=== PATIENT | female | born 1940 | race Caucasian/White ===

== ENCOUNTER 2016-12-17 05:56 | Inpatient (IN) | payer MEDICARE ==
--- OUTSIDE RECORDS SUMMARY | 2016-12-17 05:59 | XMS | Clinical Summary ---
:1940 Author Organization [facility] Address [address] [place] [address] Phone Care Team Providers Name Role Phone , Primary Care Provider Unavailable Allergies Not on File Current Medications Not on file Active Problems Not on file Social History Tobacco Use Types Packs/Day Years Used Date Never Assessed Sex Assigned at Date Recorded Not on file Last Filed Vital Signs Not on file Plan of Treatment Not on file Results Not on filefrom Last 3 Months
[2016-12-17] MEDS ORDERED: Diazepam 5 MG TAB ONE (06:48)
[2016-12-17] MEDS ORDERED: Diazepam 5 MG TAB PO SCH (07:00)
[2016-12-17] MEDS ORDERED: Midazolam HCl 2 mg/2 ml Vial ONE ×2 (07:24→12:58)
[2016-12-17] MEDS ORDERED: Fentanyl 100 MCG/2 ML VIAL ONE (07:25)
[2016-12-17] MEDS ORDERED: Nitroglycerin 100MG/250ML BOT 250 ML ONE (08:03)
[2016-12-17] MEDS ORDERED: Heparin 10,000 UNITS/1 ML VIAL ONE (08:19)
[2016-12-17] MEDS ORDERED: Furosemide 20 MG/2 ML VIAL ONE (08:39)
[2016-12-17] MEDS ORDERED: Nitroglycerin 2% Ointment 1 INCH/1 GM Packet ONE (08:49)
[2016-12-17] MEDS ORDERED: Nitroglycerin 2% Ointment 1 INCH/1 GM Packet TOP SCH (09:45)
[2016-12-17] MEDS ORDERED: Furosemide 40 MG/4 ML VIAL SLOW IVP SCH (09:45)
[2016-12-17 09:58] LABS: Troponin I 0.043 ng/mL (< 0.028)
[2016-12-17] MEDS ORDERED: Diazepam 5 MG TAB PO PRN (11:04)
[2016-12-17] MEDS ORDERED: Communication Order-Pharmacy FS ONE (11:04)
[2016-12-17] MEDS ORDERED: Vancomycin HCl 1.5 GM in Sodium Chloride 0.9% 250 ML 300 ML IVPB SCH (11:15)
[2016-12-17] MEDS ORDERED: Nitroglycerin 0.4 MG TAB (25 Tab Bottle) SL PRN (11:42)
[2016-12-17] MEDS ORDERED: traMADol HCl 50 MG TAB ONE (11:42)
[2016-12-17] MEDS ORDERED: Acetaminophen/Codeine 30-300mg Tablet PO PRN ×2 (11:42)
[2016-12-17] MEDS ORDERED: Potassium Chloride 8 MEQ TAB PO SCH ×2 (11:45→18:30)
[2016-12-17 12:43] LABS: Troponin I 0.421 ng/mL (< 0.028)
[2016-12-17] MEDS ORDERED: Morphine Sulfate 2 MG/ML SYRINGE SLOW IVP SCH (12:45)
[2016-12-17] MEDS ORDERED: Morphine Sulfate 2 MG/ML SYRINGE ONE (12:48)
[2016-12-17] MEDS ORDERED: Midazolam HCl 2 mg/2 ml Vial IVP SCH (13:00)
[2016-12-17] MEDS ORDERED: Acetaminophen/Codeine 30-300mg Tablet ONE (17:32)
--- NOTE | 2016-12-17 17:55 | CT ---
CT CHEST NONCONTRAST: History: Pre op. Aortic stenosis. Comparison: 04-07-13 FINDINGS: Small amount of bilateral pleural fluid is similar in appearance to the previous exam. Subtle patchy airspace disease at the posterior aspect of each upper lobe and each lower lobe has progressed slig htly. No pneumothorax is evident. There is bovine origin of the great vessels from the aortic arch. Calcification is present within th e arterial structures. A lobulated soft tissue density mass between the krystal or the trachea and the aortic root is 4.3 cm greatest transverse diameter where it was 3.0 cm on the previous study. Prominent lymph nodes at th e subcarinal level are stable. The ascending aorta is 3.9 cm in AP diameter. Within the partially visualized upper abdomen, contrast material within the urinary collecting syste m and gallbladder are likely related to recent catheterization procedure. IMPRESSION: 1. Ascending aorta is of normal caliber. 2. Slow enlargement of the mediastinal adenopathy, most pronounced at the precarinal level, as detai led above. 3. Small bilateral pleural effusions. Slight interval progression of bibasilar airspace disease. 4. Atherosclerosis. Findings were called to Dr. Hewitt at 1733 hours. Code CR POS: [facility]
[2016-12-17] MEDS ORDERED: Lorazepam 1 MG TAB PO SCH (18:15)
[2016-12-17] MEDS ORDERED: Cyclobenzaprine 10 MG TAB PO SCH (18:30)
[2016-12-17] MEDS ORDERED: Dextrose 5% in Water 1,000 ML IV PRN (18:40)
[2016-12-17] MEDS ORDERED: Dextrose 50% Abboject 50 ML SYRINGE IVP PRN (18:40)
[2016-12-17 18:51] LABS: Troponin I 6.103 ng/mL (< 0.028)
[2016-12-17] MEDS ORDERED: Insulin Regular 300 UNITS/3 ML VIAL SC PRN (18:53)
[2016-12-17] MEDS: Sodium Chloride 0.9% 1,000 ML IV SCH ×2 (20:53→23:48)
[2016-12-17] MEDS: Carvedilol 6.25 MG TAB PO SCH (20:56)
[2016-12-17] MEDS: Gabapentin 300 MG CAP PO SCH (20:56)
[2016-12-17] MEDS ORDERED: Atorvastatin Calcium 10 MG TAB PO SCH (21:00)
[2016-12-17] MEDS ORDERED: Iopamidol 370 76% 100 ML VIAL ONE (23:06)
--- NOTE | 2016-12-18 01:39 | CON ---
DATE OF CONSULTATION: 12/17/2016 REASON FOR CONSULTATION: Evaluate patient for aortic valve replacement and coronary artery bypass maisha thornton. HISTORY OF PRESENT ILLNESS: Ms. Ballard presented for elective cardiac catheterization today. She was found on catheterization of aortic valve area of 0.8, the ejection fraction of approximately 55% - 60%. She had proximal LAD disease of approximately 70%. The peak-peak gradient was 25, I have been asked to see her to discuss aortic valve replacement and coronary bypass grafting. PAST MEDICAL HISTORY: 1. Diabetes mellitus. 2. Hypertension. 3. Dyslipidemia. 4. Aortic stenosis. 5. Coronary artery disease. PAST SURGICAL HISTORY: 1. Hysterectomy. 2. Gastric surgeries. 3. Carpal tunnel. CURRENT MEDICATIONS: Tonsillectomy. ALLERGIES: PENICILLIN and SULFA. REVIEW OF SYSTEMS: Ten-point review of systems is performed and is negative except as above. PHYSICAL EXAMINATION: GENERAL: This is a well-developed, well-nourished elderly woman, resting comfortably in bed. VITAL SIGNS: Her temperature is 98.8, pulse is 70 and regular blood pressure is 130/76. HEENT: Sclerae nonicteric. Pupils equal, round bilaterally. NECK: Supple. There are bilateral soft carotid bruits. CHEST: Has bilateral rhonchi. HEART: Rhythm is regular. She has a harsh aortic systolic ejection murmur. ABDOMEN: Moderately obese, soft and nontender. EXTREMITIES: No edema. VASCULAR: She has palpable carotid, radial, femoral, and dorsalis pedis pulses bilaterally. VENOUS: There are no venous varicosities or venous stasis changes. ASSESSMENT AND PLAN: This is a very pleasant 76-year-old woman with severe aortic stenosis and sing le vessel coronary disease. I have discussed aortic valve replacement with bioprosthetic valve and coronary artery bypass grafting with mammary artery to LAD. She is agreeable to proceed. I have obtained a CT of her chest for valve sizing information. This is a level 4R lymph node , whi ch may be accessible at the time of coronary artery bypass grafting. We will see if we can access t his for biopsy at that time.
[2016-12-18] MEDS: Carvedilol 6.25 MG TAB PO SCH (05:58)
[2016-12-18] MEDS ORDERED: Vancomycin HCl 1.5 GM in Sodium Chloride 0.9% 250 ML 300 ML IVPB SCH (06:00)
[2016-12-18] MEDS ORDERED: Dexmedetomidine 200 MCG/2 ML VIAL ONE (06:39)
[2016-12-18] MEDS ORDERED: Norepinephrine 8 MG/0.9% NS 250 ML ONE (06:39)
[2016-12-18] MEDS ORDERED: Midazolam HCl 2 mg/2 ml Vial ONE (06:39)
[2016-12-18] MEDS ORDERED: Midazolam HCl 5 mg/5 ml Vial ONE (06:39)
[2016-12-18] MEDS ORDERED: Fentanyl 100 MCG/2 ML VIAL ONE (06:39)
[2016-12-18] MEDS ORDERED: Vecuronium 10 MG VIAL ONE ×2 (06:39→07:47)
[2016-12-18] MEDS ORDERED: Heparin 10,000 UNITS/1 ML VIAL 30,000 UNITS in Sodium Chloride 0.9% 1,000 ML FS SCH (07:00)
[2016-12-18] MEDS ORDERED: Propofol 200 MG/20 ML VIAL ONE (07:47)
[2016-12-18] MEDS ORDERED: Lidocaine 2% PF 10 ML AMP (For Epidural Use) ONE (07:47)
[2016-12-18] MEDS ORDERED: Potassium Chloride 10 MEQ TAB PO SCH (08:00)
[2016-12-18] MEDS ORDERED: Insulin Regular 300 UNITS/3 ML VIAL ONE (08:43)
[2016-12-18] MEDS ORDERED: INSULIN DEGLUDEC SC SCH (09:00)
[2016-12-18] MEDS ORDERED: Furosemide 40 MG TAB PO SCH (09:00)
[2016-12-18] MEDS ORDERED: Pioglitazone HCl 45 MG TAB PO SCH (09:00)
[2016-12-18] MEDS ORDERED: Aspirin 325 MG TAB PO SCH (09:00)
[2016-12-18] MEDS ORDERED: Prenatal Vitamin 1 TAB PO SCH (09:00)
[2016-12-18] MEDS ORDERED: Calcium Carbonate + Vit D 1 TAB PO SCH (09:00)
[2016-12-18] MEDS ORDERED: Lactinex Tablet PO SCH (09:00)
[2016-12-18] MEDS ORDERED: PHENYLEPHRINE-NS 100 MCG/ML 10 ML SYRINGE ONE (09:16)
[2016-12-18] MEDS ORDERED: Acetaminophen 325 MG TAB PO PRN (12:06)
[2016-12-18] MEDS ORDERED: SLIDING SCALE FS ONE (12:06)
[2016-12-18] MEDS ORDERED: Promethazine HCl 25 MG/ML VIAL IM PRN (12:06)
[2016-12-18] MEDS ORDERED: Bisacodyl 10 MG SUPP PR PRN (12:06)
[2016-12-18] MEDS ORDERED: Mag-Al 1200 mg/1200 mg/30 ML UDCUP PO PRN (12:06)
[2016-12-18] MEDS ORDERED: Nitroglycerin 50 MG/250 ML BOT 250 ML IVPB PRN (12:06)
[2016-12-18] MEDS ORDERED: CCU Insulin Drip FS ONE (12:06)
[2016-12-18] MEDS ORDERED: Fentanyl 100 MCG/2 ML VIAL SLOW IVP PRN ×2 (12:06)
[2016-12-18] MEDS ORDERED: HYDROcodone/Acetaminophen 5/325 mg Tablet PO PRN (12:06)
[2016-12-18] MEDS ORDERED: Norepinephrine 8 MG/0.9% NS 250 ML IVPB PRN (12:06)
[2016-12-18] MEDS ORDERED: Bisacodyl 5 MG TAB PO PRN (12:06)
[2016-12-18] MEDS ORDERED: Hetastarch 6% 500 ML 500 ML IVPB PRN (12:06)
[2016-12-18] MEDS ORDERED: D5 1/2 NS w/20 mEq KCL 1,000 ML IV SCH (12:06)
[2016-12-18] MEDS ORDERED: Dextrose 50% Abboject 50 ML SYRINGE SLOW IVP PRN (12:30)
[2016-12-18] MEDS ORDERED: Magnesium 2 GM/NS 0.9% 100 ML 2 GM in Premix Bag 1 BAG IVPB SCH (12:30)
[2016-12-18] MEDS ORDERED: Dextrose 5% in Water 1,000 ML IV PRN (12:30)
[2016-12-18 12:38] LABS: Oxyhemoglobin 94.7 % (94.0-97.0); Sodium 138 mmol/L (135-148)
[2016-12-18 12:40] LABS: Mechanical Tidal Volume 500 ml; Vent YES
[2016-12-18 12:41] LABS: Mode SIMV; Pressure Support 10 cmH2O
[2016-12-18 12:42] LABS: Hematocrit 35.3 % (36.0-47.0); Mean Platelet Volume 7.8 fL (7.4-10.4); Red Blood Cell (RBC) Count 3.95 mill/uL (4.20-5.40); White Blood Cell (WBC) Count 20.7 thou/uL (4.8-10.8)
[2016-12-18 12:57] LABS: Band 26 % (5-11); Myelocyte 3 % (0-0); Neutrophil 55 % (42-75); Reactive Lymphocytes 1 % (0-10)
[2016-12-18 13:10] LABS: Anion Gap 9 mmol/L (10-20); BUN (Urea Nitrogen) 14 mg/dL (9.8-20.1); Calc. Creatinine Clearance 120 mL/min (70-130); Calcium 7.7 mg/dL (7.8-10.44); Carbon Dioxide 23 mmol/L (23-31); Chloride 108 mmol/L (98-107); Estimated GFR-MDRD Greater than 90
--- NOTE | 2016-12-18 13:38 | OP ---
DATE OF PROCEDURE: 12/18/2016 PREOPERATIVE DIAGNOSES: Aortic stenosis/coronary disease/ hyperlipidemia/ diabetes mellitus. POSTOPERATIVE DIAGNOSES: Aortic stenosis/coronary disease/ hyperlipidemia/ diabetes mellitus. PROCEDURES: 1. Aortic valve replacement with #21 Intuity bioprosthetic valve. 2. Coronary bypass grafting x1 - Left internal mammary artery to 2.0 mm left anterior descending. SURGEON: Kenneth Hewitt M.D. ANESTHESIA: General endotracheal, Dr. Adan Stallworth and Dr. Graham Lynn. PUMP TIME: 101 minutes. CROSS-CLAMP TIME: 68 minutes. LOW CORE TEMP: 32-degree Celsius. PHP DEVELOPER: Radha Langston DRAINS: 24-Romansh chest tubes x2. DRIPS: Levophed at 2 mcg/kg per minute. TRANSFUSIONS: None. PROCEDURE IN DETAIL: After consent was obtained, the patient was brought to the operating room and placed in the supine position on the operating room table. Appropriate anesthetic monitor was placed and general endotracheal anesthesia induced. Chest, abdomen, and legs were prepped and draped in usual sterile fashion. Median sternotomy was performed. Left internal mammary artery was harvested as a pedicle graft. The patient was systemically heparinized. Distal pedicle was divided and infused with papaverine. Thymic fat and pericardium were divided with electrocautery. Pericardial stay sutures were placed. Aortic and atrial cannulation was performed. After adequate heparinization, retrograde prime was performed. The patient was placed on cardiopulmonary bypass. Distal targets were marked. Left ventricular sump drain was placed to the right superior pulmonary vein. The aorta cross-clamp was applied and antegrade sanguinous cardioplegic arrest obtained. One liter of antegrade cold cardioplegia was given. Topical cold solution was used. Mammary artery was anastomosed to the LAD in end-to-side fashion with running 7- 0 Prolene suture. On release of the mammary clamp, there was good coronel putting in the anastomosis and good distal flow. Pedicle was secured with interrupted 6 -0 Prolene suture. Mammary was reclamped. C)2 was infused in the pericardial well. A transverse hockey stick aortotomy was then created. The aortic valve was inspected. It was a 3 leaflet valve that was heavily calcified at hinge points. The valve was debrided. Annulus was decalcified. Valve measured is a #21. An Intuity #21 valve was then washed. Jerome sutures were placed and passed through the valve sewing ring. The valve was then seated and secured in place with Rumel tourniquets. The valve balloon was inflated to 4-1/2 mmHg for 10 seconds. The valve balloon was released and the handle removed. At the mid non to mid right commissure, the valve did not appear to be completely seated. Six nonpledgeted 4-0 Prolene sutures were placed to secure the valve through the sewing ring in the annulus. All sutures were then tied. Aortotomy was closed with a pledgeted running 2 layer 4-0 Prolene suture. De-airing maneuvers were performed. The patient was warmed and weaned from cardiopulmonary bypass. The mammary artery clamp was removed. After resumption of sinus rhythm, good hemodynamics, and temperature greater than 36.5 , bypass was discontinued. Venous cannula was removed and its pursestring sutures secured. The valve was interrogated with transesophageal echocardiogram. There was no perivalvular leak. The valve was seated nicely and there was good valvular function. The ventricle had circumferential squeeze. The ejection fraction was approximately 60%. Protamine was administered. Hemostasis was ensured. Aortic cannula was removed and its pursestring sutures secured. The aortic cannulation site was reinforced with 4- 0 Prolene suture. The posterior pericardium was opened medial to the superior vena cava. There was a large lymph node noted on CT which was biopsied and specimen sent for routine pathologic exam. Hemostasis was again ensured in the mediastinum. A 24 -Romansh chest tubes x2 were placed in the mediastinum. The sternum was treated with vancomycin paste. After adequate hemostasis had been obtained, the sternum was closed with #5 wire. Sternum was treated with platelet-rich plasma and wires twisted. Wounds were then copiously irrigated, treated with platelet- poor plasma, and closed in multiple layers. The patient tolerated the procedure well and was transferred to the Intensive Care Unit in stable, but critical condition. MOIZ
[2016-12-18] MEDS: Ketorolac Tromethamine 30 MG/ML VIAL IVP SCH ×3 (13:39→23:11)
[2016-12-18] MEDS ORDERED: DOPamine 400 MG/D5W 250 ML 250 ML ONE (14:36)
--- NOTE | 2016-12-18 14:38 | RAD ---
PORTABLE AP CHEST: Date: 12-18-16 History: Post open heart surgery. Comparison: 01-09-16 FINDINGS: There have been interval post-surgical changes related to median sternotomy and cardiac valve replac ement. There are prominent calcifications of the mitral valve annulus. Endotracheal tube is noted in place with tip overlying the T4-5 level and above the level of the car daren. Left subclavian central venous catheter is noted in place, the tip overlying the right atrium. Mediastinal drains and left sided thoracostomy tube are noted in place. There is increased perihilar interstitial densities which may be related to volume status or mild pulmonary edema. Parenchymal o pacity in the left midlung zone seen on the prior study is not present on this study. There is atele ctasis present at each lung base. No other interval change. IMPRESSION: 1. Interval post-surgical changes related to cardiac valve replacement. 2. Lines and tubes in place as described above. 3. Increased perihilar interstitial densities which may be related to volume status. Continued follo w up is recommended. POS: [facility]
[2016-12-18] MEDS: Ondansetron HCl/PF 4 MG/2 ML Vial IVP PRN (14:47)
[2016-12-18] MEDS: Morphine Sulfate 2 MG/ML SYRINGE SLOW IVP PRN ×2 (14:48→16:27)
[2016-12-18] MEDS ORDERED: DOPamine 400 MG/D5W 250 ML 250 ML IVPB SCH (15:00)
[2016-12-18 18:16] LABS: Hematocrit 29.8 % (36.0-47.0)
[2016-12-18] MEDS: Gabapentin 300 MG CAP PO SCH (18:37)
--- NOTE | 2016-12-18 18:47 | PDOC.CTH ---
Cardiology Progress Note - Subjective INtubated and sedated. Pt recnetly underwent CABG, AVR. On norepinephrine wih BP of 140's - ROS not able to obtain ROS - Objective Vital Signs Temp Pulse Resp Pulse Ox 12/18/16 17:00 99.0 F 12/18/16 14:29 70 12/18/16 12:42 78 12/18/16 12:22 98.8 F 70 12 100 Weight 203 lb 4.259 oz 12/17/16 12/18/16 12/19/16 06:59 06:59 06:59 Intake Total 600 1717 Output Total 2325 355 Balance -1725 1362 - Physical Examination Neck: carotid US brisk, no JVD present Lungs: CTA, unlabored respirations Heart: PMI normal, RRR Abdomen: no HSM, NT/ND, soft - Telemetry Telemetry Rhythm: ST - Labs Result Diagrams: 12/18/16 18:08 12/18/16 18:08 Troponin/CKMB CK-MB (CK-2) 32.8 ng/mL (0-6.6) H* 12/17/16 18:08 Troponin I 6.103 ng/mL (< 0.028) H* 12/17/16 18:08 Labs: O/W CBC wnl - Assessment/Plan 1. Severe 2. Moderate to severe LAD disease 3. Recent NQWMI CV status stable. Wean off norepinephrine Increase troponin from yesterday likely related to emboli from crossing AV Pulmonary support
[2016-12-18] MEDS: Vancomycin HCl 1.5 GM in Sodium Chloride 0.9% 250 ML 300 ML IVPB SCH (20:25)
[2016-12-18] MEDS ORDERED: Famotidine 40 MG/4 ML VIAL SLOW IVP SCH (21:00)
[2016-12-19] MEDS: HYDROcodone/Acetaminophen 5/325 mg Tablet PO PRN ×3 (01:59→20:03)
[2016-12-19 04:00] LABS: Anion Gap 12 mmol/L (10-20); BUN (Urea Nitrogen) 18 mg/dL (9.8-20.1); Calc. Creatinine Clearance 102 mL/min (70-130); Calcium 7.8 mg/dL (7.8-10.44); Carbon Dioxide 19 mmol/L (23-31); Chloride 107 mmol/L (98-107); Estimated GFR-MDRD 82
[2016-12-19 04:14] LABS: #Eosinphils 0.1 thou/uL (0.0-0.7); #Lymphocytes 2.1 thou/uL (1.20-3.40); #Monocytes 1.3 thou/uL (0.11-0.59); #Neutrophils 6.5 thou/uL (1.40-6.50); %Basophils 0.3 % (0.0-1.0); %Eosinophils 1.3 % (0.0-10.0); %Monocytes 12.8 % (0.0-10.0); Hematocrit 27.6 % (36.0-47.0); Mean Platelet Volume 8.2 fL (7.4-10.4); Red Blood Cell (RBC) Count 3.09 mill/uL (4.20-5.40)
[2016-12-19] MEDS: Ketorolac Tromethamine 30 MG/ML VIAL IVP SCH ×3 (05:02→17:37)
[2016-12-19] MEDS: glipiZIDE 5 MG TAB PO SCH ×3 (07:45→16:42)
--- NOTE | 2016-12-19 08:37 | RAD ---
PORTABLE UPRIGHT FRONTAL CHEST RADIOGRAPH: Date: 12-19-16 Comparison: 12-18-16 History: Evaluate chest following open heart surgery. FINDINGS: Midline sternotomy wires are present. Mechanical valve overlies mid cardiac silhouette suggesting re cent aortic valve replacement. There is a drainage catheter overlying the midline mediastinum and th e left hemithorax. The endotracheal tube has been removed since the prior exam. There is a stable ri ght sided vascular catheter, distal tip approaching the junction of the right atrium and IVC. There is patchy opacity in both lung bases, left greater than right, likely on the basis of volume loss. F ollow up to resolution advised. IMPRESSION: Post-operative changes as detailed above. Increased density noted in both lung bases, left greater t conner right. POS: [facility]
[2016-12-19] MEDS: Gabapentin 300 MG CAP PO SCH ×2 (08:39→20:04)
[2016-12-19] MEDS: Aspirin 325 MG TAB PO SCH (08:40)
[2016-12-19] MEDS: Prenatal Vitamin 1 TAB PO SCH (08:40)
[2016-12-19] MEDS: Magnesium 2 GM/NS 0.9% 100 ML 2 GM in Premix Bag 1 BAG IVPB SCH (08:40)
[2016-12-19] MEDS: Pioglitazone HCl 45 MG TAB PO SCH (08:41)
[2016-12-19] MEDS: Vancomycin HCl 1.5 GM in Sodium Chloride 0.9% 250 ML 300 ML IVPB SCH (08:44)
--- NOTE | 2016-12-19 08:55 | PDOC.CTH ---
Cardiology Progress Note - Subjective Pt doing well this am. Pt is extubated and off pressors. Only c/o CWP - Objective Vital Signs Temp Pulse Resp Pulse Ox 12/19/16 07:15 98.7 F 80 22 H 96 12/19/16 07:00 98.7 F 12/19/16 03:00 98.1 F 12/18/16 23:00 98.6 F Weight 202 lb 2.622 oz 12/18/16 12/19/16 12/20/16 06:59 06:59 06:59 Intake Total 600 2663 Output Total 2325 955 40 Balance -1725 1708 -40 - Physical Examination General/Neuro: alert & oriented x3, NAD Neck: carotid US brisk, no JVD present Lungs: CTA, unlabored respirations Heart: PMI normal Abdomen: no HSM, NT/ND - Telemetry Telemetry Rhythm: SR with PAC - Labs Result Diagrams: 12/19/16 03:19 12/19/16 03:19 Troponin/CKMB CK-MB (CK-2) 32.8 ng/mL (0-6.6) H* 12/17/16 18:08 Troponin I 6.103 ng/mL (< 0.028) H* 12/17/16 18:08 Labs: O/W CBC wnl - Assessment/Plan 1. Severe 2. Moderate to severe LAD disease 3. Recent NQWMI 3. Hypotension Recommend holding BB for now given low BP IS CT removed. Await biopsy results Bed to chair Statin treatment Avoid IV lasix if possble secondary to leg cramps
[2016-12-19] MEDS: Ondansetron HCl/PF 4 MG/2 ML Vial IVP PRN ×2 (08:59→20:05)
[2016-12-19] MEDS ORDERED: IRON PO SCH (09:00)
[2016-12-19] MEDS ORDERED: PNV CMB PO SCH (09:00)
[2016-12-19] MEDS ORDERED: METFORMIN HCL PO SCH (09:00)
[2016-12-19] MEDS ORDERED: FOLIC ACID PO SCH (09:00)
[2016-12-19] MEDS ORDERED: [UNRECOGNIZED DRUG - OTHER] PO SCH (09:00)
[2016-12-19] MEDS ORDERED: GLIPIZIDE PO SCH (09:00)
[2016-12-19] MEDS ORDERED: Gabapentin 300 MG CAP PO SCH (09:00)
[2016-12-19 14:10] LABS: Base Excess 0.5 mEq/L (0 (+/- 2.5)); O2 Content (venous) 7.4 VOL% (12.5-17.5); pH (venous) 7.385 (7.35-7.45)
[2016-12-19 14:10] LABS: Oxyhemoglobin 97.5 % (94.0-97.0); Sodium 136 mmol/L (135-148)
[2016-12-19 14:10] LABS: Oxyhemoglobin 97.6 % (94.0-97.0); Sodium 135 mmol/L (135-148)
[2016-12-19 14:11] LABS: Oxyhemoglobin 97.5 % (94.0-97.0); Sodium 134 mmol/L (135-148)
[2016-12-19 14:11] LABS: Oxyhemoglobin 97.4 % (94.0-97.0); Sodium 136 mmol/L (135-148)
[2016-12-19 14:11] LABS: Oxyhemoglobin 97.6 % (94.0-97.0); Sodium 136 mmol/L (135-148)
[2016-12-19] MEDS: Insulin Regular 300 UNITS/3 ML VIAL SC PRN (16:13)
[2016-12-19 17:56] LABS: Mode OR ABG; Vent YES
[2016-12-19 17:56] LABS: Mode OR ABG; Vent YES
[2016-12-19 17:57] LABS: Mode OR ABG; Vent YES
[2016-12-19 17:58] LABS: Mode OR ABG; Vent YES
[2016-12-19 17:59] LABS: Mode OR ABG; Vent YES
[2016-12-19] MEDS: Atorvastatin Calcium 10 MG TAB PO SCH (20:04)
[2016-12-19] MEDS ORDERED: Non-Formulary Item 1 EACH (Lovastatin [Altoprev] 40 MG) PO SCH (21:00)
[2016-12-19] MEDS ORDERED: DOPamine 400 MG/D5W 250 ML 250 ML ONE (22:12)
[2016-12-19] MEDS ORDERED: Phenylephrine 10 MG/NS 250 ML 250 ML ONE (22:35)
[2016-12-19 22:37] LABS: Oxyhemoglobin 95.4 % (94.0-97.0); Sodium 133 mmol/L (135-148)
[2016-12-19] MEDS ORDERED: Midazolam HCl 2 mg/2 ml Vial ONE ×2 (22:55→23:42)
--- NOTE | 2016-12-19 22:58 | RAD ---
CHEST ONE VIEW: 12/19/16 HISTORY: Code Blue. Chest pain. COMPARISON: 12/19/16 at 0458 hours. FINDINGS: Cardiac silhouette is magnified and enlarged. Pulmonary vasculature is engorged with widespread patc hy air space opacification. Mediastinum is midline with postoperative changes. Right subclavian cent ral venous catheter remains in place. Defibrillator patch projects over the chest. Left thoracostomy tube has been removed. IMPRESSION: Developing pulmonary edema. POS: [facility]
[2016-12-19 23:00] LABS: Critical Call Chem Troponin I RESULT DECREASING; Troponin I 4.251 ng/mL (< 0.028)
[2016-12-19] MEDS ORDERED: Atropine Sulfate 1 mg/10 ml Syringe ONE (23:10)
[2016-12-19 23:17] LABS: Anion Gap 16 mmol/L (10-20); BUN (Urea Nitrogen) 30 mg/dL (9.8-20.1); Calc. Creatinine Clearance 39 mL/min (70-130); Calcium 8.3 mg/dL (7.8-10.44); Carbon Dioxide 16 mmol/L (23-31); Chloride 103 mmol/L (98-107); Estimated GFR-MDRD 27; Magnesium 2.5 mg/dL (1.6-2.6); Phosphorus 4.4 mg/dL (2.3-4.7)
--- NOTE | 2016-12-19 23:18 | CON ---
DATE OF CONSULTATION: 12/19/2016 HISTORY OF PRESENT ILLNESS: Ms. Ballard is a very pleasant 76-year-old female who had undergone aortic valve replacement with a #21 Intuity bioprosthetic valve and coronary artery bypass grafting from [facility] to her LAD. She is extubated, sitting in a chair and actually ambulated a short distance. She had a CT scan done on the showing small pleural effusions. She had lymph nodes in her subcarinal area. Her CAT scan was compared to a 2013 scan and it was the radiologist's impression that maybe the [facility] nodes were slightly enlarged compared to 2013. She did have the lymph node abnormalities 4 years ago. She is asymptomatic from that standpoint. She says the only symptom she has been having lately has been lack of energy. She says she gets home from work and sits and she falls asleep in the chair. She did have some dyspnea on exertion. She had an extensive workup in the past for balance issues, seeing multiple specialists in this area and going to [place] as well and nobody ever gave her firm diagnosis. She was not falling accordin g to the , but said there was period of time when she had to walk he had to hang onto her. PAST MEDICAL HISTORY: Remarkable for diabetes, hypertension, lipid disorder, hysterectomy, history of stomach surgery in the past, history of carpal tunnel. SOCIAL HISTORY: She is a nonsmoker and nondrinker. ALLERGIES: Reports PENICILLIN and SULFA allergies. MEDICATIONS: Have been reviewed. REVIEW OF SYSTEMS: Otherwise negative. Her sternums are a little sore, but better than yesterday. PHYSICAL EXAMINATION: VITAL SIGNS: Heart rate 74, blood pressure 113/36, respiratory rate is 19, oximetry is 98%. HEENT: Pupils are equal. Sclerae is anicteric. NECK: Supple. No lymphadenopathy. LUNGS: Clear. HEART: Regular rhythm. S1 and S2 are audible. ABDOMEN: Soft and nontender. EXTREMITIES: Without asymmetry. LABORATORY DATA: White count 10, hemoglobin 8.8 and platelets 173. Sodium 134, potassium 4.2, chlo ride 107, bicarbonate 19, BUN 18 and creatinine 0.7. IMPRESSION: Mediastinal lymph nodes of unclear etiology. One lymph node was biopsied during the woodward rgery, so we will see what pathology reveals. I suspect this will be benign and chronic either old granulomatous disease or an old sarcoid. I will be happy to follow along with the other physicians caring for her.
--- NOTE | 2016-12-19 23:25 | RAD ---
CHEST ONE VIEW: Date: 12/19/16 Time: 2310 hours HISTORY: Intubation. COMPARISON: Earlier exam on the same date. FINDINGS/IMPRESSION: Tip of an endotracheal catheter overlies the thoracic inlet. Pulmonary vascular congestion and other findings are otherwise stable. POS: [facility]
[2016-12-19] MEDS ORDERED: Ventilator Sedation Protocol 1 EACH FS SCH (23:45)
[2016-12-19] MEDS ORDERED: Norepinephrine 8 MG/0.9% NS 250 ML IVPB SCH (23:45)
[2016-12-20] MEDS ORDERED: DISCONTINUE PREVIOUS NARCOTIC PAIN MEDICATIONS AND BENZODIAZEPINES FS SCH (00:05)
[2016-12-20] MEDS ORDERED: Fentanyl 20 MCG/ML 250 ML IVPB SCH (00:05)
[2016-12-20] MEDS ORDERED: Lorazepam 2 MG/ML VIAL SLOW IVP PRN (00:05)
[2016-12-20] MEDS ORDERED: Morphine Sulfate 2 MG/ML SYRINGE SLOW IVP PRN (00:05)
[2016-12-20 00:06] LABS: Mode NRB; Modified Allen's Test POSITIVE
[2016-12-20 00:09] LABS: Oxyhemoglobin 95.5 % (94.0-97.0); Sodium 135 mmol/L (135-148); Vent YES
[2016-12-20 00:10] LABS: Mechanical Tidal Volume 500 ml; Mode SIMV; Pressure Support 10 cmH2O
[2016-12-20 04:36] LABS: #Basophils 0.1 thou/uL (0.0-0.2); #Eosinphils 0.1 thou/uL (0.0-0.7); #Lymphocytes 2.5 thou/uL (1.20-3.40); #Monocytes 1.3 thou/uL (0.11-0.59); #Neutrophils 7.5 thou/uL (1.40-6.50); %Basophils 0.8 % (0.0-1.0); %Eosinophils 0.8 % (0.0-10.0); %Lymphocytes 21.9 % (21.0-51.0); %Monocytes 11.4 % (0.0-10.0); Hematocrit 25.8 % (36.0-47.0); Mean Platelet Volume 8.2 fL (7.4-10.4); Red Blood Cell (RBC) Count 2.93 mill/uL (4.20-5.40); White Blood Cell (WBC) Count 11.6 thou/uL (4.8-10.8)
[2016-12-20 05:10] LABS: Anion Gap 13 mmol/L (10-20); BUN (Urea Nitrogen) 33 mg/dL (9.8-20.1); Calc. Creatinine Clearance 58 mL/min (70-130); Calcium 8.2 mg/dL (7.8-10.44); Carbon Dioxide 20 mmol/L (23-31); Chloride 105 mmol/L (98-107); Estimated GFR-MDRD 42
[2016-12-20] MEDS: DOPamine 400 MG/D5W 250 ML 250 ML IVPB SCH (06:06)
[2016-12-20] MEDS: Phenylephrine 10 MG/NS 250 ML 250 ML IVPB SCH ×3 (06:06→11:57)
[2016-12-20] MEDS ORDERED: Furosemide 20 MG/2 ML VIAL SLOW IVP SCH (07:15)
[2016-12-20] MEDS: Magnesium 2 GM/NS 0.9% 100 ML 2 GM in Premix Bag 1 BAG IVPB SCH (08:36)
[2016-12-20] MEDS: Aspirin 325 MG TAB PO SCH ×2 (08:37→11:56)
[2016-12-20] MEDS: Pioglitazone HCl 45 MG TAB PO SCH (08:37)
[2016-12-20] MEDS: Gabapentin 300 MG CAP PO SCH ×3 (08:37→21:59)
[2016-12-20] MEDS: glipiZIDE 5 MG TAB PO SCH ×3 (08:37→16:03)
[2016-12-20] MEDS: Prenatal Vitamin 1 TAB PO SCH ×2 (08:38→11:55)
--- NOTE | 2016-12-20 09:31 | RAD ---
FRONTAL RADIOGRAPH CHEST: 12/20/2016 HISTORY: Evaluate chest following open heart surgery. COMPARISON: 12/19/2016 FINDINGS: Endotracheal tube, right-sided vascular catheter, mechanical cardiac valve, and midline sternotomy w ires are unchanged. There is no pneumothorax evident. There is pulmonary vascular congestion with associated increased density in the bilateral perihilar regions. There is dense consolidation/collapse of the left lower lobe and patchy opacities within t he right lower lobe, not significantly changed. IMPRESSION: Stable appearance of the chest. POS: [facility]
[2016-12-20] MEDS: Dextrose 5 % And 0.9 % NaCl 1,000 ML IV SCH ×2 (13:34→22:00)
[2016-12-20] MEDS: Insulin Regular 300 UNITS/3 ML VIAL SC PRN (16:02)
--- NOTE | 2016-12-20 17:54 | PRG ---
DATE OF SERVICE: 12/20/2016 SUBJECTIVE: Ms. Ballard apparently had a bradycardic rhythm requiring temporary pacemaker placement la night. She has been mechanically ventilated now. OBJECTIVE: LUNGS: She has bilateral equal breath sounds. HEART: Regular rhythm. Abdomen: Soft. She is on schedule for permanent pacer tomorrow. VITAL SIGNS: Blood pressure 108/34, heart rate is 80, respiratory rate is 20. She is sedated for v entilation. LABORATORY DATA: White count 11.6, hemoglobin 8.4, platelets 179. Sodium 133, potassium 4.6, chlor alistair 105, bicarbonate 20, BUN 33, creatinine 1.24. IMPRESSION: Bradycardia after aortic valve replacement and coronary artery bypass grafting. PLAN: Pacer, then hopefully weaning and extubation.
--- NOTE | 2016-12-20 21:42 | PRG ---
DATE OF SERVICE: 12/20/2016 SUBJECTIVE: Ms. Ballard continues to be intubated. She is alert and answering questions and moving ap propriately. She is currently paced at 80 beats per minute. Her urine output has increased. Her c reatinine has also gone from 1.8 to 1.2. She continues to be pressure dependent, but is to continue to wean down over the morning. OBJECTIVE: GENERAL: The patient is currently intubated. VITAL SIGNS: Blood pressure 120/38, pulse 80, respirations 20. LUNGS: Clear to auscultation. CARDIAC: Regular rate and rhythm. ABDOMEN: Soft, nontender, nondistended. EXTREMITIES: No edema. PERTINENT LABS: Hemoglobin 8.4, creatinine 1.24. IMPRESSION: 1. Respiratory failure. 2. Complete heart block. 3. Status post aortic valve replacement. RECOMMENDATIONS: I have consulted with Dr. Loya on a pacemaker implant. He would like to wait unti l she is off the pressors. The pressors are continued to be weaned down. I have asked for 500 mL o f fluid. She is currently on albumin. Her hemoglobin appears stable. Anticipate pacemaker in a.m.
[2016-12-20] MEDS: Atorvastatin Calcium 10 MG TAB PO SCH (22:01)
[2016-12-20 22:29] LABS: Oxyhemoglobin 98.4 % (94.0-97.0); Sodium 136 mmol/L (135-148)
[2016-12-20 22:30] LABS: Mode BVM CODE BLUE; Modified Allen's Test NOT DONE; Vent YES
[2016-12-20] MEDS ORDERED: Atropine Sulfate 1 mg/10 ml Syringe ONE (22:36)
[2016-12-20] MEDS ORDERED: EPINEPHrine 1 MG, Admixture Fee 1 EACH in Dextrose 5% in Water 250 ML IVPB SCH ×3 (22:45)
[2016-12-20] MEDS ORDERED: Vancomycin HCl 500 MG VIAL ONE (23:18)
--- NOTE | 2016-12-21 00:04 | PRG ---
DATE OF SERVICE: 12/20/2016 SUBJECTIVE: Ms. Ballard had aortic valve replacement and [facility] to the LAD placed recently. She went into complete heart block and had to have a temporary pacemaker placed overnight yesterday. Today, a code blue was called at around 10:15 p.m. I went upstairs and she was in complete heart block. The temporary pacer had been dislodged and she was with a heart rate between 25 and 35 with blood pressure of 98/15. We did chest compressions. Briefly, as she did have asystole for a brief amount of time after which, we only did have chest compressions for about 2 minutes. She then again had complete heart block, but the heart rate was in the mid 30s same blood pressure, we increased the dopamine as much as possible. She received 1 dose of epinephrine and her heart rate picked up quite nicely to the 130s. Blood pressure went up to the 160s/ 90s. The phlebotomist lab assistant was activated to take her down for repositioning of a temporary pacemaker. Forty minutes were spent at bedside critical care for the patient. MOIZ
[2016-12-21] MEDS: Insulin Regular 300 UNITS/3 ML VIAL SC PRN ×5 (01:27→22:10)
--- NOTE | 2016-12-21 01:41 | CON ---
CRITICAL CARE NOTE DATE OF SERVICE: 12/19/2016 I was called about Ms. Ballard. She developed marked bradycardia and respiratory distress. She requir ed bagging. She was given atropine and was placed on dopamine. Her heart rate increased, but was i n the 40s. She is found to be in third degree AV block. I proceeded to her bedside. Dr. Miguel Ángel Martinez and Dr. Wilson were present. She was intermittentl y bagged due to hypoxia. We decided to electively intubate Ms. Ballard due to respiratory distress and continued bradycardia, hy potension and third degree AV block. There was also decided to proceed with temporary pacemaker. Dopamine was weaned due to tachycardia, but once patient was intubated she again develop third degre e AV block. She was transcutaneously paced. After temporary pacemaker was placed, stat echo was performed that revealed a normal LVEF with no pe ricardial effusion. Her came in from home and discussed the events of the evening. I did spent 80 minutes of critical care time, discussing Ms. Ballard's case in detail with Dr. Juan Wilson and additionally we have discuss the case with her .
--- NOTE | 2016-12-21 02:51 | CON ---
ELECTROPHYSIOLOGY CONSULTATION REPORT DATE OF CONSULTATION: 12/20/2016 REFERRING PHYSICIAN: Dr. Pieter Mcmullen. I am seeing Ms. Ballard at our [facility] ICU as an electrophysiology professional benefits sales consultant. Her problem s are: 1. Newly developed complete AV block in the setting of hypertension requirring status post aortic v alve replacement and coronary artery bypass grafting surgery 2 days ago. B. Requiring temporary pacemaker placement dependent and pressors. 2. History of aortic valve stenosis, 0.8 square cm, preop ejection fraction of 55% to 60%, Proximal LAD disease. 3. Coronary artery risk factors. A. Diabetes. B. Hypertension. C. Dyslipidemia. ALLERGIES: PENICILLIN and SULFA. MEDICATIONS: Currently include aspirin, Lipitor, dopamine , fentanyl, gabapentin, glipizide, N eo-Synephrine is still at 60 mcg per minute, magnesium sulfate, morphine sulfate, nitroglycerin, Zof ran, Protonix, phenylephrine and propofol. SUBJECTIVE: Ms. Ballard is here status post elective coronary artery bypass grafting surgery and aorti c valve replacement as noted above. Last night, she developed sudden hypotension and bradycardia wi th progressive development of AV block, eventually complete AV block was noted. This required press or initiation, dopamine, epenephrine, and eventually temporary pacemaker was also placed. She had r ecovered from the temporary pacemaker placement well, but requiring pressors this morning. She is w aking up, although still intubated. She is still 100% pacing dependent. OBJECTIVE: VITAL SIGNS: Currently, blood pressure is 100/50, respiration is 12 and heart rate 80. Patient is afebrile. GENERAL: responsive woman in no apparent distress. NECK: Supple. Jugular veins are not distended. CHEST: Coarse without crackles. is noted without reaction. CARDIOVASCULAR: Heart sounds are regular to rate and rhythm. No murmur or gallop. ABDOMEN: Benign. Bowel sounds are positive. EXTREMITIES: Lower extremities without edema, clubbing or cyanosis. DATABASE: The chest x-ray from last night reveals developing pulmonary edema. LABORATORY DATA: White count 11.6, hemoglobin 8.4 and platelet count is 179. INR is 1.5 on 12th. ABG this morning, pH of 7.34, pCO2 of 34, pO2 of 93 on 100% FiO2 and PEEP of 5. Sodium 133, potassi um 4.6, BUN is 33 and creatinine 1.24. Troponin levels are elevated at 4.2, which is 6.1. ASSESSMENT AND PLAN: Ms. Ballard is a pleasant 76-year-old woman with history of aortic valve stenosis and coronary artery disease, who underwent bypass surgery and aortic valve replacement 2 days ago. She had done well initially, but developed complete AV block and hypertension last night, requiring temporary pacemaker placement, pressor initiation, and intubation. Currently with a temporary pacemaker, her heart rates are stable and as I checked her pacing, she is still 100% pacemaker dependent. The pacing thresholds are adequate. She is still requiring high d oses of pressors, but mental status seems to be reasonably intact on minimal sedation right, she is responsive. My plan will be at this point: It is very clear that this lady will require permanent pacing. I do ubt that she will be safe enough to be weaned off the temporary pacemaker. Question is only the basia ing of her permanent pacemaker implantation. If she has a stable temporary pacemaker in place and s till relatively has not received a borderline requiring high dose pressors, I would prefer to postpo ne her until we are able to stabilize her further. Also, we will hopefully her oxygen support as well. We will review the echocardiogram as well looking for other reasons for her hypote nsion. This was discussed with Dr. Mcmullen and Dr. Hewitt and her nurse. Thank you again for allowing me to participate in the care of this patient.
[2016-12-21 04:33] LABS: #Lymphocytes 2.4 thou/uL (1.20-3.40); #Monocytes 0.7 thou/uL (0.11-0.59); #Neutrophils 7.2 thou/uL (1.40-6.50); %Basophils 0.4 % (0.0-1.0); %Eosinophils 0.2 % (0.0-10.0); %Lymphocytes 22.9 % (21.0-51.0); %Monocytes 6.9 % (0.0-10.0); Hematocrit 24.4 % (36.0-47.0); Mean Platelet Volume 8.7 fL (7.4-10.4); Red Blood Cell (RBC) Count 2.76 mill/uL (4.20-5.40); White Blood Cell (WBC) Count 10.3 thou/uL (4.8-10.8)
[2016-12-21 04:56] LABS: Anion Gap 11 mmol/L (10-20); BUN (Urea Nitrogen) 43 mg/dL (9.8-20.1); Calc. Creatinine Clearance 73 mL/min (70-130); Calcium 7.7 mg/dL (7.8-10.44); Carbon Dioxide 19 mmol/L (23-31); Chloride 108 mmol/L (98-107); Estimated GFR-MDRD 55
[2016-12-21] MEDS ORDERED: Vancomycin HCl 500 MG VIAL ONE (06:38)
[2016-12-21] MEDS ORDERED: Furosemide 40 MG/4 ML VIAL SLOW IVP SCH (07:15)
[2016-12-21] MEDS: Dextrose 5 % And 0.9 % NaCl 1,000 ML IV SCH ×2 (09:05→21:37)
[2016-12-21] MEDS: Prenatal Vitamin 1 TAB PO SCH (09:23)
[2016-12-21] MEDS: Aspirin 325 MG TAB PO SCH (09:23)
[2016-12-21] MEDS: Gabapentin 300 MG CAP PO SCH ×2 (09:23→21:36)
[2016-12-21] MEDS: glipiZIDE 5 MG TAB PO SCH ×3 (09:24→16:45)
[2016-12-21] MEDS: Pioglitazone HCl 45 MG TAB PO SCH (09:24)
--- NOTE | 2016-12-21 09:46 | RAD ---
ONE VIEW CHEST: HISTORY: Recent open heart surgery. COMPARISON: 12/20/2016 FINDINGS: Endotracheal tube, nasogastric tube, prosthetic heart valve, and right-sided central venous catheter are redemonstrated. Atherosclerosis of the aorta and atherosclerosis of the mitral annulus are not ed. The heart is enlarged. There are patchy interstitial and alveolar opacities in the lung bases. There is evidence of bilateral perihilar and interstitial and alveolar opacification, along with p ulmonary vascular prominence. No pneumothorax. IMPRESSION: 1. Cardiomegaly. 2. Volume overload. 3. Atherosclerosis. 4. Findings compatible with recent open heart surgery. POS: [facility]
[2016-12-21] MEDS ORDERED: Midazolam HCl 2 mg/2 ml Vial ONE (12:34)
[2016-12-21] MEDS ORDERED: Clindamycin/D5W 900 mg/50 ml Premix Bag ONE (13:44)
--- NOTE | 2016-12-21 14:26 | PRG ---
DATE OF SERVICE: 12/21/2016 SUBJECTIVE: Ms. Ballard apparently had pacemaker dislodged last night and had a 2-minute code. I am t old by the nurses she is following commands. I did not hold sedation because I do not want her to w jacky up and move and risk dislodging her pacer again. OBJECTIVE: VITAL SIGNS: BP 117/47, heart rate is 100, respiratory rate is 18, and minute volume is 7-8 liters a minute. LUNGS: Clear. HEART: Regular rhythm. ABDOMEN: Soft. IMPRESSION: 1. Status post aortic valve and coronary bypass grafting. 2. Status post 2 emergent pacemaker implantations, temporaries for permanent pacer. 3. Mild pulmonary edema. 4. ? mild anoxic insult. The nurse feels she is not as quick to respond as yesterday. This also c ould be accumulation of the sedation. Hopefully, she will have permanent pacer placed today. I met with the and answered all of h is questions. We can begin the weaning process and also permanent pacemakers in.
[2016-12-21] MEDS ORDERED: Acetaminophen 325 MG TAB PO PRN (15:11)
[2016-12-21] MEDS ORDERED: Bisacodyl 5 MG TAB PO PRN (15:11)
[2016-12-21] MEDS ORDERED: Mag-Al 1200 mg/1200 mg/30 ML UDCUP PO PRN (15:11)
[2016-12-21] MEDS ORDERED: Silver Sulfadiazine 1% Cream 50 GM JAR TOP PRN (15:11)
[2016-12-21] MEDS ORDERED: Bisacodyl 10 MG SUPP PR PRN (15:11)
[2016-12-21] MEDS ORDERED: Temazepam 15 MG CAP PO PRN (15:11)
[2016-12-21] MEDS ORDERED: Nitroglycerin 0.4 MG TAB (25 Tab Bottle) SL PRN (15:11)
[2016-12-21] MEDS ORDERED: Ondansetron HCl/PF 4 MG/2 ML Vial IVP PRN (15:11)
[2016-12-21] MEDS ORDERED: diphenhydrAMINE HCl 25 MG CAP PO PRN (15:11)
[2016-12-21] MEDS ORDERED: Pancrelipase DR 12000 1 CAP FS PRN (15:51)
[2016-12-21] MEDS ORDERED: Sodium Bicarbonate Tab 325 MG TAB PER TUBE PRN (15:51)
--- NOTE | 2016-12-21 17:56 | RAD ---
PORTABLE SUPINE CHEST: 12/21/16 HISTORY: Post cardiac device placement. COMPARISON: 12/21/16 at 4:40 a.m. FINDINGS/IMPRESSION: Pacemaker device is in place via the left subclavian. Both leads appear in adequate position. ET tub e and NG tube remain in place. Central line is unchanged. Cardiomegaly with congestive changes noted. There is perihilar haziness suggesting perihilar edema. Evidence of small bilateral effusions an left basilar atelectasis. POS: [facility]
[2016-12-21] MEDS: Atorvastatin Calcium 10 MG TAB PO SCH (21:36)
[2016-12-21] MEDS: Clindamycin/D5W 300 MG in Premix Bag 1 BAG IVPB SCH (21:37)
[2016-12-21] MEDS: Clindamycin 150 MG CAP PO SCH (21:38)
[2016-12-22] MEDS: Insulin Regular 300 UNITS/3 ML VIAL SC PRN ×4 (04:10→23:01)
[2016-12-22 04:16] LABS: Anion Gap 12 mmol/L (10-20); BUN (Urea Nitrogen) 51 mg/dL (9.8-20.1); Calc. Creatinine Clearance 64 mL/min (70-130); Calcium 7.9 mg/dL (7.8-10.44); Carbon Dioxide 19 mmol/L (23-31); Chloride 110 mmol/L (98-107); Estimated GFR-MDRD 46
[2016-12-22 04:42] LABS: #Basophils 0.1 thou/uL (0.0-0.2); #Eosinphils 0.1 thou/uL (0.0-0.7); #Monocytes 1.4 thou/uL (0.11-0.59); #Neutrophils 7.7 thou/uL (1.40-6.50); %Basophils 0.9 % (0.0-1.0); %Eosinophils 0.9 % (0.0-10.0); %Lymphocytes 24.3 % (21.0-51.0); Hematocrit 29.7 % (36.0-47.0); Mean Platelet Volume 8.7 fL (7.4-10.4); Red Blood Cell (RBC) Count 3.28 mill/uL (4.20-5.40); White Blood Cell (WBC) Count 12.2 thou/uL (4.8-10.8)
[2016-12-22] MEDS: Clindamycin/D5W 300 MG in Premix Bag 1 BAG IVPB SCH ×2 (05:13→15:55)
[2016-12-22] MEDS: Dextrose 5 % And 0.9 % NaCl 1,000 ML IV SCH ×2 (05:13→11:16)
[2016-12-22] MEDS: Clindamycin 150 MG CAP PO SCH ×3 (05:15→22:00)
[2016-12-22] MEDS: glipiZIDE 5 MG TAB PO SCH ×3 (09:35→16:01)
[2016-12-22] MEDS: Aspirin 325 MG TAB PO SCH (09:36)
[2016-12-22] MEDS: Pantoprazole 40 MG GRANULES PACKET PER TUBE SCH (09:36)
[2016-12-22] MEDS: Gabapentin 300 MG CAP PO SCH ×2 (09:36→21:00)
[2016-12-22] MEDS: Prenatal Vitamin 1 TAB PO SCH (09:36)
[2016-12-22] MEDS: Pioglitazone HCl 45 MG TAB PO SCH (09:36)
--- NOTE | 2016-12-22 11:24 | RAD ---
FRONTAL VIEW CHEST: COMPARISON: Previous day. INDICATION: Status post pacemaker placement. FINDINGS: Endotracheal tube and nasogastric tube again seen. There is postsurgical change of the chest redemo nstrated. Prominent edema and bilateral pleural fluid present with enlargement of the cardiac silho uette. Numerous extrinsic artifacts limit detail. IMPRESSION: 1. Postoperative chest with prominent edema and pleural fluid. 2. Evidence of congestive heart failure. Continued followup is recommended. POS: [facility]
[2016-12-22] MEDS ORDERED: Sodium Chloride 0.9% 1,000 ML IV SCH ×2 (11:30→13:35)
[2016-12-22] MEDS: Propofol 1,000 MG/100 ML VIAL IV PRN (13:23)
[2016-12-22] MEDS: Sodium Chloride 0.9% 1,000 ML IV SCH (15:43)
--- NOTE | 2016-12-22 16:29 | PRG ---
DATE OF SERVICE: 12/22/2016 SERVICE: Pulmonary Medicine. INTERVAL HISTORY: The patient is doing fine from a respiratory standpoint. That being said, she is on 40% FiO2. She denies any chest discomfort or difficulty with breathing. She remains on mechani olivia ventilation and has no specific complaints. Her kidneys are little injured. She has had anemic urine output. Her volume status is the thing is preventing us from extubating her. PHYSICAL EXAMINATION: VITAL SIGNS: Afebrile, pulse 74, blood pressure 109/47, respirations 17, saturation 99% on 40% FiO2 and a PEEP of 5. GENERAL: The patient is awake and alert, in no apparent distress. LUNGS: Good air entry. No prolonged expiratory phase. Crackles are present throughout anterior siomara ng reyes. No wheezing or rhonchi. HEART: Normal rate, regular. ABDOMEN: Soft, nontender, nondistended. Bowel sounds are positive. MUSCULOSKELETAL: No cyanosis or clubbing. There is 1+ pitting in the bilateral lower extremities. GENITOURINARY: Medeiros catheter in place. NEUROLOGIC: Grossly nonfocal. LABORATORY DATA AND IMAGING: WBC 12.2, hemoglobin 9.8, platelets are 81,000 and down trending. INR is 1.5. Creatinine is 1.16, BUN 51, bicarbonate 19 and chloride is 110. Chest x-ray is consistent with bilateral layering effusions and edema. ASSESSMENT: 1. Acute hypoxic respiratory failure. 2. Coronary artery disease, status post coronary artery bypass graft. 3. Metabolic encephalopathy. PLAN: We will continue support with mechanical ventilator. I will put on a spontaneous breathing t rial to see whether or not she would tolerate extubation. She is currently 7 liters up for this hos pital stay. We will try to minimize IV fluids moving forward. Critical Care will continue to chad hewitt CRITICAL CARE TIME: 30 minutes.
--- NOTE | 2016-12-22 17:06 | PRG ---
DATE OF SERVICE: 12/22/2016 SUBJECTIVE: Ms. Ballard is intubated on the ventilator. REVIEW OF SYSTEMS: Not obtainable, on the ventilator. OBJECTIVE: VITAL SIGNS: Her blood pressure is 102/42, pulse 66. LUNGS: Clear. CARDIAC: Normal S1, normal S2. No new murmur, rub or gallop. ABDOMEN: Soft, nontender. EXTREMITIES: No clubbing or cyanosis. There is no edema. ASSESSMENT: 1. Status post aortic valve replacement for aortic stenosis. 2. Status post pacemaker insertion with normal function. PLAN: Continue current medical regimen. No changes were made.
[2016-12-22] MEDS: Atorvastatin Calcium 10 MG TAB PO SCH (21:00)
--- NOTE | 2016-12-23 00:56 | PRG ---
DATE OF SERVICE: 12/22/2016 This is an electrophysiology followup note and pacemaker interrogation report. Ms. Danyell Ballard remains stable 1 day post pacemaker implantation. Her vital signs are blood pressure 95/41, heart rate is 68, respiration is 16. The patient is afebrile. Chest x-ray reveals no pneum othorax. The pacemaker interrogation revealed a Medtronic Versa dual chamber pacemaker with battery voltage i n the beginning of life. Lead parameters are 0.5 volts at 0.4 milliseconds in both atrium and ventricles sensing 2.8 millivolts in the atrium and 15.6 millivolts in the right ventricle. CONCLUSION: Stable patient and pacemaker function one day post-implant. PLAN: Continue monitoring and support.
[2016-12-23] MEDS: Sodium Chloride 0.9% 1,000 ML IV SCH (03:54)
[2016-12-23] MEDS: Insulin Regular 300 UNITS/3 ML VIAL SC PRN ×4 (04:02→21:51)
[2016-12-23 04:26] LABS: Anion Gap 13 mmol/L (10-20); BUN (Urea Nitrogen) 76 mg/dL (9.8-20.1); Calc. Creatinine Clearance 55 mL/min (70-130); Calcium 7.8 mg/dL (7.8-10.44); Carbon Dioxide 18 mmol/L (23-31); Chloride 110 mmol/L (98-107); Estimated GFR-MDRD 39; Magnesium 2.2 mg/dL (1.6-2.6); Phosphorus 3.2 mg/dL (2.3-4.7)
[2016-12-23 05:06] LABS: #Basophils 0.1 thou/uL (0.0-0.2); #Eosinphils 0.3 thou/uL (0.0-0.7); #Monocytes 1.2 thou/uL (0.11-0.59); #Neutrophils 5.7 thou/uL (1.40-6.50); %Basophils 0.6 % (0.0-1.0); %Eosinophils 2.6 % (0.0-10.0); %Lymphocytes 29.6 % (21.0-51.0); %Monocytes 11.7 % (0.0-10.0); Hematocrit 30.4 % (36.0-47.0); Red Blood Cell (RBC) Count 3.36 mill/uL (4.20-5.40); White Blood Cell (WBC) Count 10.2 thou/uL (4.8-10.8)
[2016-12-23] MEDS: Clindamycin 150 MG CAP PO SCH ×3 (06:28→21:34)
[2016-12-23] MEDS: Propofol 1,000 MG/100 ML VIAL IV PRN ×2 (07:12→23:50)
[2016-12-23] MEDS: Gabapentin 300 MG CAP PO SCH ×2 (08:17→21:34)
[2016-12-23] MEDS: glipiZIDE 5 MG TAB PO SCH ×3 (08:17→16:45)
[2016-12-23] MEDS: Prenatal Vitamin 1 TAB PO SCH (08:17)
[2016-12-23] MEDS: Pantoprazole 40 MG GRANULES PACKET PER TUBE SCH (08:17)
[2016-12-23] MEDS: Pioglitazone HCl 45 MG TAB PO SCH (08:17)
[2016-12-23] MEDS: Insulin Detemir 100 UNITS/ML 5 UNITS in Pre-Filled Syringe 1 EACH SC SCH ×2 (10:15→21:51)
[2016-12-23] MEDS: Aspirin 325 MG TAB PO SCH (10:15)
[2016-12-23] MEDS ORDERED: Furosemide 20 MG/2 ML VIAL SLOW IVP SCH (11:00)
[2016-12-23] MEDS ORDERED: Sodium Chloride 0.9% 1,000 ML IV SCH (12:42)
--- NOTE | 2016-12-23 13:57 | PRG ---
DATE OF SERVICE: 12/23/2016 SUBJECTIVE: Ms. Ballard is intubated on the ventilator. OBJECTIVE: VITAL SIGNS: Blood pressure was somewhat low at 104/43, pulse 65 and regular, it is atrial sensed v entricular paced. LUNGS: Clear. CARDIAC: Normal S1 and S2. ABDOMEN: Soft, nontender. EXTREMITIES: There is moderate edema. ASSESSMENT: 1. Status post aortic valve replacement. 2. AZALEA positive. 3. Status post pacemaker insertion. PLAN: 1. We will give her a single dose of Lasix IV. 2. We will stop Actos at this time since this caused fluid retention.
--- NOTE | 2016-12-23 14:20 | PRG ---
DATE OF SERVICE: 12/23/2016 SERVICE: Pulmonary Medicine. INTERVAL HISTORY: The patient is doing fine from a respiratory standpoint. She is on less oxygen and she is breathing more comfortably. The compliance of her lungs has improved fairly dramatically. Otherwise, there have been no overnight events. PHYSICAL EXAMINATION: VITAL SIGNS: Afebrile, pulse 67, blood pressure 107/43, respirations 20, saturation 96% on 31% FIO2 and PEEP of 5. GENERAL: Patient is intubated and sedated. HEENT: Normocephalic, atraumatic. Sclerae are white, conjunctivae pink. Oral and nasal mucosa is moist without lesions. LUNGS: Decent air entry. Rhonchi are present bilaterally. Dependently, there are no crackles. No wheezing. HEART: Normal rate, regular. ABDOMEN: Soft, nontender, nondistended, bowel sounds positive. MUSCULOSKELETAL: No cyanosis or clubbing. No pitting in the bilateral lower extremities. NEUROLOGIC: Grossly nonfocal. LABORATORY DATA: WBC 10.2, hemoglobin 9.7, platelets 70,000. Creatinine 1.34, which is roughly stable, BUN 76 and trending upward, anion gap 13, bicarbonate 18 and trending downward. Chloride 110, stable. Sodium 136. Magnesium and phosphorus fall within the normal limits. ASSESSMENT: 1. Acute hypoxic respiratory failure. 2. Coronary artery disease, status post coronary artery bypass graft. 3. Metabolic encephalopathy. PLAN: We will continue supportive care with the ventilator. She will repeat a spontaneous breathing trial. Continue supportive care including tube feeds, and ventilator support. I will provide her with a little bit of free water over the next 24 hours. BUN is trending upward, but her hemoglobin is currently stable. We will continue to watch for other signs of gastrointestinal bleed. Critical care time: 30 minutes. MTDD
[2016-12-23] MEDS: Atorvastatin Calcium 10 MG TAB PO SCH (21:34)
[2016-12-24] MEDS: Insulin Regular 300 UNITS/3 ML VIAL SC PRN ×4 (04:30→21:31)
[2016-12-24 04:39] LABS: #Basophils 0.1 thou/uL (0.0-0.2); #Eosinphils 0.3 thou/uL (0.0-0.7); #Lymphocytes 3.3 thou/uL (1.20-3.40); #Monocytes 1.4 thou/uL (0.11-0.59); %Basophils 0.6 % (0.0-1.0); %Lymphocytes 25.1 % (21.0-51.0); %Monocytes 10.6 % (0.0-10.0); Hematocrit 31.4 % (36.0-47.0); Mean Platelet Volume 10.3 fL (7.4-10.4); Red Blood Cell (RBC) Count 3.51 mill/uL (4.20-5.40); White Blood Cell (WBC) Count 12.9 thou/uL (4.8-10.8)
[2016-12-24 04:57] LABS: Anion Gap 15 mmol/L (10-20); BUN (Urea Nitrogen) 89 mg/dL (9.8-20.1); Calc. Creatinine Clearance 78 mL/min (70-130); Carbon Dioxide 17 mmol/L (23-31); Chloride 110 mmol/L (98-107); Estimated GFR-MDRD 52
[2016-12-24] MEDS: Clindamycin 150 MG CAP PO SCH ×3 (06:08→21:21)
--- NOTE | 2016-12-24 08:29 | PDOC.CTH ---
Cardiology Progress Note - Subjective Pt continues to be intubated and mildly sedated. She failed extubation yesterday. BP, HR appear stable. PM placed on Saturday. - ROS not able to obtain ROS - Objective Vital Signs Temp Pulse Resp BP 12/24/16 06:58 63 108/40 L 12/24/16 06:00 22 H 12/24/16 04:00 98.4 F 12/24/16 02:33 67 12/24/16 02:00 20 12/24/16 00:00 98.5 F 12/23/16 22:32 69 12/23/16 22:00 22 H Admit Weight 194 lb Weight 229 lb 8.019 oz 12/23/16 12/24/16 12/25/16 06:59 06:59 06:59 Intake Total 3033.7 1947.9 Output Total 391 861 Balance 2642.7 1086.9 - Physical Examination General/Neuro: NAD Neck: carotid US brisk, no JVD present Lungs: CTA, unlabored respirations Heart: PMI normal, RRR Abdomen: no HSM, NT/ND, soft Extremities: + femoral B - Telemetry Telemetry Rhythm: AsVP - Labs Result Diagrams: 12/24/16 04:20 12/24/16 04:20 Troponin/CKMB CK-MB (CK-2) 6.2 ng/mL (0-6.6) 12/19/16 22:21 Troponin I 4.251 ng/mL (< 0.028) H* 12/19/16 22:21 - Assessment/Plan 1. Respiratory failure 2. AVR 3. 3 degree AVB s/p pacer 4. CAD Will attempt to wean again today Continue current med treatment Pacer appears to be functioning normally. SCD
--- NOTE | 2016-12-24 10:45 | RAD ---
CHEST 1 VIEW: HISTORY: Ventilated patient. COMPARISON: Chest 1 view prior day. FINDINGS: Enteric tube is in place with tip below the diaphragm but out of the field of view. Cardiac silhoue tte is similar and enlarged. Mild edema. Small effusions. Endotracheal tube tip sits at the level of the clavicles. No large pneumothorax. Extensive mitral annular calcifications. There is cardiac valve replacement. IMPRESSION: No significant change in the radiographic appearance of the chest. POS: [facility]
[2016-12-24] MEDS: glipiZIDE 5 MG TAB PO SCH ×3 (10:53→17:34)
[2016-12-24] MEDS: Gabapentin 300 MG CAP PO SCH ×2 (10:53→21:20)
[2016-12-24] MEDS: Aspirin 325 MG TAB PO SCH (10:53)
[2016-12-24] MEDS: Pantoprazole 40 MG GRANULES PACKET PER TUBE SCH (10:55)
[2016-12-24] MEDS: DOPamine 400 MG/D5W 250 ML 250 ML IVPB SCH (10:55)
[2016-12-24] MEDS: Prenatal Vitamin 1 TAB PO SCH (11:14)
[2016-12-24] MEDS: Insulin Detemir 100 UNITS/ML 5 UNITS in Pre-Filled Syringe 1 EACH SC SCH ×2 (11:16→21:23)
--- NOTE | 2016-12-24 13:48 | PRG ---
DATE OF SERVICE: 12/24/2016 SUBJECTIVE: Ms. Ballard had an unremarkable weekend. She is still intubated, hence some difficulty wi th weaning. Her pacemaker seems to have been functioning well throughout. She is on low dose dopam ine mostly for renal perfusion. OBJECTIVE: VITAL SIGNS: Blood pressure is 117/54, heart rate 68, respirations 14. The patient is afebrile. GENERAL: This is an intubated woman who is responsive, in no apparent distress. CHEST: Coarse without crackles. CARDIOVASCULAR: Heart sounds are regular to rate and rhythm. No murmur or gallop. ABDOMEN: Benign. Bowel sounds positive. EXTREMITIES: Lower extremities without edema, clubbing or cyanosis. DATEBASE: The chest x-ray from this morning shows no significant change, pacemaker in place. No si gnificant pneumothorax detected. Mild edema, small effusions are documented. DATABASE: The telemetry strips reveals atrial pacing with hamilton conduction intermittent ventricula r pacing is noted. LABORATORY DATA: White blood cell count 12.9, hemoglobin 10.1, platelet count is 109. The pCO2 is 19.9, pH 7.45, pO2 is 479. Sodium 137, potassium 4.7, BUN 89, creatinine 1.04. ASSESSMENT AND PLAN: 1. Ms. Ballard is a 76-year-old woman with history of recent aortic valve replacement surgery as well as bypass surgery who developed postoperative AV block. She required temporary pacemaker, eventuall y a dual chamber pacemaker was implanted by me on the . She seems to be doing well for in this regard. Pacemaker function is adequate. No obvious complications noted. 2. Some improvement of AV conduction is noted now, continue monitoring. 3. Respiratory failure as per Critical Care with hopefully extubation soon. 4. Hemodialytic status noted. PLAN: Routine postoperative pacemaker care. Antibiotics IV/p.o. and then wound check in about 2 w eeks as an outpatient. I will sign off. Thank you for the consult and allowing me to participate in care of this patient.
[2016-12-24] MEDS ORDERED: DOPamine 400 MG/D5W 250 ML 250 ML IVPB SCH (18:45)
--- NOTE | 2016-12-24 19:18 | PRG ---
DATE OF SERVICE: 12/24/2016 SUBJECTIVE: Ms. Ballard's events over the weekends have been reviewed. She remains mechanically venti lated. She has permanent pacer in place. OBJECTIVE: VITAL SIGNS: Heart rate 68, respiratory rate was in the low 20s, blood pressure 117/54, oximetry is 96. LUNGS: Clear anteriorly. HEART: Regular rhythm. ABDOMEN: Soft. Intake and output is positive 1086. She is 9 liters ahead since the . She is now on a low dose of dopamine. LABORATORY DATA: White count 12.9, hemoglobin 10.1, platelets 109,000. Sodium 137, potassium 4.5, chloride 110, bicarbonate 17, BUN 89 and creatinine 1.04. IMPRESSION: 1. Respiratory failure after 2 codes brought on by bradycardia, these were brief codes; she does no t appear to have a significant anoxic injury. 2. Status post aortic valve replacement and coronary artery bypass grafting. 3. Hyperglycemia. 4. Prerenal azotemia. 5. Deconditioning. PLAN: Decrease ventilation to pressure support and PEEP during the day and volume ventilation at [facility] and see how she looks in the morning. Until we can document that we can diurese her, I am hesit ant to extubate her.
[2016-12-24] MEDS: Atorvastatin Calcium 10 MG TAB PO SCH (21:20)
[2016-12-25 05:10] LABS: #Eosinphils 0.5 thou/uL (0.0-0.7); #Lymphocytes 2.7 thou/uL (1.20-3.40); #Monocytes 1.7 thou/uL (0.11-0.59); #Neutrophils 8.9 thou/uL (1.40-6.50); %Basophils 0.3 % (0.0-1.0); %Eosinophils 3.6 % (0.0-10.0); %Lymphocytes 19.1 % (21.0-51.0); %Monocytes 12.5 % (0.0-10.0); Hematocrit 33.7 % (36.0-47.0); Mean Platelet Volume 9.8 fL (7.4-10.4); Red Blood Cell (RBC) Count 3.75 mill/uL (4.20-5.40); White Blood Cell (WBC) Count 13.9 thou/uL (4.8-10.8)
[2016-12-25] MEDS: Clindamycin 150 MG CAP PO SCH ×3 (05:27→21:38)
[2016-12-25] MEDS: Insulin Regular 300 UNITS/3 ML VIAL SC PRN ×4 (05:29→21:40)
[2016-12-25 05:30] LABS: Anion Gap 11 mmol/L (10-20); BUN (Urea Nitrogen) 74 mg/dL (9.8-20.1); Calc. Creatinine Clearance 110 mL/min (70-130); Calcium 8.2 mg/dL (7.8-10.44); Carbon Dioxide 21 mmol/L (23-31); Chloride 110 mmol/L (98-107); Estimated GFR-MDRD 78
[2016-12-25] MEDS: glipiZIDE 5 MG TAB PO SCH ×3 (08:26→16:28)
[2016-12-25] MEDS: Aspirin 325 MG TAB PO SCH (08:27)
[2016-12-25] MEDS: Pantoprazole 40 MG GRANULES PACKET PER TUBE SCH (08:28)
[2016-12-25] MEDS: Gabapentin 300 MG CAP PO SCH ×2 (08:28→21:38)
[2016-12-25] MEDS: Insulin Detemir 100 UNITS/ML 5 UNITS in Pre-Filled Syringe 1 EACH SC SCH ×2 (08:29→21:40)
[2016-12-25] MEDS: Prenatal Vitamin 1 TAB PO SCH (08:48)
--- NOTE | 2016-12-25 09:12 | RAD ---
PORTABLE CHEST: History: Dyspnea, CCU follow up. Comparison: 12-24-16 FINDINGS: ET tube, NG tube in place. Central line unchanged. Cardiomegaly. Vascular congestion. Hazy opacity o bscures both lower lungs, presumably representing pleural fluid layering posteriorly on this semiupr ight exam. Bibasilar infiltrates not excluded. The findings do not appear significantly changed from yesterday. POS: [facility]
[2016-12-25] MEDS ORDERED: Digoxin 0.5 MG/2 ML AMP SLOW IVP SCH (09:45)
[2016-12-25] MEDS ORDERED: Furosemide 40 MG/4 ML VIAL IVP SCH (10:03)
[2016-12-25] MEDS ORDERED: Lorazepam 2 MG/ML VIAL SLOW IVP SCH (12:30)
--- NOTE | 2016-12-25 14:27 | CT ---
CT CHEST WITHOUT CONTRAST: HISTORY: Pleural effusions. COMPARISON: CT chest from 12/17/2016. FINDINGS: Large bilateral layering pleural effusions. Endotracheal tube tip is above the krystal. Enteric tube is in place with the tip below the diaphragm, although out of the field of view. Heart size is enlarged. There is an aortic valve replacement. Dense mitral annular calcifications. The pulmonary trunk is enlarged, measuring 32 mm. Dense vascular calcifications of the aorta. There is only approximately 50% aeration of the lungs due to the large effusions and compressive ate lectasis. No pneumothorax. Relatively recent median sternotomy. No displaced rib fracture. The upper abdomen is relatively unremarkable. IMPRESSION: 1. Large bilateral pleural effusions with compressive atelectasis with only approximately 50% of th e lungs being well aerated. 2. Pulmonary arterial hypertension with dilatation of the pulmonary trunk to approximately 32 mm. 3. Relatively recent median sternotomy without an adjacent fluid collection to suggest underlying i nfection. 4. Mild pericardial effusion. 5. New aortic valve replacement. 6. Dense mitral annular calcifications. POS: [facility]
--- NOTE | 2016-12-25 16:45 | EKG ---
Test Reason : POST CABG Blood Pressure : / mmHG Vent. Rate : 077 BPM Atrial Rate : 077 BPM P-R Int : 176 ms QRS Dur : 118 ms QT Int : 482 ms P-R-T Axes : -22 025 031 degrees QTc Int : 545 ms Normal sinus rhythm Incomplete left bundle branch block T wave abnormality, consider lateral ischemia Prolonged QT Abnormal ECG When compared with ECG of 11-DEC-2016 15:24, Premature supraventricular complexes are no longer Present Incomplete left bundle branch block is now Present Confirmed by Lynette CAMPOS ([id number]) on 12/25/2016 4:45:14 PM Referred By: Jennifer JERRY Confirmed By:Lynette CAMPOS
--- NOTE | 2016-12-25 16:51 | EKG ---
Test Reason : Blood Pressure : / mmHG Vent. Rate : 039 BPM Atrial Rate : 039 BPM P-R Int : 394 ms QRS Dur : 118 ms QT Int : 516 ms P-R-T Axes : 049 -01 022 degrees QTc Int : 415 ms Marked sinus bradycardia with 1st degree A-V block Low voltage QRS Incomplete left bundle branch block Abnormal ECG When compared with ECG of 18-DEC-2016 12:49, (Unconfirmed) VA interval has increased Vent. rate has decreased BY 38 BPM T wave inversion no longer evident in Lateral leads QT has shortened Confirmed by Lynette CAMPOS ([id number]) on 12/25/2016 4:51:07 PM Referred By: TIERRA Confirmed By:Lynette CAMPOS
--- NOTE | 2016-12-25 16:54 | EKG ---
Test Reason : STAT Blood Pressure : / mmHG Vent. Rate : 052 BPM Atrial Rate : 153 BPM P-R Int : 000 ms QRS Dur : 114 ms QT Int : 506 ms P-R-T Axes : 045 -47 041 degrees QTc Int : 470 ms Sinus bradycardia with complete heart block and Junctional rhythm with occasional Premature ventric ular complexes RSR' or QR pattern in V1 suggests right ventricular conduction delay Left anterior fascicular block Abnormal ECG When compared with ECG of 19-DEC-2016 22:08, (Unconfirmed) Junctional rhythm has replaced Sinus rhythm Left anterior fascicular block is now Present RSR' pattern in V1 has replaced Incomplete left bundle branch block Confirmed by Lynette CAMPOS ([id number]) on 12/25/2016 4:53:41 PM Referred By: TIERRA Confirmed By:Lynette CAMPOS
[2016-12-25] MEDS: Propofol 1,000 MG/100 ML VIAL IV PRN (16:58)
--- NOTE | 2016-12-25 17:30 | PRG ---
DATE OF SERVICE: 12/25/2016 SUBJECTIVE: Ms. Ballard remained stable. OBJECTIVE: VITAL SIGNS: She is afebrile. Heart rate is in the 90s, respiratory rate in the 20s and blood pres sure 118/46. LUNGS: She has mild rhonchi bilaterally. HEART: Regular rhythm. ABDOMEN: Soft. LABORATORY DATA: White count 13.9, hemoglobin 10.8 and platelets 146. Sodium 137, potassium 4.5, c hloride 110, bicarbonate 21, BUN 74 and creatinine 0.73. There is no blood gas today. IMPRESSION: 1. Respiratory failure. 2. Bilateral pleural effusions on chest radiograph. 3. Blood loss anemia associated with her heart surgery for aortic valve replacement. 4. Coronary bypass grafting. 5. Status post placement of an emergent pacer x2 followed by a permanent pacer left subclavian. PLAN: 1. CT of her chest to evaluate for possible thoracentesis to facilitate weaning. 2. Continue with nutritional support. 3. Her renal function appears to hopefully have plateaued and then come back down to normal. She m ay tolerate more aggressive diuresis on top of thoracentesis and this will hopefully facilitate wean ing. I met with the family and answered all their questions.
[2016-12-25 17:51] LABS: ALT (SGPT) 781 U/L (8-55); AST (SGOT) 141 U/L (5-34); Alkaline Phosphatase 112 U/L (40-150); Bilirubin, Direct 0.7 mg/dL (0.1-0.3); Bilirubin, Total 0.9 mg/dL (0.2-1.2); Magnesium 1.9 mg/dL (1.6-2.6); Protein, Total 4.6 g/dL (6.0-8.3)
[2016-12-25] MEDS ORDERED: Amiodarone HCl 150 MG, Admixture Fee 1 EACH in Dextrose 5% in Water 100 ML IVPB SCH ×3 (18:00)
--- NOTE | 2016-12-25 18:22 | PDOC.CTH ---
Cardiology Progress Note - Subjective Pt remains intubated sedated. She developed afib this morning around 4:30 am. Dopamine started yesterday for renal perfusion. She has not met extubation criteria - ROS not able to obtain ROS - Objective Vital Signs Temp Pulse Resp Pulse Ox 12/25/16 18:00 28 H 12/25/16 16:00 98.4 F 27 H 12/25/16 14:58 107 H 12/25/16 14:00 98.2 F 25 H 12/25/16 13:01 106 H 12/25/16 12:00 21 H 12/25/16 10:53 102 H 12/25/16 10:00 99.5 F 25 H 12/25/16 09:43 109 H 12/25/16 08:00 99.5 F 110 H 28 H 94 L 12/25/16 07:00 99.4 F Admit Weight 194 lb Weight 227 lb 8.273 oz 12/24/16 12/25/16 12/26/16 06:59 06:59 06:59 Intake Total 1947.9 1988.4 707 Output Total 861 1481 1600 Balance 1086.9 507.4 -893 - Physical Examination General/Neuro: NAD Neck: carotid US brisk, no JVD present Lungs: unlabored respirations, other: (decreassed BS on left) Heart: other: (IRR) Abdomen: NT/ND, soft Extremities: + femoral B - Telemetry Telemetry Rhythm: afib - Labs Result Diagrams: 12/25/16 04:15 12/25/16 04:15 Troponin/CKMB CK-MB (CK-2) 6.2 ng/mL (0-6.6) 12/19/16 22:21 Troponin I 4.251 ng/mL (< 0.028) H* 12/19/16 22:21 - Assessment/Plan 1. Respiratory failure 2. AVR 3. 3 degree AVB s/p pacer 4. CAD 5. Afib DC dopamine Add amiodarone IV per protocol. Recs on extubation per pulmonary
[2016-12-25] MEDS: Amiodarone HCl 450 MG in Dextrose 5% in Water 250 ML IVPB SCH ×2 (18:39)
[2016-12-25] MEDS: Atorvastatin Calcium 10 MG TAB PO SCH (21:37)
[2016-12-26] MEDS: Amiodarone HCl 450 MG in Dextrose 5% in Water 250 ML IVPB SCH ×4 (02:49→15:54)
[2016-12-26] MEDS: Insulin Regular 300 UNITS/3 ML VIAL SC PRN ×5 (03:49→23:56)
[2016-12-26 04:20] LABS: #Basophils 0.1 thou/uL (0.0-0.2); #Eosinphils 0.3 thou/uL (0.0-0.7); #Lymphocytes 4.2 thou/uL (1.20-3.40); #Monocytes 2.1 thou/uL (0.11-0.59); #Neutrophils 8.5 thou/uL (1.40-6.50); %Basophils 0.5 % (0.0-1.0); %Eosinophils 2.2 % (0.0-10.0); %Lymphocytes 27.4 % (21.0-51.0); %Monocytes 13.5 % (0.0-10.0); Hematocrit 35.3 % (36.0-47.0); Mean Platelet Volume 10.3 fL (7.4-10.4); Red Blood Cell (RBC) Count 3.89 mill/uL (4.20-5.40); White Blood Cell (WBC) Count 15.1 thou/uL (4.8-10.8)
[2016-12-26 04:24] LABS: Anion Gap 15 mmol/L (10-20); BUN (Urea Nitrogen) 67 mg/dL (9.8-20.1); Calc. Creatinine Clearance 115 mL/min (70-130); Calcium 8.4 mg/dL (7.8-10.44); Carbon Dioxide 20 mmol/L (23-31); Chloride 110 mmol/L (98-107); Estimated GFR-MDRD 82
[2016-12-26] MEDS: Clindamycin 150 MG CAP PO SCH ×3 (05:24→22:18)
[2016-12-26 06:47] LABS: Oxyhemoglobin 94.9 % (94.0-97.0); Sodium 140 mmol/L (135-148)
[2016-12-26 06:49] LABS: Mode CPAP; Modified Allen's Test POSITIVE; Pressure Support 5 cmH2O; Spontaneous Rate 35 min; Vent YES
[2016-12-26] MEDS: Gabapentin 300 MG CAP PO SCH ×2 (08:16→20:35)
[2016-12-26] MEDS: Pantoprazole 40 MG GRANULES PACKET PER TUBE SCH (08:16)
[2016-12-26] MEDS: Aspirin 325 MG TAB PO SCH (08:16)
[2016-12-26] MEDS: glipiZIDE 5 MG TAB PO SCH ×3 (08:16→18:13)
[2016-12-26] MEDS ORDERED: Furosemide 40 MG/4 ML VIAL IVP SCH ×2 (08:35→14:00)
[2016-12-26] MEDS ORDERED: Furosemide 100 MG/10 ML VIAL SLOW IVP SCH (08:45)
[2016-12-26] MEDS: Insulin Detemir 100 UNITS/ML 5 UNITS in Pre-Filled Syringe 1 EACH SC SCH ×2 (09:03→20:36)
[2016-12-26] MEDS: Prenatal Vitamin 1 TAB PO SCH (09:03)
--- NOTE | 2016-12-26 09:22 | RAD ---
SEMIUPRIGHT PORTABLE CHEST 1 VIEW: Date: 12/26/16 HISTORY: 76-year-old female with respiratory insufficiency. FINDINGS: Life support tubes again noted in place. Extensive bilateral alveolar and interstitial opacities thr oughout both lungs with postop midline sternotomy and valvular replacement. Bilateral pleural effusi ons. IMPRESSION: Stable extensive bilateral pulmonary and parenchymal opacity changes and pleural effusion changes. C ontinue short-term follow-up. POS: [facility]
--- NOTE | 2016-12-26 12:03 | CON ---
DATE OF CONSULTATION: 12/26/2016 REASON FOR CONSULTATION: Possible lymphoma. HISTORY OF PRESENT ILLNESS: The patient is a 76-year-old woman, found to have critical aortic steno sis and high grade proximal left main coronary artery disease, for which she underwent coronary dustin ry bypass surgery and bioprosthetic aortic valve replacement on this admission. Preoperative imagin g had shown subcarinal adenopathy with 1 lymph node measuring up to 4.3 cm. Intraoperatively, the p atient had a biopsy performed. Unfortunately, she has had complications from surgery to include a c omplete heart block requiring emergency pacer placement and respiratory failure. She is slowly impr oving and it is expected that she will be weaned soon. Pathology on the malignancy is inconclusive and the specimen has been sent to [facility] for consultation. There is an abnormal lymph oid proliferation with large, worrisome cells that are CD20 positive within a background of benign l ymphocytes including T-cells. The pathological findings are concerning for a variant of large B-redd l lymphoma or possibly, Hodgkin's lymphoma. However, CD15 and CD30 are negative, a finding that wou ld be quite atypical for Hodgkin's disease. At this point, I am asked to provide further management recommendations regarding this patient with possible new diagnosis of lymphoma. ALLERGIES: She describes PENICILLIN and SULFA allergies. MEDICATIONS: See chart. MEDICAL ILLNESS: She has a history of diabetes mellitus, hypertension, hyperlipidemia, and reflux. PAST SURGICAL HISTORY: She has undergone stomach surgery, carpal tunnel release, and hysterectomy i n the past. SOCIAL HISTORY: She is a nonsmoker and nondrinker. She is and lives locally. Her and daughter are quite involved in her care. REVIEW OF SYSTEMS: Not obtainable as she is sedated on a respirator. PHYSICAL EXAMINATION: VITAL SIGNS: Temperature 97.8, respirations 23, blood pressure 157/54, pulse 108 and regular. GENERAL: The patient is sedated on a respirator, but does awaken with stimulation. HEENT: The extraocular movements are intact, and pupils are equal. NECK: Supple. LUNGS: Clear. CARDIOVASCULAR: Regular rate and rhythm. ABDOMEN: No tenderness, organomegaly, or mass. EXTREMITIES: No clubbing, cyanosis, or edema. SKIN: Normal. LYMPH: No palpable adenopathy. MUSCULOSKELETAL: No active arthritis. NEUROLOGIC: No focal findings. LABORATORY DATA: White blood cell count 15.1 with 56 neutrophils and 27 lymphocytes. The hemoglobi n is 11.2 post-transfusion and platelet count 166,000. Chemistries show a sodium of 140, potassium 4.5, chloride 110, carbon dioxide 20. Creatinine is 0.7 and BUN 67. A random blood sugar is 299. Postoperative liver function studies are abnormal manifested by a total bilirubin of 0.9, direct tommy irubin 0.7, AST 141, and ALT 781. The albumin is 2.6. IMAGING: A preoperative chest CT does show a lobulated soft tissue density near the krystal measurin g 4.3 cm in maximum dimension. Of interest, a CT scan in 03/2013 showed this abnormality, at which time it measured 3.0 cm. No other significant adenopathy is identified. 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 RECOMMENDATIONS: The findings are consistent with B-cell malignancy. A variant of large B-cell lym phoma is certainly possible, but the clinical course does seem to be too indolent for an intermediat e grade lymphoma. Hodgkin's lymphoma would perhaps fit better clinically, but CD15 and CD30 are neg ative, markers that are almost universally positive in Hodgkin's disease. Consequently, the specime n has been sent for hematopathological consultation at [facility], and we will await final diagnosis. Fortunately, the patient does not require urgent therapy at present nor would it be wel l tolerated. I will discuss these issues further with the family and reassure them. Thanks very much for allowing me to provide my recommendations. We will follow her with you.
[2016-12-26] MEDS: Furosemide 100 MG/10 ML VIAL SLOW IVP SCH (13:58)
[2016-12-26] MEDS: Propofol 1,000 MG/100 ML VIAL IV PRN (14:10)
--- NOTE | 2016-12-26 17:44 | PRG ---
DATE OF SERVICE: 12/26/2016 SUBJECTIVE: I met with Ms. Ballard's and answered all of his questions. Ms. Ballard is stable. OBJECTIVE: VITAL SIGNS: She is afebrile. Heart rate is 89 this afternoon, 106 morning. Blood pressure 123/48 , respiratory rate is in the 20s. GENERAL: She is on 5/5 and appears reasonably comfortable with this. She still has mild rhonchi bi laterally. HEART: Regular rhythm. ABDOMEN: Soft. LABORATORY DATA: White count 15.1, hemoglobin 11.2 and platelets 166. Creatinine is down to 0.7, B UN is 67, sodium 140, potassium 4.5, chloride 110 and bicarbonate 20. PH 7.46, CO2 of 28 and pO2 of 78. IMPRESSION AND PLAN: Respiratory failure with volume overload. Her intake and output is negative 168 coming into today, given more Lasix today and so far, she is n egative 750 mL . We can document a negative diuresis without a significant decline in renal functio n. We may be able to extubate her in the next 24-48 hours. We may do a thoracentesis just prior to extubation on the right to help facilitate decreasing work of breathing.
[2016-12-26] MEDS: Atorvastatin Calcium 10 MG TAB PO SCH (20:35)
[2016-12-27 03:31] LABS: #Basophils 0.2 thou/uL (0.0-0.2); #Eosinphils 0.5 thou/uL (0.0-0.7); #Monocytes 1.8 thou/uL (0.11-0.59); #Neutrophils 8.5 thou/uL (1.40-6.50); %Eosinophils 3.1 % (0.0-10.0); %Lymphocytes 31.5 % (21.0-51.0); %Monocytes 11.2 % (0.0-10.0); Hematocrit 35.2 % (36.0-47.0); Mean Platelet Volume 9.7 fL (7.4-10.4); Red Blood Cell (RBC) Count 3.87 mill/uL (4.20-5.40); White Blood Cell (WBC) Count 15.9 thou/uL (4.8-10.8)
[2016-12-27 04:04] LABS: Calcium 8.5 mg/dL (7.8-10.44)
[2016-12-27 04:06] LABS: Carbon Dioxide 25 mmol/L (23-31)
[2016-12-27 04:08] LABS: Calc. Creatinine Clearance 122 mL/min (70-130); Chloride 109 mmol/L (98-107); Estimated GFR-MDRD 89
[2016-12-27 04:09] LABS: BUN (Urea Nitrogen) 56 mg/dL (9.8-20.1)
[2016-12-27 04:34] LABS: Anion Gap 11 mmol/L (10-20)
[2016-12-27] MEDS: Clindamycin 150 MG CAP PO SCH ×3 (05:33→20:57)
[2016-12-27] MEDS: Furosemide 100 MG/10 ML VIAL SLOW IVP SCH ×2 (05:33→15:17)
[2016-12-27] MEDS: Insulin Regular 300 UNITS/3 ML VIAL SC PRN ×2 (05:34→20:56)
[2016-12-27] MEDS: Amiodarone HCl 450 MG in Dextrose 5% in Water 250 ML IVPB SCH ×4 (06:02→20:18)
[2016-12-27] MEDS: glipiZIDE 5 MG TAB PO SCH ×3 (06:25→18:53)
[2016-12-27 06:59] LABS: Oxyhemoglobin 95.8 % (94.0-97.0)
[2016-12-27 07:00] LABS: Modified Allen's Test POSITIVE; Sodium 137 mmol/L (135-148); Spontaneous Rate 24 min; Vent YES
[2016-12-27 07:01] LABS: Mode CPAP; Pressure Support 5 cmH2O
--- NOTE | 2016-12-27 08:23 | RAD ---
AP VIEW OF THE CHEST: INDICATION: Intubation. COMPARISON: Prior exam dated 12/26/16. FINDINGS: ET tube, gastric catheter, and right subclavian vascular congestion are similar appearing. Cardiome he, pulmonary vascular congestion, and central edema pattern are similar. Bilateral pleural effus ions persist. No pneumothorax is evident. Osseous structures are similar. Aortic valvular prosthe sis is similar. IMPRESSION: Stable exam. POS: [facility]
[2016-12-27] MEDS: Prenatal Vitamin 1 TAB PO SCH (08:52)
[2016-12-27] MEDS: Gabapentin 300 MG CAP PO SCH ×2 (08:53→20:18)
[2016-12-27] MEDS: Pantoprazole 40 MG GRANULES PACKET PER TUBE SCH (08:53)
[2016-12-27] MEDS: Aspirin 325 MG TAB PO SCH (08:53)
[2016-12-27] MEDS: Insulin Detemir 100 UNITS/ML 5 UNITS in Pre-Filled Syringe 1 EACH SC SCH ×2 (08:53→20:56)
[2016-12-27 13:07] LABS: BF Reference Range Comment Note:
--- NOTE | 2016-12-27 13:27 | RAD ---
AP VIEW OF THE CHEST: INDICATION: Status post tap. COMPARISON: Prior exam dated 12/27/16 at 4:40 a.m. IMPRESSION: There has been improvement in the right-sided pleural effusion when compared to the prior exam. Lef t-sided pleural effusion appears similar. Cardiomegaly and pulmonary vascular congestion persist. The extent of the central edema has slightly improved. Right-sided subclavian central venous cathet er is similar. Gastric catheter is unchanged. There is an ET tube that is unchanged. Multilead pa cemaker is unchanged. Osseous structures are similar appearing. POS: [facility]
[2016-12-27 13:41] LABS: BF Color Brown
[2016-12-27 13:43] LABS: RBC Count-Automated 11000 /cumm
--- NOTE | 2016-12-27 13:59 | OP ---
PROCEDURE: Thoracentesis. MEDICAL LIAISON: Nicolas Moore M.D. INDICATION: The patient was placed, sitting at bedside. She was on 5 of pressure support, 5 PEEP. Consent was obtained from the . Risk of bleeding, infection, lung collapse were explained. The right posterior hemithorax was prepped with chlorhexidine. A 22 gauge needle was used to instil l 7 mL of lidocaine into the skin and the pleural space. Fluid was localized with a 22 gauge needle easily. This 8 Romansh catheter was then inserted into the pleural space and connected to a vacuum bottle. Just over 700 mL of dark yellow pleural fluid was evacuated without difficulty. No air was aspirated. There was no clinical indication of a pneumothorax. Fluid was sent for the appropriate studies: Chest radiograph will be done postprocedure, since she is mechanically ventilated.
[2016-12-27 14:23] LABS: Number Cells Counted-Fluids 100
[2016-12-27] MEDS: Scopolamine 1.5 mg/72 hour Patch TD SCH (15:18)
--- NOTE | 2016-12-27 15:27 | PDOC.CTH ---
Cardiology Progress Note - Subjective Pt is still intibated sedated. Plan for thoracentesis today. She has diuresed on lasix IV. BUN stable. Pt still in afib. - ROS not able to obtain ROS - Objective Vital Signs Temp Pulse Resp BP Pulse Ox 12/27/16 14:52 94 123/44 L 12/27/16 10:54 99 148/66 H 12/27/16 08:00 98.1 F 113 H 25 H 95 12/27/16 06:39 87 130/51 L 12/27/16 06:00 19 12/27/16 04:00 98.3 F 24 H Admit Weight 194 lb Weight 224 lb 3.362 oz 12/26/16 12/27/16 12/28/16 06:59 06:59 06:59 Intake Total 2072 1592.4 Output Total 2240 2985 465 Balance -168 -1392.6 -465 - Physical Examination General/Neuro: NAD Neck: carotid US brisk, no JVD present Lungs: other: (decreased BS on left) Heart: other: (IRR) Abdomen: no HSM, NT/ND Extremities: + femoral B - Telemetry Telemetry Rhythm: afib - Labs Result Diagrams: 12/27/16 03:20 12/27/16 03:20 Troponin/CKMB CK-MB (CK-2) 6.2 ng/mL (0-6.6) 12/19/16 22:21 Troponin I 4.251 ng/mL (< 0.028) H* 12/19/16 22:21 - Assessment/Plan afib s/p AVR Respiratory failure thoracentesis today continue diuretics Respiratory support Extubate soon Rate control. On amio IV
[2016-12-27] MEDS: Cefepime 2 GM in Sodium Chloride 0.9% 100 ML IVPB SCH (15:44)
--- NOTE | 2016-12-27 15:56 | PRG ---
DATE OF SERVICE: 12/27/2016 SUBJECITVE: Ms. Ballard did well overnight. She is still on 5 of pressure support, 5 of PEEP. Secret ions are an issue. The nursing staff and respiratory feels that secretions are becoming more purule nt. PHYSICAL EXAMINATION: LUNGS: Remarkable for rhonchi bilaterally. HEART: Regular rhythm. ABDOMEN: Soft. LABORATORY DATA: White count 15.9, hemoglobin 11, platelets 209,000. Sodium 141, potassium 3.8, chloride 109, bicarb 25, BUN 56, creatinine 0.6. Chest radiograph still shows bilateral effusions. IMPRESSION: Large bilateral effusions secondary to volume resuscitation after 2 codes and aortic va lve replacement plus bypass. She tolerated a negative fluid balance from the lab's standpoint. Her intake and output was negative 1392 and her creatinine has actually improved. We will continue wit h diuresis. I recommended thoracentesis. Scopolamine patch will be added for secretions and she wi ll be placed on guaifenesin through her feeding tube. PLAN: I will plan a thoracentesis. Hopefully, we can wean her tomorrow if she wakes up and meets w merlyn parameters. We will do spontaneous breathing trial in the morning. Critical care time was 30 minutes.
[2016-12-27] MEDS: Propofol 1,000 MG/100 ML VIAL IV PRN (18:53)
[2016-12-27] MEDS: Guaifenesin DM 100-10/5 ML UDCUP PO PRN (18:55)
[2016-12-27] MEDS: Atorvastatin Calcium 10 MG TAB PO SCH (20:18)
[2016-12-27] MEDS: guaiFENesin ER 600 MG TAB PO SCH (20:18)
[2016-12-28] MEDS: Cefepime 2 GM in Sodium Chloride 0.9% 100 ML IVPB SCH ×2 (04:15→13:49)
[2016-12-28 04:42] LABS: #Eosinphils 0.3 thou/uL (0.0-0.7); #Monocytes 1.6 thou/uL (0.11-0.59); %Basophils 0.2 % (0.0-1.0); %Eosinophils 2.3 % (0.0-10.0); %Lymphocytes 26.9 % (21.0-51.0); %Monocytes 10.4 % (0.0-10.0); Mean Platelet Volume 10.2 fL (7.4-10.4); Red Blood Cell (RBC) Count 3.61 mill/uL (4.20-5.40); White Blood Cell (WBC) Count 14.9 thou/uL (4.8-10.8)
[2016-12-28 05:05] LABS: Anion Gap 13 mmol/L (10-20); BUN (Urea Nitrogen) 53 mg/dL (9.8-20.1); Calc. Creatinine Clearance 115 mL/min (70-130); Calcium 8.3 mg/dL (7.8-10.44); Carbon Dioxide 26 mmol/L (23-31); Chloride 105 mmol/L (98-107); Estimated GFR-MDRD 83
[2016-12-28] MEDS: Furosemide 100 MG/10 ML VIAL SLOW IVP SCH ×2 (05:18→13:53)
[2016-12-28] MEDS: Clindamycin 150 MG CAP PO SCH ×2 (05:18→13:53)
[2016-12-28] MEDS: Insulin Regular 300 UNITS/3 ML VIAL SC PRN ×3 (05:19→16:52)
--- NOTE | 2016-12-28 07:47 | CCL ---
TEMPORARY PACEMAKER PLACEMENT: DATE OF SERVICE: 12/20/2016. PROCEDURES PERFORMED: Placement of a temporary pacemaker. INDICATION: Complete heart block. SUMMARY: Mrs. Ballard is a 76-year-old white female who is in the hospital after aortic valve replacement and a [facility] to the LAD. She had a temporary placed yesterday secondary complete heart block and hypotensio n. However, it got dislodged today and she went back into heart block and hypotensive, so we eli t her emergently to the catheterization lab for placement. We exchanged the old sheath for a new on e with a sterile technique, we then advanced a balloon-tipped temporary pacer wire into the right at rium and into the right ventricle where pacing was achieved. The pacing thresholds were tested and we left the pacer at 10 millivolts so it would capture half and with a heart rate of 90. The patient tolerated the procedure well. RECOMMENDATIONS: 1. Permanent pacemaker in the morning. 2. Continue other medications and supportive care. POS: [facility]
[2016-12-28 08:23] LABS: Oxyhemoglobin 95.4 % (94.0-97.0); Sodium 141 mmol/L (135-148)
[2016-12-28 08:27] LABS: Modified Allen's Test NOT DONE; Pressure Support 5 cmH2O; Vent YES
[2016-12-28 08:28] LABS: Mode PSV
--- NOTE | 2016-12-28 09:03 | PRG ---
DATE OF SERVICE: 12/28/2016 Ms. Ballard continues to be intubated and sedated. She has reverted back to sinus rhythm with PVCs. S he has continued to diurese on IV Lasix. Over the last 24 hours, she has diuresed minus 1400. PHYSICAL EXAMINATION: VITAL SIGNS: Blood pressure 122/47, pulse 58, temperature afebrile. LUNGS: Clear to auscultation. CARDIAC: Irregular, irregular. ABDOMEN: Soft, nontender. EXTREMITIES: 1+ pitting edema. NEURO: Intubated and sedated. PERTINENT LABORATORY DATA: Hemoglobin 10.6, creatinine 0.69. IMPRESSION: 1. Respiratory failure. 2. Status post aortic valve replacement and bypass surgery. 3. Postoperative atrial fibrillation. 4. Renal insufficiency, now resolved. RECOMMENDATIONS: 1. Continue IV amiodarone until she is extubated then would change to p.o. amiodarone 400 mg one p. o. q.a.m. 2. Consider anticoagulation therapy; may also consider a 3-week event recorder to assess for parox ysmal atrial fibrillation post-op. 3. Respiratory support per Pulmonary. 4. Add low dose beta cristian therapy.
--- NOTE | 2016-12-28 09:16 | RAD ---
CHEST ONE VIEW: HISTORY: Dyspnea. Intubation. Followup. COMPARISON: 12/27/2016 FINDINGS: The cardiac silhouette remains magnified, enlarged, and predominantly obscured by left pleural fluid and patchy bibasilar infiltrate, left worse than right. The mediastinum is midline. Lines and tub es are unchanged in position. Postoperative changes of the mediastinum are apparent. IMPRESSION: Stable postoperative appearance of the chest with left pleural fluid and bibasilar atelectasis, left worse than right. POS: [facility]
[2016-12-28] MEDS: Aspirin 325 MG TAB PO SCH (10:16)
[2016-12-28] MEDS: guaiFENesin ER 600 MG TAB PO SCH ×2 (10:16→22:14)
[2016-12-28] MEDS: Gabapentin 300 MG CAP PO SCH ×2 (10:16→22:14)
[2016-12-28] MEDS: glipiZIDE 5 MG TAB PO SCH ×3 (10:16→16:56)
[2016-12-28] MEDS: Pantoprazole 40 MG GRANULES PACKET PER TUBE SCH (10:16)
[2016-12-28] MEDS: Insulin Detemir 100 UNITS/ML 5 UNITS in Pre-Filled Syringe 1 EACH SC SCH ×2 (10:17→21:59)
[2016-12-28] MEDS: Prenatal Vitamin 1 TAB PO SCH (10:24)
[2016-12-28] MEDS: Metoprolol Tartrate 25 MG TAB PO SCH ×2 (10:24→22:14)
--- NOTE | 2016-12-28 12:18 | RAD ---
SINGLE VIEW OF THE CHEST: COMPARISON: 12/28/16. HISTORY: Thoracocentesis. Postoperative patient. FINDINGS: A single view of the chest shows an enlarged cardiomediastinal silhouette. The lines and tubes are unchanged in position. The pacemaker is unchanged in position. There is improved aeration of the l eft thorax. No pneumothorax is visualized. IMPRESSION: 1. Appropriate position of lines and tubes. 2. Improved aeration of the left thorax. POS: [facility]
[2016-12-28] MEDS: Amiodarone HCl 450 MG in Dextrose 5% in Water 250 ML IVPB SCH ×2 (13:45)
--- NOTE | 2016-12-28 13:56 | OP ---
PROCEDURE PERFORMED: Thoracentesis DESCRIPTION OF PROCEDURE: The patient was placed in the sitting position. Consent was obtained fro m family. The left posterior hemithorax was prepped with chlorhexidine. The pleural space was anes thetized with 1% lidocaine. Fluid was localized with a 22 gauge needle. A Xvha-L-Etspvslk 8 Yoruba catheter was inserted in the pleural space. An 800 mL of clear yellow pleural fluid was evacuated post-procedure. Radiograph showed no pneumothorax and dramatic clearing of the effusion. The patie nt tolerated the procedure well. Fluid was sent for cultures and pH.
[2016-12-28] MEDS: Acetaminophen 1,000 MG in Premix Bag 1 BAG IVPB PRN (16:55)
--- NOTE | 2016-12-28 17:11 | SPC ---
ULTRASOUND GUIDED RIGHT UPPER EXTREMITY PICC LINE PLACEMENT 12/28/16 HISTORY: Patient is post median sternotomy and cardiac valve replacement. Patient needs joint terminal attack controller IV access. TECHNIQUE: After informed consent was obtained, the right upper extremity was meticulously prepped and draped i n the usual sterile fashion after appropriate access site was evaluated utilizing ultrasound guidanc e. The skin and subcutaneous tissues were infiltrated with buffered 1% lidocaine for local anesthesia o verlying the intended puncture site. Utilizing concurrent real time ultrasound guidance, the right b asilic vein was accessed utilizing micropuncture technique and concurrent real time ultrasound carolina nce. The catheter was measured and cut to the appropriate length. 5 Argentine peel away sheath was plac ed. The catheter was placed over the guide wire with tip position overlying the cavoatrial junction. Guide wire and peel away sheath were removed. Each port of the double lumen PICC line was accessed and aspirated/flushed easily. The catheter was secured to the skin utilizing a StatLock device. Dry sterile dressing was placed. Patient tolerated the procedure well without immediate complication. FINDINGS: Technically successful placement of a dual lumen 43 cm 5 Argentine PICC line via the right basilic vein . Tip of the catheter overlies the distal SVC. Radiographic images obtained of final catheter placem ent. The chest x-ray obtained demonstrates a right subclavian central venous catheter remaining in place with dual lead left subclavian cardiac pacemaking device. The cardiac silhouette is enlarged and the re is increased perihilar interstitial densities which may be related to mild pulmonary edema. IMPRESSION: 1. Technically successful right upper extremity PICC line placement. 2. Cardiomegaly with increase in perihilar interstitial densities which may be related to mild pulmonary edema. POS: [facility]
--- NOTE | 2016-12-28 18:12 | PRG ---
DATE OF SERVICE: 12/28/2016 SUBJECTIVE: Ms. Danyell Ballard did well overnight. I recommended thoracentesis on the left today and an extubation. She has been on minimal ventilatory support for several days now and tolerating this. She has strong cough. She has a leak with deflation of her cuff. OBJECTIVE: LUNGS: Clear with only a very few rhonchi that cleared with suctioning. HEART: Regular rhythm. ABDOMEN: Soft. LABORATORY DATA: White count is 14.9, hemoglobin 10.6 and platelets 234. Sodium 140, potassium 4, chloride 105, bicarbonate 23, BUN 53 and creatinine 0.69. Intake and output today is negative 1149. Weight is 215. The weight loss does not coincide with intake and output, so these weights I suspect are inaccurate. IMAGING DATA: Chest radiograph after thoracentesis shows dramatic clearing of the left-sided effusion, 800 mL was removed. IMPRESSION: Respiratory failure after aortic valve replacement, coronary artery bypass to the left anterior descending and then two short arrests associated with bradycardia requiring emergency temporary pacer, now with a permanent pacer. Cultures have been reviewed. Pleural fluid cultures are negative so far. Fluid had 11,000 red cells, 1030 white cells, mostly lymphocytes. PH is not entered in the computer yesterday for some reason, it is 1.5. LDH is 173. Glucose is 154, pleural effusion was transudative. Today's fluid was sent just for culture and pH, which is 7.5. [facility]
[2016-12-28] MEDS: Atorvastatin Calcium 10 MG TAB PO SCH (22:14)
[2016-12-29] MEDS: Cefepime 2 GM in Sodium Chloride 0.9% 100 ML IVPB SCH ×2 (00:16→15:03)
[2016-12-29] MEDS: Acetaminophen 1,000 MG in Premix Bag 1 BAG IVPB PRN (03:13)
[2016-12-29] MEDS: Amiodarone HCl 450 MG in Dextrose 5% in Water 250 ML IVPB SCH ×4 (03:22→19:22)
[2016-12-29 05:28] LABS: #Basophils 0.1 thou/uL (0.0-0.2); #Eosinphils 0.4 thou/uL (0.0-0.7); #Lymphocytes 4.1 thou/uL (1.20-3.40); #Monocytes 1.6 thou/uL (0.11-0.59); #Neutrophils 10.6 thou/uL (1.40-6.50); %Basophils 0.6 % (0.0-1.0); %Eosinophils 2.4 % (0.0-10.0); %Lymphocytes 24.4 % (21.0-51.0); %Monocytes 9.6 % (0.0-10.0); Hematocrit 33.6 % (36.0-47.0); Mean Platelet Volume 9.5 fL (7.4-10.4); Red Blood Cell (RBC) Count 3.67 mill/uL (4.20-5.40); White Blood Cell (WBC) Count 16.8 thou/uL (4.8-10.8)
[2016-12-29] MEDS: Furosemide 100 MG/10 ML VIAL SLOW IVP SCH ×2 (05:40→15:03)
[2016-12-29 05:50] LABS: Anion Gap 10 mmol/L (10-20); BUN (Urea Nitrogen) 50 mg/dL (9.8-20.1); Calc. Creatinine Clearance 114 mL/min (70-130); Calcium 8.3 mg/dL (7.8-10.44); Carbon Dioxide 28 mmol/L (23-31); Chloride 106 mmol/L (98-107); Estimated GFR-MDRD 86
[2016-12-29] MEDS: glipiZIDE 5 MG TAB PO SCH ×3 (08:24→18:28)
[2016-12-29] MEDS: Metoprolol Tartrate 25 MG TAB PO SCH ×3 (08:25→20:49)
[2016-12-29] MEDS: Pantoprazole 40 MG GRANULES PACKET PER TUBE SCH (08:25)
[2016-12-29] MEDS: Gabapentin 300 MG CAP PO SCH ×3 (08:25→20:49)
[2016-12-29] MEDS: Aspirin 325 MG TAB PO SCH ×2 (08:25→11:08)
[2016-12-29] MEDS: Prenatal Vitamin 1 TAB PO SCH ×2 (08:25→11:15)
[2016-12-29] MEDS: guaiFENesin ER 600 MG TAB PO SCH ×3 (08:25→22:54)
[2016-12-29] MEDS: Insulin Detemir 100 UNITS/ML 5 UNITS in Pre-Filled Syringe 1 EACH SC SCH ×2 (11:09→20:52)
[2016-12-29] MEDS: Potassium Chloride 20 MEQ/100 ML PREMIX BAG IVPB PRN (11:16)
--- NOTE | 2016-12-29 11:31 | PDOC.CTH ---
Cardiology Progress Note - Subjective She is doing better. She had her thoracenthesis done yesterday and her CXR continues to look much better today. No new issues. - Objective Vital Signs Temp Pulse Ox 12/29/16 09:20 100 12/29/16 07:00 97.8 F 12/29/16 04:00 98.1 F 12/29/16 00:00 98.1 F Admit Weight 194 lb Weight 213 lb 13.574 oz 12/28/16 12/29/16 12/30/16 06:59 06:59 06:59 Intake Total 1498 1754.4 Output Total 2647 1763 760 Balance -1149 -8.6 -760 - Physical Examination General/Neuro: alert & oriented x3, NAD Neck: no JVD present Lungs: unlabored respirations Heart: RRR Abdomen: NT/ND Extremities: + edema B (1+) - Telemetry Telemetry Rhythm: Afib HR 80' - Labs Result Diagrams: 12/29/16 05:05 12/29/16 05:05 Troponin/CKMB CK-MB (CK-2) 6.2 ng/mL (0-6.6) 12/19/16 22:21 Troponin I 4.251 ng/mL (< 0.028) H* 12/19/16 22:21 - Assessment/Plan 1. afib 2. s/p AVR 3. Respiratory failure PLAN: - Continue diuretics - Replace K - Rate control. On amio IV for now. Plan to switch to PO in the next few days.
--- NOTE | 2016-12-29 11:31 | RAD ---
AP VIEW CHEST: 12/29/2016 HISTORY: Ventilator dependent patient. COMPARISON: 12/28/2016 FINDINGS: AP view chest demonstrates extubation of the patient and removal of the NG tube. There has been luis cement of a right upper extremity PICC line since the previous exam. A sternotomy wire is seen. A prosthetic intracardiac valve is seen. An intracardiac pacing device is again noted. IMPRESSION: 1. Removal of nasogastric and endotracheal tubes. 2. Mild to moderate pulmonary vascular congestion. POS: [facility]
[2016-12-29] MEDS: Insulin Regular 300 UNITS/3 ML VIAL SC PRN ×3 (12:23→20:53)
--- NOTE | 2016-12-29 13:49 | PRG ---
DATE OF SERVICE: 12/29/2016 SUBJECTIVE: Ms. Ballard this morning says she is weak. She failed a swallow test. She had bilateral thoracentesis done. She is extubated. PHYSICAL EXAMINATION: VITAL SIGNS: Blood pressure 104/52, temperature 97, pulse 70, respiration 18. I's and O's are 1490 in, 2647 out. CHEST: Bilateral crackles. CARDIAC: Normal S1, S2, no gallops. LABORATORY DATA: White count 16,000, H\T\H is 10 and 33, platelet count 258. Electrolytes are nor mal. GFR is normal. IMPRESSION: Status post coronary artery bypass graft, status post respiratory failure, status post bilateral thoracentesis. X-ray show stable cephalization. Severe deconditioning. PLAN: Swallow test is being tried again. Continue antibiotics, supportive care, neb treatments. W e will follow.
[2016-12-29] MEDS: Atorvastatin Calcium 10 MG TAB PO SCH (20:49)
[2016-12-29] MEDS: traMADol HCl 50 MG TAB PO PRN (20:49)
[2016-12-30] MEDS: Cefepime 2 GM in Sodium Chloride 0.9% 100 ML IVPB SCH ×2 (01:12→13:28)
[2016-12-30] MEDS: traMADol HCl 50 MG TAB PO PRN ×2 (03:11→09:50)
[2016-12-30 03:35] LABS: #Basophils 0.2 thou/uL (0.0-0.2); #Eosinphils 0.6 thou/uL (0.0-0.7); #Lymphocytes 4.1 thou/uL (1.20-3.40); #Monocytes 1.5 thou/uL (0.11-0.59); %Basophils 0.9 % (0.0-1.0); %Eosinophils 3.4 % (0.0-10.0); %Lymphocytes 23.7 % (21.0-51.0); %Monocytes 8.6 % (0.0-10.0); Hematocrit 33.6 % (36.0-47.0); Red Blood Cell (RBC) Count 3.65 mill/uL (4.20-5.40); White Blood Cell (WBC) Count 17.4 thou/uL (4.8-10.8)
[2016-12-30 03:58] LABS: Anion Gap 10 mmol/L (10-20); BUN (Urea Nitrogen) 39 mg/dL (9.8-20.1); Calc. Creatinine Clearance 120 mL/min (70-130); Calcium 8.5 mg/dL (7.8-10.44); Carbon Dioxide 29 mmol/L (23-31); Chloride 105 mmol/L (98-107); Estimated GFR-MDRD Greater than 90
[2016-12-30] MEDS: Furosemide 100 MG/10 ML VIAL SLOW IVP SCH ×2 (06:38→13:29)
[2016-12-30] MEDS: Gabapentin 300 MG CAP PO SCH ×2 (07:51→21:09)
[2016-12-30] MEDS: Aspirin 325 MG TAB PO SCH (07:51)
[2016-12-30] MEDS: glipiZIDE 5 MG TAB PO SCH ×3 (07:51→16:53)
[2016-12-30] MEDS: Pantoprazole 40 MG GRANULES PACKET PER TUBE SCH (07:52)
[2016-12-30] MEDS: Prenatal Vitamin 1 TAB PO SCH (07:52)
[2016-12-30] MEDS: guaiFENesin ER 600 MG TAB PO SCH ×2 (07:52→21:09)
[2016-12-30] MEDS: Potassium Chloride 20 MEQ/100 ML PREMIX BAG IVPB PRN (08:43)
[2016-12-30] MEDS: Metoprolol Tartrate 25 MG TAB PO SCH ×2 (09:52→21:09)
[2016-12-30] MEDS: Insulin Detemir 100 UNITS/ML 5 UNITS in Pre-Filled Syringe 1 EACH SC SCH ×2 (10:13→21:09)
[2016-12-30] MEDS: diphenhydrAMINE HCl/Zinc Acet 2% Cream 28.4 gm Tube TOP PRN ×2 (10:28→21:22)
[2016-12-30] MEDS: Amiodarone HCl 450 MG in Dextrose 5% in Water 250 ML IVPB SCH ×2 (11:09)
--- NOTE | 2016-12-30 11:36 | RAD ---
AP VIEW CHEST: HISTORY: Ventilator-dependent patient. FINDINGS: AP view chest is obtained on 12/30/16. Comparison is made to previous exam from 12/29/16. AP view chest demonstrates a right upper extremity PICC line in place. Intracardiac pacing leads se en. Sternotomy wires seen. A prosthetic cardiac valve is seen. Cardiomegaly is noted. Pulmonary vascular congestion is seen. Small bilateral pleural effusions seen. No significant evidence of interval changes noted. There is no evidence of a nasogastric or endotra cheal tube. IMPRESSION: Stable AP view chest. Cardiomegaly and bilateral pleural effusions seen. POS: [facility]
[2016-12-30] MEDS: Insulin Regular 300 UNITS/3 ML VIAL SC PRN ×3 (12:07→21:11)
--- NOTE | 2016-12-30 13:07 | PRG ---
DATE OF SERVICE: 12/30/2016 SUBJECTIVE: Danyell Ballard this morning is awake, alert, responsive, sternal pain, but no shortness of breath. OBJECTIVE: VITAL SIGNS: Blood pressure 130/80, sats are 95%, respirations 18. CHEST: Decreased breath sounds, bilateral crackles. CARDIAC: Normal S1 and S2. No gallops. ABDOMEN: Soft. No masses. IMAGING AND LABORATORY DATA: X-ray shows cardiomegaly, small pleural effusion. White count 17,000, hemoglobin and hemoglobin 10 and 30, platelet count is normal. IMPRESSION: 1. Respiratory failure. 2. Congestive heart failure. 3. Bilateral pleural effusion, status post coronary artery bypass graft. 4. Severe deconditioning. PLAN: 1. Continue antibiotics, nebulizer treatments, and diet. 2. We will follow.
[2016-12-30] MEDS: Scopolamine 1.5 mg/72 hour Patch TD SCH (13:28)
--- NOTE | 2016-12-30 14:18 | PDOC.CTH ---
Cardiology Progress Note - Subjective No new issues. She feels better today as compared to yesterday. - Objective Vital Signs Temp Pulse Pulse Pulse Resp BP BP 12/30/16 12:00 97.8 F 12/30/16 11:02 76 76 121/52 L 126/56 L 12/30/16 08:00 97.7 F 76 24 H 12/30/16 04:00 97.9 F Pulse Ox Pulse Ox Pulse Ox 12/30/16 12:00 12/30/16 11:02 98 98 12/30/16 08:00 99 12/30/16 04:00 Admit Weight 194 lb Weight 208 lb 15.971 oz 12/29/16 12/30/16 12/31/16 06:59 06:59 06:59 Intake Total 1754.4 2378 836 Output Total 1763 2440 985 Balance -8.6 -62 -149 - Physical Examination General/Neuro: alert & oriented x3, NAD Neck: no JVD present Lungs: unlabored respirations Heart: RRR Abdomen: NT/ND Extremities: + edema B (1+) - Telemetry Telemetry Rhythm: Afib HR 80's. - Labs Result Diagrams: 12/30/16 03:15 12/30/16 03:30 Troponin/CKMB CK-MB (CK-2) 6.2 ng/mL (0-6.6) 12/19/16 22:21 Troponin I 4.251 ng/mL (< 0.028) H* 12/19/16 22:21 - Assessment/Plan 1. afib 2. s/p AVR 3. Respiratory failure PLAN: - Continue diuretics - Will switch amio to PO.
[2016-12-30] MEDS: Atorvastatin Calcium 10 MG TAB PO SCH (21:09)
[2016-12-31] MEDS: Furosemide 100 MG/10 ML VIAL SLOW IVP SCH ×3 (00:55→13:22)
[2016-12-31] MEDS: Cefepime 2 GM in Sodium Chloride 0.9% 100 ML IVPB SCH ×2 (01:52→12:53)
[2016-12-31 05:07] LABS: #Basophils 0.1 thou/uL (0.0-0.2); #Eosinphils 0.1 thou/uL (0.0-0.7); #Lymphocytes 2.8 thou/uL (1.20-3.40); #Monocytes 1.1 thou/uL (0.11-0.59); #Neutrophils 15.4 thou/uL (1.40-6.50); %Basophils 0.5 % (0.0-1.0); %Eosinophils 0.7 % (0.0-10.0); %Lymphocytes 14.2 % (21.0-51.0); %Monocytes 5.7 % (0.0-10.0); Hematocrit 34.4 % (36.0-47.0); Mean Platelet Volume 8.9 fL (7.4-10.4); Red Blood Cell (RBC) Count 3.76 mill/uL (4.20-5.40); White Blood Cell (WBC) Count 19.5 thou/uL (4.8-10.8)
[2016-12-31 05:26] LABS: Anion Gap 12 mmol/L (10-20); BUN (Urea Nitrogen) 31 mg/dL (9.8-20.1); Calc. Creatinine Clearance 109 mL/min (70-130); Calcium 8.2 mg/dL (7.8-10.44); Carbon Dioxide 27 mmol/L (23-31); Chloride 103 mmol/L (98-107); Estimated GFR-MDRD 85
[2016-12-31] MEDS: Insulin Regular 300 UNITS/3 ML VIAL SC PRN ×2 (06:53→12:44)
[2016-12-31] MEDS ORDERED: Metolazone 5 MG TAB PO SCH (07:00)
--- NOTE | 2016-12-31 08:03 | RAD ---
SINGLE VIEW OF THE CHEST: COMPARISON: 12/30/16. HISTORY: Ventilated patient for respiratory failure. FINDINGS: A single view of the chest shows an enlarged but stable cardiomediastinal silhouette. The patient i s status post aortic valve replacement. The pacemaker is unchanged in position. The PICC line is u nchanged in position. There are moderate bilateral pleural effusions with adjacent atelectasis vers us infiltrate. IMPRESSION: Bilateral pleural effusions with adjacent atelectasis versus infiltrate. POS: [facility]
[2016-12-31] MEDS: glipiZIDE 5 MG TAB PO SCH ×3 (08:48→18:17)
[2016-12-31] MEDS: Prenatal Vitamin 1 TAB PO SCH (08:50)
[2016-12-31] MEDS: guaiFENesin ER 600 MG TAB PO SCH ×2 (08:50→23:00)
[2016-12-31] MEDS: Metoprolol Tartrate 25 MG TAB PO SCH ×2 (08:51→23:00)
[2016-12-31] MEDS: Aspirin 325 MG TAB PO SCH (08:51)
[2016-12-31] MEDS: Gabapentin 300 MG CAP PO SCH ×2 (08:51→23:00)
[2016-12-31] MEDS: Guaifenesin DM 100-10/5 ML UDCUP PO PRN (08:51)
[2016-12-31] MEDS: Insulin Detemir 100 UNITS/ML 5 UNITS in Pre-Filled Syringe 1 EACH SC SCH ×2 (12:56→23:01)
[2016-12-31 13:26] LABS: Band 10 % (5-11); Neutrophil 68 % (42-75)
[2016-12-31 13:28] LABS: Ovalocytes SLIGHT = 2-5 cells (100X) (0-1/hpf); Polychromasia SLIGHT = 2-3 cells (100X) (0-2/hpf); Schistocytes SLIGHT = 2-5 cells (100X) (0-1/hpf)
[2016-12-31 13:29] LABS: Anisocytosis SLIGHT = 6-15 cells (100X) (0-5/hpf)
--- NOTE | 2016-12-31 14:13 | PRG ---
DATE OF SERVICE: 12/31/2016 Ms. Ballard did reasonably well over the weekend. She is very weak as expected. PHYSICAL EXAMINATION: VITAL SIGNS: Heart rate in 70s-80s, blood pressure 121/48, respiratory rate 19. She is complaining of some abdominal fullness. It has been 3 days since she had a bowel movement. She had noninvasive ventilation last night. She drank 1620 mL the previous 24 hours and 820 mL yesterday. Her intake and output ended up being negative 1099 mL after she was given her Lasix early when she required noninvasive ventilation this morning. LUNGS: Remarkable for crackles at her bases. HEART: Regular rhythm. ABDOMEN: Soft. Chest radiograph shows recurrence of her pleural effusions. White count 19.5, hemoglobin 10.7, platelets 311,000. Sodium 130, potassium 4.2 , chloride 103, bicarbonate 27, BUN 31, creatinine 0.68. IMPRESSION: 1. Recurrent bilateral pleural effusions status post thoracentesis on each side. These are transudative and sterile. 2. Status post 2 bradycardic arrests associated with the need for pacing. 3. Status post placement of a permanent pacer. 4. Leukocytosis. I have asked the lab to do manual differential today to see if she has a left shift. She only has 10% bands on her peripheral smear. She has no exam findings to suggest an infectious source. 5. Status post aortic valve replacement and left internal mammary artery to left anterior descending graft. 6. Deconditioning. 7. Lymphoma PLAN: Continue supportive care in the ICU. MOIZ
[2016-12-31] MEDS: Pantoprazole 40 MG GRANULES PACKET PER TUBE SCH (15:56)
[2016-12-31] MEDS: Polyethylene Glycol 3350 17 GM Packet PER TUBE SCH (18:19)
[2016-12-31] MEDS: Atorvastatin Calcium 10 MG TAB PO SCH (23:00)
[2017-01-01] MEDS: traMADol HCl 50 MG TAB PO PRN ×2 (01:53→09:38)
[2017-01-01] MEDS: Cefepime 2 GM in Sodium Chloride 0.9% 100 ML IVPB SCH ×2 (01:55→14:04)
[2017-01-01 04:38] LABS: #Basophils 0.1 thou/uL (0.0-0.2); #Eosinphils 0.3 thou/uL (0.0-0.7); #Lymphocytes 3.4 thou/uL (1.20-3.40); #Monocytes 1.3 thou/uL (0.11-0.59); #Neutrophils 10.6 thou/uL (1.40-6.50); %Basophils 0.8 % (0.0-1.0); %Eosinophils 2.1 % (0.0-10.0); %Lymphocytes 21.6 % (21.0-51.0); Hematocrit 34.5 % (36.0-47.0); Mean Platelet Volume 9.2 fL (7.4-10.4); Red Blood Cell (RBC) Count 3.79 mill/uL (4.20-5.40); White Blood Cell (WBC) Count 15.8 thou/uL (4.8-10.8)
[2017-01-01 05:03] LABS: Anion Gap 11 mmol/L (10-20); BUN (Urea Nitrogen) 31 mg/dL (9.8-20.1); Calc. Creatinine Clearance 108 mL/min (70-130); Calcium 8.5 mg/dL (7.8-10.44); Carbon Dioxide 29 mmol/L (23-31); Chloride 102 mmol/L (98-107); Estimated GFR-MDRD 86
[2017-01-01] MEDS: Furosemide 100 MG/10 ML VIAL SLOW IVP SCH ×2 (06:17→14:04)
[2017-01-01] MEDS ORDERED: Metolazone 5 MG TAB PO SCH (06:30)
[2017-01-01 07:04] LABS: Oxyhemoglobin 95.1 % (94.0-97.0); Sodium 137 mmol/L (135-148)
[2017-01-01 07:05] LABS: Mode 2L/M NASAL CANNULA; Modified Allen's Test POSITIVE
--- NOTE | 2017-01-01 07:12 | PRG ---
DATE OF SERVICE: 12/31/2016 Ms. Ballard is doing better. She has been extubated. She is complaining of shortness of breath last e vening, but has maintained normal saturations. Her heart rate also continues to be irregular, consi stent with atrial fibrillation. PHYSICAL EXAMINATION: VITAL SIGNS: Blood pressure 100/52, pulse 81, respirations 20. LUNGS: Clear to auscultation. CARDIAC: Irregular, irregular. ABDOMEN: Soft, nontender, nondistended. EXTREMITIES: 1+ pitting edema. LABS: Hemoglobin 10.7, creatinine 0.68. IMPRESSION: 1. Respiratory failure, now improved. 2. Aortic stenosis, status post aortic valve replacement. 3. Postop atrial fibrillation. RECOMMENDATIONS: 1. Continue amiodarone. 2. Discuss timing of anticoagulation therapy with Dr. Hewitt. 3. May add Lovenox and nearing her discharge may convert to Eliquis.
[2017-01-01] MEDS: glipiZIDE 5 MG TAB PO SCH ×3 (09:24→17:48)
--- NOTE | 2017-01-01 09:25 | RAD ---
SINGLE VIEW OF THE CHEST: Comparison: 12-31-16 History: Aortic valve replacement. FINDINGS: Single view of the chest shows an enlarged cardiomediastinal silhouette. The patient is status post sternotomy. The pacemaker is unchanged in position. There are moderate bilateral pleural effusions. The PICC line is unchanged in position. IMPRESSION: Stable bilateral pleural effusions. POS: [facility]
[2017-01-01] MEDS: Aspirin 325 MG TAB PO SCH (09:26)
[2017-01-01] MEDS: Gabapentin 300 MG CAP PO SCH ×2 (09:26→21:04)
[2017-01-01] MEDS: Metoprolol Tartrate 25 MG TAB PO SCH (09:26)
[2017-01-01] MEDS: guaiFENesin ER 600 MG TAB PO SCH ×2 (09:26→21:04)
[2017-01-01] MEDS: Insulin Detemir 100 UNITS/ML 5 UNITS in Pre-Filled Syringe 1 EACH SC SCH ×2 (09:34→21:04)
[2017-01-01] MEDS: Insulin Regular 300 UNITS/3 ML VIAL SC PRN ×3 (09:35→21:04)
[2017-01-01] MEDS: Polyethylene Glycol 3350 17 GM Packet PER TUBE SCH (09:40)
[2017-01-01] MEDS: Prenatal Vitamin 1 TAB PO SCH (09:41)
--- NOTE | 2017-01-01 10:06 | PRG ---
DATE OF SERVICE: 01/01/2017 SUBJECTIVE: Ms. Ballard is doing better today. Her rate appears to be elevated. She was complaining of right upper extremity edema. She had a PICC line placed. OBJECTIVE: VITAL SIGNS: Blood pressure 120/52, pulse 81, temperature afebrile. LUNGS: Clear to auscultation. CARDIAC: Irregular, irregular. ABDOMEN: Soft, nontender, nondistended. EXTREMITIES: Mild edema present to the right upper extremity versus left. PERTINENT LABORATORY DATA: Hemoglobin 10.9, creatinine 0.67. IMPRESSION: 1. Aortic stenosis, status post aortic valve replacement. 2. Postoperative atrial fibrillation. 3. Bilateral upper extremity edema. RECOMMENDATIONS: 1. I discussed anticoagulation therapy with Dr. Kenneth Hewitt. 2. Increase metoprolol to 50 mg 1 p.o. b.i.d. 3. Right upper extremity ultrasound to assess for deep venous thrombosis.
[2017-01-01] MEDS ORDERED: Metoprolol Tartrate 25 MG TAB PO SCH (11:00)
--- NOTE | 2017-01-01 11:08 | RAD ---
RIGHT WRIST TWO VIEWS: History: Right wrist pain. FINDINGS: Osseous structures are demineralized. Joint space narrowing, osteophytosis, and subchondral sclerosi s are most pronounced at the first carpal metacarpal joint. No acute fracture or dislocation are vis ible. IMPRESSION: 1. 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 2. Osteoporosis. POS: [facility]
--- NOTE | 2017-01-01 13:46 | OP ---
DATE OF PROCEDURE: 12/19/2016 PREOPERATIVE DIAGNOSIS: Third degree AV block. POSTOPERATIVE DIAGNOSIS: Successful temporary pacemaker implantation. DESCRIPTION OF PROCEDURE: The patient was brought urgently to the catheterization lab after the pat ient developed third degree AV block after recent AVR. Patient was consented for the procedure. I discussed the procedure in full detail, the risks includ ed not limited to the following: , stroke, MO, need for emergency surgery, loss of limb, bleed ing and infection. All questions were answered. Patient was draped and prepped in sterile fashion. I explained right femoral vein under ultrasound guidance. The temporary pacemaker was placed successfully into the right ventricle with threshold n oted. IMPRESSION: Successful temporary pacemaker implantation.
--- NOTE | 2017-01-01 13:55 | ULT ---
RIGHT UPPER EXTREMITY VENOUS ULTRASOUND: History: Right upper arm edema after PICC line placement. Comparison: None. Technique: Grayscale, color flow, doppler imaging and spectral waveform analysis was performed of th e right upper extremity venous system. FINDINGS: There is patency in the right internal jugular vein. There is patency in the right subclavian vein. There is compressibility and patency in the right axillary vein. There is echogenic material with la ck of flow in the cephalic vein, in the upper arm. The cephalic vein in the lower arm compresses. Th e basilic vein and brachial vein have compressibility and flow. Right upper extremity edema is noted. The radial and ulnar vein have compressibility. PICC line in the basilic vein is identified. IMPRESSION: 1. Thrombus in the right upper extremity cephalic vein, at the level of the upper arm. POS: [facility]
--- NOTE | 2017-01-01 18:43 | PRG ---
DATE OF SERVICE: 01/01/2017 Ms. Ballard is complaining of right wrist pain. She has point tenderness at the base of her thumb, I ordered wrist films, which showed severe degenerative arthritis in this area. Dr. Villegas feels that this most likely is just osteoarthritis. We will give her 1 dose of steroids today. She is still in atrial fibrillation. She is weak, but making progress. She has had an ultrasound ordered of right upper extremity today. I suspect she favors decides and she likes to lie on her right side. She does have cephalic vein thrombus, which does not need to be addressed with anticoagulation. So this may have been developing when she had a subclavian line and her subclavian vein was opened. PHYSICAL EXAMINATION: LUNGS: Clear. HEART: Regular rhythm. ABDOMEN: Soft. LABORATORY DATA: White count 15.8, hemoglobin 10.9, platelets 340,000. Sodium 138, potassium 4.3, chloride 102, bicarb 29, BUN 31, creatinine 0.6. IMPRESSION: 1. Status post aortic valve and coronary artery bypass grafting. 2. Status post permanent pacemaker. 3. Status post 2 bradycardic arrest. 4. Deconditioning. 5. Osteoarthritis. 6. Cephalic vein clot on the right upper extremity. 7. History of atrial fibrillation. 8. Acute kidney dysfunction that has returned to normal. I suspect her creatinine 0.6 in her does not truly reflect what her GFR is. She does not have much muscle mass. I suspect her renal function is a little worse than her creatinine would lead one to believe. Dr. Mcmullen is planning and anticoagulated for atrial fibrillation. We discussed this and agree we should proceed gingerly. She has some degree of a fall risks and she has been bedridden for quite some time. I met with the and answered all of this questions. 9. Lymphoma MTDD
--- NOTE | 2017-01-01 20:09 | CON ---
DATE OF CONSULTATION: 01/01/2017 CHIEF COMPLAINT: Right wrist pain. HISTORY OF PRESENT ILLNESS: Ms. Ballard is a 76-year-old female who was in the CCU. She has had a rec ent aortic valve replacement for aortic stenosis with postoperative atrial fibrillation. She has landry d a complicated course with a code blue several days ago. She has been resuscitated. She is improv ing now. She is undergoing diuresis. She has had respiratory failure as well. Today, she began co mplaining of wrist and base of the right thumb pain. This has been present for her in the past and is somewhat of a chronic condition, although recently she has not had this pain. Orthopedics was co nsulted to evaluate her pain. She also has a PICC line in this arm. She has had edema of the upper and lower extremities. IMAGES: X-rays demonstrate advanced osteoarthritis of the right CMC joint, first. There were no ac andra findings. ALLERGIES: PENICILLIN and SULFA. PAST SURGICAL HISTORY: Previous carpal tunnel release, hysterectomy, previous gastric surgery, prev ious aortic valve replacement. SOCIAL HISTORY: The patient does not smoke, drink alcohol, or use drugs. REVIEW OF SYSTEMS: Today currently positive only for right hand pain. PHYSICAL EXAMINATION: VITAL SIGNS: Temperature is 98.6, blood pressure is 144/56, respiratory rate of 18, 97% on room air . GENERAL: She is sitting upright, alert and oriented. HEENT: Normocephalic, atraumatic. RESPIRATORY: Breathing comfortably. MUSCULOSKELETAL: The patient's right hand has tenderness to palpation at the first CMC joint. She has pain with grind test. She has no pain over the first dorsal compartment tendons to palpation. Good wrist range of motion in flexion and extension. No increased warmth. IMPRESSION: Elderly female with multiple medical problems and recent heart surgery, now with wrist pain related to osteoarthritis of the base of the thumb. PLAN: At this point, the patient can use anti-inflammatory medications or steroids for pain relief. She could wear a wrist brace for immobilization if needed. She will continue to work on gentle ra nge of motion of the hand. No further treatment is indicated. She can follow up as an outpatient w [facility] if her pain persists.
[2017-01-01] MEDS: Metoprolol Tartrate 50 MG TAB PO SCH (21:04)
[2017-01-01] MEDS: Atorvastatin Calcium 10 MG TAB PO SCH (21:04)
[2017-01-02] MEDS: Cefepime 2 GM in Sodium Chloride 0.9% 100 ML IVPB SCH ×2 (01:28→13:56)
[2017-01-02 04:26] LABS: #Basophils 0.1 thou/uL (0.0-0.2); #Lymphocytes 0.8 thou/uL (1.20-3.40); #Monocytes 0.3 thou/uL (0.11-0.59); #Neutrophils 11.5 thou/uL (1.40-6.50); %Basophils 0.5 % (0.0-1.0); %Eosinophils 0.2 % (0.0-10.0); %Lymphocytes 6.5 % (21.0-51.0); %Monocytes 2.1 % (0.0-10.0); Hematocrit 35.9 % (36.0-47.0); Red Blood Cell (RBC) Count 3.91 mill/uL (4.20-5.40); White Blood Cell (WBC) Count 12.7 thou/uL (4.8-10.8)
[2017-01-02 04:58] LABS: Anion Gap 16 mmol/L (10-20); BUN (Urea Nitrogen) 33 mg/dL (9.8-20.1); Calc. Creatinine Clearance 98 mL/min (70-130); Calcium 8.8 mg/dL (7.8-10.44); Carbon Dioxide 26 mmol/L (23-31); Chloride 100 mmol/L (98-107); Estimated GFR-MDRD 77
[2017-01-02] MEDS: Insulin Regular 300 UNITS/3 ML VIAL SC PRN ×4 (06:22→21:38)
[2017-01-02] MEDS: Furosemide 100 MG/10 ML VIAL SLOW IVP SCH ×2 (06:22→13:56)
[2017-01-02] MEDS ORDERED: Metolazone 5 MG TAB PO SCH (06:45)
[2017-01-02] MEDS: glipiZIDE 5 MG TAB PO SCH ×3 (07:44→17:25)
[2017-01-02] MEDS: Prenatal Vitamin 1 TAB PO SCH (07:45)
[2017-01-02] MEDS: Aspirin 325 MG TAB PO SCH (07:45)
[2017-01-02] MEDS: Metoprolol Tartrate 50 MG TAB PO SCH ×2 (07:45→21:31)
[2017-01-02] MEDS: guaiFENesin ER 600 MG TAB PO SCH ×2 (07:45→21:30)
[2017-01-02] MEDS: Gabapentin 300 MG CAP PO SCH ×2 (07:46→21:31)
[2017-01-02] MEDS: Insulin Detemir 100 UNITS/ML 5 UNITS in Pre-Filled Syringe 1 EACH SC SCH ×2 (07:46→21:35)
--- NOTE | 2017-01-02 13:17 | PRG ---
DATE OF SERVICE: 01/02/2017 Ms. Ballard did well overnight. She says her wrists feels 100% better after the steroid injection. PHYSICAL EXAMINATION: VITAL SIGNS: Heart rate is in the 70s, blood pressure 125/51, respiratory rate in the teens. She pulled negative 3000 on the spirometer. LUNGS: Her lungs are clear with slightly tubular breath sounds at both bases. HEART: Regular rhythm. ABDOMEN: Soft. LABORATORY DATA: White count 12.7, hemoglobin 11.2, platelets 357. Sodium 137, potassium 4.5, chloride 100, bicarbonate 26, BUN 33, creatinine 0.7. Intake and output is negative 25-34. IMPRESSION: 1. Status post aortic valve and coronary bypass grafting with moderate mitral regurgitation. 2. Volume overload, tolerating diuresis and negative fluid balance. 3. Transient renal insufficiency after 2 bradycardic arrests. 4. Status post permanent pacemaker after her valve replacement. 5. Deconditioning, slow improving. 6. Lymphoma PLAN: Continue supportive care. I reviewed her medicines. I do not see any indication to continue with the IV cefepime. Tomorrow will be 8 days of cefepime, so I will just discontinue this tomorrow. Continue other medications. Continue with diuresis and monitoring her renal function. MOIZ
[2017-01-02] MEDS: Scopolamine 1.5 mg/72 hour Patch TD SCH (13:57)
[2017-01-02] MEDS: Polyethylene Glycol 3350 17 GM Packet PER TUBE SCH (13:59)
[2017-01-02] MEDS: Atorvastatin Calcium 10 MG TAB PO SCH (21:31)
[2017-01-02] MEDS: Enoxaparin Sodium 100 MG/ML SYRINGE SC SCH (21:44)
[2017-01-03] MEDS: Cefepime 2 GM in Sodium Chloride 0.9% 100 ML IVPB SCH (00:26)
[2017-01-03 04:20] LABS: #Basophils 0.2 thou/uL (0.0-0.2); #Eosinphils 0.5 thou/uL (0.0-0.7); #Lymphocytes 5.1 thou/uL (1.20-3.40); #Monocytes 1.8 thou/uL (0.11-0.59); #Neutrophils 12.2 thou/uL (1.40-6.50); %Basophils 0.9 % (0.0-1.0); %Eosinophils 2.3 % (0.0-10.0); %Lymphocytes 25.9 % (21.0-51.0); %Monocytes 9.2 % (0.0-10.0); Hematocrit 36.2 % (36.0-47.0); Mean Platelet Volume 8.7 fL (7.4-10.4); Red Blood Cell (RBC) Count 3.96 mill/uL (4.20-5.40); White Blood Cell (WBC) Count 19.8 thou/uL (4.8-10.8)
[2017-01-03 04:46] LABS: Anion Gap 11 mmol/L (10-20); BUN (Urea Nitrogen) 44 mg/dL (9.8-20.1); Calc. Creatinine Clearance 103 mL/min (70-130); Carbon Dioxide 31 mmol/L (23-31); Chloride 98 mmol/L (98-107); Estimated GFR-MDRD 74
[2017-01-03] MEDS: Furosemide 100 MG/10 ML VIAL SLOW IVP SCH ×2 (05:29→14:43)
[2017-01-03] MEDS: Potassium Chloride 20 MEQ/100 ML PREMIX BAG IVPB PRN (07:22)
--- NOTE | 2017-01-03 08:03 | RAD ---
SINGLE VIEW OF THE CHEST: COMPARISON: 01/01/17. HISTORY: Aortic valve replacement. FINDINGS: A single view of the chest shows an enlarged but stable cardiomediastinal silhouette. The patient i s status post sternotomy and aortic valve replacement. The pacemaker is unchanged in position. The re are moderate bilateral pleural effusions. The PICC line is unchanged in position. IMPRESSION: Stable bilateral pleural effusions. POS: [facility]
[2017-01-03] MEDS: glipiZIDE 5 MG TAB PO SCH ×3 (08:37→16:57)
[2017-01-03] MEDS: Gabapentin 300 MG CAP PO SCH ×2 (08:37→20:34)
[2017-01-03] MEDS: Metoprolol Tartrate 50 MG TAB PO SCH ×2 (08:37→20:34)
[2017-01-03] MEDS: guaiFENesin ER 600 MG TAB PO SCH ×2 (08:38→20:34)
[2017-01-03] MEDS: Enoxaparin Sodium 100 MG/ML SYRINGE SC SCH ×2 (08:39→20:33)
[2017-01-03] MEDS: Aspirin 325 MG TAB PO SCH (08:39)
[2017-01-03] MEDS: Polyethylene Glycol 3350 17 GM Packet PER TUBE SCH (08:40)
[2017-01-03] MEDS: diphenhydrAMINE HCl/Zinc Acet 2% Cream 28.4 gm Tube TOP PRN (08:46)
[2017-01-03] MEDS ORDERED: Metolazone 5 MG TAB PO SCH (09:15)
[2017-01-03] MEDS: Prenatal Vitamin 1 TAB PO SCH (10:19)
[2017-01-03] MEDS: Insulin Detemir 100 UNITS/ML 5 UNITS in Pre-Filled Syringe 1 EACH SC SCH ×2 (10:19→20:38)
[2017-01-03] MEDS: Insulin Regular 300 UNITS/3 ML VIAL SC PRN ×3 (10:26→20:36)
--- NOTE | 2017-01-03 17:47 | PDOC.CTH ---
Cardiology Progress Note - Subjective Patient seen and examined. No new complaints. She is found sitting up in chair and reports feeling much better today. - Objective Vital Signs Temp Pulse Pulse Pulse Resp BP BP 01/03/17 16:00 97.0 F L 01/03/17 12:00 98.0 F 01/03/17 09:12 90 77 116/44 L 114/39 L 01/03/17 08:00 97.8 F 86 16 01/03/17 07:00 97.8 F Pulse Ox Pulse Ox Pulse Ox 01/03/17 16:00 01/03/17 12:00 01/03/17 09:12 98 97 01/03/17 08:00 97 01/03/17 07:00 Admit Weight 194 lb Weight 222 lb 3.615 oz 01/02/17 01/03/17 01/04/17 06:59 06:59 06:59 Intake Total 900 1230 580 Output Total 3432 9682 7343 Balance -0295 -1775 -725 - Physical Examination General/Neuro: alert & oriented x3, NAD Neck: no JVD present Lungs: unlabored respirations, other: (diminished L base) Heart: RRR Abdomen: soft Extremities: other: (1+ BLE edema) - Telemetry Telemetry Rhythm: AV paced - Labs Result Diagrams: 01/03/17 04:00 01/03/17 04:00 Troponin/CKMB CK-MB (CK-2) 6.2 ng/mL (0-6.6) 12/19/16 22:21 Troponin I 4.251 ng/mL (< 0.028) H* 12/19/16 22:21 - Assessment/Plan 1. CAD s/p 1 vessel bypass 2. Severe s/p AVR 3. Post op afib 4. S/p PPM implant PLAN: Ms. Ballard continues to improve. He HR is controlled and she is AV paced on current therapies. We will anticoagulate with Lovenox for now. Continue diuretics. She was encouraged to increase use of IS.
[2017-01-03] MEDS: Atorvastatin Calcium 10 MG TAB PO SCH (20:33)
--- NOTE | 2017-01-03 21:39 | PRG ---
DATE OF SERVICE: 01/03/2017 SUBJECTIVE: Danyell Ballard has done well. She has no other complaints. OBJECTIVE: GENERAL: She is afebrile. VITAL SIGNS: Heart rate 77, blood pressure 100/43, respiratory rate 19. LUNGS: Clear. HEART: Regular rhythm. ABDOMEN: Soft. EXTREMITIES: Without asymmetry. Intake and output is negative 1095. LABORATORY DATA: White count 19.8, hemoglobin 11.2 and platelets 380,000. Sodium 137, potassium 3.4, chloride 98, bicarbonate 31, BUN 44 and creatinine 0.7. IMPRESSION: 1. Status post aortic valve replacement with a left internal mammary artery and permanent pacemaker . 2. 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 3. Cephalic vein clot, not a clinical issue. 4. History of atrial fibrillation. 5. Bilateral pleural effusions associated with volume overload, mitral regurg may be contributing t o this. PLAN: Continue supportive care. She appears to be improving a little bit each day. Her abram felix she is as well.
[2017-01-04 04:10] LABS: #Basophils 0.1 thou/uL (0.0-0.2); #Eosinphils 0.4 thou/uL (0.0-0.7); #Lymphocytes 4.1 thou/uL (1.20-3.40); #Monocytes 1.2 thou/uL (0.11-0.59); #Neutrophils 7.3 thou/uL (1.40-6.50); %Basophils 0.8 % (0.0-1.0); %Eosinophils 3.3 % (0.0-10.0); %Lymphocytes 30.9 % (21.0-51.0); %Monocytes 9.3 % (0.0-10.0); Mean Platelet Volume 8.6 fL (7.4-10.4); White Blood Cell (WBC) Count 13.2 thou/uL (4.8-10.8)
[2017-01-04 04:16] LABS: Anion Gap 11 mmol/L (10-20); BUN (Urea Nitrogen) 44 mg/dL (9.8-20.1); Calc. Creatinine Clearance 101 mL/min (70-130); Calcium 8.7 mg/dL (7.8-10.44); Carbon Dioxide 32 mmol/L (23-31); Chloride 96 mmol/L (98-107); Estimated GFR-MDRD 72
[2017-01-04] MEDS: Potassium Chloride 20 MEQ/100 ML PREMIX BAG IVPB PRN (04:33)
[2017-01-04] MEDS ORDERED: Metolazone 5 MG TAB PO SCH (07:45)
[2017-01-04] MEDS: glipiZIDE 5 MG TAB PO SCH ×3 (07:47→16:54)
[2017-01-04] MEDS: guaiFENesin ER 600 MG TAB PO SCH ×2 (07:48→20:50)
[2017-01-04] MEDS: Aspirin 325 MG TAB PO SCH (07:48)
[2017-01-04] MEDS: Enoxaparin Sodium 100 MG/ML SYRINGE SC SCH ×2 (07:48→20:50)
[2017-01-04] MEDS: Gabapentin 300 MG CAP PO SCH ×2 (07:49→20:50)
[2017-01-04] MEDS: Insulin Detemir 100 UNITS/ML 5 UNITS in Pre-Filled Syringe 1 EACH SC SCH ×2 (07:49→20:59)
[2017-01-04] MEDS: Metoprolol Tartrate 50 MG TAB PO SCH ×2 (07:49→20:50)
[2017-01-04] MEDS: Prenatal Vitamin 1 TAB PO SCH (08:32)
[2017-01-04] MEDS: Polyethylene Glycol 3350 17 GM Packet PER TUBE SCH (08:32)
[2017-01-04] MEDS: Furosemide 40 MG/4 ML VIAL SLOW IVP SCH (08:57)
[2017-01-04] MEDS ORDERED: Furosemide 100 MG/10 ML VIAL SLOW IVP SCH (09:00)
--- NOTE | 2017-01-04 10:28 | PRG ---
DATE OF SERVICE: 01/04/2017 SUBJECTIVE: Ms. Danyell Ballard has no complaints. She is sitting at the bedside when I examined her. OBJECTIVE: VITAL SIGNS: She is afebrile, heart rate is 77, respiratory rate in the low 20s, oximetry is 94, bl ood pressure 116/87. LUNGS: Clear. HEART: Regular rhythm. ABDOMEN: Soft. LABORATORY DATA: There is no radiograph today. White count 13.2, hemoglobin 10.1, platelets 327,00 0. Sodium 136, potassium 3.2, chloride 96, bicarbonate 32, BUN 44, creatinine 0.7. IMPRESSION: 1. Volume overload. 2. Status post aortic valve replacement. 3. Status post [facility] to LAD graft. 4. Status post 2 bradycardic arrest after surgery, now with a permanent pacemaker. 5. Deconditioning. 6. Mildly prerenal, intake and output is negative 1675. PLAN: We cut back on her Lasix dose yesterday. We will cut this back to lower mg dose at this poin t, as I believe she is close to euvolemic, although she still has pleural effusions. We have tapped both pleural effusions prior to extubation and then they returned with a positive fluid balance. Dorinda sierra will continue current care. She is probably stable to move out of the Critical Care Unit.
[2017-01-04] MEDS: Insulin Regular 300 UNITS/3 ML VIAL SC PRN ×3 (11:42→21:00)
--- NOTE | 2017-01-04 13:12 | PDOC.CTH ---
Cardiology Progress Note - Subjective Patient seen and examined. No new complaints. No overnight events. - Objective Vital Signs Temp Pulse Pulse Pulse Resp BP BP 01/04/17 12:00 97.6 F 01/04/17 09:05 78 75 134/55 L 125/34 L 01/04/17 07:19 98.6 F 77 25 H 01/04/17 07:13 01/04/17 07:00 98.6 F 01/04/17 04:00 98.0 F Pulse Ox Pulse Ox Pulse Ox 01/04/17 12:00 01/04/17 09:05 97 95 01/04/17 07:19 94 L 01/04/17 07:13 98 01/04/17 07:00 01/04/17 04:00 Admit Weight 194 lb Weight 219 lb 9.286 oz 01/03/17 01/04/17 01/05/17 06:59 06:59 06:59 Intake Total 1230 1030 480 Output Total 2325 2705 765 Balance -3556 -4525 -285 - Physical Examination General/Neuro: alert & oriented x3, NAD Neck: no JVD present Lungs: CTA Heart: RRR Extremities: other: (1+ pitting edema BLE) - Telemetry Telemetry Rhythm: Apaced - Labs Result Diagrams: 01/04/17 03:50 01/04/17 03:50 Troponin/CKMB CK-MB (CK-2) 6.2 ng/mL (0-6.6) 12/19/16 22:21 Troponin I 4.251 ng/mL (< 0.028) H* 12/19/16 22:21 - Assessment/Plan 1. CAD s/p 1-vessel bypass 2. Severe s/p AVR 3. Post op afib 4. S/p PPM implant PLAN: Ms. Ballard is stable. She is making progress with PT according to spouse. Her weight is down 3lbs overnight and she denies any SOB. She has a paced rhythm and is anticoagulated with Lovenox. Continue diuretics and PT. Increase use of IS.
[2017-01-04] MEDS: Atorvastatin Calcium 10 MG TAB PO SCH (20:50)
[2017-01-05 04:31] LABS: #Basophils 0.2 thou/uL (0.0-0.2); #Eosinphils 0.6 thou/uL (0.0-0.7); #Lymphocytes 4.1 thou/uL (1.20-3.40); #Monocytes 1.4 thou/uL (0.11-0.59); #Neutrophils 7.9 thou/uL (1.40-6.50); %Basophils 1.1 % (0.0-1.0); %Eosinophils 3.9 % (0.0-10.0); %Lymphocytes 29.3 % (21.0-51.0); %Monocytes 9.9 % (0.0-10.0); Hematocrit 33.7 % (36.0-47.0); Mean Platelet Volume 8.8 fL (7.4-10.4); Red Blood Cell (RBC) Count 3.69 mill/uL (4.20-5.40); White Blood Cell (WBC) Count 14.1 thou/uL (4.8-10.8)
[2017-01-05 04:44] LABS: Anion Gap 10 mmol/L (10-20); BUN (Urea Nitrogen) 38 mg/dL (9.8-20.1); Calc. Creatinine Clearance 111 mL/min (70-130); Calcium 8.7 mg/dL (7.8-10.44); Carbon Dioxide 32 mmol/L (23-31); Chloride 98 mmol/L (98-107); Estimated GFR-MDRD 83
[2017-01-05] MEDS: Potassium Chloride 20 MEQ/100 ML PREMIX BAG IVPB PRN (05:04)
[2017-01-05] MEDS: glipiZIDE 5 MG TAB PO SCH ×3 (08:32→17:29)
[2017-01-05] MEDS: guaiFENesin ER 600 MG TAB PO SCH ×2 (08:32→20:30)
[2017-01-05] MEDS: Aspirin 325 MG TAB PO SCH (08:32)
[2017-01-05] MEDS: Metoprolol Tartrate 50 MG TAB PO SCH ×2 (08:32→20:29)
[2017-01-05] MEDS: Gabapentin 300 MG CAP PO SCH ×2 (08:32→20:30)
[2017-01-05] MEDS: Enoxaparin Sodium 100 MG/ML SYRINGE SC SCH ×2 (08:32→20:30)
[2017-01-05] MEDS: Furosemide 40 MG/4 ML VIAL SLOW IVP SCH (08:33)
[2017-01-05] MEDS: Polyethylene Glycol 3350 17 GM Packet PER TUBE SCH (08:33)
[2017-01-05] MEDS: Prenatal Vitamin 1 TAB PO SCH (08:33)
[2017-01-05] MEDS: Insulin Detemir 100 UNITS/ML 5 UNITS in Pre-Filled Syringe 1 EACH SC SCH ×2 (08:34→20:37)
--- NOTE | 2017-01-05 09:44 | PRG ---
DATE OF SERVICE: 01/05/2017 SUBJECTIVE: She is up in a chair. She is doing better. She complains of nasal congestion. PHYSICAL EXAMINATION: VITAL SIGNS: Temperature is 98.0, pulse 75, blood pressure 136/36. A 24-hour intake 1120, output 1 635. HEENT: Unremarkable. NECK: No JVD. LUNGS: Fairly clear to auscultation without wheezing. CARDIAC: S1 and S2 regular. ABDOMEN: Soft. EXTREMITIES: Trace edema. LABORATORY DATA: White blood cell count 14.1, hemoglobin 10, hematocrit 33, platelet count 319. So dium 137, potassium 3.2, chloride 98, CO2 32, creatinine 0.7, glucose 109. IMPRESSION: 1. Volume overload has improved. 2. Status post aortic valve replacement. 3. Status post coronary artery bypass grafting surgery. 4. Status post 2 bradycardic arrests requiring permanent pacemaker placement. 5. Nasal congestion. PLAN: 1. Nasal decongestants. 2. Transferred to telemetry. 3. Increase activity. 4. Leave Medeiros catheter in for the time being because the patient cannot get up to the toilet witho ut assistance.
[2017-01-05] MEDS ORDERED: Metolazone 5 MG TAB PO SCH (11:00)
[2017-01-05] MEDS: Insulin Regular 300 UNITS/3 ML VIAL SC PRN ×3 (11:26→20:38)
[2017-01-05] MEDS: Scopolamine 1.5 mg/72 hour Patch TD SCH (13:21)
--- NOTE | 2017-01-05 18:32 | PDOC.CTH ---
Cardiology Progress Note - Subjective No new issues overnight. Tolerating current meds. Rhythm sinus currently. ROS otherwise negative. - Objective Vital Signs Temp Pulse Pulse Pulse Resp BP BP 01/05/17 16:00 97.6 F 01/05/17 12:00 98.0 F 01/05/17 11:00 80 67 122/50 L 122/50 L 01/05/17 08:55 80 60 136/42 L 134/52 L 01/05/17 08:50 81 80 134/54 L 136/42 L 01/05/17 07:17 98.0 F 75 21 H 01/05/17 07:00 98.0 F Pulse Ox Pulse Ox Pulse Ox 01/05/17 16:00 01/05/17 12:00 01/05/17 11:00 94 L 96 01/05/17 08:55 01/05/17 08:50 95 94 L 01/05/17 07:17 100 01/05/17 07:00 Admit Weight 194 lb Weight 216 lb 7.903 oz 01/04/17 01/05/17 01/06/17 06:59 06:59 06:59 Intake Total 1030 1120 640 Output Total 2705 1635 865 Balance -1565 -515 -225 - Physical Examination General/Neuro: alert & oriented x3, NAD Neck: carotid US brisk, no JVD present Lungs: CTA, unlabored respirations Heart: PMI normal, RRR Abdomen: no HSM, NT/ND, soft Extremities: other: (2+ pulses, no edema) Other PE findings: Neuro: no focal motor defs - Telemetry Telemetry Rhythm: sinus rhythm - Labs Result Diagrams: 01/05/17 03:55 01/05/17 03:55 Troponin/CKMB CK-MB (CK-2) 6.2 ng/mL (0-6.6) 12/19/16 22:21 Troponin I 4.251 ng/mL (< 0.028) H* 12/19/16 22:21 - Assessment/Plan 1. CAD s/p 1-vessel bypass 2. Severe s/p AVR 3. Post op afib, now SR 4. S/p PPM implant PLAN: Ms. Ballard is stable. She is making progress with PT. Continue diuretics and PT. Increase use of IS.
[2017-01-05] MEDS: Atorvastatin Calcium 10 MG TAB PO SCH (20:29)
[2017-01-05] MEDS: Oxymetazoline HCl 0.05% ( 15 ML ) NASAL SCH (20:30)
[2017-01-06 04:47] LABS: Anion Gap 10 mmol/L (10-20); BUN (Urea Nitrogen) 35 mg/dL (9.8-20.1); Calc. Creatinine Clearance 109 mL/min (70-130); Carbon Dioxide 33 mmol/L (23-31); Chloride 99 mmol/L (98-107); Estimated GFR-MDRD 82
[2017-01-06 05:14] LABS: Hematocrit 32.8 % (36.0-47.0); Mean Platelet Volume 9.5 fL (7.4-10.4); Neutrophil 59 % (42-75); Red Blood Cell (RBC) Count 3.57 mill/uL (4.20-5.40); White Blood Cell (WBC) Count 15.7 thou/uL (4.8-10.8)
--- NOTE | 2017-01-06 08:54 | PRG ---
DATE OF SERVICE: 01/06/2017 SUBJECTIVE: She remains in the CCU. She got little hypoglycemic this morning and required some D50 . PHYSICAL EXAMINATION: VITAL SIGNS: Temperature is 98.6, pulse 80, blood pressure 117/62, 24-hour intake 880, output 1250. HEENT: Unremarkable. NECK: Without adenopathy or JVD. CHEST: Fairly clear. CARDIAC: S1 and S2 regular. ABDOMEN: Soft. EXTREMITIES: No edema. LABORATORY DATA: Sodium 138, potassium 3.5, chloride 99, CO2 33, BUN 35, creatinine 0.7, glucose 41 . White blood cell count 15.7, hematocrit 32.8, and platelet count 322. ASSESSMENT: Early a.m. hypoglycemia - this is likely reflective of her nighttime Levemir insulin do se. PLAN: Discontinue the nighttime Levemir dose. Continue sliding scale insulin as this following wit h you.
[2017-01-06] MEDS: Aspirin 325 MG TAB PO SCH (09:03)
[2017-01-06] MEDS: glipiZIDE 5 MG TAB PO SCH ×3 (09:04→16:45)
[2017-01-06] MEDS: guaiFENesin ER 600 MG TAB PO SCH ×2 (09:04→21:06)
[2017-01-06] MEDS: Gabapentin 300 MG CAP PO SCH ×2 (09:04→21:05)
[2017-01-06] MEDS: Furosemide 40 MG/4 ML VIAL SLOW IVP SCH (09:05)
[2017-01-06] MEDS: Metoprolol Tartrate 50 MG TAB PO SCH ×2 (09:05→21:05)
[2017-01-06] MEDS: Enoxaparin Sodium 100 MG/ML SYRINGE SC SCH ×2 (09:06→21:06)
[2017-01-06] MEDS: Oxymetazoline HCl 0.05% ( 15 ML ) NASAL SCH ×2 (09:07→21:32)
[2017-01-06] MEDS: Polyethylene Glycol 3350 17 GM Packet PER TUBE SCH (09:08)
[2017-01-06] MEDS: Prenatal Vitamin 1 TAB PO SCH (09:15)
[2017-01-06] MEDS: Insulin Detemir 100 UNITS/ML 5 UNITS in Pre-Filled Syringe 1 EACH SC SCH (09:17)
--- NOTE | 2017-01-06 11:12 | PDOC.CTH ---
Cardiology Progress Note - Subjective No new issues overnight. Denies pain. Rhythm stable. ROS otherwise negative. - Objective Vital Signs Temp Pulse Resp Pulse Ox 01/06/17 08:00 97.6 F 01/06/17 07:38 98.6 F 75 20 97 01/06/17 07:17 98 01/06/17 04:00 98.6 F 01/06/17 00:00 98.5 F Admit Weight 194 lb Weight 214 lb 11.684 oz 01/05/17 01/06/17 01/07/17 06:59 06:59 06:59 Intake Total 1120 880 260 Output Total 1635 1250 290 Balance -515 -370 -30 - Physical Examination General/Neuro: alert & oriented x3, NAD Neck: carotid US brisk, no JVD present Lungs: CTA, unlabored respirations Heart: PMI normal, RRR Abdomen: no HSM, NT/ND, soft Extremities: other: (2+ pulses, no edema) Other PE findings: Neuro: no focal motor defs - Telemetry Telemetry Rhythm: sinus rhythm - Labs Result Diagrams: 01/06/17 03:00 01/06/17 03:00 Troponin/CKMB CK-MB (CK-2) 6.2 ng/mL (0-6.6) 12/19/16 22:21 Troponin I 4.251 ng/mL (< 0.028) H* 12/19/16 22:21 - Assessment/Plan 1. CAD s/p 1-vessel bypass 2. Severe s/p AVR 3. Post op afib, now SR 4. S/p PPM implant PLAN: -MsMoisés Nellie is stable. -Continue diuretics and PT. -Increase use of IS/activity.
[2017-01-06] MEDS: Insulin Regular 300 UNITS/3 ML VIAL SC PRN ×3 (12:00→21:24)
[2017-01-06] MEDS ORDERED: Metolazone 5 MG TAB PO SCH (12:15)
[2017-01-06] MEDS: Potassium Chloride 20 MEQ TAB PO SCH (16:46)
[2017-01-06] MEDS ORDERED: FLU VACC TS2017-18 (>65YR) 0.5 ML SYRINGE IM ONE (21:00)
[2017-01-06] MEDS: Atorvastatin Calcium 10 MG TAB PO SCH (21:05)
[2017-01-07 05:31] LABS: Anion Gap 11 mmol/L (10-20); BUN (Urea Nitrogen) 36 mg/dL (9.8-20.1); Calc. Creatinine Clearance 93 mL/min (70-130); Calcium 8.9 mg/dL (7.8-10.44); Carbon Dioxide 30 mmol/L (23-31); Chloride 99 mmol/L (98-107); Estimated GFR-MDRD 68
--- NOTE | 2017-01-07 08:04 | PRG ---
DATE OF SERVICE: 01/07/2017 She seems to be in fairly reasonable spirits. She is having some trouble sleeping. PHYSICAL EXAMINATION: VITAL SIGNS: Temperature is 98.5, pulse 85, blood pressure 90/33, O2 sat 94%. HEENT: Unremarkable. NECK: No JVD. CHEST: Fairly clear. CARDIAC: S1 and S2 regular. ABDOMEN: Soft. EXTREMITIES: Trace edema especially in her feet. LABORATORY DATA: Sodium 136, potassium 4.2, chloride 99, CO2 30, BUN 36, creatinine 0.8, glucose 14 7. ASSESSMENT: 1. Early a.m. hypoglycemia has improved with holding of her nighttime Levemir insulin dose. 2. Status post aortic valve replacement. 3. Status post coronary artery bypass graft. PLAN: 1. Continue rehabilitation. 2. To the floor when okay with Cardiothoracic Surgery.
[2017-01-07] MEDS: glipiZIDE 5 MG TAB PO SCH ×3 (08:30→17:32)
[2017-01-07] MEDS: Polyethylene Glycol 3350 17 GM Packet PER TUBE SCH (08:46)
[2017-01-07] MEDS: Aspirin 325 MG TAB PO SCH (08:46)
[2017-01-07] MEDS: Furosemide 40 MG/4 ML VIAL SLOW IVP SCH (08:46)
[2017-01-07] MEDS: Metoprolol Tartrate 50 MG TAB PO SCH ×2 (08:47→20:33)
[2017-01-07] MEDS: Gabapentin 300 MG CAP PO SCH ×2 (08:47→20:33)
[2017-01-07] MEDS: Potassium Chloride 20 MEQ TAB PO SCH ×2 (08:47→17:35)
[2017-01-07] MEDS: guaiFENesin ER 600 MG TAB PO SCH ×2 (08:47→20:33)
[2017-01-07] MEDS: Enoxaparin Sodium 100 MG/ML SYRINGE SC SCH ×2 (08:49→20:34)
[2017-01-07] MEDS: Prenatal Vitamin 1 TAB PO SCH (09:31)
[2017-01-07] MEDS: Oxymetazoline HCl 0.05% ( 15 ML ) NASAL SCH (09:32)
[2017-01-07] MEDS: Insulin Detemir 100 UNITS/ML 5 UNITS in Pre-Filled Syringe 1 EACH SC SCH (09:33)
[2017-01-07] MEDS ORDERED: FLU VACC TS2017-18 (>65YR) 0.5 ML SYRINGE IM ONE (11:15)
[2017-01-07] MEDS: Insulin Regular 300 UNITS/3 ML VIAL SC PRN ×3 (11:56→21:50)
--- NOTE | 2017-01-07 17:24 | PDOC.CTH ---
Cardiology Progress Note - Subjective Complaints of weakness. Pt wiht limited ambulation. Also states she is intermittently SOB. - Objective Vital Signs Temp Pulse Pulse Pulse Resp BP BP 01/07/17 13:52 78 75 129/48 L 130/46 L 01/07/17 13:00 98.3 F 01/07/17 09:00 76 75 121/51 L 126/50 L 01/07/17 08:00 98.1 F 75 24 H Pulse Ox 01/07/17 13:52 01/07/17 13:00 01/07/17 09:00 01/07/17 08:00 96 Admit Weight 194 lb Weight 212 lb 11.937 oz 01/06/17 01/07/17 01/08/17 06:59 06:59 06:59 Intake Total 880 1061 600 Output Total 1250 1635 960 Balance -303 -334 -360 - Physical Examination General/Neuro: alert & oriented x3, NAD Neck: carotid US brisk, no JVD present Lungs: CTA, unlabored respirations Heart: PMI normal, RRR Abdomen: no HSM, NT/ND, soft Extremities: + femoral B - Labs Result Diagrams: 01/06/17 03:00 01/07/17 04:30 Troponin/CKMB CK-MB (CK-2) 6.2 ng/mL (0-6.6) 12/19/16 22:21 Troponin I 4.251 ng/mL (< 0.028) H* 12/19/16 22:21 - Assessment/Plan 1. s/p AVR 2. 3rd degree AVB 3. Afib 4. Deconditioning Pt would likely benefit from cIP cardiac rehab if she qualifies Pt now in SR. Continue amiodarone at 400mg qam for 1 month then DC. Also add NOAC prior to discharge and take for one month. PLan is to fu her afib with pacer.
--- NOTE | 2017-01-07 18:05 | EKG ---
Test Reason : POSSIBLE A FIB Blood Pressure : / mmHG Vent. Rate : 112 BPM Atrial Rate : 182 BPM P-R Int : 000 ms QRS Dur : 118 ms QT Int : 352 ms P-R-T Axes : 000 057 -42 degrees QTc Int : 480 ms Sinus bradycardia. Ventricular pacer. Confirmed by ELIZABETH JURADO M.D. ([id number]) on 01/07/2017 6:04:44 PM Referred By: TIERRA Confirmed By:ELIZABETH JURADO M.D.
[2017-01-07] MEDS: Atorvastatin Calcium 10 MG TAB PO SCH (20:33)
[2017-01-08] MEDS: Lorazepam 2 MG/ML VIAL SLOW IVP PRN (00:48)
[2017-01-08] MEDS ORDERED: Furosemide 40 MG/4 ML VIAL ONE (01:13)
[2017-01-08] MEDS ORDERED: Furosemide 20 MG/2 ML VIAL SLOW IVP SCH (01:15)
[2017-01-08 06:26] LABS: Anion Gap 11 mmol/L (10-20); BUN (Urea Nitrogen) 35 mg/dL (9.8-20.1); Calc. Creatinine Clearance 91 mL/min (70-130); Calcium 8.7 mg/dL (7.8-10.44); Carbon Dioxide 30 mmol/L (23-31); Chloride 98 mmol/L (98-107); Estimated GFR-MDRD 67
[2017-01-08] MEDS ORDERED: Metolazone 5 MG TAB PO SCH (06:30)
[2017-01-08] MEDS: Insulin Regular 300 UNITS/3 ML VIAL SC PRN ×3 (06:34→16:48)
--- NOTE | 2017-01-08 08:17 | PRG ---
DATE OF SERVICE: 01/08/2017 SUBJECTIVE: The patient is doing better today after receiving diuretics last night for developing f lash pulmonary edema. She needed BiPAP temporarily. PHYSICAL EXAMINATION: VITAL SIGNS: Temperature 98.6, pulse 75, blood pressure 127/46, O2 sat 100%. A 24-hour intake 600, output 2130. HEENT: Unremarkable. NECK: No JVD. LUNGS: A few crackles in both bases. CARDIAC: S1, S2 regular. ABDOMEN: Soft. EXTREMITIES: Edematous. X-RAY FINDINGS: Chest x-ray shows pulmonary edema and effusions. LABORATORY DATA: Sodium 135, potassium 3.9, BUN 35, creatinine 0.8, glucose 211. ASSESSMENT: 1. Continued pulmonary edema from congestive heart failure. 2. Status post aortic valve replacement. PLAN: Continue diuresis. Keep in the ICU for the time being.
[2017-01-08] MEDS: Furosemide 40 MG TAB PO SCH ×2 (08:33→13:32)
[2017-01-08] MEDS: Gabapentin 300 MG CAP PO SCH ×2 (08:33→20:56)
[2017-01-08] MEDS: Polyethylene Glycol 3350 17 GM Packet PER TUBE SCH (08:33)
[2017-01-08] MEDS: Aspirin 325 MG TAB PO SCH (08:33)
[2017-01-08] MEDS: glipiZIDE 5 MG TAB PO SCH ×3 (08:33→16:47)
[2017-01-08] MEDS: Potassium Chloride 20 MEQ TAB PO SCH ×2 (08:33→16:47)
[2017-01-08] MEDS: Metoprolol Tartrate 50 MG TAB PO SCH ×2 (08:33→20:56)
[2017-01-08] MEDS: guaiFENesin ER 600 MG TAB PO SCH ×2 (08:34→20:56)
[2017-01-08] MEDS: Insulin Detemir 100 UNITS/ML 5 UNITS in Pre-Filled Syringe 1 EACH SC SCH (08:34)
[2017-01-08] MEDS: Enoxaparin Sodium 100 MG/ML SYRINGE SC SCH ×2 (08:34→20:56)
[2017-01-08] MEDS: Prenatal Vitamin 1 TAB PO SCH (08:43)
--- NOTE | 2017-01-08 08:59 | PRG ---
DATE OF SERVICE: 01/08/2017 Ms. Ballard had a difficult evening last night. She had increased shortness of breath and required BiP AP. She also required Lasix. She did diurese and feels better this morning. She states she did no t sleep last evening. Her nutritional status also continues to be diminished. PHYSICAL EXAMINATION: VITAL SIGNS: Blood pressure 127/46, pulse 75, respirations 20. LUNGS: Decreased breath sounds and distant, bilateral crackles. CARDIAC: Regular rate and rhythm with normal S1 and S2. No rubs, murmurs or gallops. ABDOMEN: Soft, nontender, nondistended. EXTREMITIES: 1+ pitting edema. PERTINENT LABORATORY DATA: Hemoglobin 10.5, creatinine 0.83. IMPRESSION: 1. Acute on chronic diastolic heart failure. 2. Status post aortic stenosis. 3. Postop atrial fibrillation. RECOMMENDATIONS: I had a long discussion with Ms. Ballard today on increasing her nutritional status. Her Lasix has been increased appropriately. We will review her chest x-ray. We will also check an albumin level. Her rate appears to be well controlled. We will continue amiodarone at 200 mg one p.o. q.a.m. for 1 month, then stop. Then will monitor for any dysrhythmias with her pacer. Would a lso recommend anticoagulation therapy for a month as well.
--- NOTE | 2017-01-08 09:34 | RAD ---
CHEST 1 VIEW: HISTORY: Dyspnea. Followup. COMPARISON: 01/03/17. FINDINGS: Cardiac silhouette remains magnified, enlarged, and partially obscured by patchy bibasilar infiltrat e and pleural fluid. Pulmonary vasculature remains engorged. Mediastinum is midline with postopera tive changes and aortic calcification. Right upper extremity PICC remains in place. No evidence of pneumothorax. IMPRESSION: Pulmonary vascular congestion, pleural fluid, and other findings are stable. POS: [facility]
[2017-01-08] MEDS: Scopolamine 1.5 mg/72 hour Patch TD SCH (13:32)
[2017-01-08] MEDS: Atorvastatin Calcium 10 MG TAB PO SCH (20:56)
[2017-01-09] MEDS: Insulin Regular 300 UNITS/3 ML VIAL SC PRN ×4 (05:42→20:32)
[2017-01-09 06:27] LABS: #Basophils 0.2 thou/uL (0.0-0.2); #Eosinphils 0.4 thou/uL (0.0-0.7); #Lymphocytes 3.9 thou/uL (1.20-3.40); #Neutrophils 5.5 thou/uL (1.40-6.50); %Basophils 1.5 % (0.0-1.0); %Eosinophils 3.3 % (0.0-10.0); %Lymphocytes 35.8 % (21.0-51.0); %Monocytes 9.1 % (0.0-10.0); Anion Gap 12 mmol/L (10-20); BUN (Urea Nitrogen) 34 mg/dL (9.8-20.1); Calc. Creatinine Clearance 95 mL/min (70-130); Calcium 8.6 mg/dL (7.8-10.44); Carbon Dioxide 29 mmol/L (23-31); Chloride 99 mmol/L (98-107); Estimated GFR-MDRD 70; Hematocrit 31.7 % (36.0-47.0); Mean Platelet Volume 9.3 fL (7.4-10.4); Red Blood Cell (RBC) Count 3.43 mill/uL (4.20-5.40); White Blood Cell (WBC) Count 10.9 thou/uL (4.8-10.8)
[2017-01-09] MEDS ORDERED: Metolazone 5 MG TAB PO SCH (07:15)
[2017-01-09] MEDS: Potassium Chloride 20 MEQ TAB PO SCH ×2 (07:33→17:19)
[2017-01-09] MEDS: glipiZIDE 5 MG TAB PO SCH ×3 (07:33→17:18)
[2017-01-09] MEDS: Polyethylene Glycol 3350 17 GM Packet PER TUBE SCH (08:04)
[2017-01-09] MEDS: Aspirin 325 MG TAB PO SCH (08:04)
[2017-01-09] MEDS: Gabapentin 300 MG CAP PO SCH ×2 (08:04→20:31)
[2017-01-09] MEDS: Metoprolol Tartrate 50 MG TAB PO SCH ×2 (08:05→20:31)
[2017-01-09] MEDS: Furosemide 40 MG TAB PO SCH ×2 (08:05→13:41)
[2017-01-09] MEDS: guaiFENesin ER 600 MG TAB PO SCH ×2 (08:05→20:31)
--- NOTE | 2017-01-09 08:08 | PRG ---
DATE OF SERVICE: 01/09/2017 She is up in a chair, looks better today. PHYSICAL EXAMINATION: VITAL SIGNS: Temperature is 97.5, pulse 75, blood pressure 101/37, 24 hour intake 850, output 1725. Weight 214 pounds. HEENT: Unremarkable. NECK: No JVD. CHEST: Fairly clear. CARDIAC: S1 and S2 regular. ABDOMEN: Soft. EXTREMITIES: Trace edema. LABORATORY DATA: White blood cell count 10.9, hematocrit 31.7, platelet count 205. Sodium 136, pot assium 4, chloride 99, CO2 29, BUN 34, creatinine 8.0, glucose 145. ASSESSMENT: 1. Pulmonary edema/congestive heart failure which is improved after diuretics. 2. Status post aortic valve replacement. PLAN: 1. Continue diuresis. 2. Increase activity as tolerated. 3. She is likely to need prolonged rehabilitation before going home.
[2017-01-09] MEDS: Insulin Detemir 100 UNITS/ML 5 UNITS in Pre-Filled Syringe 1 EACH SC SCH (08:09)
[2017-01-09] MEDS: Prenatal Vitamin 1 TAB PO SCH (08:09)
[2017-01-09] MEDS: Enoxaparin Sodium 100 MG/ML SYRINGE SC SCH ×2 (09:08→20:31)
--- NOTE | 2017-01-09 14:37 | PRG ---
DATE OF SERVICE: 01/09/2017 SUBJECTIVE: Ms. Ballard is doing much better today. She is sitting up and eating. She denied any rec urrent episodes of shortness of breath last evening. Her Lasix was increased. OBJECTIVE: VITAL SIGNS: Blood pressure 120/58, pulse 84 and respirations 20. LUNGS: Clear to auscultation. HEART: Regular rate and rhythm. ABDOMEN: Soft, nontender and nondistended. EXTREMITIES: No significant edema. PERTINENT LABORATORY DATA: Hemoglobin 9.6. Creatinine 0.8. IMPRESSION: 1. Postoperative atrial fibrillation. 2. Status post aortic valve replacement. 3. Shortness of breath. 4. Diastolic dysfunction. RECOMMENDATIONS: Ms. Ballard appears improved today. At this point, we will continue current medical therapy. We will continue amiodarone at 400 mg one p.o. q.a.m. Would also continue aspirin, atorva statin in addition to metoprolol. She will likely go to the floor soon an will need inpatient rehab .
[2017-01-09] MEDS: Atorvastatin Calcium 10 MG TAB PO SCH (20:30)
[2017-01-10 04:36] LABS: Anion Gap 12 mmol/L (10-20); BUN (Urea Nitrogen) 30 mg/dL (9.8-20.1); Calc. Creatinine Clearance 100 mL/min (70-130); Calcium 8.6 mg/dL (7.8-10.44); Carbon Dioxide 30 mmol/L (23-31); Chloride 99 mmol/L (98-107); Estimated GFR-MDRD 74
--- NOTE | 2017-01-10 07:30 | PRG ---
DATE OF SERVICE: 01/10/2017 SUBJECTIVE: She feels better today, did not require use of the BiPAP last night, and is actually of f oxygen this morning. PHYSICAL EXAMINATION: VITAL SIGNS: Her temperature is 98.1, pulse 76, blood pressure 120/54, O2 sat 94% on room air. Tot al intake for the last 24 hours 1065, output 1915. HEENT: Unremarkable. NECK: No JVD. LUNGS: Clear without wheezing. CARDIOVASCULAR: S1, S2 regular. ABDOMEN: Soft, nontender. EXTREMITIES: She has edema in her feet. LABORATORY DATA: Sodium 137, potassium 3.5, chloride 99, CO2 30, BUN 30, creatinine 0.7, glucose 11 3. ASSESSMENT: 1. Stable pulmonary status, status post coronary bypass grafting surgery and valve replacement. 2. Resolving pulmonary edema. PLAN: She is being transferred to the floor. Increase activity as tolerated. Consider rehab place ment at the time of discharge.
[2017-01-10] MEDS: Aspirin 325 MG TAB PO SCH (07:44)
[2017-01-10] MEDS: Enoxaparin Sodium 100 MG/ML SYRINGE SC SCH (07:44)
[2017-01-10] MEDS: glipiZIDE 5 MG TAB PO SCH ×3 (07:44→16:49)
[2017-01-10] MEDS: Furosemide 40 MG TAB PO SCH ×2 (07:44→14:00)
[2017-01-10] MEDS: Prenatal Vitamin 1 TAB PO SCH (07:45)
[2017-01-10] MEDS: Gabapentin 300 MG CAP PO SCH ×2 (07:45→21:37)
[2017-01-10] MEDS: Metoprolol Tartrate 50 MG TAB PO SCH ×2 (07:45→21:36)
[2017-01-10] MEDS: Polyethylene Glycol 3350 17 GM Packet PER TUBE SCH (07:45)
[2017-01-10] MEDS: guaiFENesin ER 600 MG TAB PO SCH ×2 (07:45→21:37)
[2017-01-10] MEDS: Potassium Chloride 20 MEQ TAB PO SCH ×2 (07:45→16:49)
[2017-01-10] MEDS: Insulin Detemir 100 UNITS/ML 5 UNITS in Pre-Filled Syringe 1 EACH SC SCH (07:46)
[2017-01-10 12:56] VITALS: BMI 34.8
[2017-01-10] MEDS ORDERED: Metolazone 5 MG TAB PO SCH (13:00)
--- NOTE | 2017-01-10 15:05 | PRG ---
DATE OF SERVICE: 01/10/2017 Ms. Ballard is doing much better today. She has been transferred from ICU to telemetry monitoring. Sh e states she walked 80 feet today. This was the longest she has walked since her surgery. She has been able to maintain oxygenation. She did not require BiPAP overnight. PHYSICAL EXAMINATION: VITAL SIGNS: Blood pressure 117/43, pulse 78, temperature afebrile. LUNGS: Minimal crackles noted bilaterally. HEART: Regular rate and rhythm. ABDOMEN: Soft and nontender, nondistended. EXTREMITIES: A 1+ pitting edema. PERTINENT LABORATORY DATA: Hemoglobin and creatinine not performed today. IMPRESSION: 1. Deconditioning. 2. Postoperative atrial fibrillation. 3. Status post aortic valve replacement. RECOMMENDATIONS: 1. Continue amiodarone therapy at 400 q.a.m. and decrease to 200 q.a.m. on discharge. 2. Change Lovenox to Eliquis 5 mg 1 p.o. b.i.d. 3. Evaluation for inpatient rehabilitation.
[2017-01-10] MEDS: Apixaban 5 MG TAB PO SCH (21:37)
[2017-01-10] MEDS: Atorvastatin Calcium 10 MG TAB PO SCH (21:37)
[2017-01-11] MEDS ORDERED: Nystatin Powder 15 GM BOT TOP PRN (06:27)
[2017-01-11] MEDS ORDERED: Metolazone 5 MG TAB PO SCH (09:00)
--- NOTE | 2017-01-11 09:12 | CON ---
DATE OF CONSULTATION: 01/11/2017 SUBJECTIVE: Ms. Ballard today states she is having intermittent issues of shortness of breath. There may be an anxiety component. Her oxygen saturation is within normal limits. She did ambulate 40 fe et yesterday for a total of 120 feet on 01/10/2017. PHYSICAL EXAMINATION: VITAL SIGNS: Blood pressure 129/60, pulse 78, temperature 98.6. LUNGS: Clear to auscultation except for coarse rales are noted at the left lower base. HEART: Regular rate and rhythm, normal S1, S2. ABDOMEN: Soft, nontender, nondistended. EXTREMITIES: No edema. PERTINENT LABORATORY DATA: Hemoglobin 9.6 and creatinine 0.76. IMPRESSION: 1. Status post aortic valve replacement. 2. Postoperative atrial fibrillation. 3. Hypoxia. RECOMMENDATIONS: Hypoxia, resolved. There may be an anxiety component to her shortness of breath. This occurs intermittently. Her oxygen saturation had been within normal limits. At this point, r ecommended continuing incentive spirometry and ambulation. Continue amiodarone therapy. Lovenox landry d been discontinued in place of Eliquis.
[2017-01-11] MEDS: Apixaban 5 MG TAB PO SCH (09:40)
[2017-01-11] MEDS: glipiZIDE 5 MG TAB PO SCH ×2 (09:40→11:38)
[2017-01-11] MEDS: Potassium Chloride 20 MEQ TAB PO SCH (09:40)
[2017-01-11] MEDS: Furosemide 40 MG TAB PO SCH ×2 (09:41→13:20)
[2017-01-11] MEDS: Polyethylene Glycol 3350 17 GM Packet PER TUBE SCH (09:41)
[2017-01-11] MEDS: Gabapentin 300 MG CAP PO SCH (09:41)
[2017-01-11] MEDS: Prenatal Vitamin 1 TAB PO SCH (09:41)
[2017-01-11] MEDS: Aspirin 325 MG TAB PO SCH (09:41)
[2017-01-11] MEDS: guaiFENesin ER 600 MG TAB PO SCH (09:41)
[2017-01-11] MEDS: Metoprolol Tartrate 50 MG TAB PO SCH (09:41)
[2017-01-11] MEDS: Insulin Detemir 100 UNITS/ML 5 UNITS in Pre-Filled Syringe 1 EACH SC SCH (09:42)
[2017-01-11 11:42] VITALS: TEMP 98.4
[2017-01-11 12:12] VITALS: BP 139/60
[2017-01-11] MEDS: Insulin Regular 300 UNITS/3 ML VIAL SC PRN (12:20)
[2017-01-11] MEDS: Scopolamine 1.5 mg/72 hour Patch TD SCH (13:21)
[2017-01-11] MEDS: Lorazepam 2 MG/ML VIAL SLOW IVP PRN (13:26)
--- NOTE | 2017-01-11 16:04 | PRG ---
DATE OF SERVICE: 01/11/2017 SUBJECTIVE: Danyell Ballard has improved significantly. She walked 90 feet, then 50 feet, and then 30 f eet this morning. PHYSICAL EXAMINATION: VITAL SIGNS: She is afebrile, heart rate 75, respiratory rate 16, oxygen saturation is 92, blood pr essure 111/53. LUNGS: Clear. HEART: Regular rhythm. ABDOMEN: Soft. LABORATORY DATA: No new lab other than blood glucoses. IMPRESSION: 1. Status post coronary artery bypass grafting with aortic valve replacement. 2. Bradycardic arrest x2 now with permanent pacemaker. 3. Deconditioning after a relatively prolonged intubation. She continues to progress. Her says he sees progress every day. She is tentatively being evaluated for rehabilitation.
== END 2017-01-11 15:52 | DRG 216 ==
LOC: CCL 05:56 → 2NO 15:58 → CCU 12-18 08:48 → 2NO 01-10 09:32
PROVIDERS: ADMIT Internal Medicine Cardiovascular Disease; ATTEND Internal Medicine Cardiovascular Disease
PROC: 4A023N8 Measurement of Cardiac Sampling and Pressure, Bilateral, Percutaneous Approach (ICD-10-PCS; 2016-12-17)
PROC: B2111ZZ Fluoroscopy of Multiple Coronary Arteries using Low Osmolar Contrast (ICD-10-PCS; 2016-12-17)
PROC: 02RF08Z Replacement of Aortic Valve with Zooplastic Tissue, Open Approach (ICD-10-PCS; principal; 2016-12-18)
PROC: 02100Z9 Bypass Coronary Artery, One Artery from Left Internal Mammary, Open Approach (ICD-10-PCS; 2016-12-18)
PROC: 5A1221Z Performance of Cardiac Output, Continuous (ICD-10-PCS; 2016-12-18)
PROC: 3E080GC Introduction of Other Therapeutic Substance into Heart, Open Approach (ICD-10-PCS; 2016-12-18)
PROC: 0BH17EZ Insertion of Endotracheal Airway into Trachea, Via Natural or Artificial Opening (ICD-10-PCS; 2016-12-18)
PROC: 0W9B3ZZ Drainage of Left Pleural Cavity, Percutaneous Approach (ICD-10-PCS; 2016-12-19)
PROC: 5A1213Z Performance of Cardiac Pacing, Intermittent (ICD-10-PCS; 2016-12-20)
PROC: 0JH606Z Insertion of Pacemaker, Dual Chamber into Chest Subcutaneous Tissue and Fascia, Open Approach (ICD-10-PCS; 2016-12-21)
PROC: 02H63JZ Insertion of Pacemaker Lead into Right Atrium, Percutaneous Approach (ICD-10-PCS; 2016-12-21)
PROC: 02HK3JZ Insertion of Pacemaker Lead into Right Ventricle, Percutaneous Approach (ICD-10-PCS; 2016-12-21)
PROC: 4B02XSZ Measurement of Cardiac Pacemaker, External Approach (ICD-10-PCS; 2016-12-22)
PROC: 5A1955Z Respiratory Ventilation, Greater than 96 Consecutive Hours (ICD-10-PCS; 2016-12-28)
PROC: 0BP1XDZ Removal of Intraluminal Device from Trachea, External Approach (ICD-10-PCS; 2016-12-28)
PROC: 5A09557 Assistance with Respiratory Ventilation, Greater than 96 Consecutive Hours, Continuous Positive Airway Pressure (ICD-10-PCS; 2016-12-28)
PROC: 02HV33Z Insertion of Infusion Device into Superior Vena Cava, Percutaneous Approach (ICD-10-PCS; 2016-12-28)
DX: I35.0 Nonrheumatic aortic (valve) stenosis (principal); I50.33 Acute on chronic diastolic (congestive) heart failure; J96.01 Acute respiratory failure with hypoxia; J90 Pleural effusion, not elsewhere classified; G93.41 Metabolic encephalopathy; I44.2 Atrioventricular block, complete; I95.9 Hypotension, unspecified; C85.90 Non-Hodgkin lymphoma, unspecified, unspecified site; I11.0 Hypertensive heart disease with heart failure; I97.89 Other postprocedural complications and disorders of the circulatory system, not elsewhere classified; I82.611 Acute embolism and thrombosis of superficial veins of right upper extremity; D62 Acute posthemorrhagic anemia; T82.897A Other specified complication of cardiac prosthetic devices, implants and grafts, initial encounter; R00.1 Bradycardia, unspecified; I25.10 Atherosclerotic heart disease of native coronary artery without angina pectoris; E11.649 Type 2 diabetes mellitus with hypoglycemia without coma; E78.5 Hyperlipidemia, unspecified; E11.65 Type 2 diabetes mellitus with hyperglycemia; I48.91 Unspecified atrial fibrillation; M19.031 Primary osteoarthritis, right wrist; D72.829 Elevated white blood cell count, unspecified; I25.2 Old myocardial infarction; R79.89 Other specified abnormal findings of blood chemistry; Z88.0 Allergy status to penicillin; Z88.2 Allergy status to sulfonamides; Y83.8 Other surgical procedures as the cause of abnormal reaction of the patient, or of later complication, without mention of misadventure at the time of the procedure; Y71.3 Surgical instruments, materials and cardiovascular devices (including sutures) associated with adverse incidents; Y92.234 Operating room of hospital as the place of occurrence of the external cause
CPT/HCPCS: 33208; 33210; 36415; 36416; 36430; 36569; 71010; 71250; 76942; 80048; 80061; 80076; 82040; 82150; 82553; 82805; 82945; 83615; 83735; 83986; 84100; 84132; 84157; 84443; 84484; 85025; 85060; 85347; 85610; 85730; 86850; 86900; 86901; 87070; 87205; 88112; 88184; 88305; 88307; 88325; 88341; 88342; 89051; 90471; 90682; 93005; 93010; 93306; 93460; 93567; 93798; 94002; 94003; 94150; 94640; 94660; 99152; 99153; A4216; C1751; C1769; C1785; C1898; G0008; G8978-GP-CM; G8979-GP-CK; G8987-GO-CM; G8988-GO-CK; G8996-GN-CJ; G8996-GN-CK; G8997-GN-CH; G8997-GN-CJ; J0131; J0171; J0282; J0461; J0692; J1160; J1265; J1642; J1644; J1650; J1815; J1885; J1940; J1956; J2001; J2060; J2250; J2270; J2405; J2704; J2920; J3010; J3370; J3475; J3480; J3490; J7050; J7070; P9016; P9045; Q2036

== ENCOUNTER 2017-02-07 14:20 | Inpatient (IN) | payer MEDICARE ==
--- NOTE | 2017-02-07 15:46 | RAD ---
CHEST ONE VIEW 02/07/17 HISTORY: Emergency exam. COMPARISON: Chest two view 01/28/17. FINDINGS: The heart size is enlarged. Layering effusions bilaterally. Moderate edema. IMPRESSION: 1. Findings suggestive of decompensated congestive heart failure. 2. The left lower lobe air space opacity likely confluent layering effusion with compressive at electasis. Followup post drainage may be beneficial with CT to exclude a mass. POS: [facility]
[2017-02-07] MEDS ORDERED: Furosemide 40 MG/4 ML VIAL ONE (15:51)
[2017-02-07 16:11] LABS: #Basophils 0.1 thou/uL (0.0-0.2); #Eosinphils 0.1 thou/uL (0.0-0.7); #Lymphocytes 2.5 thou/uL (1.20-3.40); %Basophils 1.2 % (0.0-1.0); %Eosinophils 1.2 % (0.0-10.0); %Lymphocytes 21.4 % (21.0-51.0); %Monocytes 8.2 % (0.0-10.0); Hematocrit 36.7 % (36.0-47.0); Mean Platelet Volume 8.2 fL (7.4-10.4); Red Blood Cell (RBC) Count 4.02 mill/uL (4.20-5.40); White Blood Cell (WBC) Count 11.7 thou/uL (4.8-10.8)
[2017-02-07 16:33] LABS: ALT (SGPT) 14 U/L (8-55); AST (SGOT) 23 U/L (5-34); Alkaline Phosphatase 95 U/L (40-150); Anion Gap 20 mmol/L (10-20); BUN (Urea Nitrogen) 36 mg/dL (9.8-20.1); Bilirubin, Total 1.5 mg/dL (0.2-1.2); CK (CPK) 20 U/L (29-168); Calc. Creatinine Clearance 0 mL/min (70-130); Calcium 9.7 mg/dL (7.8-10.44); Carbon Dioxide 24 mmol/L (23-31); Chloride 100 mmol/L (98-107); Estimated GFR-MDRD 34; Globulin 2.8 g/dL (2.4-3.5); Protein, Total 6.8 g/dL (6.0-8.3)
[2017-02-07 16:37] LABS: Troponin I Less than 0.010 ng/mL (< 0.028)
[2017-02-07] MEDS ORDERED: Ondansetron HCl/PF 4 MG/2 ML Vial IVP PRN (18:48)
[2017-02-07] MEDS ORDERED: Ondansetron ODT 4 MG TAB SL PRN (18:48)
[2017-02-07] MEDS ORDERED: Acetaminophen 325 MG TAB PO PRN (18:48)
[2017-02-07 19:30] LABS: Troponin I 0.013 ng/mL (< 0.028)
[2017-02-07 20:11] LABS: Anion Gap 21 mmol/L (10-20); BUN (Urea Nitrogen) 35 mg/dL (9.8-20.1); Calc. Creatinine Clearance 0 mL/min (70-130); Calcium 9.7 mg/dL (7.8-10.44); Carbon Dioxide 23 mmol/L (23-31); Chloride 100 mmol/L (98-107); Estimated GFR-MDRD 36
[2017-02-07 22:23] VITALS: BMI 28.0
[2017-02-07 22:30] LABS: Troponin I 0.015 ng/mL (< 0.028)
[2017-02-08] MEDS ORDERED: Furosemide 40 MG/4 ML VIAL SLOW IVP SCH (04:00)
[2017-02-08] MEDS ORDERED: Dextrose 5% in Water 1,000 ML IV PRN (09:03)
[2017-02-08] MEDS ORDERED: Dextrose 50% Abboject 50 ML SYRINGE IVP PRN (09:03)
[2017-02-08] MEDS: Apixaban 5 MG TAB PO SCH ×2 (09:59→21:25)
[2017-02-08] MEDS: Metoprolol Tartrate 25 MG TAB PO SCH ×2 (10:00→21:26)
[2017-02-08] MEDS: metFORMIN 500 MG TAB PO SCH ×3 (10:00→21:26)
[2017-02-08] MEDS: Gabapentin 300 MG CAP PO SCH ×2 (10:00→21:25)
[2017-02-08] MEDS: glipiZIDE 5 MG TAB PO SCH ×3 (10:00→21:26)
[2017-02-08] MEDS: Spironolactone 25 MG TAB PO SCH (10:00)
--- NOTE | 2017-02-08 11:04 | HP ---
This is RIKI Carrillo, dictating for Kapil Adrian M.D. DATE OF SERVICE: 02/08/2017 REASON FOR ADMISSION: Shortness of breath. HISTORY OF PRESENT ILLNESS: This is a pleasant 76-year-old female with a history of multiple medica l problems to include coronary artery disease and severe aortic stenosis, status post aortic valve r eplacement, bioprosthetic valve, and bypass with [facility] with mammary artery to the LAD. This was done on 12/18/2016. Unfortunately, her postop course was complicated where she became hypotensive and bradycardic and ac tually did code. She did have complete AV block and had a temporary pacemaker placed. Unfortunatel y, the temporary pacemaker was dislodged. Therefore, she had to be taken emergently to odd job laborer for placement of a pacemaker again. On 12/21/2016, she did receive a dual-chamber permanent pacemaker by Dr. Loya. She was in the hospital for several weeks and was doing decent until she presents with a few-day his tory of increasing shortness of breath with mild exertion. She denied any chest, arm, or back pain. She also denied any syncopal or near syncopal episodes. She presented to the emergency room where she was found to have bilateral pleural effusions. Thus, admitted to the hospital for further eval uation and treatment. PAST MEDICAL HISTORY: 1. She seen by passenger elevator operator, Dr. Vallejo, for a lymph node in the subcarinal area that was taken fo r biopsy during aortic valve replacement. 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 I do n ot have the final results of that, as the patient's final diagnosis came from [facility]. 2. Hypertension. 3. Hyperlipidemia. 4. GERD. 5. History of atrial fibrillation. PAST SURGICAL HISTORY: 1. Hysterectomy in the past. 2. Carpal tunnel release. 3. Gastric surgery. 4. She did have thoracentesis x2 after her bypass and valve surgery. 5. Bypass as noted above as well as aortic valve replacement. ALLERGIES: PENICILLIN and SULFA. MEDICATIONS: 1. Eliquis 5 mg b.i.d. 2. Lopressor 25 mg b.i.d. 3. Cordarone 200 mg a day. 4. Lipitor 10 mg at bedtime. 4. Aldactone 25 mg. 5. Neurontin 300 mg b.i.d. 6. Aspirin 325 every day. 7. Metformin/glipizide 5/500 t.i.d. SOCIAL HISTORY: She does not smoke. She does not drink alcohol. FAMILY HISTORY: Noncontributory. REVIEW OF SYSTEMS: General: Admits to weakness, fatigue. No fever or chills. HEENT: No diplopia , amaurosis fugax, tinnitus, sore throat, or hoarseness. Cardiovascular: No chest, arm, or back pa in. Pulmonary: See history of present illness. GI: She does have a history of constipation, no G I bleed or diarrhea. Genitourinary: No dysuria, nocturia, oliguria or polyuria. Endocrine: No po lyphagia, polydipsia, or heat or cold intolerance. Musculoskeletal: Admits to arthralgias. No lup us or myopathy. Neuro: No history of transient ischemic attack or seizures. All other systems are negative. PHYSICAL EXAMINATION: GENERAL: This is a pleasant female, who is tachypneic upon evaluation. VITAL SIGNS: Her blood pressure is 127/60, pulse 84, respirations 18. She is afebrile. NECK: Supple with no increased JVP or carotid bruit. Carotid had good upstroke with no thyromegaly . COR: Regular rate and rhythm. No S3, S4. CHEST: Decreased breath sounds bilaterally with upper lobe few crackles. ABDOMEN: Soft, nontender with normoactive bowel sounds. No bruit or organomegaly. EXTREMITIES: She had 1+ edema bilaterally. She had palpable pedal pulses. SKIN: There is no evidence of ulcer, lesion, or rash. NEUROLOGIC: She is awake and alert and oriented to person, place, and time. LABORATORY DATA: Her blood sugar is 179. Her BUN is 35, creatinine 1.44. Cardiac enzymes are norm al. White blood cells 11.7, H and H 11.3 and 36.7. Her platelet is 281. ASSESSMENT: 1. This is a pleasant female, who recently underwent a bypass and aortic valve replacement, and unf ortunately, had multiple complications, presents now with recurring pleural effusions bilaterally. 2. She does have a history of diabetes, hypertension, hyperlipidemia, and also possible lymphoma. PLAN: 1. I spoke to the patient at length. We will go ahead and resume home medications. I have asked Ar Moore to see the patient in consultation regarding bilateral pleural effusions. We have already begun diuresing the patient. However, I have not seen much results with her weight. 2. We will follow up with a CBC, CMP, and a chest x-ray tomorrow morning. The patient verbalized u nderstanding and all questions answered to her satisfaction.
--- NOTE | 2017-02-08 11:14 | RAD ---
AP VIEW CHEST: INDICATIONS: Pleural effusion. IMPRESSION: Cardiomegaly, pulmonary vascular congestion, and bilateral pleural effusions, left greater than righ t, are stable. Pacemaker is unchanged. No pneumothorax is grossly evident. POS: [facility]
--- NOTE | 2017-02-08 11:41 | CON ---
DATE OF CONSULTATION: 02/08/2017 CONSULTING PHYSICIAN: Kapil Adrian M.D. REASON FOR CONSULTATION: Shortness of breath. HISTORY OF PRESENT ILLNESS: Mrs. Ballard is well known to our group. She was hospitalized for many we eks back in December and January with aortic stenosis which required surgery. She had a fairly sto rmy postoperative course. I believe she has been home for a while. She came in last night with leg edema and shortness of breath. She received intravenous diuretics and promptly lost about 11 pound s of fluid weight. She is breathing better and says she has far less edema today. PAST MEDICAL HISTORY: 1. Aortic stenosis. 2. Diabetes mellitus. 3. Hypertension. 4. Hyperlipidemia. PAST SURGICAL HISTORY: 1. Aortic valve replacement. 2. Hysterectomy. 3. Stomach surgery. 4. Carpal tunnel release. SOCIAL HISTORY: Nonsmoker, nondrinker. ALLERGIES: PENICILLIN and SULFA. MEDICATIONS: Prior to admission, 1. Glipizide/metformin. 2. Eliquis. 3. Cordarone 200 mg daily. 4. Lipitor 10 mg daily. 5. Aspirin 325 mg daily. 6. Folate 1 mg daily. 7. Lasix 40 mg twice daily. 8. Probiotic 1 capsule daily. 9. Gabapentin 1 tablet twice daily. 10. Metoprolol 50 mg twice daily. 11. Aldactone 25 mg daily. REVIEW OF SYSTEMS: Remarkable for leg edema and shortness of breath. PHYSICAL EXAMINATION: VITAL SIGNS: Temperature is 98.4, pulse 81, respirations 21, O2 sats 98% on 2 liters. HEENT: Unremarkable. NECK: Without adenopathy or JVD. LUNGS: She has clear breath sounds on the right and very slightly diminished breath sounds in the l eft base. CARDIAC: S1, S2 regular. ABDOMEN: Soft, nontender. EXTREMITIES: Trace edema. NEUROLOGIC: Grossly intact throughout. LABORATORY DATA: White blood cell count 11.7, hematocrit 36.7, platelet count 281. Sodium 139, pot assium 5.1, chloride 100, CO2 23, BUN 35, creatinine 1.4, glucose 152. DIAGNOSTIC DATA: Chest x-ray was reviewed. She has small bilateral effusions, left greater than ri ght, and a BNP level was 1259. ASSESSMENT: 1. Congestive heart failure. 2. Anasarca. 3. Small bilateral effusions, left greater than right. RECOMMENDATIONS: I would continue diuresing her as you are doing. I do not think the volume of the effusion on the left warrant thoracentesis at this time. I would make sure that she is getting IV diuretics as the order from yesterday has .
[2017-02-08] MEDS: Furosemide 40 MG/4 ML VIAL SLOW IVP SCH (13:27)
[2017-02-08] MEDS: Atorvastatin Calcium 10 MG TAB PO SCH (21:25)
[2017-02-09] MEDS: Furosemide 40 MG/4 ML VIAL SLOW IVP SCH ×2 (05:21→15:10)
[2017-02-09 05:36] LABS: #Basophils 0.1 thou/uL (0.0-0.2); #Eosinphils 0.3 thou/uL (0.0-0.7); #Lymphocytes 3.1 thou/uL (1.20-3.40); #Monocytes 0.9 thou/uL (0.11-0.59); #Neutrophils 3.9 thou/uL (1.40-6.50); %Basophils 0.9 % (0.0-1.0); %Eosinophils 3.6 % (0.0-10.0); %Lymphocytes 37.4 % (21.0-51.0); %Monocytes 10.9 % (0.0-10.0); Hematocrit 30.8 % (36.0-47.0); Mean Platelet Volume 8.4 fL (7.4-10.4); Red Blood Cell (RBC) Count 3.37 mill/uL (4.20-5.40); White Blood Cell (WBC) Count 8.2 thou/uL (4.8-10.8)
[2017-02-09 05:48] LABS: ALT (SGPT) 12 U/L (8-55); AST (SGOT) 31 U/L (5-34); Alkaline Phosphatase 76 U/L (40-150); Anion Gap 16 mmol/L (10-20); BUN (Urea Nitrogen) 30 mg/dL (9.8-20.1); Bilirubin, Total 1.1 mg/dL (0.2-1.2); Calc. Creatinine Clearance 55 mL/min (70-130); Calcium 8.9 mg/dL (7.8-10.44); Carbon Dioxide 27 mmol/L (23-31); Chloride 100 mmol/L (98-107); Estimated GFR-MDRD 47; Globulin 2.3 g/dL (2.4-3.5); Protein, Total 5.7 g/dL (6.0-8.3)
[2017-02-09] MEDS: Gabapentin 300 MG CAP PO SCH ×2 (09:49→20:43)
[2017-02-09] MEDS: metFORMIN 500 MG TAB PO SCH ×3 (09:49→20:43)
[2017-02-09] MEDS: Aspirin 325 MG TAB PO SCH (09:50)
[2017-02-09] MEDS: Apixaban 5 MG TAB PO SCH ×2 (09:50→20:43)
[2017-02-09] MEDS: Spironolactone 25 MG TAB PO SCH (09:50)
[2017-02-09] MEDS: Metoprolol Tartrate 25 MG TAB PO SCH ×2 (09:50→20:44)
[2017-02-09] MEDS: Nitrofurantoin Monohyd/M-Cryst 100 MG CAP PO SCH ×2 (09:50→20:43)
[2017-02-09] MEDS: glipiZIDE 5 MG TAB PO SCH ×3 (09:50→20:43)
[2017-02-09] MEDS ORDERED: Furosemide 40 MG/4 ML VIAL SLOW IVP SCH (11:00)
--- NOTE | 2017-02-09 12:02 | PRG ---
DATE OF SERVICE: 02/09/2017 SUBJECTIVE: The patient is awake and alert. Her is at bedside. She still feels short of b reath. Unfortunately, an accurate I\T\O cannot be obtained because apparently her Medeiros bag had a h ole in it and leaked urine all over the floor. PHYSICAL EXAMINATION: GENERAL: She is awake, she is alert. She is tachypneic. VITAL SIGNS: Upon evaluation, her blood pressure is 112/50, pulse 77, respiration 16, temperature 9 9.6. NECK: Supple with no increased JVP or carotid bruit. Carotid had good upstroke with no thyromegaly . COR: Regular rate and rhythm. CHEST: Symmetrical, decreased breath sounds bilaterally. ABDOMEN: Soft, nontender with normoactive bowel sounds. There is no bruit or organomegaly. EXTREMITIES: No edema or cyanosis. Palpable pedal pulses. SKIN: There is no evidence of ulcers lesion, or rash. NEUROLOGIC: She is awake, alert, and oriented to person, place, and time. LABORATORY DATA: White blood cell 8.2, H\T\H is 9.6 and 30.8. Her BUN is 30, creatinine 1.14. Melissa st x-ray shows pleural effusion from yesterday. ASSESSMENT: 1. Congestive heart failure. 2. Status post bypass and valve replacement. 3. History of atrial fibrillation. 4. Hyperlipidemia. 5. Diabetes. 6. Hypertension. 7. Recent urinary tract infection, being treated by Dr. Adrian. 8. Possible lymphoma, waiting on biopsy that was taken during a bypass surgery. PLAN: 1. I spoke with the patient at length. On Saturday we will have to call [facility] to find out th e results of the biopsy that I do not know what it is yet. 2. We will restart Macrobid. 3. We will continue her diuresis with IV Lasix. 4. The patient is not able to go home today, it will probably be next week. Luz Maria eRid, RANDI-C, dictating for Kapil Adrian M.D.
--- NOTE | 2017-02-09 12:37 | PRG ---
DATE OF SERVICE: 02/09/2017 SUBJECTIVE: The patient is doing better than yesterday. OBJECTIVE: VITAL SIGNS: Temperature 97.9, pulse 70, respiration 20, O2 sat 96% on 2 liters and blood pressure 111/55. HEENT: Unremarkable. NECK: No JVD. LUNGS: Slightly diminished sounds in the left compared to right. CARDIAC: S1 and S2 regular. ABDOMEN: Soft. EXTREMITIES: 2+ edema. LABORATORY DATA: White blood cell count 8.2, hematocrit 30.8 and platelet count 231. Sodium 139, p otassium 4, chloride 100, CO2 of 27, BUN 30, creatinine 1.1 and glucose 162. ASSESSMENT: 1. Acute on chronic congestive heart failure, which appears to be diastolic. 2. Anasarca. 3. Small bilateral pleural effusions. PLAN: 1. Continue diuresis. 2. Repeat chest x-ray tomorrow.
--- NOTE | 2017-02-09 15:24 | EKG ---
Test Reason : Blood Pressure : / mmHG Vent. Rate : 077 BPM Atrial Rate : 077 BPM P-R Int : 226 ms QRS Dur : 122 ms QT Int : 452 ms P-R-T Axes : 011 -06 072 degrees QTc Int : 511 ms Atrial-paced rhythm with prolonged AV conduction Left bundle branch block No STEMI Abnormal ECG Confirmed by MARIANNE DSOUZA M.D. ([id number]), news editor JESSICA ROBLES ([id number] on 02/09/2017 3:23:38 PM Referred By: Confirmed By:MARIANNE DSOUZA M.D.
[2017-02-09] MEDS: Atorvastatin Calcium 10 MG TAB PO SCH (20:43)
[2017-02-10 05:36] LABS: ALT (SGPT) 12 U/L (8-55); AST (SGOT) 27 U/L (5-34); Alkaline Phosphatase 85 U/L (40-150); Anion Gap 15 mmol/L (10-20); BUN (Urea Nitrogen) 27 mg/dL (9.8-20.1); Bilirubin, Total 1.2 mg/dL (0.2-1.2); Calc. Creatinine Clearance 56 mL/min (70-130); Calcium 9.1 mg/dL (7.8-10.44); Carbon Dioxide 28 mmol/L (23-31); Chloride 99 mmol/L (98-107); Estimated GFR-MDRD 48; Globulin 2.6 g/dL (2.4-3.5); Protein, Total 6.2 g/dL (6.0-8.3)
[2017-02-10] MEDS: Furosemide 40 MG/4 ML VIAL SLOW IVP SCH ×2 (05:51→14:14)
[2017-02-10] MEDS: Apixaban 5 MG TAB PO SCH ×2 (08:56→21:35)
[2017-02-10] MEDS: Nitrofurantoin Monohyd/M-Cryst 100 MG CAP PO SCH ×2 (08:57→21:36)
[2017-02-10] MEDS: metFORMIN 500 MG TAB PO SCH ×3 (08:57→21:36)
[2017-02-10] MEDS: Gabapentin 300 MG CAP PO SCH ×2 (08:57→21:36)
[2017-02-10] MEDS: glipiZIDE 5 MG TAB PO SCH ×3 (08:57→21:36)
[2017-02-10] MEDS: Spironolactone 25 MG TAB PO SCH (08:57)
[2017-02-10] MEDS: Aspirin 325 MG TAB PO SCH (08:57)
[2017-02-10] MEDS: Metoprolol Tartrate 25 MG TAB PO SCH ×2 (08:58→21:36)
--- NOTE | 2017-02-10 11:29 | RAD ---
PA AND LATERAL CHEST: Date: 02/10/17 HISTORY: Pulmonary embolus. COMPARISON: 02/08/17. FINDINGS: Again noted is a moderately large left pleural effusion and atelectasis similar to the prior exam. R ight lung remains clear. Left cardiac border is obscured. Pulmonary vasculature is at the upper limi ts of normal, but unchanged. Dual lead left subclavian cardiac pacemaking device remains in place an d there are postsurgical changes related to median sternotomy and cardiac valve replacement. Chest i s overall unchanged from prior study. IMPRESSION: 1. Moderately large left pleural effusion and atelectasis. There is questionable very tiny right pl eural effusion. 2. Left cardiac border is obscured, but the heart may be enlarged with borderline increase in pulmo nary vasculature. Clinical correlation for mild CHF is suggested. POS: [facility]
--- NOTE | 2017-02-10 12:33 | PRG ---
DATE OF SERVICE: 02/10/2017 SUBJECTIVE: Ms. Ballard feels better than the day of admission. PHYSICAL EXAMINATION: VITAL SIGNS: Temperature 98.0, pulse 80, respirations 17, O2 sat 93%, and blood pressure 108/67. HEENT: Unremarkable. NECK: No JVD. LUNGS: Slightly diminished breath sounds in the left base compared to right. CARDIAC: S1 and S2 regular. ABDOMEN: Soft. EXTREMITIES: Decreased edema. LABORATORY DATA: BUN 27, creatinine 1.1, sodium 138. ASSESSMENT: 1. Congestive heart failure -- acute diastolic. 2. Improving left pleural effusion as evidenced by chest x-ray. RECOMMENDATION: I would continue with diuresis. We will speak with Dr. Moore, I am not sure I woul d proceed with thoracentesis at this time, given her improvement with diuresis.
--- NOTE | 2017-02-10 13:05 | PRG ---
DATE OF SERVICE: 02/10/2017 This is RANDI Carrillo-Jennifer, dictating for Kapil Adrian M.D. SUBJECTIVE: The patient had a good night. She is very short of breath with minimal exertion, i.e., walking with her stroller to the bathroom. She just got back from x-ray so the results of this are pending. OBJECTIVE: GENERAL: Upon evaluation, she is awake, alert, and oriented to person, place and time. Her is at bedside. VITAL SIGNS: Her blood pressure 108/60, pulse 80, respirations 17. She is afebrile. NECK: Supple with no increased JVP or carotid bruit. Carotid had good upstroke with no thyromegaly . COR: Regular rate and rhythm. CHEST: Symmetrical with better breath sounds bilaterally. Few rhonchi. ABDOMEN: Soft, nontender with normoactive bowel sounds. There is no bruit or organomegaly. EXTREMITIES: No edema or cyanosis. She had palpable pedal pulses. SKIN: There is no evidence of ulceration, lesion, or rash. NEUROLOGIC: She is awake and alert and oriented to person, place, and time. LABORATORY DATA: Showed BUN 27, creatinine 1.12. Her blood sugars have been okay in the 150s. ASSESSMENT: 1. Congestive heart failure. 2. Status post AC bypass with aortic valve replacement. 3. Diabetic or diabetes. 4. Hypertension. 5. Hyperlipidemia. PLAN: 1. We will continue the same current medication regime. I think she will probably need oxygen as o utpatient. Will follow up with lab in the morning. 2. Appreciate all consultants' help.
[2017-02-10] MEDS: Insulin Regular 300 UNITS/3 ML VIAL SC PRN (17:48)
[2017-02-10] MEDS: Atorvastatin Calcium 10 MG TAB PO SCH (21:36)
[2017-02-11] MEDS: Furosemide 40 MG/4 ML VIAL SLOW IVP SCH ×2 (05:25→15:35)
[2017-02-11 06:10] LABS: ALT (SGPT) 12 U/L (8-55); AST (SGOT) 21 U/L (5-34); Alkaline Phosphatase 86 U/L (40-150); Anion Gap 15 mmol/L (10-20); BUN (Urea Nitrogen) 26 mg/dL (9.8-20.1); Bilirubin, Total 1.3 mg/dL (0.2-1.2); Calc. Creatinine Clearance 60 mL/min (70-130); Calcium 8.7 mg/dL (7.8-10.44); Carbon Dioxide 28 mmol/L (23-31); Chloride 99 mmol/L (98-107); Estimated GFR-MDRD 52; Globulin 2.5 g/dL (2.4-3.5); Protein, Total 5.9 g/dL (6.0-8.3)
[2017-02-11] MEDS ORDERED: Spironolactone 25 MG TAB PO SCH (08:00)
[2017-02-11] MEDS: Apixaban 5 MG TAB PO SCH ×2 (08:52→21:40)
[2017-02-11] MEDS: Aspirin 325 MG TAB PO SCH (08:53)
[2017-02-11] MEDS: glipiZIDE 5 MG TAB PO SCH ×3 (08:53→21:40)
[2017-02-11] MEDS: Gabapentin 300 MG CAP PO SCH ×2 (08:53→21:40)
[2017-02-11] MEDS: Metoprolol Tartrate 25 MG TAB PO SCH ×2 (08:53→21:40)
[2017-02-11] MEDS: metFORMIN 500 MG TAB PO SCH ×3 (08:54→21:40)
[2017-02-11] MEDS: Nitrofurantoin Monohyd/M-Cryst 100 MG CAP PO SCH ×2 (08:54→21:40)
[2017-02-11] MEDS: Potassium Chloride 20 MEQ TAB PO SCH (08:54)
--- NOTE | 2017-02-11 09:40 | RAD ---
PA AND LATERAL CHEST: Date: 02/11/17 INDICATION: History of CHF. COMPARISON: 02/10/17. FINDINGS: Midline sternotomy changes are stable. Dual lead pacemaker is stable. Aortic valvular prosthesis is unchanged. Mitral annular calcifications are similar. Cardiomegaly persists. Tiny right and moderate left pleural effusion is similar to the comparison. Mild pulmonary vascular congestion and intersti tial edema remain. No pneumothorax is evident. Chronic osseous changes are similar appearing. IMPRESSION: Stable findings of CHF compared to prior dated 02/10/17. POS: [facility]
[2017-02-11] MEDS: Fluticasone Propionate Nasal Spray 16 gm Bottle NASAL SCH ×2 (10:00→21:39)
[2017-02-11] MEDS: Spironolactone 25 MG TAB PO SCH (10:03)
[2017-02-11] MEDS: Furosemide 100 MG, Admixture Fee 1 EACH in Sodium Chloride 0.9% 100 ML IVPB SCH ×2 (10:56→21:38)
[2017-02-11] MEDS: Insulin Regular 300 UNITS/3 ML VIAL SC PRN (11:47)
--- NOTE | 2017-02-11 15:08 | PQF ---
CLINICAL DOCUMENTATION IMPROVEMENT CLARIFICATION FORM: ICD-10 Updated PLEASE DO AN ADDENDUM TO THE PROGRESS NOTE WITH ANY DOCUMENTATION UPDATES OR ADDITIONS AND CARRY THROUGH TO DC SUMMARY. THANK YOU. DATE: 02/11/17 ATTN: Dr. Kapil Adrian 02/14/17 Please exercise your independent, professional judgment in responding to the clarification form. Clinical indicators are provided on the bottom of this form for your review Please check appropriate box(s): [ ] Acute Renal Failure (ARF)/ Acute Kidney Injury (SANDRINE) [ x ] Acute on Chronic Renal Failure please specify Stage of CKD__3 [ ] Associated Diagnosis: [ ] Other diagnosis [ ] Unable to determine For continuity of documentation, please document condition throughout progress notes and discharge summary. Thank You. CLINICAL INDICATORS - SIGNS / SYMPTOMS/ LABS are present in the medical record: 02/07 02/11 LABS: CREATININE 1.48 1.04 EST GFR 34 52 H&P: EXTREMITIES: 1+ EDEMA BILATERALLY. RISKS: H&P: HX HTN, ATRIAL FIBRILLATION. RECENTLY UNDERWENT A BYPASS & AVR IN 03/24. RECURRING PLEURAL EFFUSIONS. MEDICATIONS: ALDACTONE 25 MG PULM. CONSULT: HX OF DM. TREATMENT: ORDER FOR CMP ON 02/07, 02/08, 02/09, & 02/10 Thank you, Kami (This form is maintained as a part of the permanent medical record) 2015 [employer]. All Rights Reserved Kami Islas RN, BSN [email or web address] Office: [phone] [facility]
--- NOTE | 2017-02-11 15:54 | CON ---
DATE OF CONSULTATION: 02/11/2017 REASON FOR CONSULTATION: Acute on chronic systolic heart failure. REFERRING PROVIDER: Dr. Kapil Adrian. HISTORY OF PRESENT ILLNESS: Ms. Ballard is a very pleasant 76-year-old woman who had a recent prolonge d hospitalization after AVR and a pacemaker placement. She was transferred to rehab where she did w ell after 3 weeks. She was then at home for 1 week. They were seen and evaluated by Dr. Kapil jimenez. Several days in the past, patient developed increased shortness of breath and lower extremity edema. She was therefore seen and evaluated in the emergency room. She was seen over the weekend and has lost 10 pounds. She states she is back to her baseline. She has been tapped on several occasions by Dr. Nicolas Moore. PAST MEDICAL HISTORY: Hyperlipidemia, hypertension, diabetes mellitus, aortic stenosis, status post AVR, CAD, hysterectomy and carpal tunnel release. ALLERGIES: PENICILLIN and SULFA. REVIEW OF SYSTEMS: Ten-point review of systems reviewed and as above, otherwise negative. PHYSICAL EXAMINATION: GENERAL: Patient is a pleasant female who is in no acute distress. The patient appears her stated age. VITAL SIGNS: Blood pressure 107/52, pulse 79 and temperature 98.5. NEUROLOGIC: The patient is alert and oriented x3 with no focal neurologic deficits. HEENT: Sclerae without icterus. Mouth has moist mucous membranes with normal pallor. NECK: No JVD. Carotid upstroke brisk. No bruits bilaterally. LUNGS: Decreased breath sounds noted bilaterally. BACK: No scoliosis or kyphosis. CARDIAC: Regular rate and rhythm with normal S1 and S2. No S3 or S4 noted. No significant rubs, m urmurs, thrills, or gallops noted throughout the precordium. PMI is not displaced. There is no par asternal heave. ABDOMEN: Soft, nontender and nondistended. No peritoneal signs present. No hepatosplenomegaly. N o abnormal striae. EXTREMITIES: 2+ femoral and 2+ dorsalis pedis pulses. No cyanosis, clubbing, or edema. SKIN: No gross abnormalities. PERTINENT LABORATORY DATA: Hemoglobin 11.3. Creatinine 1.04. IMPRESSION: Acute on chronic diastolic heart failure. RECOMMENDATIONS: Ms. Ballard's last left ventricular ejection fraction estimated 55% to 60%. She did have moderate mitral regurgitation present. At this point, we will continue IV Lasix and in addition to her fluid restriction. I discussed the use of Entresto with patient. I did state there would be a cost issue. There are s ome concerns for Ms. Ballard as well. At this point, continue current medical therapy and we eva l defer the use of Entresto. We will consider as an outpatient.
--- NOTE | 2017-02-11 18:42 | PRG ---
DATE OF SERVICE: 02/11/2017 SUBJECTIVE: Ms. Ballard did well. Overnight, events have been reviewed. She says she is clinically m uch better than when she presented. OBJECTIVE: VITAL SIGNS: She is afebrile, heart rate is 79, respiratory rate is 18, oximetry is 97%, blood pres sure 107/52. Her intake and output was +15 mL today. She is negative a liter since admission per what is recorde d. She has a large left pleural effusion on chest radiograph. IMPRESSION: 1. Bilateral pleural effusions, transudative in the past after surgery. 2. Left pleural effusion. Her weights actually show a weight gain instead of a diuresis, and the w eights are inaccurate. It is possibly that this left effusion is post-pericardotomy effusions, so this must be kept in mind if it continues to be persistent in spite of negative fluid balance. I will be happy to follow wit h the other physicians caring for her.
[2017-02-11] MEDS: Atorvastatin Calcium 10 MG TAB PO SCH (21:40)
[2017-02-11] MEDS: diphenhydrAMINE 25 MG CAP PO SCH (21:41)
[2017-02-12 05:35] LABS: #Basophils 0.1 thou/uL (0.0-0.2); #Eosinphils 0.3 thou/uL (0.0-0.7); #Lymphocytes 2.6 thou/uL (1.20-3.40); #Monocytes 0.9 thou/uL (0.11-0.59); #Neutrophils 3.5 thou/uL (1.40-6.50); %Basophils 1.4 % (0.0-1.0); %Eosinophils 4.5 % (0.0-10.0); %Monocytes 12.1 % (0.0-10.0); Mean Platelet Volume 8.5 fL (7.4-10.4); Red Blood Cell (RBC) Count 3.58 mill/uL (4.20-5.40); White Blood Cell (WBC) Count 7.4 thou/uL (4.8-10.8)
[2017-02-12 06:10] LABS: Anion Gap 16 mmol/L (10-20); BUN (Urea Nitrogen) 22 mg/dL (9.8-20.1); Calc. Creatinine Clearance 58 mL/min (70-130); Calcium 8.9 mg/dL (7.8-10.44); Carbon Dioxide 30 mmol/L (23-31); Chloride 97 mmol/L (98-107); Estimated GFR-MDRD 49
[2017-02-12] MEDS: Furosemide 40 MG/4 ML VIAL SLOW IVP SCH ×2 (06:10→15:23)
--- NOTE | 2017-02-12 08:35 | PRG ---
DATE OF SERVICE: 02/12/2017 SUBJECTIVE: The patient had a good night. She is still short of breath. She did have an O2 sat of 80 on room air with minimal exertion which will qualify her for home oxygen. PHYSICAL EXAMINATION: GENERAL: She is awake, alert, and oriented. She is on IV Lasix drip. Her is at bedside. VITAL SIGNS: Her blood pressure is 109/56, pulse 80, respirations 18. She is afebrile. NECK: Supple with no increased JVP or carotid bruit. Carotid had good upstroke with no thyromegaly . COR: Regular rate and rhythm. CHEST: Symmetrical with a few rales. ABDOMEN: Soft, nontender with normoactive bowel sounds. There is no bruit or organomegaly. EXTREMITIES: No edema or cyanosis. She had palpable pedal pulses. SKIN: There is no evidence of ulceration lesion, or rash. NEUROLOGIC: She is awake, alert, and oriented to person, place, and time. LABORATORY DATA: Her H\T\H is 10.3 and 33.0, platelet is 243. Her BNP is 546.8. ASSESSMENT: 1. Acute on chronic congestive heart failure. 2. Recent bypass with valve replacement. 3. Diabetes. 4. Hypertension. 5. Hyperlipidemia. PLAN: 1. We will follow up with lab in the morning. 2. We will ask psychotherapist social worker to arrange home oxygen. 3. We will also follow up with a chest x-ray in the morning as well. The patient verbalized understanding and all questions answered to her satisfaction.
--- NOTE | 2017-02-12 10:22 | PQF ---
CLINICAL DOCUMENTATION IMPROVEMENT CLARIFICATION FORM: ICD-10 Updated PLEASE DO AN ADDENDUM TO THE PROGRESS NOTE WITH ANY DOCUMENTATION UPDATES OR ADDITIONS AND CARRY THROUGH TO DC SUMMARY. THANK YOU. DATE: 02/12/17 ATTN: Dr. Adrian 02/14/17 Please exercise your independent, professional judgment in responding to the clarification form. Clinical indicators are provided on the bottom of this form for your review Please check appropriate box(s): [ ] Acute On Chronic Respiratory Failure: [ ] with Hypoxia [ ] with Hypercapnia [ x ] Acute Respiratory Failure due to: (etiology) __pleural effusion [ ] Chronic Respiratory Failure only [ ] with Hypoxia [ ] with Hypercapnia [ ] Other diagnosis [ ] Unable to determine For continuity of documentation, please document condition throughout progress notes and discharge summary. Thank You. CLINICAL INDICATORS - SIGNS / SYMPTOMS / LABS ED REPORT: O2 SAT 89 RESP 18 O2 SAT 94-97 ON 2L OXYGEN. RESP 23-26 PN 02/12: SHE DID HAVE AN O2 SAT OF 80 ON ROOM AIR W/ MINIMAL EXERTION RESP 18 RISKS: PN 02/12: ACUTE ON CHRONIC CONGESTIVE HEART FAILURE RECENT BYPASS W/ VALVE REPLACEMENT TREATMENT: CPOE 02/08: IV LASIX 40 MG 0600, 1400 ORDER FOR CHEST XRY: 02/07, 02/08, 02/10 & 02/11 ORDER 02/12: FOR PT TO GO HOME W/ OXYGEN. Thank you, Kami (This form is maintained as a part of the permanent medical record) 2014 [employer]. All Rights Reserved Kami Islas RN, BSN [email or web address] Office: [phone] [facility]
[2017-02-12] MEDS: Aspirin 325 MG TAB PO SCH (11:46)
[2017-02-12] MEDS: Nitrofurantoin Monohyd/M-Cryst 100 MG CAP PO SCH ×2 (11:46→21:00)
[2017-02-12] MEDS: Gabapentin 300 MG CAP PO SCH ×2 (11:46→21:00)
[2017-02-12] MEDS: Potassium Chloride 20 MEQ TAB PO SCH (11:46)
[2017-02-12] MEDS: metFORMIN 500 MG TAB PO SCH ×3 (11:47→21:00)
[2017-02-12] MEDS: Spironolactone 25 MG TAB PO SCH (11:47)
[2017-02-12] MEDS: glipiZIDE 5 MG TAB PO SCH ×3 (11:47→21:00)
[2017-02-12] MEDS: Apixaban 5 MG TAB PO SCH ×2 (11:48→20:59)
[2017-02-12] MEDS: Metoprolol Tartrate 25 MG TAB PO SCH ×2 (11:48→21:00)
[2017-02-12] MEDS: Fluticasone Propionate Nasal Spray 16 gm Bottle NASAL SCH ×2 (11:48→21:01)
--- NOTE | 2017-02-12 17:13 | PRG ---
DATE OF SERVICE: 02/12/2017 SUBJECTIVE: Ms. Ballard has no complaints. She feels better than she felt yesterday. OBJECTIVE: VITAL SIGNS: She is afebrile, heart rate 80, respiratory rate 18, oximetry is 93% on 1 liter, blood pressure 109/56. Intake and output is -1075. LUNGS: Remarkable for decreased breath sounds at the left base. HEART: Regular rhythm. ABDOMEN: Soft. IMPRESSION: 1. Volume overload. 2. Status post aortic valve replacement and coronary artery bypass grafting. 3. Status post bilateral thoracentesis revealing transudative effusions that were negative, culture negative. 4. ? possible post-pericardiotomy pleural effusion given her elevated BNP and her radiograph sugges tive of volume overload on presentation. PLAN: Continue to diurese. I do not feel steroids are indicated at this point.
[2017-02-12] MEDS: Insulin Regular 300 UNITS/3 ML VIAL SC PRN (18:15)
[2017-02-12] MEDS: diphenhydrAMINE 25 MG CAP PO SCH (21:00)
[2017-02-12] MEDS: Atorvastatin Calcium 10 MG TAB PO SCH (21:00)
[2017-02-13] MEDS: Furosemide 40 MG/4 ML VIAL SLOW IVP SCH (05:34)
[2017-02-13 06:19] LABS: ALT (SGPT) 10 U/L (8-55); AST (SGOT) 22 U/L (5-34); Alkaline Phosphatase 89 U/L (40-150); Anion Gap 15 mmol/L (10-20); BUN (Urea Nitrogen) 23 mg/dL (9.8-20.1); Bilirubin, Total 1.2 mg/dL (0.2-1.2); Calc. Creatinine Clearance 55 mL/min (70-130); Calcium 8.9 mg/dL (7.8-10.44); Carbon Dioxide 28 mmol/L (23-31); Chloride 100 mmol/L (98-107); Estimated GFR-MDRD 48; Globulin 2.5 g/dL (2.4-3.5)
[2017-02-13] MEDS: glipiZIDE 5 MG TAB PO SCH ×3 (09:43→23:00)
[2017-02-13] MEDS: Nitrofurantoin Monohyd/M-Cryst 100 MG CAP PO SCH ×2 (09:43→23:01)
[2017-02-13] MEDS: Metoprolol Tartrate 25 MG TAB PO SCH (09:43)
[2017-02-13] MEDS: Aspirin 325 MG TAB PO SCH (09:43)
[2017-02-13] MEDS: Apixaban 5 MG TAB PO SCH ×2 (09:43→23:02)
[2017-02-13] MEDS: Spironolactone 25 MG TAB PO SCH (09:43)
[2017-02-13] MEDS: Potassium Chloride 20 MEQ TAB PO SCH (09:43)
[2017-02-13] MEDS: Gabapentin 300 MG CAP PO SCH ×2 (09:43→23:00)
[2017-02-13] MEDS: metFORMIN 500 MG TAB PO SCH ×3 (09:43→23:00)
[2017-02-13] MEDS: Fluticasone Propionate Nasal Spray 16 gm Bottle NASAL SCH ×2 (09:50→23:01)
[2017-02-13] MEDS: SODIUM CHLORIDE IVPB SCH (09:58)
[2017-02-13] MEDS: ADMIXTURE FEE IVPB SCH (09:58)
[2017-02-13] MEDS: FUROSEMIDE IVPB SCH (09:58)
[2017-02-13] MEDS: Insulin Regular 300 UNITS/3 ML VIAL SC PRN ×2 (15:18→18:56)
--- NOTE | 2017-02-13 16:34 | PRG ---
DATE OF SERVICE: 02/13/2017 SUBJECTIVE: Ms. Ballard is in no distress. She has no new complaints. PHYSICAL EXAMINATION: VITAL SIGNS: She is afebrile, heart rate 74, respiratory rate is 18, oximetry is 96%, blood pressur e is 115/51, intake and output is negative 40 mL. IMPRESSION: 1. Left pleural effusion and volume overload. 2. Valvular heart disease. 3. Status post aortic valve replacement and coronary bypass grafting. 4. Status post bilateral pleural effusion and thoracentesis. I doubt this is a post-pericardiotomy effusion, but this must be kept in mind. Continue to follow the other physicians.
--- NOTE | 2017-02-13 18:43 | PRG ---
DATE OF SERVICE: 02/13/2017 SUBJECTIVE: Ms. Ballard is doing better today. She still appears weak. She states she is ambulated o nce per day. She is ambulating with rehab. She continues to diurese. OBJECTIVE: VITAL SIGNS: Her blood pressure and heart rate appeared stable. Blood pressure 107/64, pulse 77, t emperature 98.1. LUNGS: Minimal crackles bilaterally. HEART: Regular rate and rhythm. ABDOMEN: Soft, nontender, nondistended. EXTREMITIES: 1+ pitting edema. PERTINENT LABORATORY DATA: Hemoglobin 10.3. Creatinine 1.1. IMPRESSION: 1. Acute on chronic diastolic heart failure. 2. Status post aortic valve replacement. 3. Postoperative atrial fibrillation. RECOMMENDATIONS: 1. Continue amiodarone in addition to Eliquis. 2. Decrease aspirin from 325 one p.o. q.a.m. to 81 q.a.m. given that she is currently on Eliquis. 3. Change metoprolol to carvedilol. 4. Ambulates 2 times a day. 5. Consider rehab although unsure whether she is a candidate given that she was just discharged fro rehab several weeks ago.
[2017-02-13] MEDS: diphenhydrAMINE 25 MG CAP PO SCH (23:00)
[2017-02-13] MEDS: Carvedilol 3.125 MG TAB PO SCH (23:00)
[2017-02-13] MEDS: Atorvastatin Calcium 10 MG TAB PO SCH (23:00)
[2017-02-14 06:21] LABS: Anion Gap 16 mmol/L (10-20); BUN (Urea Nitrogen) 24 mg/dL (9.8-20.1); Calc. Creatinine Clearance 56 mL/min (70-130); Calcium 8.6 mg/dL (7.8-10.44); Carbon Dioxide 26 mmol/L (23-31); Chloride 100 mmol/L (98-107); Estimated GFR-MDRD 49
--- NOTE | 2017-02-14 08:34 | PRG ---
DATE OF SERVICE: 02/14/2017 SUBJECTIVE: The patient had a good night. Unfortunately, she is still weak. She still is short of breath. Physical therapy did not come by yesterday even though physical therapy was ordered. She remains on the Lasix drip. Her is at bedside. PHYSICAL EXAMINATION: VITAL SIGNS: Her blood pressure 136/50, pulse 76, respiration rate 18. She is afebrile. NECK: Supple with no increased JVP or carotid bruit. Carotid had good upstroke with no thyromegaly . COR: Regular rate and rhythm. CHEST: Scattered wheezing. ABDOMEN: Soft, nontender with normoactive bowel sounds. There is no bruit or organomegaly. EXTREMITIES: No edema or cyanosis. She had palpable pedal pulses. SKIN: There is no evidence of ulcers lesion, or rash. NEUROLOGIC: She is awake, alert, and oriented to person, place, and time. LABORATORY DATA: Her CMP is normal except for glucose slightly elevated at 143. There is no chest x-ray in the chart. ASSESSMENT: 1. Acute on chronic congestive heart failure. 2. Status post bypass with aortic valve replacement. 3. Hypertension. 4. Multiple medical problems. PLAN: We will discontinue the Lasix drip and start on oral diuretics. We will also follow up with a CMP and a chest x-ray in the morning. Also, I have talked to the patient at length regarding [facility] again versus home. I feel like the patient is too weak to go home. The patient will not make a decision regarding going home versus rehab so therefore we will consult social media developer to talk to the family about this. The patient and verbalized understanding and all questions answered to their satisfaction.
[2017-02-14] MEDS: Potassium Chloride 20 MEQ TAB PO SCH (09:22)
[2017-02-14] MEDS: Gabapentin 300 MG CAP PO SCH ×2 (09:22→21:00)
[2017-02-14] MEDS: Nitrofurantoin Monohyd/M-Cryst 100 MG CAP PO SCH ×2 (09:22→21:00)
[2017-02-14] MEDS: metFORMIN 500 MG TAB PO SCH ×3 (09:23→21:00)
[2017-02-14] MEDS: Carvedilol 3.125 MG TAB PO SCH ×2 (09:23→20:59)
[2017-02-14] MEDS: glipiZIDE 5 MG TAB PO SCH ×3 (09:23→21:00)
[2017-02-14] MEDS: Spironolactone 25 MG TAB PO SCH (09:23)
[2017-02-14] MEDS: Aspirin 81 mg Enteric Coated Tablet PO SCH (09:23)
[2017-02-14] MEDS: Apixaban 5 MG TAB PO SCH ×2 (09:23→20:59)
[2017-02-14] MEDS: FUROSEMIDE IVPB SCH (09:24)
[2017-02-14] MEDS: SODIUM CHLORIDE IVPB SCH (09:24)
[2017-02-14] MEDS: ADMIXTURE FEE IVPB SCH (09:24)
[2017-02-14] MEDS: Fluticasone Propionate Nasal Spray 16 gm Bottle NASAL SCH ×2 (09:24→21:00)
[2017-02-14] MEDS: Furosemide 40 MG TAB PO SCH ×2 (09:31→16:04)
--- NOTE | 2017-02-14 10:07 | RAD ---
SINGLE VIEW OF THE CHEST: Comparison: 02-11-17 History: Chest pain. FINDINGS: Single view of the chest shows an enlarged cardiomediastinal silhouette. There is a stable small lef t pleural effusion. The patient is status post sternotomy. The pacemaker is unchanged in position. IMPRESSION: Stable small left pleural effusion. POS: [facility]
--- NOTE | 2017-02-14 11:37 | PRG ---
DATE OF SERVICE: 02/14/2017 SUBJECTIVE: Ms. Ballard is doing better. Her main complaint is, was not undergoing rehabilitation yes terday. She did ambulate with rehab after multiple attempts to have them come by. Otherwise, short ness of breath is stable. OBJECTIVE: VITAL SIGNS: Blood pressure 136/52, pulse 76, temperature 97.4. LUNGS: Clear to auscultation. CARDIAC: Regular rate and rhythm. ABDOMEN: Soft, nontender, nondistended. EXTREMITIES: No edema. PERTINENT LABORATORY DATA: Hemoglobin 10.3. Creatinine 1.09. IMPRESSION: 1. Acute on chronic diastolic heart failure. 2. Atrial fibrillation. 3. Status post aortic valve replacement. RECOMMENDATIONS: 1. Stop Lasix drip and switch to a p.o. 2. Decreased aspirin 81 q.a.m. 3. Continue atorvastatin and carvedilol. 4. Inpatient versus outpatient rehabilitation.
--- NOTE | 2017-02-14 15:06 | PRG ---
DATE OF SERVICE: 02/14/2017 SUBJECTIVE: Ms. Ballard did well overnight. She is feeling better. OBJECTIVE: VITAL SIGNS: She is afebrile, heart rate is 76, respiratory rate is 16, oximetry is 98% on 1 liter, blood pressure 136/52. LUNGS: Remarkable for decreased breath sounds over left base. IMAGING: Chest radiograph still shows a small left effusion. IMPRESSION: 1. Volume overload after heart surgery. 2. Deconditioning and inactivity. I have encouraged them that they go to rehabilitation to exercise more than just the alloted time pe riod at the rehabilitation. Her tells me that last time they were over there they were enco uraged not to walk outside of physical therapy, but she is stable on her feet with a walker and I landry ve encouraged them to start walking here.
[2017-02-14] MEDS: Insulin Regular 300 UNITS/3 ML VIAL SC PRN (18:32)
[2017-02-14] MEDS: diphenhydrAMINE 25 MG CAP PO SCH (20:59)
[2017-02-14] MEDS: Atorvastatin Calcium 10 MG TAB PO SCH (20:59)
[2017-02-15 05:57] LABS: Hematocrit 32.8 % (36.0-47.0)
[2017-02-15 06:22] LABS: ALT (SGPT) 10 U/L (8-55); AST (SGOT) 22 U/L (5-34); Alkaline Phosphatase 88 U/L (40-150); Anion Gap 15 mmol/L (10-20); BUN (Urea Nitrogen) 28 mg/dL (9.8-20.1); Bilirubin, Total 1.2 mg/dL (0.2-1.2); Calc. Creatinine Clearance 52 mL/min (70-130); Calcium 8.9 mg/dL (7.8-10.44); Carbon Dioxide 26 mmol/L (23-31); Chloride 100 mmol/L (98-107); Estimated GFR-MDRD 47; Globulin 2.6 g/dL (2.4-3.5); Protein, Total 6.1 g/dL (6.0-8.3)
[2017-02-15] MEDS: Insulin Regular 300 UNITS/3 ML VIAL SC PRN ×3 (09:07→17:03)
[2017-02-15] MEDS: Gabapentin 300 MG CAP PO SCH ×2 (09:09→20:41)
[2017-02-15] MEDS: Potassium Chloride 20 MEQ TAB PO SCH (09:09)
[2017-02-15] MEDS: Nitrofurantoin Monohyd/M-Cryst 100 MG CAP PO SCH ×2 (09:09→20:41)
[2017-02-15] MEDS: Furosemide 40 MG TAB PO SCH ×2 (09:09→14:31)
[2017-02-15] MEDS: glipiZIDE 5 MG TAB PO SCH ×3 (09:10→17:02)
[2017-02-15] MEDS: metFORMIN 500 MG TAB PO SCH ×3 (09:10→17:03)
[2017-02-15] MEDS: Carvedilol 3.125 MG TAB PO SCH ×2 (09:10→20:41)
[2017-02-15] MEDS: Apixaban 5 MG TAB PO SCH ×2 (09:10→20:41)
[2017-02-15] MEDS: Aspirin 81 mg Enteric Coated Tablet PO SCH (09:10)
[2017-02-15] MEDS: Spironolactone 25 MG TAB PO SCH (09:10)
[2017-02-15] MEDS: Fluticasone Propionate Nasal Spray 16 gm Bottle NASAL SCH ×2 (09:11→20:40)
[2017-02-15] MEDS ORDERED: Ondansetron HCl/PF 4 MG/2 ML Vial IVP PRN (12:15)
--- NOTE | 2017-02-15 12:23 | PRG ---
DATE OF SERVICE: 02/15/2017 SUBJECTIVE: Ms. Ballard did well overnight. She has no complaints. OBJECTIVE: VITAL SIGNS: She is afebrile, heart rate 78, respiratory rate 18, oximetry is 98% on 1 liter, blood pressure 124/54. LUNGS: Clear. HEART: Regular rhythm. ABDOMEN: Soft. She has decreased breath sounds at her left base as before. IMPRESSION: 1. Left pleural effusion. 2. Volume overload. 3. Deconditioning. 4. Recent aortic valve replacement with coronary bypass grafting. With regards to her deconditioning, she actually yesterday 3 times after I rounded on her stood in f ront of her bed, hold onto her walker, walk in place. She is doing this all for a longer period of time each time. Hopefully, she will have only a short stay. I have encouraged her to see me in 3-4 weeks for followup and chest radiograph.
--- NOTE | 2017-02-15 14:12 | PRG ---
DATE OF SERVICE: 02/15/2017 Ms. Ballard is doing much better today. She has less shortness of breath. She is ambulating. She amb ulated close to 300 feet. PHYSICAL EXAMINATION: VITAL SIGNS: Blood pressure 129/56, pulse 74, temperature afebrile. LUNGS: Clear to auscultation. CARDIAC: Regular rate and rhythm. ABDOMEN: Soft, nontender, nondistended. EXTREMITIES: No edema. IMPRESSION: 1. Shortness of breath secondary to diastolic dysfunction. 2. Status post aortic valve replacement. 3. Atrial fibrillation. 4. Status post pacemaker. RECOMMENDATIONS: 1. Continue ambulation. 2. Continue current medical therapy. She is on amiodarone, Eliquis, aspirin, atorvastatin and carv edilol. 3. Cardiovascular status is stable and has been for several days. From my standpoint, it would be okay to transfer to medical while awaiting rehab evaluation. The plan is to follow up with Ms. Ballard in the next 1-2 weeks in the office.
[2017-02-15] MEDS: Atorvastatin Calcium 10 MG TAB PO SCH (20:41)
[2017-02-15] MEDS: diphenhydrAMINE 25 MG CAP PO SCH (20:41)
[2017-02-16] MEDS: Furosemide 40 MG TAB PO SCH ×2 (09:03→13:42)
[2017-02-16] MEDS: metFORMIN 500 MG TAB PO SCH ×3 (09:03→17:33)
[2017-02-16] MEDS: Gabapentin 300 MG CAP PO SCH ×2 (09:03→20:18)
[2017-02-16] MEDS: Nitrofurantoin Monohyd/M-Cryst 100 MG CAP PO SCH ×2 (09:04→20:18)
[2017-02-16] MEDS: Spironolactone 25 MG TAB PO SCH (09:04)
[2017-02-16] MEDS: glipiZIDE 5 MG TAB PO SCH ×3 (09:04→17:33)
[2017-02-16] MEDS: Potassium Chloride 20 MEQ TAB PO SCH (09:04)
[2017-02-16] MEDS: Apixaban 5 MG TAB PO SCH ×2 (09:04→20:18)
[2017-02-16] MEDS: Carvedilol 3.125 MG TAB PO SCH ×2 (09:04→20:18)
[2017-02-16] MEDS: Aspirin 81 mg Enteric Coated Tablet PO SCH (09:04)
[2017-02-16] MEDS: Fluticasone Propionate Nasal Spray 16 gm Bottle NASAL SCH ×2 (09:05→20:18)
[2017-02-16] MEDS: Insulin Regular 300 UNITS/3 ML VIAL SC PRN (12:23)
--- NOTE | 2017-02-16 17:30 | PRG ---
DATE OF SERVICE: 02/16/2017 SERVICE: Pulmonary Medicine. INTERVAL HISTORY: The patient is doing absolutely outstanding from a strength standpoint. Today, s he got up with her walker and was actually walking around the small circuit. She denies any current fevers, chills or shortness of breath. Her strength is actually improving a little day by day. He r lower extremity swelling is vastly improved and she has lost 30 pounds since being in the hospital . PHYSICAL EXAMINATION: VITAL SIGNS: Afebrile, pulse 82, blood pressure 120/72, respirations 18, saturation 97% on room air . GENERAL: The patient is awake and alert, no apparent distress. LUNGS: Decreased air entry at the left base. Minimal dependent crackles are present. No prolonged expiratory phase or wheezing is appreciated. HEART: Normal rate, regular. ABDOMEN: Soft, nontender, nondistended. Bowel sounds positive. MUSCULOSKELETAL: No cyanosis or clubbing. There is 1+ pitting edema of the bilateral lower extremi ties, but it is now limited to the distal leg. GENITOURINARY: No Medeiros catheter in place. NEUROLOGIC: Grossly nonfocal. LABORATORY DATA: Blood sugars ranged from 158-222. ASSESSMENT: 1. Acute hypoxic respiratory failure, resolved. 2. Pleural effusion on the left, stable. 3. Acute on chronic diastolic and valvular heart failure. 4. Deconditioning, severe. PLAN: The patient will continue working on her conditioning through the weekend. Hopefully, she wi ll be stable for transition out of the hospital coming Saturday or Saturday. I do think she would bene fit from a stay in either a snf facility for skilled PT or rehabilitation center.
[2017-02-16] MEDS: diphenhydrAMINE 25 MG CAP PO SCH (20:18)
[2017-02-16] MEDS: Atorvastatin Calcium 10 MG TAB PO SCH (20:18)
[2017-02-17 06:05] LABS: Hematocrit 30.3 % (36.0-47.0)
[2017-02-17] MEDS: metFORMIN 500 MG TAB PO SCH ×3 (08:03→17:28)
[2017-02-17] MEDS: glipiZIDE 5 MG TAB PO SCH ×3 (08:03→17:29)
[2017-02-17] MEDS: Fluticasone Propionate Nasal Spray 16 gm Bottle NASAL SCH ×2 (08:04→20:33)
[2017-02-17] MEDS: Apixaban 5 MG TAB PO SCH ×2 (08:04→20:28)
[2017-02-17] MEDS: Aspirin 81 mg Enteric Coated Tablet PO SCH (08:04)
[2017-02-17] MEDS: Gabapentin 300 MG CAP PO SCH ×2 (08:05→20:28)
[2017-02-17] MEDS: Nitrofurantoin Monohyd/M-Cryst 100 MG CAP PO SCH (08:05)
[2017-02-17] MEDS: Furosemide 40 MG TAB PO SCH ×2 (08:05→15:26)
[2017-02-17] MEDS: Potassium Chloride 20 MEQ TAB PO SCH (08:06)
[2017-02-17] MEDS: Carvedilol 3.125 MG TAB PO SCH ×2 (08:09→20:28)
[2017-02-17] MEDS: Spironolactone 25 MG TAB PO SCH (09:00)
[2017-02-17] MEDS ORDERED: Ondansetron ODT 8 MG TAB PO PRN (10:09)
[2017-02-17] MEDS: Ondansetron ODT 4 MG TAB PO PRN (11:04)
[2017-02-17] MEDS: Insulin Regular 300 UNITS/3 ML VIAL SC PRN (12:25)
--- NOTE | 2017-02-17 18:31 | PRG ---
DATE OF SERVICE: 02/17/2017 SERVICE: Pulmonary Medicine. INTERVAL HISTORY: The patient is doing great from a respiratory standpoint. She denies any current fevers, chills, nausea, vomiting or chest discomfort. Otherwise, she has returned to usual state o f health. She has no specific complaints otherwise. PHYSICAL EXAMINATION: VITAL SIGNS: Afebrile, pulse 75, blood pressure 109/49, respirations 20, saturation 95% on room air . GENERAL: The patient is awake, alert, in no apparent distress. LUNGS: Excellent air entry. There is decreased air entry at the left base. Otherwise, there is no prolonged expiratory phase, wheezing, rhonchi or crackles. HEART: Normal rate, regular. ABDOMEN: Soft, nontender, nondistended. Bowel sounds positive. MUSCULOSKELETAL: No cyanosis or clubbing. There is no trace pitting. This has vastly improved. GENITOURINARY: No Medeiros catheter in place. NEUROLOGIC: Grossly nonfocal. LABORATORY DATA: Hemoglobin 9.7. Glucose 164. Platelets 221,000. ASSESSMENT: 1. Acute hypoxic respiratory failure, resolved. 2. Pleural effusion on the left, stable. 3. Acute on chronic diastolic and valvular heart failure. 4. Deconditioning, severe. PLAN: The patient is clinically stable. We will continue diuresing her to approach euvolemia. We will continue working on mobilizing her to improve on strength. Dr. Moore will resume care in the [facility]. Please call with additional questions or concerns moving forward.
[2017-02-17] MEDS: diphenhydrAMINE 25 MG CAP PO SCH (20:28)
[2017-02-17] MEDS: Dronedarone HCl 400 MG TAB PO SCH (20:28)
[2017-02-17] MEDS: Atorvastatin Calcium 10 MG TAB PO SCH (20:28)
[2017-02-18 05:29] LABS: Anion Gap 15 mmol/L (10-20); BUN (Urea Nitrogen) 27 mg/dL (9.8-20.1); Calc. Creatinine Clearance 52 mL/min (70-130); Carbon Dioxide 22 mmol/L (23-31); Chloride 103 mmol/L (98-107); Estimated GFR-MDRD 47
[2017-02-18] MEDS: Aspirin 81 mg Enteric Coated Tablet PO SCH (08:05)
[2017-02-18] MEDS: Apixaban 5 MG TAB PO SCH (08:05)
[2017-02-18] MEDS: Potassium Chloride 20 MEQ TAB PO SCH (08:05)
[2017-02-18] MEDS: Gabapentin 300 MG CAP PO SCH (08:06)
[2017-02-18] MEDS: Spironolactone 25 MG TAB PO SCH (08:07)
[2017-02-18] MEDS: metFORMIN 500 MG TAB PO SCH ×2 (08:08→13:41)
[2017-02-18] MEDS: glipiZIDE 5 MG TAB PO SCH ×2 (08:08→13:41)
[2017-02-18] MEDS: Carvedilol 3.125 MG TAB PO SCH (08:08)
[2017-02-18] MEDS: Dronedarone HCl 400 MG TAB PO SCH (08:09)
[2017-02-18] MEDS: Fluticasone Propionate Nasal Spray 16 gm Bottle NASAL SCH (08:10)
[2017-02-18] MEDS: Furosemide 40 MG TAB PO SCH ×2 (08:14→13:40)
[2017-02-18] MEDS: Ondansetron ODT 4 MG TAB PO PRN (10:06)
[2017-02-18] MEDS: Insulin Regular 300 UNITS/3 ML VIAL SC PRN (11:48)
[2017-02-18 11:55] VITALS: BP 97/61; TEMP 98
--- NOTE | 2017-02-18 13:27 | PRG ---
DATE OF SERVICE: 02/18/2017 Danyell Ballard has no new complaints. PHYSICAL EXAMINATION: VITAL SIGNS: She is afebrile, heart rate is 77, respiratory rate 16, oximetry is 93, blood pressure is 97/61. She is off oxygen. She is scheduled to go to rehab today. She still has decreased breath sounds at her left base. Her hemoglobin yesterday was 9.7. Electrolytes today are remarkable for a BUN 27, creatinine 1.13. She is stable to go to rehab.
--- NOTE | 2017-02-18 13:27 | RAD ---
CHEST PA AND LATERAL: HISTORY: A 76-year-old female with congestive heart failure and pleural effusion. COMPARISON: 02/10/2017 FINDINGS: Postop midline sternotomy changes. Left ICD. Status post aortic valve replacement. Moderate left pleural effusion. Bilateral vascular congestion. Little change from prior study with improvement f rom 01/28/2017. IMPRESSION: Minimal cardiomegaly with postoperative midline sternotomy and valvular replacement. Left implantab le cardioverter-defibrillator. Moderate left pleural effusion. Bilateral vascular congestion, stab le from 02/10/2017 and 02/14/2017. POS: [facility]
== END 2017-02-18 14:28 | disposition swing bed (61) | DRG 291 ==
LOC: ERS 14:20 → 2NO 17:00 → OBSVTOIN 17:00 → T4-B 02-15 15:21
PROVIDERS: ADMIT Specialist; ATTEND Specialist
DX: I13.0 Hypertensive heart and chronic kidney disease with heart failure and stage 1 through stage 4 chronic kidney disease, or unspecified chronic kidney disease (principal); J96.01 Acute respiratory failure with hypoxia; I50.33 Acute on chronic diastolic (congestive) heart failure; J90 Pleural effusion, not elsewhere classified; C81.90 Hodgkin lymphoma, unspecified, unspecified site; N18.3 Chronic kidney disease, stage 3 (moderate); I48.91 Unspecified atrial fibrillation; E11.9 Type 2 diabetes mellitus without complications; E78.5 Hyperlipidemia, unspecified; K21.9 Gastro-esophageal reflux disease without esophagitis; Z95.0 Presence of cardiac pacemaker; Z98.84 Bariatric surgery status; Z95.1 Presence of aortocoronary bypass graft; Z95.2 Presence of prosthetic heart valve
CPT/HCPCS: 36415; 36416; 51702; 71010; 71020; 80048; 80053; 82550; 82553; 83880; 84484; 85014; 85018; 85025; 85049; 93005; 93798; 94760; 96374; A4216; G8978-GP-CK; G8979-GP-CJ; G8987-GO-CJ; G8988-GO-CH; J1815; J1940; J2405; J7050; Q0162

== ENCOUNTER 2017-05-06 10:00 | Outpatient (CLI) | payer MEDICARE ==
--- NOTE | 2017-05-06 11:44 | RAD ---
CHEST TWO VIEWS: HISTORY: Dyspnea. COMPARISON: Chest two views from 03/04/2017. FINDINGS: Large left layering pleural effusion is similar. The remainder of the lungs is relatively clear. Th e cardiac silhouette and mediastinal contour is similar. There appears to be an aortic valve replacement. A dual-lead pacer is present. IMPRESSION: Similar appearance to large left layering pleural effusion and compressive atelectasis, left lung bas e. POS: [facility]
== END 2017-05-06 10:01 | disposition home or self-care (01) ==
LOC: RAD 10:00
PROVIDERS: ATTEND Internal Medicine Critical Care Medicine
DX: R06.00 Dyspnea, unspecified (principal); J98.11 Atelectasis; J90 Pleural effusion, not elsewhere classified
CPT/HCPCS: 71046

== ENCOUNTER 2017-07-09 11:56 | Outpatient (CLI) | payer MEDICARE ==
--- NOTE | 2017-07-09 15:05 | PET ---
PET CT: Date: 07/09/17 HISTORY: Lymphoma. Nonspecific B-cell lymphoma. COMPARISON: CT of the chest dated 12/25/16. TECHNIQUE: A PET CT was performed from the skull base through the mid-thigh after administration of 11.7 mCi of [id number]> FINDINGS: There are multiple areas of abnormal uptake within lymph nodes on this exam. In the chest, there is a bnormal uptake within a very large pretracheal lymph node with a max SUV value of 11.3. There is abno rmal uptake along the right anterior pleural surface which may represent a pleural based nodule. This has a max SUV value of 3.6. There are two abnormal hypermetabolic oscar hepatis lymph nodes. The lar gest has a max SUV value of 5.4 and the smaller has a max SUV value of 3.4. There is an enlarged pres acral lymph node in the lower abdomen/pelvis with a max SUV value of 18.3. There is a hypermetabolic lymph node along the right common iliac chain with a max SUV value of 6.6. There are two hypermetabol ic right inguinal lymph nodes with a max SUV value of 7.8. Abnormal hypermetabolic activity is also seen in the skeleton. There is diffuse uptake in the sternum with a max SUV value of 2.5. Focal uptake is seen in the mid thoracic spine vertebral body with a ma x SUV value of 5.6. This does not have a CT correlate. There is abnormal uptake in two left lateral e lements in the thoracic spine. The larger area in the lower thoracic spine has a max SUV value of 8.[address] correlate. The upper thoracic spine left lateral element lesion has a max SUV value of 4.6 and does not have a CT correlate. There is abnormal uptake in the left iliac bone near the sacroi liac joint with a max SUV value of 12.3. This also demonstrates a CT correlate. CT images used for attenuation correction show a left pleural effusion, which is similar in size comp ared to the prior examination. The previously seen right pleural effusion is no longer present. There is a small, fat-containing umbilical hernia. Scattered diverticula are seen in the colon. IMPRESSION: 1. Abnormal hypermetabolic lymph nodes above and below the diaphragm as above. These lymph nodes are seen in the mediastinum, oscar hepatis region, retroperitoneum, and right inguinal region. 2. Hypermetabolic activity scattered throughout the bones is concerning for osseous metastatic disea se. 3. Left pleural effusion. POS: [facility]
== END 2017-07-09 11:57 | disposition home or self-care (01) ==
LOC: PET 11:56
PROVIDERS: ATTEND Internal Medicine Hematology & Oncology
DX: C85.90 Non-Hodgkin lymphoma, unspecified, unspecified site (principal); J90 Pleural effusion, not elsewhere classified; R93.5 Abnormal findings on diagnostic imaging of other abdominal regions, including retroperitoneum; R93.8 Abnormal findings on diagnostic imaging of other specified body structures; Z88.0 Allergy status to penicillin; Z88.2 Allergy status to sulfonamides
CPT/HCPCS: 78815; A9552

== ENCOUNTER 2017-08-13 14:04 | Outpatient (CLI) | payer MEDICARE | END 2017-08-13 14:05 | disposition home or self-care (01) | LOC: BICRAD 14:04 | PROVIDERS: ATTEND Specialist | DX: J90 Pleural effusion, not elsewhere classified (principal); I51.7 Cardiomegaly; R09.89 Other specified symptoms and signs involving the circulatory and respiratory systems | CPT/HCPCS: 71046 ==

== ENCOUNTER 2017-08-22 07:07 | Day surgery (SDC) | payer MEDICARE ==
[2017-08-22] MEDS ORDERED: Heparin 10,000 UNITS/ 10 ML VIAL ONE (07:37)
[2017-08-22 13:30] LABS: Fluid, Protein 2.3 g/dL (Not Available)
[2017-08-22 14:21] LABS: Body Fluid Source PLEURAL FLUID; Clarity Hazy (Clear)
[2017-08-22 14:22] LABS: RBC Count-Automated 11000 /cumm; Tube # 1; WBC/NonHematic-Auto 1030 /cumm
[2017-08-22 14:23] LABS: Body Fluid Source PLEURAL FLUID; Clarity Hazy (Clear); RBC Background Count 0.007; RBC Count-Automated 13000 /cumm; Tube # 3; WBC Background Count 0.01; WBC/NonHematic-Auto 1050 /cumm
[2017-08-22 15:13] LABS: BF Segmented Neutrophils 6 %; Cell Count Non Hematic 10 %; Lymphocytes 83 %
[2017-08-22 15:23] LABS: BF Segmented Neutrophils 7 %; Cell Count Non Hematic 9 %; Eosinophils 1 %; Lymphocytes 83 %
--- NOTE | 2017-08-22 15:57 | OP ---
08/22/2017 HISTORY: Ms. Ballard is a 77-year-old female who has undergone thoracentesis after aortic valve replacement. Pleural fluid was transudative. She completed rehab, but states she has been gaining weight and became more short of breath. Chest radiograph done few days back shows recurrence of her pleural effusion. With the surgery, she also has a diagnosis of lymphoma (were made at her sternotomy; they removed a large node). She was seen in the office and I recommended thoracentesis. In the office, her heart rate was in the 70s, respiratory rate was 18, oximetry was 95 on room air. Her lungs were remarkably decreased breath sounds at the left base. Heart , regular rhythm, no S3. Abdomen is soft and nontender. Extremities without clubbing, cyanosis, or edema. IMPRESSION: Recurrent left effusion, status post tap in the past showing this to be a transudate with her lymphoma and her recent surgery post-pericardotomy effusion and lymphoma effusion are all in the differential, so I have recommended repeat tap. DESCRIPTION OF PROCEDURE: After consent forms were signed. She was placed in sitting position. Her left posterior hemithorax was prepped with chlorhexidine. Pleural fluid was located with a 22 gauge needle. A 10 mL of 1 % lidocaine was used to anesthetize the skin and the interspace. A 5 Faroese [id number]-Y-[id number] catheter was inserted in the pleural space without difficulty. A 700 mL of clear yellow pleural fluid was evacuated. There were no immediate complications. There was no air aspirated suggesting a pneumothorax, so post- procedure radiograph was not done. I will do a radiograph in 2 weeks when she sees me in followup. She said she had immediate improvement in her sense of well being and her feeling of dyspnea at rest after the thoracentesis. Fluid was sent for cytology, flow studies, LDH, protein, glucose, amylase, cholesterol and triglycerides. Fluid was a little thick, but I do not believe this is a chylous effusion. She tolerated the procedure well. MOIZ
== END 2017-08-22 12:30 | disposition home or self-care (01) ==
LOC: SDC 07:07
PROVIDERS: ATTEND Internal Medicine Critical Care Medicine
PROC: 0W9B3ZZ Drainage of Left Pleural Cavity, Percutaneous Approach (ICD-10-PCS; principal; 2017-08-22)
DX: J90 Pleural effusion, not elsewhere classified (principal); C85.90 Non-Hodgkin lymphoma, unspecified, unspecified site; Z88.0 Allergy status to penicillin; Z88.2 Allergy status to sulfonamides
CPT/HCPCS: 32554; 82945; 84157; 85060; 87070; 87205; 88112; 88184; 88305; 88341; 88342; 89051; J1642; J1644

== ENCOUNTER 2017-11-15 09:57 | Outpatient (CLI) | payer MEDICARE ==
[2017-11-15 11:49] LABS: BUN (Urea Nitrogen) 39 mg/dL (9.8-20.1); Calc. Creatinine Clearance 0 mL/min (70-130); Calcium 9.7 mg/dL (7.8-10.44); Estimated GFR-MDRD 42; Glucose 216 mg/dL (83-110)
[2017-11-15 11:59] LABS: Anion Gap 17 mmol/L (10-20); Carbon Dioxide 31 mmol/L (23-31)
[2017-11-15 12:10] LABS: Band 34 % (5-11); Hemoglobin 10.4 g/dL (12.0-16.0); Lymphocytes 16 % (21-51); MDiff Complete? YES; Mean Corpuscular HGB CONC 32.5 g/dL (32.0-36.0); Mean Corpuscular Hemoglobin 28.9 pg (27.0-31.0); Mean Platelet Volume 9.4 fL (7.4-10.4); Metamyelocyte 2 % (0-0); Monocytes 1 % (0-10); Neutrophil 45 % (42-75); PLT Morphology Comment Appears Adequate; Platelet Count 168 thou/uL (130-400); Polychromasia SLIGHT = 2-3 cells (100X) (0-2/hpf); RBC Distribution Width 15.4 % (11.5-14.5); Reactive Lymphocytes 1 % (0-10); Toxic Granulation SLIGHT; White Blood Cell (WBC) Count 17.6 thou/uL (4.8-10.8)
[2017-11-15 12:39] LABS: Potassium 3.6 mmol/L (3.5-5.1); Sodium 135 mmol/L (136-145)
[2017-11-15 12:40] LABS: Chloride 91 mmol/L (98-107)
== END 2017-11-15 09:58 | disposition home or self-care (01) ==
LOC: LABBT 09:57
PROVIDERS: ATTEND Surgery
DX: Z01.812 Encounter for preprocedural laboratory examination (principal); C85.90 Non-Hodgkin lymphoma, unspecified, unspecified site
CPT/HCPCS: 80048; 85025

== ENCOUNTER 2017-11-18 09:50 | Day surgery (SDC) | payer MEDICARE ==
[2017-11-15 10:50] VITALS: BMI 30.1
[2017-11-18] MEDS ORDERED: CEFAZOLIN/Water 2 GM/20 ML SYRINGE ONE (10:12)
[2017-11-18] MEDS ORDERED: Propofol 500 MG/50 ML VIAL ONE (10:38)
[2017-11-18] MEDS ORDERED: Fentanyl 100 MCG/2 ML VIAL ONE (10:39)
[2017-11-18] MEDS ORDERED: Lidocaine 2% 10 ML INJ ONE (11:33)
[2017-11-18] MEDS ORDERED: Bupivacaine/Epinephrine 0.25% 30 ML VIAL ONE (11:33)
[2017-11-18] MEDS ORDERED: PROPOFOL 200 MG/20 ML VIAL ONE (11:40)
[2017-11-18] MEDS ORDERED: Midazolam HCl 5 mg/5 ml Vial ONE (11:59)
[2017-11-18 12:25] LABS: Bilirubin Negative (Negative); Blood, Urine Trace (Negative); Clarity CLOUDY (Clear); Glucose, Urine (Dipstick) Negative (Negative); Leukocyte Large (Negative); Nitrite Positive (Negative); Protein, Urine (Dipstick) Trace mg/dL (Neg-Trace); Specific Gravity, Urine 1.012 (1.002-1.036)
[2017-11-18 12:28] LABS: Bacteria/HPF 4+ HPF (None Seen); Hyaline Casts/LPF 0-3 HYALINE CAST LPF (0-3 Hyaline); Pathc Cast-AUWi Flag 0.14 (0-2.49); Squamous Epithelial None Seen HPF (0-3)
--- NOTE | 2017-11-18 15:03 | OP ---
DATE OF PROCEDURE: 11/18/2017 PREOPERATIVE DIAGNOSIS: Lymphoma. POSTOPERATIVE DIAGNOSIS: Lymphoma. PROCEDURE PERFORMED: Tunneled central line with subcutaneous port (MediPort), CT injectable. SURGEON: Dr. Velasco. ANESTHESIA: General. ESTIMATED BLOOD LOSS: Minimal. COMPLICATIONS: None. SPECIMEN: None. FINDINGS: Tip of the catheter is at the atriocaval junction. PROCEDURE IN DETAIL: The patient was taken to the operating room and placed supine on the table. Af ter sedation was obtained, bilateral neck and chest is prepped and draped in a sterile fashion. Loca l anesthetic infiltrated over the right internal jugular vein. Internal jugular vein cannulated usin g a 22-gauge finder needle followed by a Seldinger needle. Wire was passed into the superior vena ca va under fluoroscopic guidance. A stew was made at the wire entrance site. A separate 3-cm incision was made in the right upper chest. Subcutaneous pocket made below the lower incision. Tubing for t he MediPort tunneled from the inferior to superior incision. Introducer sheath was placed over the w ruslan into the superior cava under fluoroscopic guidance. The dilator and wire removed. The end of th e catheter threaded into the sheath and the sheath is peeled away. The tip of the catheter was at th e atrial caval junction. The MediPort tubing is cut to fit the MediPort at the lower incision. The tubing was connected to the MediPort. The MediPort was placed in subcutaneous pocket and sewn to the chest wall using Prolene. The MediPort draws blood and flushes without difficulties flushed with a heparin flush. The wound was irrigated and closed using 3-0 Vicryl, 4-0 Monocryl, and Dermabond. Th e patient went to recovery in stable condition. All instrument counts, needle counts, lap counts wer e correct.
--- NOTE | 2017-11-18 15:38 | RAD ---
CHEST 1 VIEW: HISTORY: MediPort placement. COMPARISON: 05/06/17. FINDINGS: Cardiac silhouette magnified and partially obscured by left pleural fluid and basilar atelectasis myrtle t have improved slightly since the previous study. Mediastinum is midline with postoperative changes , aortic calcification, and a dual-lead left subclavian cardiac electronic device. The tip of a righ t internal jugular MediPort overlies the superior vena cava. No evidence of pneumothorax. IMPRESSION: 1. Right internal jugular MediPort is in good radiographic position. 2. Slight interval decrease in left pleural fluid and basilar infiltrate. POS: [facility]
== END 2017-11-18 14:20 | disposition home or self-care (01) ==
LOC: SDC 09:50
PROVIDERS: ATTEND Surgery
PROC: 0JH60XZ Insertion of Tunneled Vascular Access Device into Chest Subcutaneous Tissue and Fascia, Open Approach (ICD-10-PCS; principal; 2017-11-18)
PROC: 02HV33Z Insertion of Infusion Device into Superior Vena Cava, Percutaneous Approach (ICD-10-PCS; 2017-11-18)
PROC: B518ZZA Fluoroscopy of Superior Vena Cava, Guidance (ICD-10-PCS; 2017-11-18)
DX: C85.90 Non-Hodgkin lymphoma, unspecified, unspecified site (principal); E11.9 Type 2 diabetes mellitus without complications; I10 Essential (primary) hypertension; K21.9 Gastro-esophageal reflux disease without esophagitis; Z88.0 Allergy status to penicillin; Z88.2 Allergy status to sulfonamides; Z79.82 Long term (current) use of aspirin; Z79.899 Other long term (current) drug therapy
CPT/HCPCS: 36561; 71045; 81001; 87077; 87086; 87186; C1788; J1642; J2250; J2704; J3010

== ENCOUNTER 2017-12-18 07:56 | Emergency (ER) | payer MEDICARE ==
--- NOTE | 2017-12-18 09:26 | CT ---
CT FACIAL BONES: History: Facial injury with pain. Fall with trauma to nose and face. Technique: Axial images were obtained with coronal and sagittal reconstructed images. FINDINGS: There is a moderate sized midline frontal scalp hematoma. There is some left to right nasal septal de viation which likely is not due to recent acute trauma. There is an acute left nasal bone fracture. The rest of the facial bone CT is unremarkable. IMPRESSION: 1. Frontal scalp hematoma. 2. Acute left nasal bone fracture. POS: [facility]
--- NOTE | 2017-12-18 09:29 | CT ---
NONCONTRAST CT HEAD: Date: 12-18-17 History: Head injury. Patient tripped and fell forward hitting face and forehead. Comparison: 01-09-16 FINDINGS: There is a small low density focus seen within the left lentiform nucleus related to a lacunar infarc tion of indeterminate age. This does represent interval change from the study in 2016. There is no ev idence of an acute cortical infarction, hemorrhage, mass effect, or midline shift. Mild cerebral and cerebellar volume loss is again present. Visualized paranasal sinuses and mastoid air cells are clear. Calvarial structures are intact without evidence of a fracture. There is right anterior frontal scalp soft tissue swelling which also extend s inferiorly to the level of the superior aspect of the nasal bone. IMPRESSION: 1. No acute intracranial abnormalities demonstrated. 2. Cerebral and cerebellar volume loss. 3. 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 4. Anterior frontal scalp hematoma without evidence of an underlying calvarial fracture. POS: [facility]
[2017-12-18 09:41] LABS: #Basophils 0.1 thou/uL (0.0-0.2); #Eosinphils 0.3 thou/uL (0.0-0.7); #Lymphocytes 1.1 thou/uL (1.20-3.40); #Monocytes 0.9 thou/uL (0.11-0.59); #Neutrophils 8.4 thou/uL (1.40-6.50); %Basophils 0.9 % (0.0-1.0); %Eosinophils 2.8 % (0.0-10.0); %Lymphocytes 10.3 % (21.0-51.0); %Monocytes 8.1 % (0.0-10.0); Hemoglobin 9.8 g/dL (12.0-16.0); Mean Corpuscular Hemoglobin 31.5 pg (27.0-31.0); Mean Corpuscular Volume 92.5 fL (78.0-98.0); Mean Platelet Volume 7.8 fL (7.4-10.4); Platelet Count 292 thou/uL (130-400); RBC Distribution Width 17.4 % (11.5-14.5); Red Blood Cell (RBC) Count 3.13 mill/uL (4.20-5.40); White Blood Cell (WBC) Count 10.8 thou/uL (4.8-10.8)
[2017-12-18] MEDS ORDERED: HYDROcodone/Acetaminophen 5/325 mg Tablet ONE (10:02)
[2017-12-18 10:03] LABS: ALT (SGPT) 11 U/L (8-55); AST (SGOT) 18 U/L (5-34); Albumin 3.4 g/dL (3.4-4.8); Alkaline Phosphatase 98 U/L (40-150); Anion Gap 12 mmol/L (10-20); BUN (Urea Nitrogen) 25 mg/dL (9.8-20.1); Bilirubin, Total 0.8 mg/dL (0.2-1.2); Calc. Creatinine Clearance 0 mL/min (70-130); Calcium 9.1 mg/dL (7.8-10.44); Carbon Dioxide 31 mmol/L (23-31); Chloride 94 mmol/L (98-107); Estimated GFR-MDRD 51; Globulin 2.6 g/dL (2.4-3.5); Glucose 271 mg/dL (83-110); Potassium 3.1 mmol/L (3.5-5.1); Sodium 134 mmol/L (136-145)
[2017-12-18] MEDS ORDERED: Potassium Chloride 20 MEQ TAB ONE (10:12)
== END 2017-12-18 10:17 | disposition home or self-care (01) ==
LOC: ERS 07:56
DX: S02.2XXA Fracture of nasal bones, initial encounter for closed fracture (principal); S00.83XA Contusion of other part of head, initial encounter; E11.9 Type 2 diabetes mellitus without complications; J45.909 Unspecified asthma, uncomplicated; K21.9 Gastro-esophageal reflux disease without esophagitis; J44.9 Chronic obstructive pulmonary disease, unspecified; I11.0 Hypertensive heart disease with heart failure; I50.9 Heart failure, unspecified; W01.0XXA Fall on same level from slipping, tripping and stumbling without subsequent striking against object, initial encounter
CPT/HCPCS: 36415; 70450; 70486; 80053; 85025; 93005

== ENCOUNTER 2017-12-31 11:10 | Outpatient (CLI) | payer MEDICARE ==
--- NOTE | 2017-12-31 13:23 | RAD ---
CHEST TWO VIEWS: COMPARISON: 11/18/2017 and 05/06/2017 FINDINGS: Stable left-sided transvenous pacemaker, sternotomy wires, a prosthetic heart valve, and a right-side d Mediport catheter. Persistent opacification of the left hemithorax, suggesting pleural effusion, w ith adjacent parenchymal changes. Stable hyperinflation of the lung parenchyma. There is no pneumot horax. Stable cardiomegaly and atherosclerosis. IMPRESSION: Persistent opacification in the left hemithorax due to pleural effusion with adjacent parenchymal amy nge. When compared to the prior examination, the degree of opacification has progressed. POS: [facility]
== END 2017-12-31 11:11 | disposition home or self-care (01) ==
LOC: RAD 11:10
PROVIDERS: ATTEND Internal Medicine Critical Care Medicine
DX: R06.00 Dyspnea, unspecified (principal); J90 Pleural effusion, not elsewhere classified; R91.8 Other nonspecific abnormal finding of lung field
CPT/HCPCS: 71046

== ENCOUNTER 2018-01-28 10:05 | Outpatient (CLI) | payer MEDICARE ==
--- NOTE | 2018-01-28 12:16 | RAD ---
TWO VIEW CHEST: History: Dyspnea. Comparison: 12-31-17 FINDINGS: Moderate sized left pleural effusion appears stable from the prior exam. There is mild cardiomegaly w ith mild vascular congestion, stable. Post op sternotomy change. Mediport catheter is unchanged. Dual -lead pacemaker device is unchanged. IMPRESSION: Moderate left pleural effusion with left basilar atelectasis again noted, not significantly changed f rom prior exam. POS: [facility]
== END 2018-01-28 10:06 | disposition home or self-care (01) ==
LOC: RAD 10:05
PROVIDERS: ATTEND Internal Medicine Critical Care Medicine
DX: R06.00 Dyspnea, unspecified (principal); J90 Pleural effusion, not elsewhere classified; J98.11 Atelectasis
CPT/HCPCS: 71046

== ENCOUNTER 2018-01-31 08:48 | Outpatient (CLI) | payer MEDICARE ==
--- NOTE | 2018-01-31 16:06 | PET ---
PET CT: HISTORY: 77-year-old female with lymphoma. COMPARISON: 07/09/17. TECHNIQUE: A PET CT was performed from the skull base to the mid thigh after administration of 11.6 mCi [id number]. FINDINGS: The previously seen hypermetabolic lymph nodes have completely resolved. No hypermetabolic activity i s seen within lymph nodes on this examination. The previously seen enlarged lymph nodes in the medias tinum, pelvis, and inguinal [id number] have resolved and normal sized, and normal metabolic activity is seen within these regions. In addition, the previously seen abnormal hypermetabolic lesions throughout the skeleton have resolve d. These previously did not have a CT correlate and there is still no CT correlate to the regions whe re the hypermetabolic activity was seen in the past. No suspicious areas of hypermetabolic activity are seen within the neck, chest, abdomen, or pelvis. N o suspicious areas of hypermetabolic activity are seen within the skeleton. CT images used for attenuation correction shows a pacemaker with its leads in the right atrium and ve ntricle. There is an umbilical hernia. There is a stable moderate left pleural effusion. Atherosclero tic calcifications are seen in the aorta. IMPRESSION: 1. Resolution of hypermetabolic activity within the mediastinal, pelvic, and inguinal lymph nodes. 2. Resolution of hypermetabolic activity in the bones, likely represents resolution of osseous metas tatic disease. POS: [facility]
== END 2018-01-31 08:49 | disposition home or self-care (01) ==
LOC: PET 08:48
PROVIDERS: ATTEND Internal Medicine Hematology & Oncology
DX: C85.90 Non-Hodgkin lymphoma, unspecified, unspecified site (principal)
CPT/HCPCS: 78815; A9552

== ENCOUNTER 2018-02-17 10:12 | Outpatient (CLI) | payer MEDICARE ==
--- NOTE | 2018-02-17 12:49 | BD ---
BONE DENSITOMETRY USING DEXA: HISTORY: Postmenopausal screening for osteoporosis. FINDINGS: Lumbar Spine: BMD (g/cm2) L1 1.020 T-Score: 0.3 Z-Score: 2.4 L2 1.256 T-Score: 2.1 Z-Score: 4.5 L3 1.113 T-Score: 0.3 Z-Score: 2.8 L4 1.086 T-Score: 0.2 Z-Score: 2.8 L1-L4 1.114 T-Score: 0.6 Z-Score: 3.0 Femoral Neck: 0.731 T-Score: -1.1 Z-Score: 1.0 Total Femur: 0.940 T-Score: 0.0 Z-Score: 1.8 The 10-year fracture risk for a major osteoporotic fracture is 10% and for a hip fracture is 1.6%. Impression: Osteopenia. POS: [facility]
== END 2018-02-17 10:13 | disposition home or self-care (01) ==
LOC: BICMAMMO 10:12
PROVIDERS: ATTEND Specialist
DX: M85.859 Other specified disorders of bone density and structure, unspecified thigh (principal)
CPT/HCPCS: 77080

== ENCOUNTER 2018-03-17 12:18 | Outpatient (CLI) | payer MEDICARE ==
--- NOTE | 2018-03-17 16:48 | RAD ---
PA AND LATERAL CHEST RADIOGRAPH: Date: 03-17-18 History: Dyspnea. FINDINGS: Post-surgical changes related to median sternotomy and cardiac valve replacement are again noted. A r ight internal jugular vein Mediport catheter is stable in position. Pleural and parenchymal changes are again seen at the left lung base which are assumed to represent l eft pleural effusion on prior PET CT exam on 01-31-18. Due to differences in technique, the pleural f luid on the left is overall stable with parenchymal changes left lung base probably related to associ ated passive atelectasis. The right lung is clear. Vascular calcifications are seen in the thoracic a addison. No other interval change. IMPRESSION: Moderate sized left pleural effusion and probable passive atelectasis, not significantly changed from the prior exam. POS: [facility]
== END 2018-03-17 12:19 | disposition home or self-care (01) ==
LOC: BICRAD 12:18
PROVIDERS: ATTEND Specialist
DX: I50.9 Heart failure, unspecified (principal); R06.00 Dyspnea, unspecified; J90 Pleural effusion, not elsewhere classified
CPT/HCPCS: 71046

== ENCOUNTER 2018-03-21 09:56 | Outpatient (CLI) | payer MEDICARE ==
--- NOTE | 2018-03-21 10:54 | RAD ---
CHEST PA AND LATERAL: History: 77-year-old female with history of dyspnea. Comparison: 01-28-18 FINDINGS: Persistent moderate left pleural effusion. Post underlying sternotomy and aortic valve replacement. R ight central line and ejection port. Left ICD. Minimal increased linear and interstitial markings tommy aterally with proximal mild vascular congestion. No significant change from prior study. IMPRESSION: Stable chest with moderate sized left pleural effusion and mild vascular congestion. POS: [facility]
== END 2018-03-21 09:57 | disposition home or self-care (01) ==
LOC: RAD 09:56
PROVIDERS: ATTEND Internal Medicine Critical Care Medicine
DX: R06.00 Dyspnea, unspecified (principal); J90 Pleural effusion, not elsewhere classified; R09.89 Other specified symptoms and signs involving the circulatory and respiratory systems
CPT/HCPCS: 71046

== ENCOUNTER 2018-04-30 13:22 | Outpatient (CLI) | payer MEDICARE ==
--- NOTE | 2018-04-30 15:05 | RAD ---
PA AND LATERAL VIEWS CHEST: Date: 04/30/18 HISTORY: Pleural effusion. FINDINGS/IMPRESSION: Comparison made with exam of 03/21/18. Changes of median sternotomy are again seen. The heart is enlarged. The aorta is tortuous. Left-sided pacemaker device and right-sided Port-A-Cath remain in place. Left-sided moderate pleural effusion i s stable. There is mild pulmonary vascular congestion with interval worsening since previous exam. No pneumothoraces are seen. POS: [facility]
--- NOTE | 2018-04-30 15:39 | RAD ---
LUMBAR SPINE TWO VIEWS WEIGHTBEARING 04/30/18 HISTORY: Fall, back injury. FINDINGS: There are five lumbar type vertebrae. Prominent leftward convexed rotatory scoliotic curvature on the frontal view. Pedicles are intact. Compression of the left side of the L1 vertebral body by approxim ately 20%. AP alignment is maintained on the lateral view. Prominent osteophytosis throughout the jaja tebral bodies and facets. Prominent calcification within the arterial structures. IMPRESSION: Prominent degenerative changes with severe leftward convexed rotatory scoliotic curvature. Mild compr ession of the L1 superior end plate, favored to be chronic given the overall appearance and position within the curvature. Atherosclerosis. POS: [facility]
== END 2018-04-30 13:23 | disposition home or self-care (01) ==
LOC: BICRAD 13:22
PROVIDERS: ATTEND Specialist
DX: J90 Pleural effusion, not elsewhere classified (principal); M47.816 Spondylosis without myelopathy or radiculopathy, lumbar region; M41.9 Scoliosis, unspecified; R09.89 Other specified symptoms and signs involving the circulatory and respiratory systems; Z98.890 Other specified postprocedural states; Z95.0 Presence of cardiac pacemaker
CPT/HCPCS: 71046; 72100

== ENCOUNTER 2018-05-01 17:20 | Inpatient (IN) | payer MEDICARE ==
[2018-05-01 19:05] LABS: #Eosinphils 0.5 thou/uL (0.0-0.7); #Monocytes 0.7 thou/uL (0.11-0.59); #Neutrophils 5.3 thou/uL (1.40-6.50); %Basophils 0.5 % (0.0-1.0); %Eosinophils 6.1 % (0.0-10.0); %Lymphocytes 12.9 % (21.0-51.0); %Monocytes 9.2 % (0.0-10.0); %Neutrophils 71.3 % (42.0-75.0); Hemoglobin 11.4 g/dL (12.0-16.0); Mean Corpuscular HGB CONC 32.2 g/dL (32.0-36.0); Mean Corpuscular Hemoglobin 30.6 pg (27.0-31.0); Mean Corpuscular Volume 94.8 fL (78.0-98.0); Mean Platelet Volume 7.8 fL (7.4-10.4); Platelet Count 272 thou/uL (130-400); RBC Distribution Width 13.9 % (11.5-14.5); Red Blood Cell (RBC) Count 3.71 mill/uL (4.20-5.40); White Blood Cell (WBC) Count 7.5 thou/uL (4.8-10.8)
[2018-05-01] MEDS ORDERED: traMADol HCl 50 MG TAB ONE (19:12)
[2018-05-01 19:27] LABS: ALT (SGPT) 10 U/L (8-55); AST (SGOT) 21 U/L (5-34); Albumin 3.4 g/dL (3.4-4.8); Alkaline Phosphatase 109 U/L (40-150); Anion Gap 15 mmol/L (10-20); BUN (Urea Nitrogen) 14 mg/dL (9.8-20.1); Bilirubin, Total 0.7 mg/dL (0.2-1.2); Calc. Creatinine Clearance 0 mL/min (70-130); Calcium 9.3 mg/dL (7.8-10.44); Carbon Dioxide 29 mmol/L (23-31); Chloride 94 mmol/L (98-107); Estimated GFR-MDRD 71; Globulin 2.7 g/dL (2.4-3.5); Glucose 136 mg/dL (83-110); Potassium 3.9 mmol/L (3.5-5.1); Protein, Total 6.1 g/dL (6.0-8.3); Sodium 134 mmol/L (136-145)
--- NOTE | 2018-05-01 20:14 | RAD ---
FRONTAL RADIOGRAPH CHEST 05/01/18 COMPARISON: 11/18/17 HISTORY: Shortness of breath. FINDINGS: There is a CT injectable right sided Port-A-Cath, stable. Stable midline sternotomy wires. Stable sravani l lead transvenous pacing device inserted via left subclavian approach. There is mild blunting of the costophrenic angle on the right suggesting small right pleural effusion . There is pulmonary vascular congestion with mild hazy interstitial density in the medial right lung base. There is opacification of the inferior half of the left hemithorax, worsened when compared to the 11/18/17 exam. This suggests nonspecific pleural and parenchymal opacity. Underlying mass lesion c annot be excluded. Of note, when compared to 04/30/18 exam, there has been no significant interval amy nge. IMPRESSION: No significant interval change when compared to the study performed one day prior. Please see above d iscussion. POS: [facility]
[2018-05-01] MEDS ORDERED: Fentanyl 100 MCG/2 ML VIAL ONE (20:37)
[2018-05-01] MEDS ORDERED: Ondansetron ODT 4 MG TAB SL PRN (21:39)
[2018-05-01] MEDS ORDERED: Acetaminophen 325 MG TAB PO PRN (21:39)
[2018-05-01] MEDS ORDERED: Ondansetron PF 4 MG/2 ML Vial IVP PRN (21:39)
--- NOTE | 2018-05-01 22:02 | CT ---
HEAD CT WITHOUT CONTRAST: 05/01/18 COMPARISON: 12/18/17. HISTORY: Fall, trauma, pain. TECHNIQUE: Axial CT imaging at 5 mm intervals from vertex through skull base without contrast. FINDINGS: The imaged paranasal sinuses and mastoid air cells are well aerated. There is no displaced calvarial fracture. There is atherosclerotic calcifications of the cavernous carotid arteries. There is mild bifrontal cerebral volume loss and there is mild volume loss involving the superior asp ect of the cerebellum, stable. No intracranial hemorrhage, midline shift, or mass effect. IMPRESSION: Stable head CT/no intracranial hemorrhage or displaced calvarial fracture POS: [facility]
[2018-05-01] MEDS ORDERED: Dextrose 5% in Water 1,000 ML IV PRN (22:34)
[2018-05-01] MEDS ORDERED: Dextrose 50% Abboject 50 ML SYRINGE IVP PRN (22:34)
[2018-05-02] MEDS: HYDROcodone/Acetaminophen 5/325 mg Tablet PO PRN ×4 (00:03→18:22)
[2018-05-02] MEDS ORDERED: Furosemide 40 MG/4 ML VIAL SLOW IVP SCH (07:15)
[2018-05-02] MEDS ORDERED: Glycerin Adult Supp. (12 ct jar) RC SCH (08:30)
[2018-05-02] MEDS: Aspirin 325 MG TAB PO SCH (09:02)
[2018-05-02] MEDS: Metolazone 5 MG TAB PO SCH (09:03)
[2018-05-02] MEDS: Docusate 100 MG CAP PO SCH ×2 (09:04→21:03)
[2018-05-02] MEDS: Carvedilol 6.25 MG TAB PO SCH ×2 (09:04→21:04)
[2018-05-02] MEDS: Potassium Chloride 20 MEQ TAB PO SCH ×2 (09:04→17:40)
[2018-05-02] MEDS: Furosemide 40 MG/4 ML VIAL SLOW IVP SCH (09:05)
[2018-05-02 10:45] LABS: Bilirubin Negative (Negative); Blood, Urine Moderate (Negative); Clarity TURBID (Clear); Glucose, Urine (Dipstick) Negative (Negative); Leukocyte Large (Negative); Nitrite Negative (Negative); Protein, Urine (Dipstick) Negative (Neg-Trace); Specific Gravity, Urine 1.007 (1.002-1.036)
[2018-05-02 10:47] LABS: Bacteria/HPF 2+ HPF (None Seen)
[2018-05-02 10:50] LABS: Pathc Cast-AUWi Flag 14.91 (0-2.49); Yeast-AUWi Flag 253.7 (0-25.0)
--- NOTE | 2018-05-02 10:59 | HP ---
CHIEF COMPLAINT: Dyspnea with altered mental status, pulmonary edema. HISTORY OF PRESENT ILLNESS: The patient is a 77-year-old female, who in the last week has fallen from her standing, striking her head. Since that time, she denies any loss of consciousness. Her medical records library professor is her spouse, who has noted some mild increasing confusion, but there were episodes of confusion prior to this. She came into the office for evaluation. There, she carried on a lucid conversation. She was noted to be fluid overloaded and at that office visit on approximately 0122 hours, it was decided to double her spironolactone from 25 to 50 mg q.a.m. to go up on her metolazone from 10 to 20 mg. She was to continue her furosemide as ordered and during that between that episode in this admission, she has not had significant diuresis. The family reports continued confusion. There is orthopnea and that she cannot lay down at night due to the shortness of breath, but when she lays flat, her back is having significant pain. X-rays of her chest and back were taken after that office visit where it was noted some pulmonary edema as well as a L1 small compression fracture. The patient was sent to the ER for further evaluation due to failed outpatient diuresis, back pain, altered mental status, and hypoxia. The ER did a CT scan of her head, not showing any acute injuries or changes. PAST MEDICAL HISTORY: Significant for B-cell lymphoma, hypertension, atrial fibrillation, coronary artery disease, GERD, bpi-[id number]-mjrbrumzc diabetes, congestive heart failure, and asthma. She completed 6 rounds of chemo in March of 2018. She is known to have cardiac valvular insufficiency and known left-sided pleural effusion. PAST SURGICAL HISTORY: Her past surgeries have included valve replacement in her heart, coronary artery bypass graft surgery, carpal tunnel syndrome, and hysterectomy. She has a port in the right side of her chest. She has had gastric surgery and thoracentesis. The valve replaced was aortic valve. ALLERGIES: SHE IS ALLERGIC TO PENICILLIN AND SULFA. MEDICATIONS: On admission include; 1. Carvedilol 6.25 mg b.i.d. 2. Potassium chloride 20 mEq daily. 3. Lasix 80 mg b.i.d. 4. Gabapentin 300 mg b.i.d. 5. Atorvastatin 10 mg at bedtime. 6. Glipizide 10 mg b.i.d. 7. Metolazone 10 mg q.a.m., recently doubled to 20. 8. Omeprazole 40 mg q.a.m. 9. Aspirin 325 mg q.a.m. 10. one tablet once a day. 11. Folic acid daily. 12. vitamins daily. SOCIAL HISTORY: She is . She has worked as a home health aide. She does not smoke or drink or use illicit drugs. She lives at home with her family. REVIEW OF SYSTEMS: GENERAL: Significant for general weakness and malaise as well as dyspnea. HEENT: There is no drainage from the ears, nose or throat or lesions noted. CHEST: Significant for diminished breath, dyspnea. Occasional cough. CARDIOVASCULAR: Denies chest pain or diaphoresis. GASTROINTESTINAL: Denies nausea, vomiting, or diarrhea. GENITOURINARY: Denies blood in urine or stool or dysuria. MUSCULOSKELETAL: Has significant back pain in her mid back and down her legs. SKIN: There is bruising and early decubitus developing on her buttock area. NEUROLOGICAL: Has altered mental status with confusion. Denies headache or blurred vision. PHYSICAL EXAMINATION: VITAL SIGNS: At the time of admission; blood pressure 121/46, pulse 76, respirations 24, and temperature 98.5. Pain scale is 0/10 at this time, and O2 sats 95% on 2 L of oxygen. GENERAL: This is an elderly female, alert and oriented x2, and cooperative. HEENT: Normocephalic, atraumatic with pupils are 1 to 2 mm bilaterally with diminished reactivity to light. Arcus senilis bilaterally. TMs, nares, and pharynx are clear. NECK: Supple. Trachea midline. CHEST: With diminished breath sounds in the left. HEART: Regular rate and rhythm with systolic ejection murmur. ABDOMEN: Soft, nontender without organomegaly. BACK: Tender in the, anywhere from, T12 to L2 point tenderness on the spine. ABDOMEN: Soft, nontender without hepatosplenomegaly. GENITOURINARY: Deferred. BREASTS: Deferred. EXTREMITIES: With 2+ edema bilaterally in the lower extremities. SKIN: With the early stage 1 to 2 buttock lesion. NEUROLOGIC: Cranial nerves are intact. Sensory exam is intact. Mental status is significant for slowed mentation and mild confusion. Gait and cerebellar function are untested at this time. LABORATORY DATA: The lab work on admission showed WBCs 7.5, hemoglobin 11.4, hematocrit 35.2 with platelets at 272. The sodium is 134, potassium 3.9, chloride 94, CO2 of 29, BUN is 14, creatinine 0.79, glucose 136, and calcium 9.3. Liver functions unremarkable. Cardiac enzymes negative. IMAGING DATA: Chest x-ray shows no acute changes from previously in the week with mild pulmonary edema. CT scan of the head does not show any acute injuries. ASSESSMENT: 1. Falling with head trauma and altered mental status. 2. Pulmonary effusion with chronic dyspnea, failing outpatient treatment of pulmonary edema. 3. Altered mental status, felt to be due to hypoxia. 4. Sacral decubitus. 5. Zzb-fvvsngs-gqpxxdteh diabetes. 6. History of congestive heart failure - failed outpatient diuresis. 7. Vertebral L1 compression fracture. 8. B-cell lymphoma. 9. History of atrial fibrillation. 10. Coronary artery disease. 11. Gastroesophageal reflux disease. PLAN: 1. Attempt IV diuresis with furosemide. 2. Pulmonary consultation for drainage of effusion. 3. Cardiology evaluation of CHF and maximize diuresis. 4. Wound care treatment of decubitus. 5. Pain control for new vertebral compression fracture. 6. Sliding scale for diabetes and finally serial re-evaluation for improvement. Job ID: [id number]
[2018-05-02 11:16] LABS: Hyaline Casts/LPF 0-3 HYALINE CAST LPF (0-3 Hyaline); Other Casts/LPF None Seen LPF (0-3 Hyaline); Yeast-All Forms None Seen HPF (None Seen)
[2018-05-02 15:32] VITALS: BMI 31.8
--- NOTE | 2018-05-02 16:21 | CON ---
DATE OF CONSULTATION: 05/02/2018 CONSULTING PHYSICIAN: Dr. Kapil Adrian. REASON FOR CONSULTATION: Pleural effusion. HISTORY OF PRESENT ILLNESS: Ms. Ballard is a 77-year-old female, who is followed on an outpatient Pulmonary basis by Dr. Moore. She fell about one week ago at home and has been doing poorly ever since. The patient went to her primary care physician yesterday, she was sent over to the emergency room for further evaluation for fluid overload. She has a history of left pleural effusion that has been tapped twice by Dr. Moore and is transudative from valvular heart disease. She has responded well to diuresis in the past. The patient is very incapacitated at home, relies on her for almost all of her activities of daily living. PAST MEDICAL HISTORY: 1. Diabetes mellitus type 2. 2. Asthma. 3. Coronary artery disease. 4. COPD. 5. Congestive heart failure. 6. Lymphoma. PAST SURGICAL HISTORY: She has had coronary artery bypass grafting surgery, aortic valve replacement, carpal tunnel surgery. She has had hysterectomy. She has had MediPort in the right chest. SOCIAL HISTORY: Nonsmoker. Does not consume alcohol. Does not use illicit drugs. Lives at home with her . MEDICATIONS: Prior to admission; 1. Carvedilol 6.25 mg twice daily. 2. Potassium chloride 20 mEq once daily. 3. Lasix 80 mg twice daily. 4. Gabapentin 300 mg twice daily. 5. Atorvastatin 10 mg daily. 6. Glipizide 10 mg twice daily. 7. Metolazone 10 mg daily. 8. Omeprazole 40 mg daily. 9. Aspirin 325 mg daily. 10. Ocuvite one tablet daily. 11. Folic acid 0.8 mg daily. 12. vitamins 1 daily. REVIEW OF SYSTEMS: She is fairly incapacitated for her activities of daily living. She has had no fever, chills, nausea, or vomiting. She has had back pain and pelvic pain. No hematemesis, melena, hematochezia, hematuria, or dysuria. PHYSICAL EXAMINATION: VITAL SIGNS: Temperature 97.8, pulse 78, respirations 17, O2 saturation 92% on 2 L, and blood pressure 136/63. HEENT: Unremarkable. NECK: Without adenopathy or JVD. LUNGS: She has slightly diminished breath sounds in the left base compared to right. She has no crackles. CARDIAC: S1 and S2, regular with 2/6 systolic murmur at the left sternal border radiating to the left axilla. ABDOMEN: Soft, obese, nontender, and nondistended. EXTREMITIES: No clubbing, cyanosis, or edema. LABORATORY DATA: White blood cell count 7.5, hematocrit 35.2, and platelet count 272. Sodium 134, potassium 3.9, chloride 94, CO2 of 29, BUN 14, creatinine 0.7, glucose 143. I reviewed her chest x-ray from this admission. She has elevation of the left hemidiaphragm and probably some pleural fluid in that area, although I think she probably has a chronic elevation of her left hemidiaphragm at baseline. ASSESSMENT: 1. Congestive heart failure from valvular heart disease-this is chronic, diastolic failure that is aggravated by mitral regurgitation. 2. Pleural effusion. RECOMMENDATIONS: I would recommend diuresing the patient and seeing if medical treatment for fluid removal will result in improvement in the effusion. This case was discussed with Dr. Moore. Job ID: [id number]
[2018-05-02] MEDS: glipiZIDE 10 MG TAB PO SCH (17:39)
[2018-05-02] MEDS: Atorvastatin Calcium 10 MG TAB PO SCH (21:04)
[2018-05-02] MEDS: Insulin Regular 300 UNITS/3 ML VIAL SC PRN (21:04)
[2018-05-03] MEDS: HYDROcodone/Acetaminophen 5/325 mg Tablet PO PRN ×4 (01:32→20:15)
[2018-05-03 06:08] LABS: Anion Gap 16 mmol/L (10-20); BUN (Urea Nitrogen) 13 mg/dL (9.8-20.1); Calc. Creatinine Clearance 71 mL/min (70-130); Calcium 9.5 mg/dL (7.8-10.44); Carbon Dioxide 30 mmol/L (23-31); Chloride 93 mmol/L (98-107); Cholesterol 112 mg/dl (< 200 Desired); Estimated GFR-MDRD 63; Glucose 161 mg/dL (83-110); HDL Cholesterol 28 mg/dL (>60 Neg Risk); LDL Cholesterol, Calculated 60 mg/dL; Potassium 3.8 mmol/L (3.5-5.1); Sodium 135 mmol/L (136-145); Triglycerides 119 mg/dL (Less than 150)
[2018-05-03] MEDS ORDERED: glipiZIDE 10 MG TAB PO SCH (07:30)
[2018-05-03] MEDS: Carvedilol 6.25 MG TAB PO SCH ×2 (09:40→20:15)
[2018-05-03] MEDS: Docusate 100 MG CAP PO SCH ×2 (09:40→20:15)
[2018-05-03] MEDS: glipiZIDE 10 MG TAB PO SCH ×2 (09:40→18:16)
[2018-05-03] MEDS: Aspirin 325 MG TAB PO SCH (09:40)
[2018-05-03] MEDS: Metolazone 5 MG TAB PO SCH (09:40)
[2018-05-03] MEDS: Furosemide 40 MG/4 ML VIAL SLOW IVP SCH ×2 (09:40→14:15)
[2018-05-03] MEDS: Potassium Chloride 20 MEQ TAB PO SCH ×2 (09:41→18:16)
--- NOTE | 2018-05-03 10:55 | PRG ---
DATE OF SERVICE: 05/03/2018 SUBJECTIVE: The patient is complaining of back pain. Says her breathing is better. OBJECTIVE: VITAL SIGNS: Temperature 98.1, pulse 81, respirations 17, O2 saturation 97% on 2 L, blood pressure 134/52. HEENT: Unremarkable. NECK: No JVD. CHEST: Improved air movement in the left base. CARDIAC: S1, S2, regular. ABDOMEN: Soft. EXTREMITIES: Decreased edema. LABORATORY DATA: Sodium 135, potassium 3.8, BUN 13, creatinine 0.8, glucose 161. ASSESSMENT: 1. Diastolic heart failure and mitral regurgitation. 2. Pleural effusion. PLAN: 1. Continue diuresis as you were doing. 2. Pain control per primary care team. Job ID: [id number]
--- NOTE | 2018-05-03 14:34 | PDOC.PN ---
- Subjective Encounter Start Date: 05/03/18 Encounter Start Time: 11:30 Subjective: breathing better, at bedside -: has not amb or got up so far -: no chest pain or palp - Objective Resuscitation Status - Order Detail: 05/02/18 09:42 Resuscitation Status Routine Resuscitation Status: DNAR: NO Resuscitation Discussed with: confirmed with pt and her MAR Reviewed: Yes Vital Signs & Weight: Vital Signs (12 hours) Temp Pulse Resp BP Pulse Ox 05/03/18 12:00 97.8 F 79 18 132/58 L 96 05/03/18 08:00 98.1 F 81 17 134/52 L 97 05/03/18 03:21 98.2 F 87 18 131/60 96 Weight Admit Weight 179 lb 9.6 oz Weight 175 lb 14.4 oz I&O: 05/02/18 05/03/18 05/04/18 06:59 06:59 06:59 Intake Total 360 660 Output Total 300 2000 Balance 60 -1340 Result Diagrams: 05/01/18 18:53 05/03/18 05:31 Additional Labs: Accuchecks 05/03/18 05/03/18 05/02/18 10:35 06:34 20:04 POC Glucose 196 H 163 H 214 H 05/02/18 16:59 POC Glucose 158 H Phys Exam - Physical Examination HEENT: PERRLA, moist MMs Neck: no JVD, supple Respiratory: no wheezing, no rales Cardiovascular: RRR, no significant murmur Gastrointestinal: soft, non-tender, positive bowel sounds Musculoskeletal: no edema, pulses present Neurological: non-focal, moves all 4 limbs Dx/Plan (1) Acute exacerbation of CHF (congestive heart failure) Code(s): I50.9 - HEART FAILURE, UNSPECIFIED Status: Acute Qualifiers: Heart failure type: diastolic Qualified Code(s): I50.33 - Acute on chronic diastolic (congestive) heart failure (2) H/O lymphoma Code(s): Z85.79 - PRSNL HX OF MALIG NEOPLM OF LYMPHOID, HEMATPOETC & REL TISS Status: Acute (3) Severe mitral regurgitation Code(s): I34.0 - NONRHEUMATIC MITRAL (VALVE) INSUFFICIENCY Status: Chronic (4) DM type 2 (diabetes mellitus, type 2) Status: Chronic Qualifiers: Diabetes mellitus terminal operator insulin use: with terminal operator use Diabetes mellitus complication status: with unspecified complications Qualified Code(s) : E11.8 - Type 2 diabetes mellitus with unspecified complications; Z79.4 - long term care social worker (current) use of insulin (5) Afib Code(s): I48.91 - UNSPECIFIED ATRIAL FIBRILLATION Status: Chronic Qualifiers: Atrial fibrillation type: chronic Qualified Code(s): I48.2 - Chronic atrial fibrillation (6) CAD (coronary artery disease) Code(s): I25.10 - ATHSCL HEART DISEASE OF [place] CORONARY ARTERY W/O ANG PCTRS Status: Chronic Qualifiers: Coronary Disease-Associated Artery/Lesion type: bypass graft [place] vs. transplanted heart: [place] heart Associated angina: without angina Qualified Code(s): I25.810 - Atherosclerosis of coronary artery bypass graft(s) without angina pectoris (7) Acute encephalopathy Code(s): G93.40 - ENCEPHALOPATHY, UNSPECIFIED Status: Acute (8) Compression fracture Code(s): LXP6005 - Status: Acute Comment: L1 (9) History of aortic valve replacement with bioprosthetic valve Code(s): Z95.3 - PRESENCE OF XENOGENIC HEART VALVE Status: Chronic (10) Pleural effusion Code(s): J90 - PLEURAL EFFUSION, NOT ELSEWHERE CLASSIFIED Status: Acute Comment: left, sec to chf - Plan is on lasix and metolazone -: will get repeat echo post chemotherapy to see for ef -: d/w , encourage protein intake/boost bottle bid -: continue asp, lipitor, coreg, glipizide -: PT to mobilize as tolerated, has HH at home * . Review of Systems - Medications/Allergies Allergies/Adverse Reactions: Allergies Allergy/AdvReac Type Severity Reaction Status Date / Time Penicillins Allergy Rash Verified 05/02/18 00:17 Sulfa (Sulfonamide Allergy Rash Verified 05/02/18 00:17 Antibiotics) Medications: Current Medications Hydrocodone Bitart/Acetaminophen ([place] 5/325) 1 tab PO Q4H PRN PRN Reason: Pain Last Admin: 05/03/18 14:15 Dose: 1 tab Aspirin (Aspirin) 325 mg PO DAILY [facility] Last Admin: 05/03/18 09:40 Dose: 325 mg Atorvastatin Calcium (Lipitor) 10 mg PO HS [facility] Last Admin: 05/02/18 21:04 Dose: 10 mg Carvedilol (Coreg) 6.25 mg PO BID [facility] Last Admin: 05/03/18 09:40 Dose: 6.25 mg Dextrose/Water (Dextrose 50%) 25 gm IVP PRN PRN PRN Reason: HYPOGLYCEMIA PROTOCOL Docusate Sodium (Colace) 100 mg PO BID [facility] Last Admin: 05/03/18 09:40 Dose: 100 mg Furosemide (Lasix) 40 mg SLOW IVP 0600,1400 [facility] Last Admin: 05/03/18 14:15 Dose: 40 mg Glipizide (Glucotrol) 10 mg PO BID-AC [facility] Last Admin: 05/03/18 09:40 Dose: 10 mg Glucagon (Glucagon) 1 mg IM PRN PRN PRN Reason: HYPOGLYCEMIA PROTOCOL Dextrose/Water (D5w) 1,000 mls @ 0 mls/hr IV INF PRN PRN Reason: HYPOGLYCEMIA PROTOCOL Insulin Human Regular (Humulin R) 0 units SC .MILD SLIDING PRN; Protocol PRN Reason: MILD SLIDING SCALE Last Admin: 05/02/18 21:04 Dose: 3 unit Metolazone (Zaroxolyn) 10 mg PO 0830 [facility] Last Admin: 05/03/18 09:40 Dose: 10 mg Pantoprazole Sodium (Protonix) 40 mg PO DAILY [facility] Last Admin: 05/03/18 09:41 Dose: 40 mg Potassium Chloride (K-Dur) 20 meq PO BID[facility] Last Admin: 05/03/18 09:41 Dose: 20 meq Sodium Chloride (Flush - Normal Saline) 10 ml IVF Q12HR [facility] Last Admin: 05/03/18 09:41 Dose: 10 ml Sodium Chloride (Flush - Normal Saline) 10 ml IVF PRN PRN PRN Reason: Saline Flush
--- NOTE | 2018-05-03 17:59 | CON ---
DATE OF CONSULTATION: 05/03/2018 REASON FOR CONSULTATION: Heart failure. HISTORY OF PRESENT ILLNESS: Ms. Ballard is a pleasant 77-year-old white female patient of Dr. Mcmullen, who comes to the hospital for increased shortness of breath and altered mental status. She was diagnosed with an acute exacerbation of her systolic dysfunction and thought that her altered mentation was due to hypoxia. She has been started on diuresis and is doing better now. She denies any chest pain, tightness, or pressure. Continues to need oxygen therapy. She is on oxygen at home, but is doing much better. PAST MEDICAL HISTORY: 1. B-cell lymphoma. 2. Hypertension. 3. Atrial fibrillation. 4. Coronary artery disease. 5. Sick sinus syndrome, status post pacemaker placement. 6. GERD. 7. Type 2 diabetes. 8. Diastolic heart failure. 9. Bronchial asthma. 10. Aortic stenosis, status post AVR. 11. CAD. 12. Hysterectomy. PAST SURGICAL HISTORY: 1. Aortic valve replacement. 2. CABG. 3. Carpal tunnel syndrome. 4. Hysterectomy. 5. Thoracentesis. ALLERGIES: PENICILLIN AND SULFA DRUGS. OUTPATIENT MEDICATIONS: 1. Carvedilol 6.25 b.i.d. 2. Potassium chloride 20 mEq a day. 3. Lasix 80 mg b.i.d. 4. Gabapentin 300 mg b.i.d. 5. Atorvastatin 10 mg q.h.s. 6. Glipizide 10 mg b.i.d. 7. Metolazone 10 mg q.a.m. 8. Omeprazole 40 mg q.p.m. 9. Aspirin 325 a day. 10. Folic acid. 11. vitamins. SOCIAL HISTORY: No alcohol, tobacco, or drugs. FAMILY HISTORY: Noncontributory. REVIEW OF SYSTEMS: A 12-point review of systems was done and was found to be negative unless stated in the history of present illness. PHYSICAL EXAMINATION: VITAL SIGNS: Temperature 98.7, pulse 76, respiratory rate 17, saturating 95% on 2 L, and blood pressure 112/58. GENERAL: Awake, alert, and oriented to person and place. No distress. HEENT: Normocephalic and atraumatic. NECK: Supple. LUNGS: Clear. CARDIOVASCULAR: S1 and S2. No S3 or S4. No murmurs. ABDOMEN: Soft. Positive bowel sounds. EXTREMITIES: 1+ edema. SKIN: Warm and dry. LABORATORY DATA: Laboratory work was reviewed. CBC was unremarkable except for hemoglobin of 11.4. Chemistries with a sodium of 135, otherwise unremarkable. Glucose of 165, calcium 9.5, triglycerides 119, cholesterol 112, LDL of 60, HDL of 28. UA with moderate amount of blood, large leukocyte esterase, 7 to 10 red cells. Urine culture positive for Klebsiella and Enterobacter. ASSESSMENT AND PLAN: 1. Urinary tract infection. 2. Acute on chronic diastolic heart failure. 3. History of aortic valve replacement. PLAN: 1. Continue IV diuresis for now. 2. Consider antibiotics for urinary tract infection and positive blood culture. 3. Echocardiogram pending. 4. We will follow. Job ID: [id number]
[2018-05-03] MEDS: Insulin Regular 300 UNITS/3 ML VIAL SC PRN (18:16)
[2018-05-03] MEDS: Atorvastatin Calcium 10 MG TAB PO SCH (20:15)
--- NOTE | 2018-05-03 23:03 | EKG ---
Test Reason : ER INDICATION Blood Pressure : / mmHG Vent. Rate : 086 BPM Atrial Rate : 086 BPM P-R Int : 198 ms QRS Dur : 086 ms QT Int : 414 ms P-R-T Axes : 041 005 033 degrees QTc Int : 495 ms Electronic atrial pacemaker Prolonged QT Abnormal ECG Confirmed by JED MERRITT, BA ([id number]), continuity editor JESSICA ROBLES ([id number]) on 05/03/2018 11:03:10 PM Referred By: AVELINO Confirmed By:BA ADKINS MD
[2018-05-04] MEDS: HYDROcodone/Acetaminophen 5/325 mg Tablet PO PRN ×4 (03:20→20:28)
[2018-05-04] MEDS: Furosemide 40 MG/4 ML VIAL SLOW IVP SCH ×2 (05:49→15:25)
[2018-05-04] MEDS: Metolazone 5 MG TAB PO SCH (08:48)
[2018-05-04] MEDS: Potassium Chloride 20 MEQ TAB PO SCH ×2 (08:48→17:55)
[2018-05-04] MEDS: Docusate 100 MG CAP PO SCH ×2 (08:48→20:19)
[2018-05-04] MEDS: glipiZIDE 10 MG TAB PO SCH ×2 (08:49→17:55)
[2018-05-04] MEDS: Carvedilol 6.25 MG TAB PO SCH ×2 (08:50→20:18)
[2018-05-04] MEDS: Aspirin 325 MG TAB PO SCH (08:50)
[2018-05-04] MEDS ORDERED: Ciprofloxacin 500 MG TAB PO SCH (09:00)
--- NOTE | 2018-05-04 12:04 | PDOC.PN ---
- Subjective Encounter Start Date: 05/04/18 Encounter Start Time: 09:40 Subjective: no sob at rest -: is drinking 1 boost can and eating slightly better -: at bedside - Objective Resuscitation Status - Order Detail: 05/02/18 09:42 Resuscitation Status Routine Resuscitation Status: DNAR: NO Resuscitation Discussed with: confirmed with pt and her MAR Reviewed: Yes Vital Signs & Weight: Vital Signs (12 hours) Temp Pulse Resp BP BP BP Pulse Ox 05/04/18 08:50 136/56 L 05/04/18 08:00 93 L 05/04/18 07:32 97.8 F 80 17 136/56 L 93 L 05/04/18 03:01 98.3 F 82 18 142/64 H 96 Weight Admit Weight 179 lb 9.6 oz Weight 170 lb 1 oz I&O: 05/03/18 05/04/18 05/05/18 06:59 06:59 06:59 Intake Total 660 840 Output Total 2000 2600 Balance -1340 -1760 Result Diagrams: 05/01/18 18:53 05/03/18 05:31 Additional Labs: Accuchecks 05/04/18 05/03/18 05/03/18 05:41 20:23 16:41 POC Glucose 169 H 176 H 218 H Phys Exam - Physical Examination HEENT: PERRLA, moist MMs Neck: no JVD Respiratory: no wheezing, no rales Cardiovascular: RRR, no significant murmur Gastrointestinal: soft, non-tender, positive bowel sounds Musculoskeletal: pulses present, edema present Neurological: non-focal, moves all 4 limbs Dx/Plan (1) Acute exacerbation of CHF (congestive heart failure) Code(s): I50.9 - HEART FAILURE, UNSPECIFIED Status: Acute Qualifiers: Heart failure type: diastolic Qualified Code(s): I50.33 - Acute on chronic diastolic (congestive) heart failure (2) H/O lymphoma Code(s): Z85.79 - PRSNL HX OF MALIG NEOPLM OF LYMPHOID, HEMATPOETC & REL TISS Status: Acute (3) Severe mitral regurgitation Code(s): I34.0 - NONRHEUMATIC MITRAL (VALVE) INSUFFICIENCY Status: Chronic (4) DM type 2 (diabetes mellitus, type 2) Status: Chronic Qualifiers: Diabetes mellitus mcfp insulin use: with salvage determiner use Diabetes mellitus complication status: with unspecified complications Qualified Code(s) : E11.8 - Type 2 diabetes mellitus with unspecified complications; Z79.4 - equipment operator intermodal yard (current) use of insulin (5) Afib Code(s): I48.91 - UNSPECIFIED ATRIAL FIBRILLATION Status: Chronic Qualifiers: Atrial fibrillation type: chronic Qualified Code(s): I48.2 - Chronic atrial fibrillation (6) CAD (coronary artery disease) Code(s): I25.10 - ATHSCL HEART DISEASE OF [place] CORONARY ARTERY W/O ANG PCTRS Status: Chronic Qualifiers: Coronary Disease-Associated Artery/Lesion type: bypass graft [place] vs. transplanted heart: [place] heart Associated angina: without angina Qualified Code(s): I25.810 - Atherosclerosis of coronary artery bypass graft(s) without angina pectoris (7) Acute encephalopathy Code(s): G93.40 - ENCEPHALOPATHY, UNSPECIFIED Status: Resolved (8) Compression fracture Code(s): QSO4805 - Status: Acute Comment: L1 (9) History of aortic valve replacement with bioprosthetic valve Code(s): Z95.3 - PRESENCE OF XENOGENIC HEART VALVE Status: Chronic (10) Pleural effusion Code(s): J90 - PLEURAL EFFUSION, NOT ELSEWHERE CLASSIFIED Status: Acute Comment: left, sec to chf - Plan awaiting repeat echo post chemo to check ef -: is on lasix and metolazone -: continue asp, lipitor, coreg and glipizide -: encourage po intake -: Dr.Michael Adrian will take over care from am * . Review of Systems - Medications/Allergies Allergies/Adverse Reactions: Allergies Allergy/AdvReac Type Severity Reaction Status Date / Time Penicillins Allergy Rash Verified 05/02/18 00:17 Sulfa (Sulfonamide Allergy Rash Verified 05/02/18 00:17 Antibiotics) Medications: Current Medications Hydrocodone Bitart/Acetaminophen ([place] 5/325) 1 tab PO Q4H PRN PRN Reason: Pain Last Admin: 05/04/18 08:46 Dose: 1 tab Aspirin (Aspirin) 325 mg PO DAILY [facility] Last Admin: 05/04/18 08:50 Dose: 325 mg Atorvastatin Calcium (Lipitor) 10 mg PO HS [facility] Last Admin: 05/03/18 20:15 Dose: 10 mg Carvedilol (Coreg) 6.25 mg PO BID [facility] Last Admin: 05/04/18 08:50 Dose: 6.25 mg Ciprofloxacin (Cipro) 500 mg PO 0600,2000 [facility] Dextrose/Water (Dextrose 50%) 25 gm IVP PRN PRN PRN Reason: HYPOGLYCEMIA PROTOCOL Docusate Sodium (Colace) 100 mg PO BID [facility] Last Admin: 05/04/18 08:48 Dose: 100 mg Furosemide (Lasix) 40 mg SLOW IVP 0600,1400 [facility] Last Admin: 05/04/18 05:49 Dose: 40 mg Glipizide (Glucotrol) 10 mg PO BID-AC [facility] Last Admin: 05/04/18 08:49 Dose: 10 mg Glucagon (Glucagon) 1 mg IM PRN PRN PRN Reason: HYPOGLYCEMIA PROTOCOL Dextrose/Water (D5w) 1,000 mls @ 0 mls/hr IV INF PRN PRN Reason: HYPOGLYCEMIA PROTOCOL Insulin Human Regular (Humulin R) 0 units SC .MILD SLIDING PRN; Protocol PRN Reason: MILD SLIDING SCALE Last Admin: 05/03/18 18:16 Dose: 3 unit Metolazone (Zaroxolyn) 10 mg PO 0830 [facility] Last Admin: 05/04/18 08:48 Dose: 10 mg Pantoprazole Sodium (Protonix) 40 mg PO DAILY [facility] Last Admin: 05/04/18 08:48 Dose: 40 mg Potassium Chloride (K-Dur) 20 meq PO BID-[facility] Last Admin: 05/04/18 08:48 Dose: 20 meq Sodium Chloride (Flush - Normal Saline) 10 ml IVF Q12HR [facility] Last Admin: 05/04/18 08:51 Dose: 10 ml Sodium Chloride (Flush - Normal Saline) 10 ml IVF PRN PRN PRN Reason: Saline Flush
--- NOTE | 2018-05-04 12:58 | PRG ---
DATE OF SERVICE: 05/04/2018 SUBJECTIVE: She reports that she is slowly beginning to feel better. OBJECTIVE: VITAL SIGNS: Temperature 97.8, pulse 80, blood pressure 135/56, O2 saturation 93% on 2 L. HEENT: Unremarkable. NECK: No JVD. LUNGS: Fairly clear. CARDIAC: S1, S2. Regular. ABDOMEN: Soft. EXTREMITIES: Decreased edema. ASSESSMENT: 1. Congestive heart failure-acute diastolic, aggravated by mitral regurgitation. 2. Pleural effusion. PLAN: Continue diuresis as you are doing. Dr. Moore will resume care tomorrow. Job ID: [id number]
[2018-05-04 13:31] LABS: #Eosinphils 0.3 thou/uL (0.0-0.7); #Monocytes 0.7 thou/uL (0.11-0.59); %Basophils 0.5 % (0.0-1.0); %Eosinophils 2.8 % (0.0-10.0); %Lymphocytes 11.2 % (21.0-51.0); %Monocytes 7.7 % (0.0-10.0); %Neutrophils 77.7 % (42.0-75.0); Hemoglobin 11.8 g/dL (12.0-16.0); Mean Corpuscular HGB CONC 32.4 g/dL (32.0-36.0); Mean Corpuscular Hemoglobin 30.6 pg (27.0-31.0); Mean Corpuscular Volume 94.4 fL (78.0-98.0); Mean Platelet Volume 7.6 fL (7.4-10.4); Platelet Count 307 thou/uL (130-400); RBC Distribution Width 13.9 % (11.5-14.5); Red Blood Cell (RBC) Count 3.86 mill/uL (4.20-5.40)
[2018-05-04 13:49] LABS: Anion Gap 13 mmol/L (10-20); BUN (Urea Nitrogen) 18 mg/dL (9.8-20.1); Calc. Creatinine Clearance 56 mL/min (70-130); Calcium 9.8 mg/dL (7.8-10.44); Carbon Dioxide 36 mmol/L (23-31); Chloride 90 mmol/L (98-107); Estimated GFR-MDRD 51; Glucose 256 mg/dL (83-110); Potassium 4.1 mmol/L (3.5-5.1); Sodium 135 mmol/L (136-145)
[2018-05-04] MEDS: Insulin Regular 300 UNITS/3 ML VIAL SC PRN ×2 (17:56→20:24)
--- NOTE | 2018-05-04 18:06 | PDOC.CTH ---
Cardiology Progress Note - Subjective She feels better today. - Objective Vital Signs Temp Pulse Resp BP BP Pulse Ox 05/04/18 16:00 98.3 F 81 17 138/65 95 05/04/18 12:00 98.1 F 77 18 132/62 96 05/04/18 08:50 136/56 L 05/04/18 08:00 93 L 05/04/18 07:32 97.8 F 80 17 136/56 L 93 L Admit Weight 179 lb 9.6 oz Weight 170 lb 1 oz 05/03/18 05/04/18 05/05/18 06:59 06:59 06:59 Intake Total 660 840 Output Total 1999 2600 Balance -1340 -1760 - Physical Examination General/Neuro: alert & oriented x3, NAD Neck: no JVD present Lungs: unlabored respirations, other: (Mild crackles at bases.) Heart: RRR Abdomen: NT/ND Extremities: + edema B (1+) - Telemetry Telemetry Rhythm: NSR - Labs Result Diagrams: 05/04/18 13:04 05/04/18 13:04 Troponin/CKMB Troponin I 0.028 ng/mL (< 0.028) 05/01/18 18:53 - Assessment/Plan 1. Acute on chronic diastolic heart failure. 2. MR 3. UTI PLAN: - Continue IV lasix.
[2018-05-04] MEDS: Ciprofloxacin 500 MG TAB PO SCH (20:19)
[2018-05-04] MEDS: Atorvastatin Calcium 10 MG TAB PO SCH (20:19)
[2018-05-05] MEDS: HYDROcodone/Acetaminophen 5/325 mg Tablet PO PRN ×4 (03:49→20:16)
[2018-05-05] MEDS: Ciprofloxacin 500 MG TAB PO SCH ×2 (05:22→20:17)
[2018-05-05] MEDS: Furosemide 40 MG/4 ML VIAL SLOW IVP SCH ×2 (05:23→13:10)
[2018-05-05 05:27] LABS: Anion Gap 15 mmol/L (10-20); BUN (Urea Nitrogen) 22 mg/dL (9.8-20.1); Calc. Creatinine Clearance 62 mL/min (70-130); Calcium 9.7 mg/dL (7.8-10.44); Carbon Dioxide 33 mmol/L (23-31); Chloride 91 mmol/L (98-107); Estimated GFR-MDRD 58; Glucose 183 mg/dL (83-110); Potassium 3.6 mmol/L (3.5-5.1); Sodium 135 mmol/L (136-145)
[2018-05-05] MEDS ORDERED: Milk Of Magnesia 30 ML UDCUP PO SCH (08:15)
[2018-05-05] MEDS: metFORMIN 500 MG TAB PO SCH ×2 (08:38→17:55)
[2018-05-05] MEDS: Metolazone 5 MG TAB PO SCH (08:39)
[2018-05-05] MEDS: Aspirin 325 MG TAB PO SCH (08:39)
[2018-05-05] MEDS: glipiZIDE 10 MG TAB PO SCH ×2 (08:39→17:55)
[2018-05-05] MEDS: Carvedilol 6.25 MG TAB PO SCH ×2 (08:40→20:17)
[2018-05-05] MEDS: Potassium Chloride 20 MEQ TAB PO SCH ×2 (08:40→17:58)
[2018-05-05] MEDS: Docusate 100 MG CAP PO SCH ×2 (08:41→20:17)
--- NOTE | 2018-05-05 11:50 | RAD ---
RADIOGRAPH CHEST 2 VIEWS: Date: 05-05-18 Time: 9:18 A.M. HISTORY: 77-year-old female with dyspnea and pneumonia. COMPARISON: 05-01-18 FINDINGS: Left sided pleural effusion occupying approximately 30-50% volume of the left hemithoracic cavity, wi th underlying consolidation of the lower half of the left lung. Left upper lung field and right lung are clear. No pleural effusion on the right side. Prosthetic cardiac valve. Probable cardiomegaly. Le ft subclavian pacemaker. Sternotomy wires. No pulmonary edema. Right IJ implantable vascular access p ort with distal tip in the SVC. No interval change on the frontal view. IMPRESSION: 1. Moderate-large left pleural effusion with total opacification of the underlying left mid and lower lung zones. 2. No interval change. PADMINI POS: GONZALEZ
--- NOTE | 2018-05-05 14:46 | PRG ---
DATE OF SERVICE: 05/05/2018 Ms. Ballard is feeling about the same. She is down 10 pounds at least since she was admitted to the hospital, although intake and output numbers do not agree with the weights on the bed scale. I put a communication order in to ask the nurses to have her stand on a standing scale so we have more accurate weights. Lungs, heart, and abdomen are unchanged. She still has absent breath sounds in her left base. Chest x-ray is unchanged. This will not improve quickly. IMPRESSION: 1. Chronic left effusion, status post thoracentesis x2 showing that this is a transudate. Flow studies have not been suggested that this is related to her lymphoma. 2. Extreme deconditioning secondary to treatment for lymphoma that was an incidental finding when she had aortic valve replacement. 3. Status post aortic valve replacement. PLAN: Per Cardiology. She is probably approaching a point where she could be sent home for further physical therapy. She has had very little physical therapy here and needs to be ambulating. She would probably benefit from going into a skilled environment for physical therapy, but I do not know if she wants to. Job ID: [id number]
--- NOTE | 2018-05-05 15:44 | PQF ---
CLINICAL DOCUMENTATION IMPROVEMENT CLARIFICATION FORM: ICD-10 Updated PLEASE DO AN ADDENDUM TO THE PROGRESS NOTE WITH ANY DOCUMENTATION UPDATES OR ADDITIONS AND CARRY THROUGH TO DC SUMMARY. THANK YOU. DATE: 05/05/18 ATTN: Dr. Adrian Please exercise your independent, professional judgment in responding to the clarification form. Clinical indicators are provided on the bottom of this form for your review Please check appropriate box(s): [ x ] Encephalopathy: Etiology: [ ] Metabolic [ ] Toxic [ x ] Hypoxic [ ] Unspecified [ ] Other (please specify) [ ] Other diagnosis [ ] Unable to determine In addition, please specify: Present on Admission (POA): [ x ] Yes [ ] No [ ] Unable to determine For continuity of documentation, please document condition throughout progress notes and discharge summary. Thank You. CLINICAL INDICATORS - SIGNS / SYMPTOMS / LABS H&P 05/01: Resp 24, O2 sats 95% on 2 L of oxygen Altered mental status, felt to be due to hypoxia PN 05/03 (Haley): comes to hospital for increased SOB and AMS Urine culture positive for Klebsiella and Enterobacter Urinary tract infection PN 05/04: Acute encephalopathy. Resolved. RISKS: H&P 05/01: Hx of B-cell lymphoma, hypertension, atrial fibrillation, CAD , noninsulin-dependent diabetes, CHF. TREATMENT: Order 05/04: Cipro 500mg po for UTI Thank you, Kami (This form is maintained as a part of the permanent medical record) 2014 [employer]. All Rights Reserved Kami Islas RN, BSN [email or web address] Office: [phone] [facility]
--- NOTE | 2018-05-05 17:32 | PRG ---
DATE OF SERVICE: SUBJECTIVE: Ms. Ballard states she is doing better. She was admitted over the weekend for shortness of breath. She does have a left-sided pleural effusion. It has been drained in the past. I did review her echo. Her echo was consistent more with pleural effusion versus a pericardial effusion. Her valve appears to be moderate to severely regurgitant. OBJECTIVE: VITAL SIGNS: Blood pressure 125/56, pulse 75, and temperature 98.3. LUNGS: Clear to auscultation except on left with decreased breath sounds present. HEART: Regular rate and rhythm. ABDOMEN: Soft, nontender, and nondistended. EXTREMITIES: 1 to 2+ pitting edema. PERTINENT LABORATORY DATA: Hemoglobin 11.8, white blood cell count 9.0, creatinine 0.94. IMPRESSION: 1. Shortness of breath. 2. Moderate to severe mitral regurgitation. 3. Pleural effusion. 4. Status post aortic valve replacement. 5. Status post pacemaker. RECOMMENDATIONS: Ms. Ballard' symptoms appear to have improved over the weekend. She is diuresed. She is discussed with Dr. Moore on thoracentesis. This has been attempted in the past and will likely reaccumulate. It would be important to try to limit her fluid intake. She has recently stopped taking chemo. This will help with her endurance and stamina. At this point, we will continue atorvastatin, carvedilol, and IV Lasix. May switch to p.o. Lasix tomorrow. Otherwise, have no further recommendations. Job ID: [id number]
[2018-05-05] MEDS: Insulin Regular 300 UNITS/3 ML VIAL SC PRN (17:56)
[2018-05-05] MEDS: Atorvastatin Calcium 10 MG TAB PO SCH (20:17)
[2018-05-06 05:24] LABS: #Basophils 0.1 thou/uL (0.0-0.2); #Eosinphils 0.4 thou/uL (0.0-0.7); #Monocytes 0.8 thou/uL (0.11-0.59); #Neutrophils 4.4 thou/uL (1.40-6.50); %Basophils 1.1 % (0.0-1.0); %Eosinophils 5.7 % (0.0-10.0); %Lymphocytes 15.7 % (21.0-51.0); %Monocytes 11.9 % (0.0-10.0); %Neutrophils 65.6 % (42.0-75.0); Hemoglobin 10.6 g/dL (12.0-16.0); Mean Corpuscular HGB CONC 32.8 g/dL (32.0-36.0); Mean Corpuscular Hemoglobin 30.7 pg (27.0-31.0); Mean Corpuscular Volume 93.6 fL (78.0-98.0); Mean Platelet Volume 7.2 fL (7.4-10.4); Platelet Count 271 thou/uL (130-400); RBC Distribution Width 13.8 % (11.5-14.5); Red Blood Cell (RBC) Count 3.47 mill/uL (4.20-5.40); White Blood Cell (WBC) Count 6.7 thou/uL (4.8-10.8)
[2018-05-06 05:43] LABS: Anion Gap 13 mmol/L (10-20); BUN (Urea Nitrogen) 27 mg/dL (9.8-20.1); Calc. Creatinine Clearance 59 mL/min (70-130); Calcium 9.4 mg/dL (7.8-10.44); Carbon Dioxide 35 mmol/L (23-31); Chloride 91 mmol/L (98-107); Estimated GFR-MDRD 55; Glucose 161 mg/dL (83-110); Potassium 3.4 mmol/L (3.5-5.1); Sodium 136 mmol/L (136-145)
[2018-05-06] MEDS: Furosemide 40 MG/4 ML VIAL SLOW IVP SCH (06:04)
[2018-05-06] MEDS: Ciprofloxacin 500 MG TAB PO SCH (06:04)
[2018-05-06 08:00] VITALS: TEMP 97.9
[2018-05-06] MEDS: Carvedilol 6.25 MG TAB PO SCH (08:55)
[2018-05-06] MEDS: Aspirin 325 MG TAB PO SCH (08:55)
[2018-05-06] MEDS: glipiZIDE 10 MG TAB PO SCH (08:55)
[2018-05-06] MEDS: metFORMIN 500 MG TAB PO SCH (08:55)
[2018-05-06] MEDS: Metolazone 5 MG TAB PO SCH (08:55)
[2018-05-06] MEDS: Potassium Chloride 20 MEQ TAB PO SCH (08:56)
[2018-05-06] MEDS: Docusate 100 MG CAP PO SCH (08:57)
[2018-05-06 08:58] VITALS: BP 114/58
== END 2018-05-06 11:20 | disposition home health service (06) | DRG 292 ==
LOC: ERS 17:20 → 2NO 21:34 → OBSVTOIN 21:34
PROVIDERS: ADMIT Specialist; ATTEND Specialist
DX: I11.0 Hypertensive heart disease with heart failure (principal); C85.10 Unspecified B-cell lymphoma, unspecified site; G93.1 Anoxic brain damage, not elsewhere classified; N39.0 Urinary tract infection, site not specified; I50.33 Acute on chronic diastolic (congestive) heart failure; I25.10 Atherosclerotic heart disease of native coronary artery without angina pectoris; K21.9 Gastro-esophageal reflux disease without esophagitis; E11.9 Type 2 diabetes mellitus without complications; L89.159 Pressure ulcer of sacral region, unspecified stage; Z66 Do not resuscitate; I48.2 Chronic atrial fibrillation; I34.0 Nonrheumatic mitral (valve) insufficiency; B96.1 Klebsiella pneumoniae [K. pneumoniae] as the cause of diseases classified elsewhere; Z88.0 Allergy status to penicillin; Z88.2 Allergy status to sulfonamides; Z79.82 Long term (current) use of aspirin; Z95.2 Presence of prosthetic heart valve; Z95.1 Presence of aortocoronary bypass graft
CPT/HCPCS: 36415; 36416; 70450; 71045; 71046; 72100; 80048; 80053; 80061; 81001; 84484; 85025; 87077; 87086; 87186; 93005; 93306; 94760; 96374; J1815; J1940; J3010

== ENCOUNTER 2018-07-28 09:37 | Outpatient (CLI) | payer MEDICARE ==
--- NOTE | 2018-07-28 10:15 | RAD ---
Exam: Chest 2 views HISTORY:Dyspnea Comparison: 03/21/2018, and 05/05/2018 chest radiograph exams FINDINGS: Lungs: Persistent density of the mid inferior left hemithorax Cardiac silhouette:Stable enlargement Pulmonary vessels: Stable engorgement Pleural Spaces: Pleural-based density at the inferior left chest remains, moderate in volume Pneumothorax: None Left-sided cardiac pacing device, and right-sided chest port remain. Osseous abnormalities: None of acuity. IMPRESSION: Persistent moderate volume left pleural effusion suspected, with adjacent consolidation o f the left mid to lower lung. CHF
== END 2018-07-28 09:38 | disposition home or self-care (01) ==
LOC: RAD 09:37
PROVIDERS: ATTEND Internal Medicine Critical Care Medicine
DX: R06.00 Dyspnea, unspecified (principal); I50.9 Heart failure, unspecified
CPT/HCPCS: 71046

== ENCOUNTER 2018-08-01 11:15 | Inpatient (IN) | payer MEDICARE ==
[2018-08-01 12:17] LABS: #Basophils 0.1 thou/uL (0.0-0.2); #Eosinphils 0.2 thou/uL (0.0-0.7); #Lymphocytes 1.1 thou/uL (1.20-3.40); #Monocytes 0.8 thou/uL (0.11-0.59); #Neutrophils 6.5 thou/uL (1.40-6.50); %Basophils 0.6 % (0.0-1.0); %Eosinophils 2.2 % (0.0-10.0); %Lymphocytes 12.4 % (21.0-51.0); %Monocytes 9.3 % (0.0-10.0); %Neutrophils 75.5 % (42.0-75.0); Hemoglobin 11.7 g/dL (12.0-16.0); Mean Corpuscular HGB CONC 31.4 g/dL (32.0-36.0); Mean Corpuscular Hemoglobin 29.6 pg (27.0-31.0); Mean Corpuscular Volume 94.3 fL (78.0-98.0); Mean Platelet Volume 8.5 fL (7.4-10.4); Platelet Count 289 thou/uL (130-400); RBC Distribution Width 13.9 % (11.5-14.5); Red Blood Cell (RBC) Count 3.97 mill/uL (4.20-5.40); White Blood Cell (WBC) Count 8.6 thou/uL (4.8-10.8)
--- NOTE | 2018-08-01 12:33 | CT ---
CT OF THE BRAIN WITHOUT CONTRAST: Date: 08/01/18 COMPARISON: 05/01/18. HISTORY: Fall at home, hit forehead, head trauma. TECHNIQUE: Multiple contiguous axial images were obtained in a CT of the brain without contrast. FINDINGS: The brain is normal in morphology and attenuation without focal lesions or confluent areas of infarct ion. There is no evidence of hydrocephalus, intracranial hemorrhage, or extra-axial fluid collection. The calvarium and overlying soft tissues are unremarkable. The visualized paranasal sinuses and masto id air cells are well aerated. IMPRESSION: No evidence of acute intracranial abnormality. POS: TPC
[2018-08-01 12:42] LABS: ALT (SGPT) 12 U/L (8-55); AST (SGOT) 23 U/L (5-34); Albumin 3.8 g/dL (3.4-4.8); Alkaline Phosphatase 86 U/L (40-150); Anion Gap 15 mmol/L (10-20); BUN (Urea Nitrogen) 37 mg/dL (9.8-20.1); Bilirubin, Total 0.8 mg/dL (0.2-1.2); Calc. Creatinine Clearance 0 mL/min (70-130); Calcium 10.7 mg/dL (7.8-10.44); Carbon Dioxide 31 mmol/L (23-31); Chloride 98 mmol/L (98-107); Estimated GFR-MDRD 37; Globulin 2.8 g/dL (2.4-3.5); Glucose 151 mg/dL (83-110); Potassium 4.1 mmol/L (3.5-5.1); Protein, Total 6.6 g/dL (6.0-8.3); Sodium 140 mmol/L (136-145)
[2018-08-01 12:46] LABS: Acetaminophen Less than 6.0 mcg/mL (10.0-30.0); Alcohol Less than 10 mg/dL (Less than 10); Salicylate Less than 8.0 mg/dL (15.0-30.0)
--- NOTE | 2018-08-01 12:56 | CT ---
MRI OF THE CERVICAL SPINE WITHOUT CONTRAST: COMPARISON: None. HISTORY: Fall with head trauma and neck pain. TECHNIQUE: Multiple contiguous axial images were obtained in a CT of the cervical spine without contrast. Sagit sarah and coronal reformats were performed. FINDINGS: This exam is slightly limited secondary to motion artifact. There are mild to moderate degenerative changes in the cervical spine. The vertebral bodies demonstrate normal height without acute fracture or subluxation. No prevertebral soft tissue swelling is seen. The posterior facets are well aligned. Normal alignment of the skull base with the cervical spine is seen. IMPRESSION: No evidence of acute osseous abnormality of the cervical spine. POS: TPC
--- NOTE | 2018-08-01 13:06 | CT ---
CT LUMBAR SPINE WITHOUT CONTRAST: Date: 08/01/18 COMPARISON: None. HISTORY: Low back pain status post fall. TECHNIQUE: Multiple contiguous axial images were obtained in a CT of the lumbar spine without contrast. Sagittal and coronal reformats were performed. FINDINGS: Moderate scoliotic curvature of the lumbar spine is seen. End plate degenerative changes are seen. Th e intervertebral discs are narrowed. Vacuum phenomenon is seen at multiple levels. Lucency is seen in the superior end plate of L1 and L2 in multiple regions. This likely represents degenerative change rather than acute fracture. No subluxation of the vertebral bodies is seen. No loss of intervertebral disc space height is seen at this time. Atherosclerotic calcifications are seen in the aorta. The prevertebral and paraspinal soft tissues ar e unremarkable. IMPRESSION: Severe degenerative changes of the lumbar spine without acute osseous abnormality. POS: TPC
[2018-08-01 13:09] LABS: CKMB 0.6 ng/mL (0-6.6)
[2018-08-01 13:15] LABS: Bilirubin Negative (Negative); Blood, Urine Negative (Negative); Clarity CLOUDY (Clear); Glucose, Urine (Dipstick) Negative (Negative); Leukocyte Moderate (Negative); Nitrite Negative (Negative); Protein, Urine (Dipstick) Negative (Neg-Trace); Specific Gravity, Urine 1.008 (1.002-1.036); Urobilinogen 0.2 mg/dL (0.2-1.0)
[2018-08-01 13:17] LABS: Bacteria/HPF None Seen HPF (None Seen); Hyaline Casts/LPF 4-6 HYALINE CAST LPF (0-3 Hyaline); Pathc Cast-AUWi Flag 0.27 (0-2.49); RBC/HPF 0-3 HPF (0-3); Squamous Epithelial 0-3 HPF (0-3); Yeast-AUWi Flag 17.6 (0-25.0)
[2018-08-01 13:32] LABS: Amphetamine Not Detected (NotDetected); Barbiturates Screen Not Detected (NotDetected); Benzodiazepine Screen Detected (NotDetected); Cocaine Metabolite Screen Not Detected (NotDetected); Medtox Control Line Valid? VALID (VALID); Medtox Reader # READER 1; Methadone Not Detected (NotDetected); Methamphetamine Not Detected (NotDetected); Opiate Screen Not Detected (NotDetected); Oxycodone Screen Not Detected (NotDetected); Phencyclidine (PCP) Not Detected (NotDetected); THC/Cannabinoid Screen Not Detected (NotDetected); Tricyclic Screen Not Detected (NotDetected)
[2018-08-01 16:38] LABS: Troponin I 0.033 ng/mL (< 0.028)
[2018-08-01] MEDS ORDERED: Ondansetron PF 4 MG/2 ML Vial IVP PRN (19:32)
[2018-08-01] MEDS ORDERED: Ondansetron ODT 4 MG TAB SL PRN (19:32)
[2018-08-01] MEDS ORDERED: Melatonin 3 MG TAB PO PRN (19:35)
[2018-08-01 20:04] LABS: Troponin I 0.031 ng/mL (< 0.028)
[2018-08-01] MEDS: Simvastatin 20 MG TAB PO SCH (21:08)
[2018-08-01] MEDS: cefTRIAXone\\ROCEPHIN 1 GM in Sodium Chloride 0.9% 100 ML IVPB SCH (21:10)
[2018-08-01] MEDS: Apixaban 2.5 MG TAB PO SCH (21:10)
[2018-08-01] MEDS: Carvedilol 6.25 MG TAB PO SCH (21:11)
[2018-08-01 22:41] LABS: Hemoglobin A1c 5.6 % (4.0-6.0)
[2018-08-01 22:48] LABS: Digoxin 1.53 ng/mL (0.8-2.0)
[2018-08-01 22:53] LABS: Troponin I 0.035 ng/mL (< 0.028)
--- NOTE | 2018-08-02 01:47 | HP ---
CHIEF COMPLAINT ON ADMISSION: Multiple falls, head contusions, urinary tract infection and inability to ambulate as well as indeterminate troponin. HISTORY OF PRESENT ILLNESS: The patient is a 78-year-old female who the relates has fallen early this morning while getting out of bed. She struck her head. There was no loss of consciousness. relates that she has been falling numerous times in the last couple of weeks, probably a dozen times. It has been associated with confusion, decreased appetite and generalized weakness. She takes Eliquis for atrial fibrillation. Has been hospitalized in the last year or two for gaining fluid and going into CHF. She has recently been attending the [facility] and getting IV Lasix. The patient denies any pain except for the bump on her head. She denies chest pain, shortness of breath, coughing, bleeding, black tarry stools, but does admit to falling many times in the last couple of weeks and decreased appetite. She also admits to being so weak she can barely stand up and make it to the bathroom. PAST MEDICAL HISTORY: Significant for type 2 diabetes, asthma, gastroesophageal reflux, hypertension, COPD, congestive heart failure, lymphoma in remission, (patient had six rounds of chemo) PRIOR SURGERIES: Include heart valve replacement, coronary artery bypass grafting, carpal tunnel bilaterally, hysterectomy, and a port for chemo in her chest. PSYCHIATRIC HISTORY: Negative. SOCIAL HISTORY: Denies alcohol or drug use. Has no smoking history. Lives at home with her . ALLERGIES: PENICILLINS AND SULFA. CURRENT MEDICATIONS: Include: 1. Carvedilol 6.25 mg one b.i.d. 2. Gabapentin 300 mg b.i.d. 3. Atorvastatin 10 mg at bedtime. 4. Glipizide 10 mg b.i.d. 5. Folic acid 8 mg q.a.m. 6. Metformin 1000 mg b.i.d. 7. Eliquis 2.5 mg b.i.d. 8. Digoxin 125 mcg daily. 9. Potassium is 10 mEq daily. 10. Prilosec 20 mg daily. REVIEW OF SYSTEMS: GENERAL: Significant for fatigue, general malaise, and as previously mentioned, multiple falls. HEENT: Large goose egg hematoma in the middle of her forehead. Denies drainage of blood or fluid from ears, nose, or throat. CHEST: Admits to shortness of breath with minimal exertion. No coughing. CARDIOVASCULAR: Denies chest pain or palpitations. ABDOMEN: Denies any nausea, vomiting, or diarrhea. : Denies dysuria or blood in urine or stool. MUSCULOSKELETAL: Diffusely weak muscles with muscular wasting noted in upper and lower extremities. SKIN: Denies new rashes or lesions. NEUROLOGIC: She is currently able to answer questions correctly. Denies headaches other than where her hematoma is and denies any areas hypesthesia or anesthesia. PHYSICAL EXAMINATION: At the time of admission: VITAL SIGNS: Blood pressure 114/52, pulse 80, respirations 16, temperature 98.2. Pain scale is 0/10 right now. O2 saturation at 97% on 2 L of oxygen. GENERAL: This is a well-developed, well-nourished, elderly female, alert, oriented, cooperative. HEENT: Traumatic contusion to the mid forehead with large 3 x 4 cm hematoma, purplish blue in coloration. Pupils still equal, round, reactive to light with 1 to 2-mm arcus senilis bilaterally. TMs and nares clear. Pharynx is dry. No lesions. NECK: Supple. Trachea midline. No bruits. CHEST: With diminished breath sounds on the left. Fair breath sounds on the right. HEART: Regular rate and rhythm without murmur. BREASTS: Deferred. ABDOMEN: Soft, nontender without organomegaly. : Deferred. EXTREMITIES: With muscular wasting in upper and lower extremities. Decreased range of motion. Simply due to bedfastness. SKIN: No acute rashes or lesions. NEUROLOGIC: Cranial nerves are intact. Mental status is showing slowed mentation, but otherwise nonfocal. Sensory exam is intact, unable to test gait and cerebellar function. LABORATORY DATA: Lab work thus far showed WBCs 8.6, hemoglobin 11.7, hematocrit 37.4 with platelets at 289. Her sodium is 140, potassium 4.1, chloride 98, CO2 31, BUN 137, creatinine 1.39 with a GFR of 37, glucose 151, lactic acid 1.7, calcium 10.7. Liver functions unremarkable. Troponins, all indeterminate in 0.39-0.031 range. Liver functions unremarkable. Toxicology screen showed benzodiazepines present which she takes to sleep at night. Urinary analysis shows moderate leukocyte esterase with 50 to ilp-bghxiaae-tn-count wbc's. The CT of the head failed to show any acute findings. CT of the neck. No fractures. CT of the lumbar spine, also no fractures. ASSESSMENT: 1. Multiple falls with forehead contusion. 2. Severe deconditioning, unable to walk. 3. Urinary tract infection. 4. History of congestive heart failure. 5. Noninsulin-dependent diabetes. PLAN: Plan will be to hydrate and reassess patient regularly to assess source of deconditioning and weakness. Begin physical therapy and serially re-evaluate the patient. Job ID: [id number]
[2018-08-02 06:43] LABS: #Eosinphils 0.2 thou/uL (0.0-0.7); #Monocytes 0.7 thou/uL (0.11-0.59); #Neutrophils 4.8 thou/uL (1.40-6.50); %Basophils 0.3 % (0.0-1.0); %Eosinophils 3.6 % (0.0-10.0); %Lymphocytes 15.2 % (21.0-51.0); %Monocytes 10.6 % (0.0-10.0); %Neutrophils 70.3 % (42.0-75.0); Hemoglobin 11.1 g/dL (12.0-16.0); Mean Corpuscular HGB CONC 32.2 g/dL (32.0-36.0); Mean Corpuscular Hemoglobin 30.5 pg (27.0-31.0); Mean Corpuscular Volume 94.7 fL (78.0-98.0); Mean Platelet Volume 8.5 fL (7.4-10.4); Platelet Count 259 thou/uL (130-400); RBC Distribution Width 13.7 % (11.5-14.5); Red Blood Cell (RBC) Count 3.62 mill/uL (4.20-5.40); White Blood Cell (WBC) Count 6.8 thou/uL (4.8-10.8)
[2018-08-02 07:02] LABS: Anion Gap 10 mmol/L (10-20); BUN (Urea Nitrogen) 33 mg/dL (9.8-20.1); Calc. Creatinine Clearance 44 mL/min (70-130); Calcium 10.2 mg/dL (7.8-10.44); Carbon Dioxide 37 mmol/L (23-31); Cardiac Risk 4.3 (Less than 4.5); Chloride 98 mmol/L (98-107); Cholesterol 104 mg/dl (< 200 Desired); Estimated GFR-MDRD 42; Glucose 177 mg/dL (83-110); HDL Cholesterol 24 mg/dL (>60 Neg Risk); LDL Cholesterol, Calculated 52 mg/dL; Potassium 3.3 mmol/L (3.5-5.1); Sodium 142 mmol/L (136-145); Triglycerides 142 mg/dL (Less than 150)
[2018-08-02] MEDS ORDERED: metFORMIN 500 MG TAB PO SCH (08:00)
[2018-08-02] MEDS: Apixaban 2.5 MG TAB PO SCH ×2 (08:33→20:31)
[2018-08-02] MEDS: Torsemide 20 MG TAB PO SCH (08:33)
[2018-08-02] MEDS: Carvedilol 6.25 MG TAB PO SCH ×2 (08:34→20:31)
[2018-08-02] MEDS: Potassium Chloride 10 MEQ TAB PO SCH ×2 (08:34→20:32)
[2018-08-02] MEDS ORDERED: Insulin Glargine 16 UNITS in Pre-Filled Syringe 1 EACH SC SCH (09:00)
[2018-08-02] MEDS ORDERED: cefTRIAXone\\ROCEPHIN 1 GM in Sodium Chloride 0.9% 100 ML IVPB SCH (09:00)
[2018-08-02] MEDS: Metolazone 5 MG TAB PO SCH (10:54)
[2018-08-02] MEDS ORDERED: Potassium Chloride 10 MEQ TAB PO SCH (14:30)
--- NOTE | 2018-08-02 15:42 | RAD ---
PORTABLE CHEST: Date: 08/02/18 HISTORY: Dyspnea. Follow-up. COMPARISON: 07/28/18. FINDINGS: Opacification of left lung base is again noted. Findings suggest left effusion with left basilar atel ectasis or consolidation. Right lung remains clear. Heart mildly enlarged with postop sternotomy change. Pacemaker leads and Me diPort catheter unchanged in position. IMPRESSION: Opacification of left lung base is again seen. No interval change from prior study. POS: [facility]
[2018-08-02] MEDS: Melatonin 3 MG TAB PO SCH (20:31)
[2018-08-02] MEDS: cefTRIAXone\\ROCEPHIN 1 GM in Sodium Chloride 0.9% 100 ML IVPB SCH (20:31)
[2018-08-02] MEDS: Simvastatin 20 MG TAB PO SCH (20:32)
[2018-08-03 08:27] LABS: Anion Gap 13 mmol/L (10-20); BUN (Urea Nitrogen) 31 mg/dL (9.8-20.1); Calc. Creatinine Clearance 44 mL/min (70-130); Carbon Dioxide 36 mmol/L (23-31); Chloride 98 mmol/L (98-107); Estimated GFR-MDRD 45; Glucose 146 mg/dL (83-110); Potassium 3.3 mmol/L (3.5-5.1); Sodium 144 mmol/L (136-145)
[2018-08-03] MEDS: Metolazone 5 MG TAB PO SCH (08:45)
[2018-08-03] MEDS: metFORMIN 500 MG TAB PO SCH (08:45)
[2018-08-03] MEDS: Potassium Chloride 10 MEQ TAB PO SCH ×2 (08:45→08:47)
[2018-08-03] MEDS: Apixaban 2.5 MG TAB PO SCH ×2 (08:45→20:19)
[2018-08-03] MEDS: Carvedilol 6.25 MG TAB PO SCH ×2 (08:46→20:19)
[2018-08-03] MEDS: Torsemide 20 MG TAB PO SCH (08:46)
[2018-08-03] MEDS: Insulin Glargine 10 UNITS in Pre-Filled Syringe SC SCH (08:49)
[2018-08-03] MEDS ORDERED: Furosemide 20 MG/2 ML VIAL SLOW IVP SCH (15:00)
[2018-08-03] MEDS: Potassium Chloride 20 MEQ TAB PO SCH (17:00)
[2018-08-03] MEDS: Melatonin 3 MG TAB PO SCH (20:18)
[2018-08-03] MEDS: cefTRIAXone\\ROCEPHIN 1 GM in Sodium Chloride 0.9% 100 ML IVPB SCH (20:19)
[2018-08-03] MEDS: Simvastatin 20 MG TAB PO SCH (20:19)
[2018-08-04] MEDS: Acetaminophen 325 MG TAB PO PRN (02:39)
[2018-08-04 07:03] LABS: Anion Gap 15 mmol/L (10-20); BUN (Urea Nitrogen) 34 mg/dL (9.8-20.1); Calc. Creatinine Clearance 42 mL/min (70-130); Calcium 9.9 mg/dL (7.8-10.44); Carbon Dioxide 34 mmol/L (23-31); Chloride 96 mmol/L (98-107); Estimated GFR-MDRD 43; Glucose 141 mg/dL (83-110); Potassium 3.7 mmol/L (3.5-5.1); Sodium 141 mmol/L (136-145)
[2018-08-04] MEDS: Potassium Chloride 20 MEQ TAB PO SCH ×2 (08:09→17:55)
[2018-08-04] MEDS: metFORMIN 500 MG TAB PO SCH (08:09)
[2018-08-04] MEDS: Metolazone 5 MG TAB PO SCH (08:09)
[2018-08-04] MEDS: Carvedilol 6.25 MG TAB PO SCH ×2 (08:09→20:09)
[2018-08-04] MEDS: Torsemide 20 MG TAB PO SCH (08:13)
[2018-08-04] MEDS: Apixaban 2.5 MG TAB PO SCH ×2 (08:13→20:09)
[2018-08-04] MEDS: Insulin Glargine 10 UNITS in Pre-Filled Syringe SC SCH (08:14)
[2018-08-04] MEDS: Melatonin 3 MG TAB PO SCH (20:08)
[2018-08-04] MEDS: cefTRIAXone\\ROCEPHIN 1 GM in Sodium Chloride 0.9% 100 ML IVPB SCH (20:09)
[2018-08-04] MEDS: Simvastatin 20 MG TAB PO SCH (20:09)
--- NOTE | 2018-08-04 20:38 | CON ---
DATE OF CONSULTATION: REASON FOR CONSULTATION: Weakness and shortness of breath. HISTORY OF PRESENT ILLNESS: Ms. Ballard is a very pleasant 78-year-old woman, seen and evaluated in the past. She has a previous history of CAD, status post aortic valve replacement. She also has a remote recent history of moderate to severe mitral regurgitation in addition to diastolic dysfunction. They state over the last several weeks, there has been significant diuresis noted in the heart failure clinic. She has lost a significant weight. Most recently, she has had multiple episodes of falling. She has been markedly weak per her who is very supportive spouse. No chest pain or pressure noted. MEDICATIONS: 1. Omeprazole. 2. vitamin. 3. Folic acid. 4. Spironolactone. 5. Glipizide. 6. Lasix. 7. Ocuvite. 8. Citracal. 9. Klor-Con. 10. Atorvastatin. 11. Probiotic. 12. Aspirin. 13. Gabapentin. 14. Carvedilol. PAST MEDICAL HISTORY: Status post AVR, hyperlipidemia, diabetes mellitus, hypertension, diastolic dysfunction, CAD, pulmonary hypertension, B-cell lymphoma, moderate to severe MR, hysterectomy, carpal tunnel release, tonsillectomy, gastric surgery, pacemaker implantation. FAMILY HISTORY: Negative for CAD. SOCIAL HISTORY: No current tobacco or alcohol use. She has a very supportive . ALLERGIES: PENICILLIN. REVIEW OF SYSTEMS: A 10-point review of systems is reviewed and as above, otherwise negative. PHYSICAL EXAMINATION: VITAL SIGNS: Blood pressure 102/62, pulse 95, temperature 97.3. GENERAL: She appears weak. NEUROLOGIC: The patient is alert and oriented x3 with no focal neurologic deficits. HEENT: Sclerae without icterus. Mouth has moist mucous membranes with normal pallor. NECK: No JVD. Carotid upstroke brisk. No bruits bilaterally. LUNGS: Clear to auscultation with unlabored respirations. BACK: No scoliosis or kyphosis. CARDIAC: Regular rate and rhythm with normal S1 and S2. No S3 or S4 noted. No significant rubs, murmurs, thrills, or gallops noted throughout the precordium. PMI is not displaced. There is no parasternal heave. ABDOMEN: Soft, nontender, nondistended. No peritoneal signs present. No hepatosplenomegaly. No abnormal striae. EXTREMITIES: 2+ femoral and 2+ dorsalis pedis pulses. No cyanosis, clubbing, or edema. SKIN: No gross abnormalities. PERTINENT LABORATORY DATA: Hemoglobin 11.1, hematocrit 34.3. Creatinine 1.22. BNP is 796. Last echo with doppler dated 10/18/2017, with LVEF 50% to 55%. Moderate to severe mitral regurgitation. Bioprosthetic aortic valve. Moderate to severe TR with severely elevated right-sided pressures. IMPRESSION: 1. Weakness, fatigue. 2. Recent fall. 3. Diastolic dysfunction. 4. Moderate to severe mitral regurgitation, tricuspid regurgitation. 5. Severe pulmonary hypertension. RECOMMENDATIONS: Ms. Ballard has multiple issues. She has been diuresed aggressively and has had significant fluid loss. This may have contributed to her weakness. Her BP remains mildly elevated. She also appears to have severe pulmonary hypertension, a question was raised on the use of Entresto. At this point, Entresto was not indicated for diastolic dysfunction, but mainly systolic dysfunction. We recommend echo with doppler to reassess LVEF as that has not been performed in 1 year. Job ID: [id number]
[2018-08-05 05:22] LABS: #Basophils 0.1 thou/uL (0.0-0.2); #Eosinphils 0.3 thou/uL (0.0-0.7); #Lymphocytes 1.2 thou/uL (1.20-3.40); #Monocytes 0.6 thou/uL (0.11-0.59); #Neutrophils 3.9 thou/uL (1.40-6.50); %Basophils 1.1 % (0.0-1.0); %Eosinophils 4.4 % (0.0-10.0); %Lymphocytes 19.1 % (21.0-51.0); %Monocytes 10.3 % (0.0-10.0); %Neutrophils 65.1 % (42.0-75.0); Hemoglobin 11.7 g/dL (12.0-16.0); Mean Corpuscular HGB CONC 31.6 g/dL (32.0-36.0); Mean Corpuscular Hemoglobin 29.8 pg (27.0-31.0); Mean Corpuscular Volume 94.4 fL (78.0-98.0); Mean Platelet Volume 8.4 fL (7.4-10.4); Platelet Count 288 thou/uL (130-400); RBC Distribution Width 13.5 % (11.5-14.5); Red Blood Cell (RBC) Count 3.93 mill/uL (4.20-5.40)
[2018-08-05 05:45] LABS: Anion Gap 13 mmol/L (10-20); BUN (Urea Nitrogen) 34 mg/dL (9.8-20.1); Calc. Creatinine Clearance 45 mL/min (70-130); Calcium 9.6 mg/dL (7.8-10.44); Carbon Dioxide 35 mmol/L (23-31); Chloride 96 mmol/L (98-107); Estimated GFR-MDRD 46; Glucose 146 mg/dL (83-110); Potassium 3.4 mmol/L (3.5-5.1); Sodium 141 mmol/L (136-145)
[2018-08-05] MEDS: Apixaban 2.5 MG TAB PO SCH ×2 (09:07→20:16)
[2018-08-05] MEDS: metFORMIN 500 MG TAB PO SCH (09:08)
[2018-08-05] MEDS: Carvedilol 6.25 MG TAB PO SCH ×2 (09:08→20:16)
[2018-08-05] MEDS: Potassium Chloride 20 MEQ TAB PO SCH ×2 (09:08→16:54)
[2018-08-05] MEDS: Insulin Glargine 10 UNITS in Pre-Filled Syringe SC SCH (09:09)
[2018-08-05] MEDS: Metolazone 5 MG TAB PO SCH (09:09)
[2018-08-05] MEDS: Torsemide 20 MG TAB PO SCH (09:14)
[2018-08-05] MEDS: Melatonin 3 MG TAB PO SCH (20:15)
[2018-08-05] MEDS: cefTRIAXone\\ROCEPHIN 1 GM in Sodium Chloride 0.9% 100 ML IVPB SCH (20:16)
[2018-08-05] MEDS: Simvastatin 20 MG TAB PO SCH (20:16)
--- NOTE | 2018-08-06 06:34 | PDOC.CTH ---
Cardiology Progress Note - Objective Vital Signs Temp Pulse Resp BP BP Pulse Ox 08/05/18 20:16 101/62 08/05/18 20:05 97.5 F L 77 18 62 98 08/05/18 20:00 98 Admit Weight 154 lb 8 oz Weight 149 lb 3 oz 08/04/18 08/05/18 08/06/18 06:59 06:59 06:59 Intake Total 1140 1620 580 Output Total 1000 700 Balance 140 920 580 - Physical Examination General/Neuro: NAD Neck: no JVD present Lungs: unlabored respirations Heart: RRR Abdomen: NT/ND, soft Extremities: + femoral B - Labs Result Diagrams: 08/05/18 04:46 08/05/18 04:46 Troponin/CKMB CK-MB (CK-2) 0.6 ng/mL (0-6.6) 08/01/18 12:14 Troponin I 0.035 ng/mL (< 0.028) H 08/01/18 22:21 - Assessment/Plan Weakness SOB Moderate to severe MR s/p AVR s/p pacer Pt has continued to slowly decline since valve surgery a few yrs ago Needs agressive rehab Not felt to be a candidate for entresto given diastolic dysfunction May be a candidate for MV clip I will be out of the office over the next five days; I will fu in office in the coming weeks
[2018-08-06 08:12] LABS: #Eosinphils 0.3 thou/uL (0.0-0.7); #Monocytes 0.6 thou/uL (0.11-0.59); #Neutrophils 3.7 thou/uL (1.40-6.50); %Basophils 0.8 % (0.0-1.0); %Eosinophils 4.6 % (0.0-10.0); %Lymphocytes 17.8 % (21.0-51.0); %Monocytes 10.8 % (0.0-10.0); %Neutrophils 66.1 % (42.0-75.0); Hemoglobin 11.7 g/dL (12.0-16.0); Mean Corpuscular HGB CONC 32.6 g/dL (32.0-36.0); Mean Corpuscular Hemoglobin 30.4 pg (27.0-31.0); Mean Corpuscular Volume 93.4 fL (78.0-98.0); Mean Platelet Volume 8.5 fL (7.4-10.4); Platelet Count 256 thou/uL (130-400); RBC Distribution Width 13.4 % (11.5-14.5); Red Blood Cell (RBC) Count 3.85 mill/uL (4.20-5.40); White Blood Cell (WBC) Count 5.5 thou/uL (4.8-10.8)
[2018-08-06 08:23] LABS: Chloride 96 mmol/L (98-107); Potassium 3.1 mmol/L (3.5-5.1); Sodium 142 mmol/L (136-145)
[2018-08-06 08:24] LABS: Calcium 9.3 mg/dL (7.8-10.44); Glucose 137 mg/dL (83-110)
[2018-08-06 08:25] LABS: Anion Gap 14 mmol/L (10-20); Carbon Dioxide 35 mmol/L (23-31)
[2018-08-06 08:27] LABS: Calc. Creatinine Clearance 52 mL/min (70-130); Estimated GFR-MDRD 55
[2018-08-06 08:28] LABS: BUN (Urea Nitrogen) 31 mg/dL (9.8-20.1)
[2018-08-06] MEDS: Carvedilol 6.25 MG TAB PO SCH ×2 (08:48→20:15)
[2018-08-06] MEDS: Metolazone 5 MG TAB PO SCH (08:48)
[2018-08-06] MEDS: Potassium Chloride 20 MEQ TAB PO SCH ×2 (08:49→16:54)
[2018-08-06] MEDS: metFORMIN 500 MG TAB PO SCH (08:49)
[2018-08-06] MEDS: Apixaban 2.5 MG TAB PO SCH ×2 (08:49→20:04)
[2018-08-06] MEDS: Insulin Glargine 10 UNITS in Pre-Filled Syringe SC SCH (08:50)
[2018-08-06] MEDS: Torsemide 20 MG TAB PO SCH (08:50)
[2018-08-06] MEDS: Simvastatin 20 MG TAB PO SCH ×2 (20:05→20:06)
[2018-08-06] MEDS: Melatonin 3 MG TAB PO SCH (20:07)
[2018-08-06] MEDS: cefTRIAXone\\ROCEPHIN 1 GM in Sodium Chloride 0.9% 100 ML IVPB SCH (20:14)
[2018-08-07] MEDS: metFORMIN 500 MG TAB PO SCH (08:30)
[2018-08-07] MEDS: Carvedilol 6.25 MG TAB PO SCH ×2 (08:30→20:15)
[2018-08-07] MEDS: Metolazone 5 MG TAB PO SCH (08:30)
[2018-08-07] MEDS: Potassium Chloride 20 MEQ TAB PO SCH ×2 (08:31→17:48)
[2018-08-07] MEDS: Torsemide 20 MG TAB PO SCH (10:27)
[2018-08-07] MEDS: Apixaban 2.5 MG TAB PO SCH ×2 (10:27→20:14)
[2018-08-07] MEDS: Insulin Glargine 10 UNITS in Pre-Filled Syringe SC SCH (10:28)
[2018-08-07] MEDS: Melatonin 3 MG TAB PO SCH (20:14)
[2018-08-07] MEDS: cefTRIAXone\\ROCEPHIN 1 GM in Sodium Chloride 0.9% 100 ML IVPB SCH (20:17)
[2018-08-08] MEDS: Acetaminophen 325 MG TAB PO PRN (01:59)
[2018-08-08] MEDS ORDERED: Zolpidem Tartrate 5 MG TAB PO PRN (07:41)
[2018-08-08] MEDS ORDERED: predniSONE 5 MG TAB PO SCH (07:45)
[2018-08-08 08:05] LABS: #Basophils 0.1 thou/uL (0.0-0.2); #Eosinphils 0.2 thou/uL (0.0-0.7); #Monocytes 1.2 thou/uL (0.11-0.59); #Neutrophils 6.7 thou/uL (1.40-6.50); %Basophils 0.6 % (0.0-1.0); %Eosinophils 2.3 % (0.0-10.0); %Lymphocytes 10.8 % (21.0-51.0); %Monocytes 12.6 % (0.0-10.0); %Neutrophils 73.6 % (42.0-75.0); Hemoglobin 11.8 g/dL (12.0-16.0); Mean Corpuscular HGB CONC 33.5 g/dL (32.0-36.0); Mean Corpuscular Hemoglobin 30.6 pg (27.0-31.0); Mean Corpuscular Volume 91.3 fL (78.0-98.0); Mean Platelet Volume 8.6 fL (7.4-10.4); Platelet Count 257 thou/uL (130-400); RBC Distribution Width 13.6 % (11.5-14.5); Red Blood Cell (RBC) Count 3.86 mill/uL (4.20-5.40); White Blood Cell (WBC) Count 9.2 thou/uL (4.8-10.8)
[2018-08-08] MEDS: metFORMIN 500 MG TAB PO SCH (08:10)
[2018-08-08] MEDS: Carvedilol 6.25 MG TAB PO SCH ×2 (08:11→20:13)
[2018-08-08] MEDS: Potassium Chloride 20 MEQ TAB PO SCH ×2 (08:12→17:30)
[2018-08-08] MEDS: Apixaban 2.5 MG TAB PO SCH ×2 (08:13→20:13)
[2018-08-08] MEDS: Metolazone 5 MG TAB PO SCH (08:13)
[2018-08-08] MEDS: Insulin Glargine 10 UNITS in Pre-Filled Syringe SC SCH (08:14)
[2018-08-08] MEDS: Torsemide 20 MG TAB PO SCH (08:14)
[2018-08-08 08:27] LABS: Anion Gap 15 mmol/L (10-20); BUN (Urea Nitrogen) 31 mg/dL (9.8-20.1); Calc. Creatinine Clearance 50 mL/min (70-130); Calcium 8.7 mg/dL (7.8-10.44); Carbon Dioxide 34 mmol/L (23-31); Chloride 91 mmol/L (98-107); Estimated GFR-MDRD 53; Glucose 161 mg/dL (83-110); Potassium 3.3 mmol/L (3.5-5.1); Sodium 137 mmol/L (136-145)
--- NOTE | 2018-08-08 08:31 | RAD ---
LEFT FOOT TWO VIEWS: HISTORY: Questionable gout. Pain. FINDINGS: Limited AP and lateral only views of the left foot demonstrate severe bony demineralization and arthr osis and degenerative changes. There appear to be postoperative changes involving the 2nd toe, with partial resection of the proximal phalanx. No evidence for acute fracture or dislocation. No signif icant bony erosive or destructive changes. IMPRESSION: Severe bony demineralization and osteoarthrosis changes. Postoperative changes of the 2nd toe. If the patient has persistent or worsening unexplained symptoms, a short-term follow-up three-view ex amination in 5 to 7 days might be considered. POS: [facility]
[2018-08-08] MEDS: predniSONE 5 MG TAB PO SCH ×3 (10:36→20:13)
[2018-08-08] MEDS: Melatonin 3 MG TAB PO SCH (20:14)
[2018-08-08] MEDS: Simvastatin 20 MG TAB PO SCH (20:15)
[2018-08-08] MEDS: cefTRIAXone\\ROCEPHIN 1 GM in Sodium Chloride 0.9% 100 ML IVPB SCH (20:15)
[2018-08-09] MEDS: Metolazone 5 MG TAB PO SCH (08:34)
[2018-08-09] MEDS: metFORMIN 500 MG TAB PO SCH (08:34)
[2018-08-09] MEDS: Carvedilol 6.25 MG TAB PO SCH ×2 (08:34→20:03)
[2018-08-09] MEDS: Potassium Chloride 20 MEQ TAB PO SCH ×2 (08:34→17:04)
[2018-08-09] MEDS: Torsemide 20 MG TAB PO SCH (08:35)
[2018-08-09] MEDS: predniSONE 5 MG TAB PO SCH ×2 (08:35→20:03)
[2018-08-09] MEDS: Apixaban 2.5 MG TAB PO SCH ×2 (08:35→20:02)
[2018-08-09] MEDS: Insulin Glargine 10 UNITS in Pre-Filled Syringe SC SCH (08:53)
[2018-08-09] MEDS ORDERED: Dextrose 50% Abboject 50 ML SYRINGE IVP PRN (13:20)
[2018-08-09] MEDS ORDERED: Dextrose 5% in Water 1,000 ML IV PRN (13:20)
[2018-08-09] MEDS ORDERED: Allopurinol 300 MG TAB PO SCH (13:30)
[2018-08-09] MEDS: Insulin Regular 300 UNITS/3 ML VIAL SC PRN ×2 (17:03→20:10)
[2018-08-09] MEDS: Melatonin 3 MG TAB PO SCH (20:02)
[2018-08-09] MEDS: Simvastatin 20 MG TAB PO SCH (20:02)
[2018-08-10] MEDS: Insulin Regular 300 UNITS/3 ML VIAL SC PRN ×4 (05:30→20:46)
[2018-08-10 06:28] LABS: #Eosinphils 0.1 thou/uL (0.0-0.7); #Lymphocytes 0.9 thou/uL (1.20-3.40); #Monocytes 0.6 thou/uL (0.11-0.59); #Neutrophils 4.4 thou/uL (1.40-6.50); %Basophils 0.6 % (0.0-1.0); %Eosinophils 0.9 % (0.0-10.0); %Lymphocytes 14.3 % (21.0-51.0); %Monocytes 10.2 % (0.0-10.0); Hemoglobin 10.6 g/dL (12.0-16.0); Mean Corpuscular HGB CONC 33.7 g/dL (32.0-36.0); Mean Corpuscular Hemoglobin 31.1 pg (27.0-31.0); Mean Corpuscular Volume 92.5 fL (78.0-98.0); Mean Platelet Volume 8.8 fL (7.4-10.4); Platelet Count 236 thou/uL (130-400); RBC Distribution Width 13.5 % (11.5-14.5); Red Blood Cell (RBC) Count 3.39 mill/uL (4.20-5.40)
[2018-08-10 06:43] LABS: Anion Gap 15 mmol/L (10-20); BUN (Urea Nitrogen) 49 mg/dL (9.8-20.1); Calc. Creatinine Clearance 46 mL/min (70-130); Calcium 8.2 mg/dL (7.8-10.44); Carbon Dioxide 33 mmol/L (23-31); Chloride 91 mmol/L (98-107); Estimated GFR-MDRD 48; Glucose 248 mg/dL (83-110); Potassium 3.4 mmol/L (3.5-5.1); Sodium 136 mmol/L (136-145)
[2018-08-10] MEDS: Potassium Chloride 20 MEQ TAB PO SCH ×2 (08:45→17:57)
[2018-08-10] MEDS: Metolazone 5 MG TAB PO SCH (08:45)
[2018-08-10] MEDS: Torsemide 20 MG TAB PO SCH (08:45)
[2018-08-10] MEDS: Allopurinol 300 MG TAB PO SCH (08:46)
[2018-08-10] MEDS: Carvedilol 6.25 MG TAB PO SCH ×2 (08:46→20:42)
[2018-08-10] MEDS: metFORMIN 500 MG TAB PO SCH (08:46)
[2018-08-10] MEDS: predniSONE 5 MG TAB PO SCH (08:46)
[2018-08-10] MEDS: Insulin Glargine 10 UNITS in Pre-Filled Syringe SC SCH (08:49)
[2018-08-10] MEDS: Apixaban 2.5 MG TAB PO SCH ×2 (10:45→20:42)
[2018-08-10] MEDS: Melatonin 3 MG TAB PO SCH (20:42)
[2018-08-10] MEDS: Simvastatin 20 MG TAB PO SCH (20:43)
[2018-08-11] MEDS: Apixaban 2.5 MG TAB PO SCH ×2 (08:40→20:27)
[2018-08-11] MEDS: Torsemide 20 MG TAB PO SCH (08:40)
[2018-08-11] MEDS: Potassium Chloride 20 MEQ TAB PO SCH ×2 (08:40→16:23)
[2018-08-11] MEDS: Allopurinol 300 MG TAB PO SCH (08:40)
[2018-08-11] MEDS: Metolazone 5 MG TAB PO SCH (08:41)
[2018-08-11] MEDS: metFORMIN 500 MG TAB PO SCH (08:41)
[2018-08-11] MEDS: Megestrol Acetate 800 MG/20 ML UDCUP PO SCH ×2 (08:42→20:29)
[2018-08-11] MEDS: Carvedilol 6.25 MG TAB PO SCH ×2 (08:42→20:27)
[2018-08-11] MEDS ORDERED: predniSONE 5 MG TAB PO SCH (09:00)
[2018-08-11] MEDS ORDERED: Insulin Glargine 20 UNITS in Pre-Filled Syringe 1 EACH SC SCH (09:00)
[2018-08-11] MEDS: Insulin Regular 300 UNITS/3 ML VIAL SC PRN ×3 (12:11→20:29)
[2018-08-11 14:35] VITALS: BMI 26.5
[2018-08-11] MEDS: Simvastatin 20 MG TAB PO SCH (20:27)
[2018-08-11] MEDS: Melatonin 3 MG TAB PO SCH (20:28)
[2018-08-12 06:40] LABS: #Basophils 0.1 thou/uL (0.0-0.2); #Eosinphils 0.2 thou/uL (0.0-0.7); #Lymphocytes 1.5 thou/uL (1.20-3.40); #Neutrophils 5.6 thou/uL (1.40-6.50); %Basophils 0.7 % (0.0-1.0); %Eosinophils 2.6 % (0.0-10.0); %Lymphocytes 17.9 % (21.0-51.0); %Monocytes 11.5 % (0.0-10.0); %Neutrophils 67.3 % (42.0-75.0); Hemoglobin 11.1 g/dL (12.0-16.0); Mean Corpuscular HGB CONC 33.5 g/dL (32.0-36.0); Mean Corpuscular Hemoglobin 31.1 pg (27.0-31.0); Mean Corpuscular Volume 92.6 fL (78.0-98.0); Mean Platelet Volume 8.8 fL (7.4-10.4); Platelet Count 249 thou/uL (130-400); RBC Distribution Width 13.6 % (11.5-14.5); Red Blood Cell (RBC) Count 3.58 mill/uL (4.20-5.40); White Blood Cell (WBC) Count 8.3 thou/uL (4.8-10.8)
[2018-08-12] MEDS: Metolazone 5 MG TAB PO SCH (07:58)
[2018-08-12] MEDS: metFORMIN 500 MG TAB PO SCH (07:58)
[2018-08-12] MEDS: Megestrol Acetate 800 MG/20 ML UDCUP PO SCH ×2 (07:58→20:35)
[2018-08-12] MEDS: Acetaminophen 325 MG TAB PO PRN (07:58)
[2018-08-12] MEDS: Allopurinol 300 MG TAB PO SCH (07:58)
[2018-08-12] MEDS: Potassium Chloride 20 MEQ TAB PO SCH ×2 (07:58→17:24)
[2018-08-12] MEDS: Carvedilol 6.25 MG TAB PO SCH ×2 (07:59→20:35)
[2018-08-12] MEDS: Torsemide 20 MG TAB PO SCH (07:59)
[2018-08-12] MEDS: Apixaban 2.5 MG TAB PO SCH ×2 (07:59→20:34)
[2018-08-12] MEDS ORDERED: Insulin Glargine 30 UNITS in Pre-Filled Syringe 1 EACH SC SCH (09:00)
[2018-08-12] MEDS ORDERED: traMADol HCl 50 MG TAB PO PRN (15:13)
[2018-08-12] MEDS: Insulin Regular 300 UNITS/3 ML VIAL SC PRN (17:24)
[2018-08-12 19:34] VITALS: BP 103/64; TEMP 97.5
[2018-08-12] MEDS: Melatonin 3 MG TAB PO SCH (20:34)
[2018-08-12] MEDS: Simvastatin 20 MG TAB PO SCH (20:35)
--- NOTE | 2018-08-16 14:23 | EKG ---
Test Reason : SYNCOPE Blood Pressure : / mmHG Vent. Rate : 077 BPM Atrial Rate : 077 BPM P-R Int : 000 ms QRS Dur : 122 ms QT Int : 362 ms P-R-T Axes : 000 -31 123 degrees QTc Int : 409 ms Sinus rhythm with 1st degree A-V block with frequent ventricular-paced complexes Left axis deviation Left bundle branch block Abnormal ECG Confirmed by JANE LUJAN [id number]), editorial clerk JESSICA ROBLES ([id number] on 08/16/2018 2:22:26 PM Referred By: Confirmed By:JANE LUJAN
== END 2018-08-12 20:45 | disposition critical access hospital (66) | DRG 690 ==
LOC: ERS 11:15 → T4-A 17:17
PROVIDERS: ADMIT Specialist; ATTEND Specialist
DX: N39.0 Urinary tract infection, site not specified (principal); C85.10 Unspecified B-cell lymphoma, unspecified site; I50.32 Chronic diastolic (congestive) heart failure; S00.83XA Contusion of other part of head, initial encounter; W17.89XA Other fall from one level to another, initial encounter; I48.91 Unspecified atrial fibrillation; R29.6 Repeated falls; J45.909 Unspecified asthma, uncomplicated; K21.9 Gastro-esophageal reflux disease without esophagitis; J44.9 Chronic obstructive pulmonary disease, unspecified; I11.0 Hypertensive heart disease with heart failure; I34.0 Nonrheumatic mitral (valve) insufficiency; I07.1 Rheumatic tricuspid insufficiency; E86.0 Dehydration; I27.20 Pulmonary hypertension, unspecified; M10.9 Gout, unspecified; E11.649 Type 2 diabetes mellitus with hypoglycemia without coma; R53.81 Other malaise; Z79.01 Long term (current) use of anticoagulants; Z79.84 Long term (current) use of oral hypoglycemic drugs; Z79.899 Other long term (current) drug therapy; Z95.1 Presence of aortocoronary bypass graft; Z88.0 Allergy status to penicillin; Z88.2 Allergy status to sulfonamides; Z95.2 Presence of prosthetic heart valve; Z92.21 Personal history of antineoplastic chemotherapy; Z95.0 Presence of cardiac pacemaker
CPT/HCPCS: 36415; 36416; 51701; 70450; 71045; 72125; 72131; 80048; 80053; 80061; 80162; 80306; 80307; 81003; 81015; 82274; 82533; 82553; 83036; 83605; 83880; 84443; 84484; 84550; 85025; 85652; 87040; 87086; 93005; 93306; 94760; J0696; J1815; J1825; J1940; J3490; J7512

== ENCOUNTER 2018-09-18 08:40 | Outpatient (CLI) | payer MEDICARE ==
--- NOTE | 2018-09-18 12:06 | PET ---
Nuclear medicine FDG PET/CT: (Positron emission tomography and computed tomography) DATE: 09/18/2018 HISTORY: 78-year-old female with unspecified B-cell lymphoma. Follow up after chemotherapy. Restaging. COMPARISON: 01/31/2018 TECHNIQUE: IV injection of F-18 fluorodeoxyglucose (FDG) dose: 13 mCi. PET scan and attenuation correction CT performed from skull base to proximal thighs. FINDINGS: SUV (standard uptake values) numbers given are maximum SUVs. QCLR used. Uptake at right hilum SUV 3.6 now. Previously 2.8. The previously demonstrated left pleural effusion has decreased in size, and is now small, approximat desiree 20% to 25% volume of left hemithoracic cavity. Large region of left lower lobe consolidation abutting the effusion is probably atelectasis, although pneumonia can also have this appearance. No other abnormally increased uptake within the thoracic cavity. Significantly high uptake throughout the entire colon. No suspicious areas of abnormally increased up take involving retroperitoneal, oscar hepatis, mesenteric, or iliac chain, lymphadenopathy. Degree of diffuse uptake in bone, especially of the pelvis, is similar to that of the prior study, nonspecif ic. No areas of suspicious increased uptake otherwise in the neck, abdomen, or pelvis.. IMPRESSION: 1) subtle finding of mildly increased FDG uptake in the right hilum, nonspecific. 2) no other suspicious areas of abnormally increased FDG uptake. 3) interval decrease in volume of left pleural effusion. 4) large region of left lower lobe consolidation abutting the pleural effusion, atelectasis versus pn eumonia.
== END 2018-09-18 08:41 | disposition home or self-care (01) ==
LOC: PET 08:40
PROVIDERS: ATTEND Internal Medicine Hematology & Oncology
DX: C85.10 Unspecified B-cell lymphoma, unspecified site (principal); J90 Pleural effusion, not elsewhere classified
CPT/HCPCS: 78815; A9552

== ENCOUNTER 2018-10-21 15:24 | Inpatient (IN) | payer MEDICARE ==
[2018-10-21 15:59] LABS: #Eosinphils 0.1 thou/uL (0.0-0.7); #Lymphocytes 0.7 thou/uL (1.20-3.40); #Monocytes 0.8 thou/uL (0.11-0.59); #Neutrophils 6.7 thou/uL (1.40-6.50); %Basophils 0.5 % (0.0-1.0); %Eosinophils 1.6 % (0.0-10.0); %Lymphocytes 8.1 % (21.0-51.0); %Neutrophils 80.8 % (42.0-75.0); Hemoglobin 11.3 g/dL (12.0-16.0); Mean Corpuscular HGB CONC 31.6 g/dL (32.0-36.0); Mean Corpuscular Hemoglobin 29.8 pg (27.0-31.0); Mean Corpuscular Volume 94.4 fL (78.0-98.0); Mean Platelet Volume 8.7 fL (7.4-10.4); Platelet Count 236 thou/uL (130-400); Red Blood Cell (RBC) Count 3.78 mill/uL (4.20-5.40); White Blood Cell (WBC) Count 8.3 thou/uL (4.8-10.8)
--- NOTE | 2018-10-21 16:17 | RAD ---
Portable frontal chest radiograph: 10/21/2018 COMPARISON: 08/02/2018 HISTORY: Dyspnea FINDINGS: There is persistent dense pleural and parenchymal opacity within the left lung base obscuri ng the left hemidiaphragm with blunting of the left costophrenic angle. There is a stable CT injectable right-sided Port-A-Cath. Stable dual lead transvenous pacing device. Midline sternotomy wi res, mediastinal clips, and mechanical cardiac valve again noted. Pulmonary vascular congestion noted without alveolar edema. IMPRESSION: Persistent dense nonspecific pleural and parenchymal opacity within the left lung base. N o significant interval change.
[2018-10-21 16:23] LABS: Bilirubin Negative (Negative); Blood, Urine Negative (Negative); Clarity Clear (Clear); Glucose, Urine (Dipstick) Normal (Negative); Leukocyte Negative Leu/uL (Negative); Nitrite Negative (Negative); Protein, Urine (Dipstick) Negative (Neg-Trace); Urobilinogen Normal mg/dL (Less than 2)
--- NOTE | 2018-10-21 16:54 | ULT ---
ULTRASOUND WITH DOPPLER DUPLEX VENOUS LOWER EXTREMITY BILATERAL 10/21/18 CPT: 95162 ICD-10-PCS: B54D HISTORY: Bilateral lower extremity edema. TECHNIQUE: Color flow Doppler, spectral waveform analysis of pulsed Doppler, and vergara-scale imaging with lori manuel and augmentation, were used to evaluate the bilateral common femoral, femoral, popliteal, vp & general counsel ior tibial, and superficial femoral, veins; and the proximal portions of the profunda femoral and gre ater saphenous, veins. FINDINGS: There is appropriate compressibility and flow within the imaged deep vein system of the bilateral low er extremities, without evidence of thrombus. IMPRESSION: No DVT. POS: [facility]
[2018-10-21] MEDS ORDERED: Aspirin Chewable 81 MG TAB ONE (16:57)
[2018-10-21] MEDS ORDERED: Furosemide 40 MG/4 ML VIAL ONE (16:57)
[2018-10-21] MEDS ORDERED: Nitroglycerin 2% Ointment 1 INCH/1 GM Packet ONE (16:57)
[2018-10-21 17:12] LABS: ALT (SGPT) 30 U/L (8-55); AST (SGOT) 46 U/L (5-34); Albumin 3.8 g/dL (3.4-4.8); Alkaline Phosphatase 153 U/L (40-150); BUN (Urea Nitrogen) 15 mg/dL (9.8-20.1); Bilirubin, Total 1.3 mg/dL (0.2-1.2); Calc. Creatinine Clearance 0 mL/min (70-130); Calcium 9.5 mg/dL (7.8-10.44); Carbon Dioxide 25 mmol/L (23-31); Chloride 95 mmol/L (98-107); Estimated GFR-MDRD 59; Globulin 2.2 g/dL (2.4-3.5); Glucose 210 mg/dL (83-110); Potassium 3.9 mmol/L (3.5-5.1); Sodium 134 mmol/L (136-145)
[2018-10-21 17:20] LABS: Digoxin 0.16 ng/mL (0.8-2.0)
[2018-10-21 17:27] LABS: Anion Gap 18 mmol/L (10-20)
[2018-10-21] MEDS ORDERED: HumaLOG 300 UNITS/3 ML VIAL SC PRN (19:10)
[2018-10-21] MEDS ORDERED: Bisacodyl 10 MG SUPP PR PRN (19:10)
[2018-10-21] MEDS ORDERED: Dextrose 5% in Water 1,000 ML IV PRN (19:10)
[2018-10-21] MEDS ORDERED: Dextrose 50% Abboject 50 ML SYRINGE SLOW IVP PRN (19:10)
[2018-10-21] MEDS ORDERED: Acetaminophen 325 MG TAB PO PRN (19:10)
[2018-10-21] MEDS ORDERED: Guaifenesin DM 100-10/5 ML UDCUP PO PRN (19:10)
[2018-10-21] MEDS ORDERED: Senokot S 8.6-50 MG TAB PO PRN (19:10)
[2018-10-21] MEDS ORDERED: Ondansetron ODT 4 MG TAB SL PRN (19:33)
[2018-10-21] MEDS ORDERED: Ondansetron PF 4 MG/2 ML Vial IVP PRN (19:33)
--- NOTE | 2018-10-21 20:05 | HP ---
REASON FOR ADMISSION: Nadkb-bi-ppwewed congestive heart failure exacerbation with systolic and diastolic dysfunction. HISTORY OF PRESENTING ILLNESS: The patient gives history of having severe shortness of breath earlier this morning. She was sitting in a chair in the living room and tried to go to the toilet and felt very short of breath. She felt like she was going to . She normally can ambulate inside the house. No fever. No cough or expectoration. The patient uses home oxygen usually at bedtime and started to use it during the day today. As this was unrelenting as this shortness of breath was not going away, the brought her to the emergency room. No complaints of abdominal pain, urinary frequency, urgency, or diarrhea. PAST MEDICAL AND SURGICAL HISTORY: History of coronary artery disease with CABG done for 1-vessel disease to LAD in 2016, has had bioprosthetic aortic valve replacement with the same procedure [place] [address] Hewitt, severe mitral regurgitation, history of lymphoma. She has had 6 rounds of chemotherapy starting in October 2017 and the last chemo was in February 2018. Prior thoracentesis on the left side x2, pacemaker, bradycardic arrest x2 after her bypass leading to pacemaker placement, atrial fibrillation, dyslipidemia, diabetes mellitus type 2, carpal tunnel surgery on both sides, hysterectomy, MediPort. CURRENT MEDICATIONS: The patient is on; 1. Actos 45 mg p.o. daily. 2. Lipitor 10 mg p.o. at bedtime. 3. Gabapentin 300 mg twice daily. 4. Carvedilol 6.25 mg twice daily. 5. Glipizide 10 mg twice daily. 6. Metformin 1000 mg twice daily. 7. Flurazepam 30 mg p.o. at bedtime. 8. Torsemide 40 mg daily. 9. Eliquis 2.5 mg twice daily. 10. Potassium chloride 10 mEq p.o. daily. 11. Prilosec 20 mg twice daily. 12. Digoxin 0.125 mg p.o. daily. ALLERGIES: ALLERGIC TO PENICILLIN AND SULFA. PERSONAL HISTORY: Does not abuse alcohol or drugs. Lives with her . FAMILY HISTORY: There is history of coronary artery disease in the family. CODE STATUS: The patient was a do not attempt to resuscitate in the past. Currently, she is a full code. Power of compliance attorney is her . REVIEW OF SYSTEMS: CONSTITUTIONAL: Negative for weight loss or gain, ability to conduct usual activities. SKIN: Negative for rash, itching. EYES: Negative for double vision, pain. ENT/MOUTH: Negative for nose bleeding, neck stiffness, pain, tenderness. CARDIOVASCULAR: Negative for palpitations, dyspnea on exertion, orthopnea. RESPIRATORY: Negative for shortness of breath, wheezing, cough, hemoptysis, fever or night sweats. GASTROINTESTINAL: Negative for poor appetite, abdominal pain, heartburn, nausea, vomiting, constipation, or diarrhea. GENITOURINARY: Negative for urgency, frequency, dysuria, nocturia. MUSCULOSKELETAL: Negative for pain, swelling. NEUROLOGIC/PSYCHIATRIC: Negative for anxiety, depression. ALLERGY/IMMUNOLOGIC: Negative for skin rash, bleeding tendency. PHYSICAL EXAMINATION: GENERAL: The patient is a 78-year-old female, who is currently not in any acute distress. VITAL SIGNS: Blood pressure 140/86, pulse 94 per minute, respiratory rate 18 per minute, temperature 97.9 degrees Fahrenheit, saturating 97% on 2 L nasal cannula. NECK: Supple. No elevated JVD. HEENT: Eyes; extraocular muscles intact. Pupils reacting to light. Oral cavity, mucous membranes are dry. No exudates or congestion. CARDIOVASCULAR: S1, S2 heard. Regular rhythm. RESPIRATORY: Air entry 1+ bilateral. Decreased air entry in the left infrascapular area. ABDOMEN: Soft. Bowel sounds heard. No tenderness, rigidity, or guarding. EXTREMITIES: There is peripheral edema. No calf tenderness. VASCULAR: Peripheral pulses 1+ bilateral. No ischemic ulcerations or gangrene. CENTRAL NERVOUS SYSTEM: No gross focal deficits noted. The patient is alert, awake, but is not fully oriented. She responds well to verbal questions. PSYCHIATRIC: No obvious hallucinations or delusions. LABORATORY DATA: White count of 8, H and H of 11 and 35, platelet count 236, MCV is 94 with 80% neutrophils. Electrolytes stable. BUN 15, creatinine 0.9, serum glucose 210, total bilirubin 1.3, AST 46, ALT 30, alkaline phosphatase 153. BNP 556. Albumin is 3.8. Troponin-I 0.01. Chest x-ray done, shows left-sided pleural effusion. Ultrasound venous Doppler of lower extremities done, shows no evidence of DVT. CLINICAL IMPRESSION AND PLAN: The patient will be admitted to telemetry for [id number] congestive heart failure exacerbation with systolic and diastolic dysfunction. The patient also has severe mitral regurgitation. She will be on Lasix 40 mg IV q.12 hourly. We will also place her on metolazone 5 mg once daily with Lasix in the morning. The patient has had sudden onset of shortness of breath from this morning. She is on torsemide at home. We will continue her Eliquis, allopurinol, aspirin, atorvastatin, Coreg, digoxin, folic acid, gabapentin, metformin, Levemir, melatonin as before. We will consult Dr. Mcmullen, her monument setter; and Dr. Moore, her bump grader operator during her stay here. The plan is gently diurese her during her stay here. PT/OT evaluations will be requested for early mobilization. I have given complete updates to and patient at bedside. The patient is on diuretic and has severe mitral regurgitation with long-standing pleural effusion. If the patient does not tolerate diuresis, then will likely need a bit of thoracentesis on the left. We will wait and watch if diuresis helps her out. Job ID: [id number]
[2018-10-21] MEDS: Apixaban 2.5 MG TAB PO SCH (21:34)
[2018-10-21] MEDS: Famotidine 20 MG TAB PO SCH (21:35)
[2018-10-21] MEDS: Potassium Chloride 20 MEQ TAB PO SCH (21:35)
[2018-10-21] MEDS: Gabapentin 300 MG CAP PO SCH (21:35)
[2018-10-21] MEDS: Atorvastatin Calcium 10 MG TAB PO SCH (21:35)
[2018-10-21] MEDS: Melatonin 3 MG TAB PO SCH (21:35)
[2018-10-21] MEDS: Carvedilol 6.25 MG TAB PO SCH (21:35)
[2018-10-21 21:53] VITALS: BMI 27.7
[2018-10-22 04:46] LABS: #Eosinphils 0.2 thou/uL (0.0-0.7); #Lymphocytes 0.9 thou/uL (1.20-3.40); #Monocytes 0.6 thou/uL (0.11-0.59); #Neutrophils 3.8 thou/uL (1.40-6.50); %Basophils 0.7 % (0.0-1.0); %Eosinophils 2.8 % (0.0-10.0); %Lymphocytes 16.8 % (21.0-51.0); %Neutrophils 68.7 % (42.0-75.0); Mean Corpuscular HGB CONC 30.6 g/dL (32.0-36.0); Mean Corpuscular Volume 94.7 fL (78.0-98.0); Mean Platelet Volume 8.7 fL (7.4-10.4); Platelet Count 214 thou/uL (130-400); Red Blood Cell (RBC) Count 3.45 mill/uL (4.20-5.40); White Blood Cell (WBC) Count 5.6 thou/uL (4.8-10.8)
[2018-10-22 05:08] LABS: Anion Gap 15 mmol/L (10-20); BUN (Urea Nitrogen) 14 mg/dL (9.8-20.1); Calc. Creatinine Clearance 62 mL/min (70-130); Calcium 9.2 mg/dL (7.8-10.44); Carbon Dioxide 31 mmol/L (23-31); Chloride 96 mmol/L (98-107); Estimated GFR-MDRD 64; Glucose 178 mg/dL (83-110); Potassium 3.5 mmol/L (3.5-5.1); Sodium 138 mmol/L (136-145)
[2018-10-22] MEDS: Furosemide 40 MG/4 ML VIAL SLOW IVP SCH ×2 (06:03→14:11)
[2018-10-22] MEDS ORDERED: Metolazone 5 MG TAB PO SCH (08:30)
[2018-10-22] MEDS: metFORMIN 500 MG TAB PO SCH (08:52)
[2018-10-22] MEDS: Carvedilol 6.25 MG TAB PO SCH ×2 (08:53→20:55)
[2018-10-22] MEDS: Aspirin Chewable 81 MG TAB PO SCH (08:53)
[2018-10-22] MEDS: Allopurinol 300 MG TAB PO SCH (08:53)
[2018-10-22] MEDS: Apixaban 2.5 MG TAB PO SCH (08:53)
[2018-10-22] MEDS: Famotidine 20 MG TAB PO SCH ×2 (08:54→20:55)
[2018-10-22] MEDS: Gabapentin 300 MG CAP PO SCH ×2 (08:54→20:55)
[2018-10-22] MEDS: Digoxin 0.125 MG TAB PO SCH (08:54)
[2018-10-22] MEDS: Potassium Chloride 20 MEQ TAB PO SCH ×2 (08:54→20:55)
[2018-10-22] MEDS: Folic Acid 1 MG TAB PO SCH (08:54)
[2018-10-22] MEDS: HumaLOG 300 UNITS/3 ML VIAL SC PRN ×2 (08:57→11:38)
[2018-10-22] MEDS ORDERED: Enoxaparin Sodium 40 MG/0.4 ML SYRINGE SC SCH (09:00)
[2018-10-22] MEDS: Insulin Glargine 15 UNITS in Pre-Filled Syringe SC SCH (10:03)
--- NOTE | 2018-10-22 11:32 | CON ---
DATE OF CONSULTATION: HISTORY OF PRESENT ILLNESS: The patient is a pleasant 78-year-old woman, who presents with increasing dyspnea. The patient has a long history of coronary artery disease. She is status post coronary artery bypass graft surgery x1 and aortic valve replacement. The patient also has had placement of electronic pacemaker. The patient has a history of severe mitral regurgitation, pulmonary hypertension. The patient admitted on several occasions with dyspnea. The patient presents once again with increasing dyspnea. She denied having any chest discomfort. PAST MEDICAL HISTORY: Significant for; 1. Aortic valve replacement. 2. Congestive heart failure. 3. Severe mitral regurgitation. 4. Pulmonary hypertension. 5. History of B-cell lymphoma. 6. History of coronary artery disease. PAST SURGICAL HISTORY: She has had a hysterectomy, tonsillectomy, carpal tunnel surgery, aortic valve replacement. SOCIAL HISTORY: Nonsmoker. FAMILY HISTORY: Positive family history of coronary artery disease. ALLERGIES: PENICILLIN, SULFACETAMIDE. MEDICATIONS: See nursing list. REVIEW OF SYSTEMS: 10-point system noticeable for increasing weakness. PHYSICAL EXAMINATION: GENERAL: Ill-appearing, pale woman, in no acute distress. VITAL SIGNS: Blood pressure 121/58. NECK: Showed no jugular venous distention. LUNGS: Crackles in both lung bases. HEART: Regular rate and rhythm. Normal S1 and S2 with a 3/6 holosystolic murmur. ABDOMEN: Nondistended. EXTREMITIES: Showed mild edema. VASCULAR: Radial pulses 2+. LABORATORY DATA: Sodium 138, potassium 3.5, chloride 96, bicarbonate 31, BUN 14, creatinine 0.86, glucose 171. BNP is 556. White blood cell count 5.6, hemoglobin 10.0, hematocrit 32.7, platelets are 214. IMAGING STUDIES: 1. EKG revealed her to have atrial fibrillation with a left bundle-branch block. 2. Chest x-ray revealed cardiomegaly with pulmonary vascular congestion. IMPRESSION AND PLAN: 1. Congestive heart failure, diastolic dysfunction. 2. Severe mitral regurgitation. 3. History of aortic valve replacement. 4. History of coronary artery bypass graft surgery x1. 5. Diabetes mellitus. 6. Lymphoma. This patient presents again with congestive heart failure from a cardiac standpoint. The patient is being diuresed. She had a recent echocardiogram, which revealed her to have normal left ventricular ejection fraction with severe mitral regurgitation and pulmonary hypertension. She was also found to have a large pleural effusion. The patient has been started on IV Lasix. We will restart her spironolactone. Further recommendations will follow. Job ID: [id number]
--- NOTE | 2018-10-22 15:30 | CON ---
DATE OF CONSULTATION: 10/22/2018 HISTORY OF PRESENT ILLNESS: Ms. Ballard came in with complaints of shortness of breath on the . She has a chronic pleural effusion, that has been tapped twice. She does have a lymphoma, but lymphoma was ruled out in her pleural fluid. Her radiograph this admission essentially unchanged compared to July. Her says her weight was unchanged, where she has been fluctuating about 149 to 151 pounds. She is admitted and says she feels better after diuresis. Her intake and output recorded only is 800 mL, but I am not sure what time frame this was in. She weighed 146. She has a diaper in place. PAST MEDICAL HISTORY: 1. Remarkable for an aortic valve replacement. 2. History of lymphoma, diagnosed via lymph node biopsy at the time of her surgery for her valve. 3. History of severe mitral regurgitation leading to a chronic effusion. 4. Pulmonary hypertension secondary to valvular heart disease. 5. History of coronary artery disease. 6. History of hysterectomy. 7. Tonsillectomy. 8. History of carpal tunnel surgery. 9. Status post two thoracentesis as well as lymph node biopsy. FAMILY HISTORY: Positive for vascular disease. Negative for lung disease in early age. SOCIAL HISTORY: Not obtained. ALLERGIES: SHE REPORTS ALLERGIES TO PENICILLIN AND SULFA. MEDICATIONS: Medications have been reviewed. REVIEW OF SYSTEMS: Ten point review of system completed, otherwise negative. PHYSICAL EXAMINATION: VITAL SIGNS: Afebrile, heart rate 75, respiratory rate 18, oximetry is 97% on room air, and blood pressure is 117/58. HEENT: Pupils are equal. Sclerae anicteric. NECK: Supple. No lymphadenopathy. LUNGS: Remarkable decreased breath sounds in her left base. HEART: Regular rhythm. S1 and S2 are normal. There is a grade 2/6 systolic murmur. ABDOMEN: Soft and nontender. EXTREMITIES: Without clubbing, cyanosis or edema. NEUROLOGIC: Nonfocal. She actually got up and walked in the vyas, past the nursing station today. IMPRESSION: 1. Pleural effusion, that is chronic secondary to valvular heart disease/mitral regurgitation. 2. Deconditioning. I will notify Dr. Mcmullen of her presence. She is not a candidate for mitral valve replacement in my opinion. It is unclear whether or not she is a candidate for mitral valve clipping procedure. This will be determined by her interaction with the molder closed molds. I will be happy to follow her while she is in the hospital. I met with the and answered all his questions. TIME SPENT: This is a 50-minute consult, with greater than 50% of the time spent on the unit coordinating care. Job ID: [id number] MTDAr
[2018-10-22] MEDS: Apixaban 5 MG TAB PO SCH (20:54)
[2018-10-22] MEDS: Atorvastatin Calcium 10 MG TAB PO SCH (20:55)
[2018-10-22] MEDS: Melatonin 3 MG TAB PO SCH (20:55)
[2018-10-22] MEDS ORDERED: Apixaban 2.5 MG TAB PO SCH (21:00)
--- NOTE | 2018-10-22 21:00 | PRG ---
DATE OF SERVICE: 10/22/2018 HISTORY OF PRESENT ILLNESS: The patient is a 78-year-old female followed by Dr. Kapil Adrian with congestive heart failure, diabetes mellitus type 2, presented to the emergency room with shortness of breath. Her workup was consistent with congestive heart failure exacerbation. She received IV Lasix, aspirin with nitroglycerin patch in the emergency room. The patient was evaluated by Cardiology and Pulmonary today. Symptomatically she feels much better. Her weight has gone down from 156 pounds to 146 pounds. She denies any cough or wheezing. REVIEW OF SYSTEM: The patient denies any fever, chills, nausea, vomiting, diarrhea, or focal neurologic deficit. Telemetry monitoring by my review showed paced rhythm. CURRENT MEDICATIONS: Reviewed. The patient is on 1. Lantus insulin. 2. Allopurinol. 3. Eliquis. 4. Aspirin. 5. Lipitor. 6. Carvedilol. 7. Digoxin. 8. Lasix 40 mg IV b.i.d. 9. Metformin 1000 mg daily. 10. Metolazone. 11. Protonix. 12. Potassium chloride. 13. Aldactone. PHYSICAL EXAMINATION: VITAL SIGNS: Temperature 98.2, pulse 75, blood pressure of 120/58, O2 saturation 97% on room air, respiration of 19. GENERAL: A 78-year-old female, in no apparent distress at rest. LUNGS: Showed diminished air entry at bilateral bases, mainly on the left. There is no accessory muscle use. No significant wheezing noted. Lungs were symmetrical. HEART: S1, S2 present. Regular rate and rhythm. 2/6 systolic murmur over the mitral area and left lateral sternal border. No heaves or pulsation. ABDOMEN: Soft, nontender. Bowel sounds present. No rebound or guarding. EXTREMITIES: 1+ edema in bilateral lower extremity. No calf tenderness. LABORATORY FINDINGS: WBC 5.6 with hemoglobin 10, hematocrit 32.7, platelet of 214. Creatinine 0.86. TSH was normal. Total bilirubin 1.3. Troponin was negative. Digoxin level was 0.16. Urine culture showed gram-negative rods, less than 5000 colonies. Chest x-ray by my review showed left-sided pleural effusion. Bilateral lower extremity Doppler was negative for DVT. IMPRESSION: 1. [id number] diastolic heart failure exacerbation ACC stage C. 2. Severe mitral regurgitation. 3. Coronary artery disease status post coronary artery bypass grafting. 4. Diabetes mellitus type 2. 5. Lymphoma. 6. Left sided pleural effusion. 7. Hyperlipidemia. 8. Hypertension. 9. Bioprosthetic aortic valve replacement. 10. Atrial fibrillation, on anticoagulation. 11. Gout. 12. Anxiety. 13. Chronic respiratory failure, on home oxygen as needed. 14. Peripheral neuropathy. 15. Gastroesophageal reflux disease. PLAN: Metolazone will be discontinued. We will continue IV Lasix at current dose. The patient is on anticoagulation. Continue current dose of Lantus with sliding scale. Recheck electrolytes in a.m. Continue other medications including beta blockers. Plan was discussed with the patient and the family in detail. They stated understanding. Job ID: [id number] MTDD
[2018-10-23 04:58] LABS: #Basophils 0.1 thou/uL (0.0-0.2); #Eosinphils 0.2 thou/uL (0.0-0.7); #Lymphocytes 0.8 thou/uL (1.20-3.40); #Monocytes 0.6 thou/uL (0.11-0.59); #Neutrophils 3.9 thou/uL (1.40-6.50); %Basophils 0.9 % (0.0-1.0); %Eosinophils 4.4 % (0.0-10.0); %Lymphocytes 13.8 % (21.0-51.0); %Monocytes 10.4 % (0.0-10.0); %Neutrophils 70.5 % (42.0-75.0); Hemoglobin 10.7 g/dL (12.0-16.0); Mean Corpuscular HGB CONC 31.8 g/dL (32.0-36.0); Mean Corpuscular Hemoglobin 30.1 pg (27.0-31.0); Mean Corpuscular Volume 94.9 fL (78.0-98.0); Mean Platelet Volume 8.8 fL (7.4-10.4); Platelet Count 219 thou/uL (130-400); Red Blood Cell (RBC) Count 3.55 mill/uL (4.20-5.40); White Blood Cell (WBC) Count 5.5 thou/uL (4.8-10.8)
[2018-10-23 05:15] LABS: ALT (SGPT) 23 U/L (8-55); AST (SGOT) 25 U/L (5-34); Albumin 3.4 g/dL (3.4-4.8); Alkaline Phosphatase 130 U/L (40-150); Anion Gap 10 mmol/L (10-20); BUN (Urea Nitrogen) 12 mg/dL (9.8-20.1); Bilirubin, Total 0.9 mg/dL (0.2-1.2); Calc. Creatinine Clearance 53 mL/min (70-130); Calcium 9.1 mg/dL (7.8-10.44); Carbon Dioxide 34 mmol/L (23-31); Chloride 95 mmol/L (98-107); Estimated GFR-MDRD 58; Globulin 2.4 g/dL (2.4-3.5); Glucose 172 mg/dL (83-110); Magnesium 1.3 mg/dL (1.6-2.6); Protein, Total 5.8 g/dL (6.0-8.3); Sodium 136 mmol/L (136-145)
[2018-10-23] MEDS: Furosemide 40 MG/4 ML VIAL SLOW IVP SCH ×2 (05:56→15:14)
[2018-10-23] MEDS ORDERED: Magnesium Sulfate 4 GM in Sodium Chloride 0.9% 250 ML 250 ML IVPB SCH (07:30)
[2018-10-23] MEDS: metFORMIN 500 MG TAB PO SCH (09:02)
[2018-10-23] MEDS: Gabapentin 300 MG CAP PO SCH ×2 (09:02→19:50)
[2018-10-23] MEDS: Potassium Chloride 20 MEQ TAB PO SCH ×4 (09:03→19:50)
[2018-10-23] MEDS: Allopurinol 300 MG TAB PO SCH (09:04)
[2018-10-23] MEDS: Apixaban 5 MG TAB PO SCH ×2 (09:04→19:50)
[2018-10-23] MEDS: Aspirin Chewable 81 MG TAB PO SCH (09:04)
[2018-10-23] MEDS: Carvedilol 6.25 MG TAB PO SCH ×2 (09:04→19:50)
[2018-10-23] MEDS: Spironolactone 25 MG TAB PO SCH (09:04)
[2018-10-23] MEDS: Digoxin 0.125 MG TAB PO SCH (09:04)
[2018-10-23] MEDS: Folic Acid 1 MG TAB PO SCH (09:05)
[2018-10-23] MEDS: Insulin Glargine 15 UNITS in Pre-Filled Syringe SC SCH (09:05)
[2018-10-23] MEDS: HumaLOG 300 UNITS/3 ML VIAL SC PRN ×3 (09:05→17:52)
[2018-10-23] MEDS: Famotidine 20 MG TAB PO SCH ×2 (09:05→19:50)
--- NOTE | 2018-10-23 16:11 | PRG ---
DATE OF SERVICE: 10/23/2018 SUBJECTIVE: Danyell Ballard has no complaints. She is walking around in the room with her walker when I arrived. Physical therapy then took her for a walk. She had no new complaints. States she was feeling better. Her thinks she is doing better. She has been to rehab multiple times and her does not want her to go back. He says he can exercise her more at home and I do believe this. OBJECTIVE: VITAL SIGNS: She is afebrile. Heart rate 76, respiratory rate 18, oximetry is 97% on room air, blood pressure 153/66 at 1350 hours, 113/56 at 3 o'clock. LUNGS: Remarkable for decreased breath sounds at the left base. HEART: Regular rhythm. ABDOMEN: Soft. EXTREMITIES: Without edema. IMPRESSION: Mitral regurgitation with deconditioning with some mild volume overload, that is now improved. Her intake and output are negative 490. Her weight is 145 pounds, it was 146 yesterday. She appears to be stable. She does not need a thoracentesis in my opinion. Job ID: [id number]
[2018-10-23] MEDS: Atorvastatin Calcium 10 MG TAB PO SCH (19:50)
[2018-10-23] MEDS: Melatonin 3 MG TAB PO SCH (19:51)
--- NOTE | 2018-10-23 22:50 | PDOC.PN ---
- Subjective Encounter Start Date: 10/23/18 Encounter Start Time: 14:00 Patient seen and examined for CHF. SOB improving. No new complaints. No overnight events - Objective Resuscitation Status - Order Detail: 10/21/18 18:59 Resuscitation Status Routine Resuscitation Status: FULL: Full Resuscitation MAR Reviewed: Yes Vital Signs & Weight: Vital Signs (12 hours) Temp Pulse Pulse Pulse Resp BP BP 10/23/18 19:55 98.2 F 75 16 10/23/18 19:50 129/59 L 10/23/18 15:13 98.5 F 76 18 10/23/18 13:50 86 75 153/66 H 10/23/18 11:15 98.3 F 75 18 BP BP Pulse Ox Pulse Ox Pulse Ox 10/23/18 19:55 129/59 L 98 10/23/18 19:50 10/23/18 15:13 113/56 L 97 10/23/18 13:50 115/58 L 98 97 10/23/18 11:15 119/57 L 94 L Weight Weight 145 lb 14.4 oz I&O: 10/22/18 10/23/18 10/24/18 06:59 06:59 06:59 Intake Total 734 399 9464 Output Total 800 1450 700 Balance -80 -490 800 Result Diagrams: 10/23/18 04:33 10/23/18 04:33 Additional Labs: Accuchecks 10/23/18 10/23/18 10/23/18 20:27 17:19 10:48 POC Glucose 161 H 201 H 314 H 10/23/18 05:15 POC Glucose 191 H EKG Reviewed by me: Yes (Tele paced) Phys Exam - Physical Examination Constitutional: NAD Respiratory: no wheezing, no rhonchi Cardiovascular: RRR, no rub Gastrointestinal: soft, non-tender, positive bowel sounds Musculoskeletal: edema present Neurological: moves all 4 limbs Dx/Plan - Plan 1. [id number] diastolic heart failure exacerbation ACC stage C. 2. Severe mitral regurgitation. 3. Coronary artery disease status post coronary artery bypass grafting. 4. Diabetes mellitus type 2. 5. Hypokalemia/Hypomagnesemia. 6. Left sided pleural effusion. 7. Hyperlipidemia. 8. Hypertension. 9. Bioprosthetic aortic valve replacement. 10. Atrial fibrillation, on anticoagulation. 11. Gout. 12. Anxiety. 13. Chronic respiratory failure, on home oxygen as needed. 14. Peripheral neuropathy. 15. Gastroesophageal reflux disease. 16. Lymphoma. PLAN: Continue IV Lasix Replace Electrolytes On Eliquis Cont Lantus with sliding scale. AM labs Continue other medications as below. Review of Systems - Review of Systems Respiratory: SOB with Excertion. negative: Cough, Dry, Shortness of Breath, Hemoptysis, Pleuritic Pain, Sputum, Wheezing Cardiovascular: negative: chest pain, palpitations, orthopnea, paroxysmal nocturnal dyspnea, edema, light headedness, other - Medications/Allergies Allergies/Adverse Reactions: Allergies Allergy/AdvReac Type Severity Reaction Status Date / Time Penicillins Allergy Rash Verified 10/21/18 21:52 Sulfa (Sulfonamide Allergy Rash Verified 10/21/18 21:52 Antibiotics) Medications: Current Medications Acetaminophen (Tylenol) 650 mg PO Q4H PRN PRN Reason: Headache/Fever/Mild Pain (1-3) Allopurinol (Zyloprim) 300 mg PO DAILY [facility] Last Admin: 10/23/18 09:04 Dose: 300 mg Apixaban (Eliquis) 5 mg PO BID [facility] Last Admin: 10/23/18 19:50 Dose: 5 mg Aspirin (Aspirin Chewable) 81 mg PO DAILY [facility] Last Admin: 10/23/18 09:04 Dose: 81 mg Atorvastatin Calcium (Lipitor) 10 mg PO HS [facility] Last Admin: 10/23/18 19:50 Dose: 10 mg Bisacodyl (Dulcolax) 10 mg [place] DAILYPRN PRN PRN Reason: Constipation Carvedilol (Coreg) 6.25 mg PO BID [facility] Last Admin: 10/23/18 19:50 Dose: 6.25 mg Dextrose/Water (Dextrose 50%) 25 gm SLOW IVP PRN PRN PRN Reason: Hypoglycemia Digoxin (Lanoxin) 0.125 mg PO DAILY [facility] Last Admin: 10/23/18 09:04 Dose: 0.125 mg Famotidine (Pepcid) 20 mg PO BID [facility] Last Admin: 10/23/18 19:50 Dose: 20 mg Folic Acid (Folvite) 1 mg PO DAILY [facility] Last Admin: 10/23/18 09:05 Dose: 1 mg Furosemide (Lasix) 40 mg SLOW IVP DAILY [facility] Gabapentin (Neurontin) 300 mg PO BID [facility] Last Admin: 10/23/18 19:50 Dose: 300 mg Glucagon (Glucagon) 1 mg IM PRN PRN PRN Reason: Hypoglycemia Guaifenesin/Dextromethorphan (Robitussin Dm) 15 ml PO Q4H PRN PRN Reason: Cough Dextrose/Water (D5w) 1,000 mls @ 0 mls/hr IV .Q0M PRN PRN Reason: Hypoglycemia Insulin Glargine 15 units/ (Miscellaneous Medication) 0.15 mls @ 0 mls/hr SC [facility] Last Admin: 10/23/18 09:05 Dose: 0.15 mls Insulin Human Lispro (Humalog) 0 units SC .MILD SLIDING SCALE PRN PRN Reason: Mild Correctional Scale Last Admin: 10/23/18 17:52 Dose: 3 units Insulin Human Lispro (Humalog) 0 units SC .BEDTIME SLIDING SC PRN PRN Reason: Bedtime Correctional Scale Melatonin (Melatonin) 6 mg PO [facility] Last Admin: 10/23/18 19:51 Dose: 6 mg Metformin HCl (Glucophage) 1,000 mg PO [facility] Last Admin: 10/23/18 09:02 Dose: Not Given Pantoprazole Sodium (Protonix) 40 mg PO DAILY [facility] Last Admin: 10/23/18 09:05 Dose: 40 mg Potassium Chloride (K-Dur) 20 meq PO QID-[facility] Last Admin: 10/23/18 19:50 Dose: 20 meq Senna/Docusate Sodium (Senokot S) 2 tab PO BID PRN PRN Reason: Constipation Last Admin: 10/22/18 08:54 Dose: 2 tab Sodium Chloride (Flush - Normal Saline) 10 ml IVF Q12HR [facility] Last Admin: 10/23/18 19:53 Dose: 10 ml Sodium Chloride (Flush - Normal Saline) 10 ml IVF PRN PRN PRN Reason: Saline Flush Spironolactone (Aldactone) 25 mg PO [facility] Last Admin: 10/23/18 09:04 Dose: 25 mg
[2018-10-24 05:15] LABS: #Basophils 0.1 thou/uL (0.0-0.2); #Eosinphils 0.2 thou/uL (0.0-0.7); #Monocytes 0.8 thou/uL (0.11-0.59); #Neutrophils 4.6 thou/uL (1.40-6.50); %Eosinophils 3.5 % (0.0-10.0); %Lymphocytes 14.5 % (21.0-51.0); %Monocytes 11.8 % (0.0-10.0); %Neutrophils 69.3 % (42.0-75.0); Mean Corpuscular HGB CONC 31.2 g/dL (32.0-36.0); Mean Corpuscular Hemoglobin 29.4 pg (27.0-31.0); Mean Platelet Volume 8.7 fL (7.4-10.4); Platelet Count 233 thou/uL (130-400); RBC Distribution Width 14.1 % (11.5-14.5); Red Blood Cell (RBC) Count 3.42 mill/uL (4.20-5.40); White Blood Cell (WBC) Count 6.6 thou/uL (4.8-10.8)
[2018-10-24 05:56] LABS: ALT (SGPT) 19 U/L (8-55); AST (SGOT) 22 U/L (5-34); Albumin 3.1 g/dL (3.4-4.8); Alkaline Phosphatase 114 U/L (40-150); Anion Gap 12 mmol/L (10-20); BUN (Urea Nitrogen) 12 mg/dL (9.8-20.1); Calc. Creatinine Clearance 60 mL/min (70-130); Calcium 8.7 mg/dL (7.8-10.44); Carbon Dioxide 32 mmol/L (23-31); Chloride 96 mmol/L (98-107); Estimated GFR-MDRD 68; Globulin 2.3 g/dL (2.4-3.5); Glucose 67 mg/dL (83-110); Magnesium 1.5 mg/dL (1.6-2.6); Potassium 3.3 mmol/L (3.5-5.1); Protein, Total 5.4 g/dL (6.0-8.3); Sodium 137 mmol/L (136-145)
[2018-10-24] MEDS: Gabapentin 300 MG CAP PO SCH ×2 (08:22→21:09)
[2018-10-24] MEDS: Potassium Chloride 20 MEQ TAB PO SCH ×4 (08:30→21:09)
[2018-10-24] MEDS: Digoxin 0.125 MG TAB PO SCH (08:30)
[2018-10-24] MEDS ORDERED: Magnesium Sulfate 2 GM in Sodium Chloride 0.9% 100 ML IVPB SCH (08:30)
[2018-10-24] MEDS: Allopurinol 300 MG TAB PO SCH (08:30)
[2018-10-24] MEDS ORDERED: Magnesium 2 GM/50 ML 2 GM in Premix Bag 1 BAG IVPB SCH (08:30)
[2018-10-24] MEDS: Folic Acid 1 MG TAB PO SCH (08:31)
[2018-10-24] MEDS: Famotidine 20 MG TAB PO SCH ×2 (08:31→21:10)
[2018-10-24] MEDS: Aspirin Chewable 81 MG TAB PO SCH (08:31)
[2018-10-24] MEDS: Spironolactone 25 MG TAB PO SCH (08:31)
[2018-10-24] MEDS: Apixaban 5 MG TAB PO SCH ×2 (08:32→21:10)
[2018-10-24] MEDS: Carvedilol 6.25 MG TAB PO SCH ×2 (08:32→21:08)
[2018-10-24] MEDS: metFORMIN 500 MG TAB PO SCH (08:48)
[2018-10-24] MEDS ORDERED: Furosemide 40 MG/4 ML VIAL SLOW IVP SCH (09:00)
[2018-10-24] MEDS ORDERED: Nitrofurantoin Monohyd/M-Cryst 100 MG CAP PO SCH (09:00)
[2018-10-24] MEDS: Insulin Glargine 15 UNITS in Pre-Filled Syringe SC SCH (09:09)
[2018-10-24] MEDS: HumaLOG 300 UNITS/3 ML VIAL SC PRN ×2 (12:03→16:50)
--- NOTE | 2018-10-24 12:08 | PRG ---
DATE OF SERVICE: 10/24/2018 SUBJECTIVE: Danyell Ballard is doing well. She is walking well with physical therapy. OBJECTIVE: VITAL SIGNS: She is afebrile, heart rate is 75, blood pressure is 111/54, respiratory rate is 18, and oximetry is 98% on room air. LUNGS: Clear. HEART: Regular rhythm. S1 and S2 are normal. ABDOMEN: Soft and nontender. LABORATORY DATA: White count 6.6, hemoglobin 10.0, and platelets 233. Sodium 137, potassium 3.3, chloride 96, bicarb 32, BUN 12, creatinine 0.82, and glucose 67. IMPRESSION AND PLAN: Mitral regurgitation with resultant chronic left pleural effusion. I believe her can get her stronger with home physical therapy since he has been through this multiple times. He did not feel and I would agree that there is no benefit to going and having her sleep at the snf unit or rehab facility, when he can do all the exercises, he learned to do after a valve replacement. I will be happy to see her at any time as an outpatient. Job ID: [id number]
--- NOTE | 2018-10-24 16:01 | PRG ---
DATE OF SERVICE: SUBJECTIVE: Ms. Ballard is doing much better today. She has less shortness of breath. She states she will ambulate all way down the vyas. This is the most she has ambulated in some time. No current complaints. PHYSICAL EXAMINATION: GENERAL: Patient is a pleasant female, who is in no acute distress. The patient appears their stated age. VITAL SIGNS: Blood pressure 128/66, pulse 75, temperature 97.7. NEUROLOGIC: The patient is alert and oriented x3 with no focal neurologic deficits. HEENT: Sclerae without icterus. Mouth has moist mucous membranes with normal pallor. NECK: No JVD. Carotid upstroke brisk. No bruits bilaterally. LUNGS: Clear to auscultation with unlabored respirations. BACK: No scoliosis or kyphosis. CARDIAC: Regular rate and rhythm with normal S1 and S2. No S3 or S4 noted. No significant rubs, murmurs, thrills, or gallops noted throughout the precordium. PMI is not displaced. There is no parasternal heave. ABDOMEN: Soft, nontender, nondistended. No peritoneal signs present. No hepatosplenomegaly. No abnormal striae. EXTREMITIES: 2+ femoral and 2+ dorsalis pedis pulses. No cyanosis, clubbing, or edema. SKIN: No gross abnormalities. PERTINENT LABORATORY DATA: Hemoglobin 10.0, hematocrit 32.1, and creatinine 0.82. IMPRESSION: 1. Shortness of breath. 2. Recurrent pleural effusion. 3. Severe mitral regurgitation. 4. Status post aortic valve replacement. 5. Status post pacer. RECOMMENDATIONS: 1. Ms. Ballard is currently doing much better. Continue Eliquis. The patient to go home on p.o. Lasix. We would recommend changing IV to p.o. 2. Continue digoxin, carvedilol, aspirin, and Eliquis. 3. Physical therapy will be performed by her at home. We did discuss rehab or skilled. They are not interested. 4. From my standpoint, it is okay to discharge home with close outpatient followup. Job ID: [id number]
--- NOTE | 2018-10-24 20:20 | PDOC.PN ---
- Subjective Encounter Start Date: 10/24/18 Encounter Start Time: 09:30 Patient seen and examined for CHF. SOB improving. No CP. No new complaints. No overnight events - Objective Resuscitation Status - Order Detail: 10/21/18 18:59 Resuscitation Status Routine Resuscitation Status: FULL: Full Resuscitation MAR Reviewed: Yes Vital Signs & Weight: Vital Signs (12 hours) Temp Pulse Pulse Pulse Resp BP BP 10/24/18 16:00 97.2 F L 75 16 10/24/18 12:00 97.7 F 85 16 10/24/18 11:42 84 75 128/66 10/24/18 08:32 111/54 L 10/24/18 08:30 75 BP BP BP Pulse Ox Pulse Ox Pulse Ox 10/24/18 16:00 120/53 L 95 10/24/18 12:00 128/66 99 10/24/18 11:42 113/58 L 99 93 L 10/24/18 08:32 10/24/18 08:30 Weight Weight 144 lb 1.6 oz I&O: 10/23/18 10/24/18 10/25/18 06:59 06:59 06:59 Intake Total 960 1740 Output Total 1450 1200 Balance -490 540 Result Diagrams: 10/24/18 04:24 10/25/18 04:25 Additional Labs: Accuchecks 10/24/18 10/24/18 10/24/18 16:44 10:58 09:11 POC Glucose 250 H 239 H 143 H 10/23/18 20:27 POC Glucose 161 H Laboratory Tests 10/23/18 10/24/18 04:33 04:24 Potassium 3.3 L Magnesium 1.3 L 1.5 L EKG Reviewed by me: Yes (Tele - chronic Afib) Phys Exam - Physical Examination Constitutional: NAD Respiratory: no wheezing, no rhonchi dec AE at Left base Cardiovascular: RRR, no rub Gastrointestinal: soft, non-tender, positive bowel sounds Musculoskeletal: edema present (1+) Neurological: moves all 4 limbs Dx/Plan - Plan 1. Igrqw-fa-bcdhqyf diastolic heart failure exacerbation ACC stage C. improving 2. Severe mitral regurgitation. 3. Coronary artery disease status post coronary artery bypass grafting. 4. Diabetes mellitus type 2 with hypoglycemia today 5. Hypokalemia/Hypomagnesemia. 6. Left sided pleural effusion due to CHF/Mitral regurg 7. Hyperlipidemia. 8. Hypertension. 9. Bioprosthetic aortic valve replacement. 10. Atrial fibrillation, on anticoagulation. 11. Gout. 12. Anxiety. 13. Chronic respiratory failure, on home oxygen as needed. 14. Peripheral neuropathy. 15. Gastroesophageal reflux disease. 16. Lymphoma. PLAN: Change IV Lasix to PO Torsemide Counselled on CHF Replace Potassium and Magnessium Hold Lantus cont sliding scale. AM labs Continue other medications DC in AM if ok with Cardiology Review of Systems - Review of Systems Respiratory: SOB with Excertion. negative: Cough, Dry, Shortness of Breath, Hemoptysis, Pleuritic Pain, Sputum, Wheezing Cardiovascular: negative: chest pain, palpitations, orthopnea, paroxysmal nocturnal dyspnea, edema, light headedness, other - Medications/Allergies Allergies/Adverse Reactions: Allergies Allergy/AdvReac Type Severity Reaction Status Date / Time Penicillins Allergy Rash Verified 10/21/18 21:52 Sulfa (Sulfonamide Allergy Rash Verified 10/21/18 21:52 Antibiotics) Medications: Current Medications Acetaminophen (Tylenol) 650 mg PO Q4H PRN PRN Reason: Headache/Fever/Mild Pain (1-3) Allopurinol (Zyloprim) 300 mg PO DAILY [facility] Last Admin: 10/24/18 08:30 Dose: 300 mg Apixaban (Eliquis) 5 mg PO BID [facility] Last Admin: 10/24/18 08:32 Dose: 5 mg Aspirin (Aspirin Chewable) 81 mg PO DAILY [facility] Last Admin: 10/24/18 08:31 Dose: 81 mg Atorvastatin Calcium (Lipitor) 10 mg PO HS [facility] Last Admin: 10/23/18 19:50 Dose: 10 mg Bisacodyl (Dulcolax) 10 mg [place] DAILYPRN PRN PRN Reason: Constipation Carvedilol (Coreg) 6.25 mg PO BID [facility] Last Admin: 10/24/18 08:32 Dose: 6.25 mg Dextrose/Water (Dextrose 50%) 25 gm SLOW IVP PRN PRN PRN Reason: Hypoglycemia Digoxin (Lanoxin) 0.125 mg PO DAILY [facility] Last Admin: 10/24/18 08:30 Dose: 0.125 mg Famotidine (Pepcid) 20 mg PO BID [facility] Last Admin: 10/24/18 08:31 Dose: 20 mg Folic Acid (Folvite) 1 mg PO DAILY [facility] Last Admin: 10/24/18 08:31 Dose: 1 mg Furosemide (Lasix) 40 mg SLOW IVP DAILY [facility] Last Admin: 10/24/18 08:30 Dose: 40 mg Gabapentin (Neurontin) 300 mg PO BID [facility] Last Admin: 10/24/18 08:22 Dose: 300 mg Glucagon (Glucagon) 1 mg IM PRN PRN PRN Reason: Hypoglycemia Guaifenesin/Dextromethorphan (Robitussin Dm) 15 ml PO Q4H PRN PRN Reason: Cough Dextrose/Water (D5w) 1,000 mls @ 0 mls/hr IV .Q0M PRN PRN Reason: Hypoglycemia Insulin Human Lispro (Humalog) 0 units SC .MILD SLIDING SCALE PRN PRN Reason: Mild Correctional Scale Last Admin: 10/24/18 16:50 Dose: 3 units Insulin Human Lispro (Humalog) 0 units SC .BEDTIME SLIDING SC PRN PRN Reason: Bedtime Correctional Scale Magnesium Chloride (Slow-Mag) 64 mg PO BID [facility] Melatonin (Melatonin) 6 mg PO [facility] Last Admin: 10/23/18 19:51 Dose: 6 mg Metformin HCl (Glucophage) 1,000 mg PO [facility] Last Admin: 10/24/18 08:48 Dose: Not Given Pantoprazole Sodium (Protonix) 40 mg PO DAILY [facility] Last Admin: 10/24/18 08:31 Dose: 40 mg Potassium Chloride (K-Dur) 20 meq PO QID-[facility] Last Admin: 10/24/18 16:46 Dose: 20 meq Senna/Docusate Sodium (Senokot S) 2 tab PO BID PRN PRN Reason: Constipation Last Admin: 10/22/18 08:54 Dose: 2 tab Sodium Chloride (Flush - Normal Saline) 10 ml IVF Q12HR [facility] Last Admin: 10/24/18 08:51 Dose: 10 ml Sodium Chloride (Flush - Normal Saline) 10 ml IVF PRN PRN PRN Reason: Saline Flush Spironolactone (Aldactone) 25 mg PO QAM-WM [facility] Last Admin: 10/24/18 08:31 Dose: 25 mg
[2018-10-24] MEDS: Magnesium Chloride 64 MG TAB PO SCH (21:07)
[2018-10-24] MEDS: Atorvastatin Calcium 10 MG TAB PO SCH (21:08)
[2018-10-24] MEDS: Melatonin 3 MG TAB PO SCH (21:10)
[2018-10-25 05:11] LABS: Anion Gap 10 mmol/L (10-20); BUN (Urea Nitrogen) 13 mg/dL (9.8-20.1); Calc. Creatinine Clearance 62 mL/min (70-130); Carbon Dioxide 33 mmol/L (23-31); Chloride 98 mmol/L (98-107); Estimated GFR-MDRD 68; Glucose 161 mg/dL (83-110); Magnesium 1.7 mg/dL (1.6-2.6); Sodium 137 mmol/L (136-145)
[2018-10-25] MEDS ORDERED: Torsemide 20 MG TAB PO SCH (09:00)
[2018-10-25] MEDS: Famotidine 20 MG TAB PO SCH (09:20)
[2018-10-25] MEDS: Digoxin 0.125 MG TAB PO SCH (09:20)
[2018-10-25] MEDS: metFORMIN 500 MG TAB PO SCH (09:21)
[2018-10-25] MEDS: Allopurinol 300 MG TAB PO SCH (09:21)
[2018-10-25] MEDS: Apixaban 5 MG TAB PO SCH (09:21)
[2018-10-25] MEDS: Aspirin Chewable 81 MG TAB PO SCH (09:21)
[2018-10-25] MEDS: Folic Acid 1 MG TAB PO SCH (09:21)
[2018-10-25] MEDS: Potassium Chloride 20 MEQ TAB PO SCH ×3 (09:22→16:25)
[2018-10-25] MEDS: Carvedilol 6.25 MG TAB PO SCH (09:22)
[2018-10-25] MEDS: Spironolactone 25 MG TAB PO SCH (09:22)
[2018-10-25] MEDS: Gabapentin 300 MG CAP PO SCH (09:22)
[2018-10-25] MEDS: Magnesium Chloride 64 MG TAB PO SCH (09:30)
[2018-10-25] MEDS: HumaLOG 300 UNITS/3 ML VIAL SC PRN (12:43)
--- NOTE | 2018-10-25 13:25 | EKG ---
Test Reason : Blood Pressure : / mmHG Vent. Rate : 089 BPM Atrial Rate : 076 BPM P-R Int : 000 ms QRS Dur : 090 ms QT Int : 384 ms P-R-T Axes : 000 -02 143 degrees QTc Int : 467 ms Atrial fibrillation rate controlled Cannot rule out Anterior infarct , age undetermined Abnormal ECG Confirmed by LATIA MERRITT, MARTELL ([id number]), online content editor ALEXX ELENA ([id number]) on 10/25/2018 1:25:07 PM Referred By: Confirmed By:MARTELL JEFFERY MD
[2018-10-25 16:38] VITALS: BP 134/59; TEMP 96.5
--- NOTE | 2018-10-25 17:59 | DIS ---
DATE OF ADMISSION: 10/21/2018 DATE OF DISCHARGE: 10/25/2018 DISCHARGE DISPOSITION: Home. FOLLOWUP: Follow up with primary care physician, Dr. Kapil Adrian in 1 week. Please note that the Hospitalist Team was covering for Dr. Kapil Adrian this week. The patient was seen and examined on the day of discharge. Denies any new complaints. The patient denies any chest pain, palpitations. Shortness of breath has significantly improved. Home health care by [facility] has been arranged. ALLERGIES: THE PATIENT IS ALLERGIC TO PENICILLIN AND SULFA. BRIEF HOSPITAL COURSE: The patient is a 78-year-old female with congestive heart failure, hypertension, and diabetes mellitus type 2, who presented to the hospital with shortness of breath. A workup was consistent with congestive heart failure exacerbation. She was started on IV diuretics with good response. Her weight on the day of discharge is 149 pounds from 156 pounds. She was extensively counseled on congestive heart failure. She was also seen by Pulmonary, Dr. Moore, as well as Cardiology, Dr. Mcmullen. She appears stable for discharge. Home health care with [facility] has been arranged. She would also follow up with [facility]. Repeat basic metabolic with magnesium after 1 week is recommended. Primary care physician advised to follow. DISCHARGE MEDICATION: Same as admission medications. Slow magnesium 64 mg b.i.d. was added. Also note that Eliquis dose was increased to [address] Casarez on day one. However, the patient prefers to go back to 2.5 mg twice a day due to history of epistaxis. Aldactone was added by Dr. Samuel Casarez. However, the patient does not want to take Aldactone at home. 1. Eliquis 2.5 mg b.i.d. 2. Lipitor 10 mg daily. 3. Ocuvite one capsule daily. 4. Calcium with vitamin D daily. 5. Carvedilol 6.25 b.i.d. 6. Digoxin 125 mcg daily. 7. Folic acid 0.8 mg daily. 8. Gabapentin 300 mg at bedtime. 9. Insulin degludec sliding scale. 10. Lactobacillus one tablet daily. 11. Omeprazole 20 mg b.i.d. 12. Potassium chloride 10 mEq daily. 13. Torsemide 40 mg daily. 14. Slow-Mag 64 mg b.i.d. DIAGNOSTIC TESTS: Chest x-ray on admission showed left-sided pleural effusion. Bilateral lower extremity Doppler was negative for DVT. SIGNIFICANT LABORATORY DATA: Hemoglobin at discharge 10.0 with hematocrit 32.1. Creatinine at discharge is 0.82. Lowest magnesium was 1.3, replaced. Lowest potassium was 3.0, replaced. BNP was 556. Total bilirubin was 1.3 on admission and 1.0 at discharge. FINAL DIAGNOSES: 1. Acute on chronic diastolic heart failure exacerbation. 2. Severe mitral regurgitation. 3. Left-sided pleural effusion secondary to 1 and 2. 4. Coronary artery disease status post coronary artery bypass grafting. 5. Diabetes mellitus, type 2. 6. Hyperlipidemia. 7. Hypertension. 8. History of bioprosthetic aortic valve replacement. 9. Atrial fibrillation, on chronic anticoagulation with Eliquis. 10. Gout. 11. Anxiety. 12. Chronic respiratory failure, on home oxygen as needed. 13. Peripheral neuropathy. 14. Gastroesophageal reflux disease. 15. History of lymphoma. 16. Chronic anemia. 17. Hyponatremia. 18. Abnormal LFTs secondary to passive hepatic congestion. 19. Moderate protein-calorie malnutrition. PLAN: Plan was discussed with the patient and the family at the bedside, they stated understanding. Job ID: [id number]
[2018-10-25] MEDS ORDERED: Insulin Glargine 10 UNITS in Pre-Filled Syringe 1 EACH SC SCH (21:00)
== END 2018-10-25 16:45 | disposition home health service (06) | DRG 292 ==
LOC: ERS 15:24 → 2NO 19:24 → OBSVTOIN 19:24
PROVIDERS: ADMIT Internal Medicine; ATTEND Internal Medicine
DX: I11.0 Hypertensive heart disease with heart failure (principal); J96.10 Chronic respiratory failure, unspecified whether with hypoxia or hypercapnia; C85.90 Non-Hodgkin lymphoma, unspecified, unspecified site; E87.1 Hypo-osmolality and hyponatremia; E44.0 Moderate protein-calorie malnutrition; I50.33 Acute on chronic diastolic (congestive) heart failure; I34.0 Nonrheumatic mitral (valve) insufficiency; M10.9 Gout, unspecified; K21.9 Gastro-esophageal reflux disease without esophagitis; D64.9 Anemia, unspecified; I48.91 Unspecified atrial fibrillation; F41.9 Anxiety disorder, unspecified; E87.6 Hypokalemia; E11.42 Type 2 diabetes mellitus with diabetic polyneuropathy; E83.42 Hypomagnesemia; E78.5 Hyperlipidemia, unspecified; Z95.1 Presence of aortocoronary bypass graft; Z79.01 Long term (current) use of anticoagulants; Z79.4 Long term (current) use of insulin; Z95.2 Presence of prosthetic heart valve; Z88.0 Allergy status to penicillin; Z88.2 Allergy status to sulfonamides; Z95.0 Presence of cardiac pacemaker; Z90.710 Acquired absence of both cervix and uterus
CPT/HCPCS: 36415; 36416; 71045; 80048; 80053; 80162; 81003; 83735; 83880; 84443; 84484; 85025; 87086; 93005; 93798; 93970; 96374; J1815; J1940; J3475; J7050

== ENCOUNTER 2019-04-02 09:33 | Outpatient (CLI) | payer MEDICARE ==
--- NOTE | 2019-04-02 11:26 | PET ---
PET CT SKULL MID THIGH: COMPARISON: Head CT 09/18/2018. HISTORY: B-cell lymphoma. TECHNIQUE: A PET/CT was performed from the skull to the mid thigh after administration of millicuries of F-18 FD G. Evaluation was performed on a [employer] workstation. FINDINGS: NECK: No areas of hypermetabolic activity. CHEST: Multifocal abnormal pleural-based densities are redemonstrated, with complex pleural fluid remaining, decreased in volume There is borderline metabolic activity of a right hilar lymph node, 2.4 maximum SUV, nonspecific. ABDOMEN/PELVIS: Subcentimeter, approximate 7 mm right periaortic lymph node of the mid abdomen is borderline in metab olic activity, 2.4, nonspecific. SKELETON: No areas of hypermetabolic activity. IMPRESSION: 1. Borderline metabolic activity within a subcentimeter, nonenlarged right periaortic lymph node of the mid abdomen, which is nonspecific. Recommend continued imaging surveillance. 2. Borderline metabolic activity also demonstrated within a right hilar lymph node, which could eithe r relate to reactive adenopathy, given concomitant thoracic disease, or alternatively neoplasm, and therefore continued imaging follow-up is recommended. Transcribed Date/Time: 04/02/2019 11:36 AM
== END 2019-04-02 09:34 | disposition home or self-care (01) ==
LOC: PET 09:33
PROVIDERS: ATTEND Internal Medicine Hematology & Oncology
DX: C85.90 Non-Hodgkin lymphoma, unspecified, unspecified site (principal); R59.0 Localized enlarged lymph nodes
CPT/HCPCS: 78815; A9552

== ENCOUNTER 2019-04-22 10:07 | Emergency (ER) | payer MEDICARE ==
[2019-04-22 10:51] LABS: #Eosinphils 0.1 thou/uL (0.0-0.7); #Lymphocytes 0.8 thou/uL (1.20-3.40); #Monocytes 0.7 thou/uL (0.11-0.59); #Neutrophils 6.4 thou/uL (1.40-6.50); %Basophils 0.4 % (0.0-1.0); %Eosinophils 1.9 % (0.0-10.0); %Lymphocytes 9.4 % (21.0-51.0); %Monocytes 8.2 % (0.0-10.0); %Neutrophils 80.1 % (42.0-75.0); Hemoglobin 12.2 g/dL (12.0-16.0); Mean Corpuscular HGB CONC 32.7 g/dL (32.0-36.0); Mean Corpuscular Hemoglobin 31.4 pg (27.0-31.0); Mean Corpuscular Volume 95.9 fL (78.0-98.0); Mean Platelet Volume 8.7 fL (7.4-10.4); Platelet Count 187 thou/uL (130-400); RBC Distribution Width 13.9 % (11.5-14.5); Red Blood Cell (RBC) Count 3.89 mill/uL (4.20-5.40); White Blood Cell (WBC) Count 7.9 thou/uL (4.8-10.8)
--- NOTE | 2019-04-22 10:55 | CT ---
Head CT without contrast 04/22/2019: COMPARISON: 08/01/2018 HISTORY: Altered mental status and confusion TECHNIQUE: Axial CT imaging at 5 mm intervals from vertex through skull base without contrast FINDINGS: Imaged paranasal sinuses and mastoid air cells well-aerated. No displaced calvarial fractur e. No intracranial hemorrhage, midline shift, mass effect, or ventricular enlargement. Mild diffuse cerebral volume loss. IMPRESSION: Stable head CT-no acute findings.
[2019-04-22 10:59] LABS: ALT (SGPT) 92 U/L (8-55); AST (SGOT) 63 U/L (5-34); Albumin 3.7 g/dL (3.4-4.8); Alkaline Phosphatase 136 U/L (40-110); Anion Gap 8 mmol/L (10-20); BUN (Urea Nitrogen) 15 mg/dL (9.8-20.1); CK (CPK) 24 U/L (29-168); Calc. Creatinine Clearance 0 mL/min (70-130); Carbon Dioxide 36 mmol/L (23-31); Chloride 93 mmol/L (98-107); Estimated GFR-MDRD 49; Globulin 2.1 g/dL (2.4-3.5); Glucose 225 mg/dL (83-110); Lipase 4 U/L (8-78); Potassium 4.2 mmol/L (3.5-5.1); Protein, Total 5.8 g/dL (6.0-8.3); Sodium 133 mmol/L (136-145)
--- NOTE | 2019-04-22 11:07 | RAD ---
Frontal radiograph chest 2 views of abdomen: 04/22/2019 COMPARISON: Frontal chest radiograph 10/21/2018 HISTORY: Chest and abdominal pain FINDINGS: CT injectable right Port-A-Cath noted, stable. Stable midline sternotomy wires and transven ous pacing device. Radiopaque structure is seen overlying the left hilar shadow which may represent a left atrial appendage occlusion device. There is dense lobulated left basilar opacity suggesting st able nonspecific lobulated pleural opacity with probable associated small volume left pleural fluid and adjacent nonspecific pulmonary parenchymal opacity. Nonspecific increased density within the left lung bases unchanged when compared to the 10/21/2018 radiograph and is better assessed on a PET scan performed 04/02/2019. No evidence for free intraperitoneal air. The bowel gas pattern appears nonobstructed. There is ather osclerotic calcification of the abdominal aorta and its branches. There is levorotoscoliosis of the lumbar spine. IMPRESSION: No free intraperitoneal air or evidence of small bowel obstruction. Stable appearance of the chest as described above.
[2019-04-22 11:57] LABS: Bilirubin Negative (Negative); Blood, Urine Negative (Negative); Clarity Clear (Clear); Glucose, Urine (Dipstick) Normal (Negative); Leukocyte 500 Leu/uL (Negative); Nitrite Negative (Negative); Protein, Urine (Dipstick) Negative (Neg-Trace); RBC/HPF 0-3 HPF (0-3); Squamous Epithelial 0-3 HPF (0-3); Urobilinogen Normal mg/dL (Less than 2); WBC/HPF 21-50 HPF (0-3)
[2019-04-22 11:59] LABS: Bacteria/HPF 1+ HPF (None Seen)
[2019-04-22] MEDS ORDERED: Cefepime 2 GM VIAL ONE (13:12)
== END 2019-04-22 13:35 | disposition home or self-care (01) ==
LOC: ERS 10:07
DX: N39.0 Urinary tract infection, site not specified (principal); G47.00 Insomnia, unspecified; R53.1 Weakness; J45.909 Unspecified asthma, uncomplicated; I11.0 Hypertensive heart disease with heart failure; I50.9 Heart failure, unspecified; I48.91 Unspecified atrial fibrillation; E11.9 Type 2 diabetes mellitus without complications; K21.9 Gastro-esophageal reflux disease without esophagitis; Z79.84 Long term (current) use of oral hypoglycemic drugs; Z79.899 Other long term (current) drug therapy; Z79.891 Long term (current) use of opiate analgesic
CPT/HCPCS: 36415; 70450; 74022; 80053; 81003; 81015; 82140; 82550; 83690; 84443; 84484; 85025; 87077; 87086; 87186; 93005; 96365; J0692

== ENCOUNTER 2019-05-08 00:57 | Emergency (ER) | payer MEDICARE ==
[2019-05-08 01:35] LABS: #Basophils 0.1 thou/uL (0.0-0.2); #Eosinphils 0.2 thou/uL (0.0-0.7); #Lymphocytes 1.6 thou/uL (1.20-3.40); #Monocytes 0.7 thou/uL (0.11-0.59); #Neutrophils 5.3 thou/uL (1.40-6.50); %Basophils 1.3 % (0.0-1.0); %Eosinophils 2.7 % (0.0-10.0); %Lymphocytes 19.8 % (21.0-51.0); %Monocytes 9.1 % (0.0-10.0); %Neutrophils 67.1 % (42.0-75.0); Hemoglobin 13.9 g/dL (12.0-16.0); Mean Corpuscular HGB CONC 32.9 g/dL (32.0-36.0); Mean Corpuscular Hemoglobin 31.5 pg (27.0-31.0); Mean Platelet Volume 8.8 fL (7.4-10.4); Platelet Count 234 thou/uL (130-400); RBC Distribution Width 13.3 % (11.5-14.5); Red Blood Cell (RBC) Count 4.42 mill/uL (4.20-5.40); White Blood Cell (WBC) Count 7.9 thou/uL (4.8-10.8)
[2019-05-08 01:54] LABS: ALT (SGPT) 24 U/L (8-55); AST (SGOT) 28 U/L (5-34); Albumin 3.8 g/dL (3.4-4.8); Alkaline Phosphatase 103 U/L (40-110); Anion Gap 13 mmol/L (10-20); BUN (Urea Nitrogen) 25 mg/dL (9.8-20.1); Bilirubin, Total 1.2 mg/dL (0.2-1.2); Calc. Creatinine Clearance 0 mL/min (70-130); Calcium 9.5 mg/dL (7.8-10.44); Carbon Dioxide 30 mmol/L (23-31); Chloride 99 mmol/L (98-107); Estimated GFR-MDRD 70; Globulin 2.4 g/dL (2.4-3.5); Glucose 128 mg/dL (83-110); Potassium 3.6 mmol/L (3.5-5.1); Protein, Total 6.2 g/dL (6.0-8.3); Sodium 138 mmol/L (136-145)
--- NOTE | 2019-05-08 07:29 | CT ---
PRELIMINARY REPORT/[facility]/EMERGENCY AFTER HOURS PROCEDURE: EXAM: CT Abdomen and Pelvis with Intravenous Contrast CLINICAL HISTORY: [id number] presented to the ED via EMS with a c/o SOB onset tonight. Pt reports nausea, abdominal pain and s ome loose stool. Pt reports headache in the past few weeks and urine frequency. Pt denies blood in st ool. Pt denies vomiting. Pt reports her uterus was removed. Pt denies taking anything for the pain. P t reports she is on 2-3 L oxygen at home. Pt denies surgery on the lungs. Pt reports hx of lymphoma, on chemo in 2018. TECHNIQUE: Axial computed tomography images of the abdomen and pelvis with intravenous contrast. CONTRAST: With; 60ML ISOVUE 370 COMPARISON: None provided. FINDINGS: LUNG BASES: Enlarged cardiac chambers. Pacemaker leads within the right atrium and right ventricle. A dvanced mitral valvular calcification. Median sternotomy cerclage wires. Reflux of contrast into the hepatic veins. LIVER: Unremarkable. GALLBLADDER AND BILE DUCTS: Unremarkable. No calcified stone. No ductal dilation. PANCREAS: Unremarkable. SPLEEN: Unremarkable. ADRENAL GLANDS: Unremarkable. KIDNEYS, URETERS, AND BLADDER: 3 mm nephrolith at the lower pole of the left kidney with no evidence of obstruction. Normal appearance of the right kidney. Urinary bladder is within normal limits. STOMACH AND BOWEL: There is colonic diverticulosis. No evidence of acute diverticulitis. No evidence of bowel obstruction. APPENDIX: Normal appendix. PERITONEUM: No free fluid. No free air. LYMPH NODES: No lymphadenopathy. REPRODUCTIVE: Status post hysterectomy. VASCULATURE: Atherosclerotic calcification of the aorta without aneurysm. BONES: Multilevel degenerative changes and tortuosity of the spine. No acute fractures or worrisome o sseous lesions. ABDOMINAL WALL AND SOFT TISSUES: Fat-containing periumbilical hernia without stranding to suggest str angulation. IMPRESSION: 1. Cardiomegaly with pacemaker and reflux of contrast into the hepatic veins which suggest some degr ee of right heart dysfunction. 2. Nephrolithiasis and diverticulosis without acute findings. ELECTRONICALLY SIGNED BY: Javed España M.D. May 08, 2019 2:16:46 AM POSITION CLASSIFIER This report is intended for review by the ordering physician only, in accordance of law. If you recei ve this report in error, please call [facility] at [phone]. FINAL REPORT EMERGENCY AFTER HOURS CT ABDOMEN AND PELVIS: FINDINGS/IMPRESSION: I agree with the findings and impression given in the preliminary report per [facility] physici an. 1. No evidence of acute intra-abdominal/pelvic abnormality. 2. Nonobstructing kidney stones. 3. Diverticulosis. 4. Fat-containing umbilical hernia.
--- NOTE | 2019-05-08 07:31 | CT ---
PRELIMINARY REPORT/[facility]/EMERGENCY AFTER HOURS PROCEDURE: EXAM: CT Head Without Intravenous Contrast. CLINICAL HISTORY: [id number] presented to the ED via EMS with a c/o SOB onset tonight. Pt reports nausea, abdominal pain and s ome loose stool. Pt reports headache in the past few weeks and urine frequency. Pt denies blood in st ool. Pt denies vomiting. Pt reports her uterus was removed. Pt denies taking anything for the pain. P t reports she is on 2-3 L oxygen at home. Pt denies surgery on the lungs. Pt reports hx of lymphoma, on chemo in 2018. TECHNIQUE: Axial computed tomography images of the head/brain without intravenous contrast. Exam DLP is [id number]. COMPARISON: None provided. FINDINGS: BRAIN: No acute intraparenchymal hemorrhage. No mass lesion. No CT evidence for acute territorial inf arct. No midline shift or extra-axial collection. Old punctate lacunar infarct versus dilated periva scular space within the left basal ganglia. VENTRICLES: No hydrocephalus. Symmetric dilation of the ventricles and sulci compatible with age-rel ated atrophy. ORBITS: The orbits are unremarkable. SINUSES AND MASTOIDS: The paranasal sinuses and mastoid air cells are clear. SOFT TISSUES: No significant facial or scalp soft tissue swelling evident. No radiopaque foreign body is seen. BONES: No acute skull fracture. IMPRESSION: No acute intracranial abnormality. ELECTRONICALLY SIGNED BY: Javed España M.D. May 08, 2019 2:10:00 AM INDEPENDENT CONSULTANT This report is intended for review by the ordering physician only, in accordance of law. If you recei ve this report in error, please call [facility] at [phone]. FINAL REPORT EMERGENCY AFTER HOURS CT BRAIN: COMPARISON: 04/22/2019. FINDINGS/IMPRESSION: I agree with the findings and impression given in the preliminary report per [facility] physici an. No evidence of acute intracranial abnormality.
--- NOTE | 2019-05-08 07:47 | RAD ---
Exam: Portable chest one view: HISTORY: Shortness of breath COMPARISON: 2019 FINDINGS: Postop midline sternotomy and valvular replacement. Left ICD. Right central line and injection port. Evidence for bilateral vascular congestion more prominent on the left side with prominent pleural and parenchymal opacity changes in the left base, overall stable. IMPRESSION: Overall stable pleural and parenchymal opacity changes in the left base. Evidence for vascular conges tion somewhat more prominent on the left side.
[2019-05-08] MEDS ORDERED: Iopamidol-370 76% 500 ML 1 ML ONE (14:18)
== END 2019-05-08 02:30 | disposition home or self-care (01) ==
LOC: ERS 00:57
DX: R19.7 Diarrhea, unspecified (principal); R10.9 Unspecified abdominal pain; R11.0 Nausea; R06.02 Shortness of breath; E11.9 Type 2 diabetes mellitus without complications; K21.9 Gastro-esophageal reflux disease without esophagitis; I11.0 Hypertensive heart disease with heart failure; I50.9 Heart failure, unspecified; J44.9 Chronic obstructive pulmonary disease, unspecified; Z79.84 Long term (current) use of oral hypoglycemic drugs; Z79.899 Other long term (current) drug therapy; Z79.02 Long term (current) use of antithrombotics/antiplatelets
CPT/HCPCS: 36415; 70450; 71045; 74177; 80053; 85025; Q9967